=== PATIENT | male | born 1970 | race Caucasian/White ===

== ENCOUNTER 2020-04-30 11:34 | Inpatient (IN) | payer OTHER ==
--- NOTE | 2020-04-30 12:59 | PDOC ---
History of Present Illness - General Chief Complaint: Blood Pressure Problem Stated Complaint: Blood Pressure Problem Time Seen by Provider: 04/30/20 12:06 Exam Limitations: Clinical Condition - History of Present Illness Initial Comments: 04/30/20 13:16 50M with PMH of dysphagia s/p trach, functional quadriplegia 2/2 stroke, afib, HTN, seizures, stage IV sacral ulcer, perma cath on R chest wall for dialysis who presents to ED via EMS from [facility] for low blood pressure. He's baseline nonverbal, unable to obtain further history. PMH: as in HPI SH: see below Allergies: NKDA PCP: Dr. Claire Clayton ROS: unable to obtain due to nonverbal status PE GENERAL: awake and alert, pt nods but unable to assess orientation; no apparent distress HEAD: No signs of trauma, NC/AT EYES: PERRLA, EOMI, sclera anicteric, conjunctiva clear ENT: Auricles normal inspection, nares patent, moist mucosa, oropharynx clear without exudates. NECK: Normal ROM, trach HEART: Tachy, regular rhythm, normal S1/S2, no murmurs, rubs, or gallops. Radial and DP pulses 2+ and equal bilaterally. LUNGS: No distress, speaks full sentences, CTA bilaterally ABDOMEN: Soft, nontender. No guarding, no rebound. No masses EXTREMITIES: Normal inspection, Normal range of motion, no edema. NEUROLOGICAL: No obvious neurological deficit SKIN: Warm, Dry, normal turgor. Assessment and Plan 1. sepsis workup Joe Skinner, PGY1 Emergency Medicine Past History - Medical History Allergies/Adverse Reactions: Allergies Allergy/AdvReac Type Severity Reaction Status Date / Time No Known Allergies Allergy Verified 04/30/20 11:44 Home Medications: Ambulatory Orders Acetaminophen 650 mg GT Q6H PRN 04/30/20 Albuterol 2.5/Ipratropium 0.5 [Duoneb -] 1 amp NEB Q6H 04/30/20 Apixaban [Eliquis] 2.5 mg GT BID 04/30/20 Ascorbate Calcium [Vitamin C] 500 mg GT BID 04/30/20 Atorvastatin Ca [Lipitor] 40 mg GT HS 04/30/20 Budesonide [Pulmicort 0.5 mg Nebulizer -] 1 neb NEB BID 04/30/20 Chlorhexidine Gluconate [Peridex -] 15 ml MM BID 04/30/20 Collagenase Clostridium Hist. [Santyl] 1 applic TP DAILY 04/30/20 Gabapentin [Neurontin -] 300 mg GT TID 04/30/20 Loperamide HCl [Loperamide] 2 mg GT BID PRN 04/30/20 Meropenem-0.9% Sodium Chloride [Meropenem-0.9% NaCl 500 mg/50] 500 mg IV Q12H 04/30/20 Metoprolol Tartrate [Lopressor -] 25 mg GT BID 04/30/20 Midodrine HCl 10 mg GT TID 04/30/20 Nystatin Ointment [Mycostatin Ointment -] 1 applic TP BID 04/30/20 Omeprazole 20 mg GT DAILY 04/30/20 Quetiapine Fumarate [Seroquel -] 50 mg GT BID 04/30/20 Vancomycin (Pre-Docked) 500 mg IVPB TUTHSA 04/30/20 levETIRAcetam [Levetiracetam] 500 mg GT Q48H 04/30/20 Cardiac Disorders: Yes (AFIB) CVA: Yes (DYPHAGIA) COPD: No Dialysis: Yes (PERMA CATH RT CW FOR DIALYSIS) HTN: Yes Hypercholesterolemia: Yes Psychiatric Problems: Yes (SCHIOPHRENIA) Seizures: Yes Other medical history: STAGE 4 PRESSURE ULCER SACRUM, TRACH - Psycho-Social/Smoking History Smoking History: Smoker current status UNK Have you smoked in the past 12 months: No Information on smoking cessation initiated: No - Substance Abuse Hx (Audit-C & DAST Scrn) How often the patient has a drink containing alcohol: Never Score: In Men: 4 or > Positive; In Women: 3 or > Positive: 0 Screen Result (Pos requires Nsg. Audit-10AR): Negative In the last yr the pt used illegal drug/Rx for NonMed reason: No Score: Yes response is considered Positive: 0 Screen Result (Positive result requires Nsg. DAST-10): Negative *Physical Exam - Vital Signs Last Vital Signs Temp Pulse Resp BP Pulse Ox 97.4 F L 117 H 18 95/68 92 L 04/30/20 11:44 04/30/20 11:44 04/30/20 11:44 04/30/20 11:44 04/30/20 11:44 ED Treatment Course - LABORATORY CBC & Chemistry Diagram: 04/30/20 15:00 04/30/20 15:00 Medical Decision Making - Medical Decision Making 04/30/20 13:22 50M with PMH of ESRD (on dialysis), s/p trach, stage IV sacral ulcer presents from [facility] for hypotension. He's currently receiving IV Abx -> pt is tachycardic and borderline hypotensive (MAP 76) -> meets SIRS criteria -> will do sepsis workup, will give 500mL fluids 04/30/20 13:25 EKG normal sinus rhythm. 04/30/20 15:56 UA + for bacteria, leukocyte esterase, and WBC -> Dr. Paniagua (infectious disease) was contacted, and he recommended starting the pt on 600mg clindamycin, and continuing merepenem. 04/30/20 17:31 Labs notable for leukocytosis (19.9) , lactate 2.6 -> meets severe sepsis criteria -> pt will be admitted Electrolytes wnl, creatinine and BUN elevated (likely at baseline) - no need for nephro consult at this time 04/30/20 19:28 Pt admitted to tele. Discharge - Discharge Information Problems reviewed: Yes Clinical Impression/Diagnosis: Hypotension Qualifiers: Hypotension type: other hypotension type Qualified Code(s): I95.89 - Other hypotension Condition: Stable - Admission Yes - Follow up/Referral - Patient Discharge Instructions - Post Discharge Activity
[2020-04-30] MEDS ORDERED: SODIUM CHLORIDE 500 ML IV STA (13:43)
--- NOTE | 2020-04-30 14:51 | PDOC ---
Documentation entered by Shine Durham SCRIBE, acting as scribe for Jose Luis Wilkinson MD. Jose Luis Wilkinson MD: This documentation has been prepared by the Herminio gr Xhesika, SCRIBE, under my direction and personally reviewed by me in its entirety. I confirm that the documentation accurately reflects all work, treatment, procedures, and medical decision making performed by me. Attending Attestation - Resident Resident Name: SkinnerBakariJoe - ED Attending Attestation I have performed the following: I have examined & evaluated the patient, The case was reviewed & discussed with the resident, I agree w/resident's findings & plan, Exceptions are as noted - HPI HPI: 04/30/20 12:59 The patient is a 50y/o M with a pmh of afib, dysphagia, HTN, HLD, Seizures, stage IV sacral ulcer, perma cath on R chest wall for dialysis who presents to the ED BIBA from [facility] for low blood pressure. Pt is nonverbal at baseline and unable to contribute to further history. Allergies: NKDA PCP: Claire Neil - Physicial Exam PE: 04/30/20 14:46 awake, alert, responds to questions by head movts eomim mm-dry cta rrr, tachycardic sft, nt, nd, g tube in luq stage 4 sacral decub; b/ll heel ulcers - Medical Decision Making 04/30/20 14:50 50-year-old male with multiple comorbidities, history of stage IV sacral decub on Vanco, meropenem IV for suspected sepsis referred from [facility] for persistent hypotension. Patient received only 1 hour of hemodialysis 1 day prior and was not able to be dialyzed on the day of arrival. In the ER, patient's blood pressure was noted to be labile, ranging between 90-105 systolic. Patient is noted to be mildly tachycardic with sinus tachycardia on his EKG. Patient is afebrile. Differential diagnosis includes dehydration versus sepsis. Will obtain CBC/CMP/lactic acid. Will repeat blood cultures. Will consult renal. Likely admission. Discharge - Discharge Information Problems reviewed: Yes Clinical Impression/Diagnosis: Hypotension Qualifiers: Hypotension type: other hypotension type Qualified Code(s): I95.89 - Other hypotension - Follow up/Referral Referrals: Claire Clayton MD [Primary Care Provider] - - Patient Discharge Instructions - Post Discharge Activity
[2020-04-30 15:41] LABS: EPI CELLS 1 /uL (0-25.1); HYALINE CASTS 1 /uL (0-3.1); URINE APPEARANCE CLOUDY; URINE BACTERIA 65 /uL (0-1359); URINE BILIRUBIN 1+ (NEGATIVE); URINE COLOR DK YELLOW; URINE GLUCOSE (UA) NEGATIVE (NEGATIVE); URINE KETONE TRACE (NEGATIVE); URINE LEUK ESTERASE 3+ (NEGATIVE); URINE NITRITE NEGATIVE (NEGATIVE); URINE PROTEIN 2+ (NEGATIVE); URINE RBC 19 /uL (0-23.9); URINE WBC 2065 /uL (0-25.8)
[2020-04-30] MEDS ORDERED: CLINDAMYCIN 600MG PREMIX IVPB 600 MG/50 ML BAG IVPB ONE ×2 (15:54→16:05)
[2020-04-30 16:35] LABS: BASO % 0.3 % (0-2.0); HEMATOCRIT 28.7 % (35.4-49); HEMOGLOBIN 9.3 GM/dL (11.7-16.9); LYMPH % 12.8 % (8-40); MCH 30.2 pg (25.7-33.7); MCHC 32.4 g/dl (32.0-35.9); MEAN CELL VOLUME 93.1 fl (80-96); MEAN PLT VOLUME 8.7 fl (7.5-11.1); MONO % 8.1 % (3.8-10.2); NEUT % 77.8 % (42.8-82.8); PLATELET COUNT 391 K/MM3 (134-434); RBC 3.08 M/mm3 (4.00-5.60); RDW 15.5 % (11.9-15.9); WHITE BLOOD COUNT 19.9 K/mm3 (4.0-10.0)
[2020-04-30 17:08] LABS: ALBUMIN 2.7 g/dl (3.4-5.0); ALK PHOS 152 U/L (45-117); ANION GAP 16 MMOL/L (8-16); BILIRUBIN,TOTAL 0.4 mg/dL (0.2-1); BLOOD UREA NITROGEN 88.2 mg/dL (7-18); CALCIUM 9.8 mg/dL (8.5-10.1); CHLORIDE 97 mmol/L (98-107); CO2 25 mmol/L (21-32); CREATININE 4.1 mg/dL (0.55-1.3); GLUCOSE,RANDOM 98 mg/dL (74-106); POTASSIUM 4.2 mmol/L (3.5-5.1); SGOT/AST 44 U/L (15-37); SGPT/ALT 61 U/L (13-61); SODIUM 137 mmol/L (136-145); TOT PROT 8.3 g/dl (6.4-8.2)
[2020-04-30 17:48] LABS: ANISOCYTOSIS 1+; MACROCYTOSIS 0; PLATELET ESTIMATE NORMAL
[2020-04-30] MEDS ORDERED: ACETAMINOPHEN 650 MG/20.3 ML ORAL SOLUTION (CUPS) GT PRN (22:43)
[2020-04-30] MEDS ORDERED: QUEtiapine FUMARATE 50 MG TABLET GT ONE (22:44)
[2020-04-30] MEDS ORDERED: APIXABAN 2.5 MG TABLET GT SCH ×2 (22:45→23:45)
[2020-04-30] MEDS ORDERED: ALBUTEROL SO4 2.5/IPRATROPIUM 0.5 INH SOL 3 ML VIAL.NEB. NEB PRN (22:48)
[2020-04-30] MEDS ORDERED: SODIUM CHLORIDE 0.9% 500 ML INFUS.BAG IV ONE (22:50)
[2020-04-30] MEDS: METOPROLOL TARTRATE 25 MG TABLET (FP) GT SCH (22:55)
[2020-04-30] MEDS ORDERED: ALBUTEROL SO4 HFA INHALER IH PRN (22:58)
[2020-05-01] MEDS ORDERED: QUEtiapine FUMARATE 25 MG TABLET ONE (00:43)
[2020-05-01] MEDS ORDERED: APIXABAN 2.5 MG TABLET ONE (00:43)
[2020-05-01] MEDS ORDERED: METOPROLOL TARTRATE 25 MG TABLET (FP) ONE (00:43)
[2020-05-01] MEDS ORDERED: MEROPENEM 1 GM in DEXTROSE 5%-WATER 100 ML IVPB SCH (02:00)
[2020-05-01] MEDS ORDERED: DEXTROSE 5%-WATER 100 ML IVPB ONE ×2 (02:41→09:58)
[2020-05-01] MEDS ORDERED: MEROPENEM 1 GM VIAL (RESTRICTED TO ID) IVPB ONE ×2 (02:41→09:58)
[2020-05-01] MEDS: MEROPENEM 1 GM in DEXTROSE 5%-WATER 100 ML IVPB SCH ×3 (02:55→15:49)
[2020-05-01] MEDS: levETIRAcetam 500 MG/5 ML ORAL SOLUTION (UNIT-DOSE CUPS) GT SCH (03:48)
[2020-05-01] MEDS: GABAPENTIN 250 MG/5 ML ORAL SOLUTION, 470 ML BOTTLE GT SCH ×4 (03:48→21:22)
[2020-05-01] MEDS: NYSTATIN 100000 UNIT/GM TOPICAL OINTMENT 15 GM TUBE TP SCH ×3 (03:59→21:23)
[2020-05-01 07:46] LABS: BASO % 0.4 % (0-2.0); EOS % 1.9 % (0-4.5); HEMATOCRIT 28.4 % (35.4-49); HEMOGLOBIN 9.3 GM/dL (11.7-16.9); LYMPH % 15.1 % (8-40); MCH 30.3 pg (25.7-33.7); MCHC 32.9 g/dl (32.0-35.9); MEAN CELL VOLUME 92.2 fl (80-96); MEAN PLT VOLUME 8.3 fl (7.5-11.1); MONO % 7.8 % (3.8-10.2); NEUT % 74.8 % (42.8-82.8); PLATELET COUNT 386 K/MM3 (134-434); RBC 3.08 M/mm3 (4.00-5.60); RDW 15.3 % (11.9-15.9); WHITE BLOOD COUNT 16.4 K/mm3 (4.0-10.0)
[2020-05-01 08:17] LABS: ALBUMIN 2.5 g/dl (3.4-5.0); BILIRUBIN,TOTAL 0.4 mg/dL (0.2-1); BLOOD UREA NITROGEN 101.6 mg/dL (7-18); CALCIUM 9.8 mg/dL (8.5-10.1); CREATININE 4.6 mg/dL (0.55-1.3); POTASSIUM 4.2 mmol/L (3.5-5.1); TOT PROT 7.7 g/dl (6.4-8.2)
--- NOTE | 2020-05-01 08:22 | HP ---
CHIEF COMPLAINT: low BP PCP: Dr Purcell ([facility]) HISTORY OF PRESENT ILLNESS: 50 M h/o dysphagia s/p trach, functional quadriplegia 2/2 stroke, Afib on AC, HTN, seizures, morbid obesity, stage IV sacral ulcer, perma cath on R chest wall for dialysis who presents to ED via EMS from [facility] for low blood pressure. Pt. found to have infected chronic stage 4 decubitus ulcer, received Meropenem/Clindamycin in ED. ID following patient. ER course was notable for: (1) Meropenem/Clindamycin received in ED (2) BP improved w/ IVF (3) Recent Travel: denies PAST MEDICAL HISTORY: as above PAST SURGICAL HISTORY: R perm-A-cath acccess Social History: denies x3 Allergies No Known Allergies Allergy (Verified 04/30/20 11:44) HOME MEDICATIONS: Home Medications Medication Instructions Recorded Albuterol 2.5/Ipratropium 0.5 1 amp NEB Q6H 04/30/20 [Duoneb -] Apixaban [Eliquis] 2.5 mg GT BID 04/30/20 Ascorbate Calcium [Vitamin C] 500 mg GT BID 04/30/20 Atorvastatin Ca [Lipitor] 40 mg GT HS 04/30/20 Budesonide [Pulmicort 0.5 mg 1 neb NEB BID 04/30/20 Nebulizer -] Chlorhexidine Gluconate [Peridex -] 15 ml MM BID 04/30/20 Collagenase Clostridium Hist. 1 applic TP DAILY 04/30/20 [Santyl] Gabapentin [Neurontin -] 300 mg GT TID 04/30/20 Loperamide HCl [Loperamide] 2 mg GT BID PRN 04/30/20 Meropenem-0.9% Sodium Chloride 500 mg IV Q12H 04/30/20 [Meropenem-0.9% NaCl 500 mg/50] Metoprolol Tartrate [Lopressor -] 25 mg GT BID 04/30/20 Nystatin Ointment [Mycostatin 1 applic TP BID 04/30/20 Ointment -] Quetiapine Fumarate [Seroquel -] 50 mg GT BID 04/30/20 RX: Acetaminophen 650 mg GT Q6H PRN 04/30/20 RX: Midodrine HCl 10 mg GT TID 04/30/20 RX: Omeprazole 20 mg GT DAILY 04/30/20 RX: Vancomycin (Pre-Docked) 500 mg IVPB TUTHSA 04/30/20 levETIRAcetam [Levetiracetam] 500 mg GT Q48H 04/30/20 PHYSICAL EXAMINATION Vital Signs - 24 hr 04/30/20 04/30/20 04/30/20 11:44 12:10 16:30 Temperature 97.4 F L Pulse Rate 117 H 112 H 117 H Respiratory 18 Rate Blood Pressure 95/68 O2 Sat by Pulse 92 L 91 L 95 Oximetry (%) 04/30/20 04/30/20 04/30/20 21:00 21:48 23:00 Temperature 98.8 F Pulse Rate 106 H Respiratory 21 H 21 H Rate Blood Pressure 96/67 O2 Sat by Pulse 95 96 96 Oximetry (%) 05/01/20 05/01/20 05/01/20 02:30 06:00 07:54 Temperature 97.7 F 98.4 F Pulse Rate 114 H 118 H 113 H Respiratory 21 H 20 Rate Blood Pressure 92/52 L 103/57 L O2 Sat by Pulse 95 89 L 93 L Oximetry (%) GA alert, responding to simple commands, non-verbal HEENT NC/AT, dry MM, trach site w/ mild secretions Chest coarse b/l BS, crackles at bases CVS Irregularly irregular, regular rate Abd Soft, morbid obese, NT, BS+, PEG site clean Ext no LE edema, no calf tenderness MSK Stage 4 decubitus ulcer w/ discharge Laboratory Results - last 24 hr 04/30/20 04/30/20 04/30/20 15:00 15:00 15:00 WBC 19.9 H RBC 3.08 L Hgb 9.3 L Hct 28.7 L MCV 93.1 MCH 30.2 MCHC 32.4 RDW 15.5 Plt Count 391 MPV 8.7 Absolute Neuts (auto) 15.5 H Neutrophils % 77.8 Neutrophils % (Manual) 77.1 Band Neutrophils % 0.0 Lymphocytes % 12.8 Lymphocytes % (Manual) 12.8 Monocytes % 8.1 Monocytes % (Manual) 4 Eosinophils % 1.0 Eosinophils % (Manual) 0.9 Basophils % 0.3 Basophils % (Manual) 0.0 Myelocytes % (Man) 4 H Promyelocytes % (Man) 0 Blast Cells % (Manual) 0 Nucleated RBC % 0 Metamyelocytes 1 Hypochromia 1+ Platelet Estimate Normal Polychromasia 0 Poikilocytosis 1+ Anisocytosis 1+ Microcytosis 1+ Macrocytosis 0 Sodium 137 Potassium 4.2 Chloride 97 L Carbon Dioxide 25 Anion Gap 16 BUN 88.2 H Creatinine 4.1 H Est GFR (CKD-EPI)AfAm 18.52 Est GFR (CKD-EPI)NonAf 15.98 Random Glucose 98 Lactic Acid Calcium 9.8 Total Bilirubin 0.4 AST 44 H ALT 61 Alkaline Phosphatase 152 H Troponin I < 0.02 Total Protein 8.3 H Albumin 2.7 L Urine Color Dk yellow Urine Appearance Cloudy Urine pH 5.0 Ur Specific [place] 1.020 Urine Protein 2+ H Urine Glucose (UA) Negative Urine Ketones Trace H Urine Blood 1+ H Urine Nitrite Negative Urine Bilirubin 1+ H Urine Urobilinogen 1.0 Ur Leukocyte Esterase 3+ H Urine WBC (Auto) 2065 Urine RBC (Auto) 19 Urine Casts (Auto) 1 U Epithel Cells (Auto) 1 Urine Bacteria (Auto) 65 04/30/20 05/01/20 15:00 07:20 WBC RBC Hgb Hct MCV MCH MCHC RDW Plt Count MPV Absolute Neuts (auto) Neutrophils % Neutrophils % (Manual) Band Neutrophils % Lymphocytes % Lymphocytes % (Manual) Monocytes % Monocytes % (Manual) Eosinophils % Eosinophils % (Manual) Basophils % Basophils % (Manual) Myelocytes % (Man) Promyelocytes % (Man) Blast Cells % (Manual) Nucleated RBC % Metamyelocytes Hypochromia Platelet Estimate Polychromasia Poikilocytosis Anisocytosis Microcytosis Macrocytosis Sodium 137 Potassium 4.2 Chloride 97 L Carbon Dioxide 25 Anion Gap 15 BUN 101.6 H Creatinine 4.6 H Est GFR (CKD-EPI)AfAm 16.11 Est GFR (CKD-EPI)NonAf 13.90 Random Glucose 107 H Lactic Acid 2.6 H* Calcium 9.8 Total Bilirubin 0.4 AST 38 H ALT 51 Alkaline Phosphatase 137 H Troponin I Total Protein 7.7 Albumin 2.5 L Urine Color Urine Appearance Urine pH Ur Specific [place] Urine Protein Urine Glucose (UA) Urine Ketones Urine Blood Urine Nitrite Urine Bilirubin Urine Urobilinogen Ur Leukocyte Esterase Urine WBC (Auto) Urine RBC (Auto) Urine Casts (Auto) U Epithel Cells (Auto) Urine Bacteria (Auto) Home Medications Medication Instructions Recorded Albuterol 2.5/Ipratropium 0.5 1 amp NEB Q6H 04/30/20 [Duoneb -] Apixaban [Eliquis] 2.5 mg GT BID 04/30/20 Ascorbate Calcium [Vitamin C] 500 mg GT BID 04/30/20 Atorvastatin Ca [Lipitor] 40 mg GT HS 04/30/20 Budesonide [Pulmicort 0.5 mg 1 neb NEB BID 04/30/20 Nebulizer -] Chlorhexidine Gluconate [Peridex -] 15 ml MM BID 04/30/20 Collagenase Clostridium Hist. 1 applic TP DAILY 04/30/20 [Santyl] Gabapentin [Neurontin -] 300 mg GT TID 04/30/20 Loperamide HCl [Loperamide] 2 mg GT BID PRN 04/30/20 Meropenem-0.9% Sodium Chloride 500 mg IV Q12H 04/30/20 [Meropenem-0.9% NaCl 500 mg/50] Metoprolol Tartrate [Lopressor -] 25 mg GT BID 04/30/20 Nystatin Ointment [Mycostatin 1 applic TP BID 04/30/20 Ointment -] Quetiapine Fumarate [Seroquel -] 50 mg GT BID 04/30/20 RX: Acetaminophen 650 mg GT Q6H PRN 04/30/20 RX: Midodrine HCl 10 mg GT TID 04/30/20 RX: Omeprazole 20 mg GT DAILY 04/30/20 RX: Vancomycin (Pre-Docked) 500 mg IVPB TUTHSA 04/30/20 levETIRAcetam [Levetiracetam] 500 mg GT Q48H 04/30/20 Current Medications Generic Name Dose Route Start Last Admin Trade Name Freq PRN Reason Stop Dose Admin Acetaminophen 325 mg 04/30/20 22:43 Tylenol Oral Solution - GT Q6H PRN FEVER Albuterol Sulfate 2 puff 04/30/20 22:58 Ventolin Hfa Inhaler - IH Q4H PRN SHORTNESS OF BREATH Albuterol/Ipratropium 1 amp 04/30/20 22:48 Duoneb - NEB Q4H PRN SHORTNESS OF BREATH Apixaban 5 mg 05/01/20 00:56 Eliquis - GT BID EMETERIO Ascorbic Acid 500 mg 05/01/20 10:00 Vitamin C - GT DAILY [facility] Atorvastatin Calcium 40 mg 05/01/20 22:00 Lipitor - GT HS EMETERIO Collagenase 1 applic 05/01/20 10:00 Santyl - TP DAILY [facility] Protocol Famotidine 20 mg 05/01/20 10:00 Pepcid NGT BID EMETERIO Gabapentin 300 mg 05/01/20 06:00 05/01/20 06:35 Neurontin Oral Liquid - GT Not Given TID EMETERIO Meropenem 1 gm/ Dextrose 100 mls @ 200 mls/hr 05/01/20 02:00 05/01/20 02:55 IVPB 05/01/20 18:29 200 mls/hr Q8H-IV EMETERIO Administration Meropenem 1 gm/ Dextrose 100 mls @ 200 mls/hr 05/01/20 01:00 IVPB Q12H EMETERIO Levetiracetam 500 mg 04/30/20 22:45 05/01/20 03:48 Keppra Oral Solution - GT 500 mg Q48H EMETERIO Administration Metoprolol Tartrate 25 mg 04/30/20 22:45 04/30/20 22:55 Lopressor - GT 25 mg BID [facility] Administration Midodrine 10 mg 05/01/20 10:00 Proamatine - GT TID-MID EMETERIO Nystatin 1 applic 04/30/20 22:45 05/01/20 03:59 Mycostatin Ointment - TP Not Given BID [facility] ASSESSMENT/PLAN: 50 M Sepsis 2/2 infected Stage 4 decubitus ulcer Afib on Eliquis HTN HLD Dysphagia s/p trach PEG non-ambulatory Non-verbal Morbidly obese Seizure disorder ESRD on HD Plan: Cont. abx w/ Meropenem/Clindamycin Frequent turns, Surgery evaluation for debridement Restart GT meds HOB elevation, NC supplementation PRN Follow cultures DVT ppx: Eliquis Family Medical History Family History: As Documented Visit type - Emergency Visit Emergency Visit: Yes ED Registration Date: 04/30/20 Care time: The patient presented to the Emergency Department on the above date and was hospitalized for further evaluation of their emergent condition. - New Patient This patient is new to me today: Yes Date on this admission: 05/01/20 - Critical Care Critical Care patient: No
--- NOTE | 2020-05-01 09:48 | PN ---
Physical Exam: SUBJECTIVE: Patient seen and examined at bedside. No acute complaints. OBJECTIVE: Vital Signs Period Temp Pulse Resp BP Sys/[place] Pulse Ox Last 24 Hr 97.4 F-98.8 F 106-118 18-21 92-103/52-68 89-96 GENERAL: The patient is awake. Trached, vented. HEAD: Normal with no signs of trauma. EYES: PERRL, extraocular movements intact, conjunctiva clear NECK: Supple without lymphadenopathy LUNGS: Mechanical breath sounds auscultated. No accessory muscle use. HEART: Irregular rate. S1, S2 auscultated without murmur, rub or gallop. ABDOMEN: Obese abdomen, soft, nontender. Normoactive bowel sounds. PEG tube in situ, site clean, dry. EXTREMITIES: 1+ pulses, warm. 2+ edema bilateral lower extremities. NEUROLOGICAL: Unable to assess. SKIN: Unstagable sacral decubitus ulcer noted, does not appear significant drainage or purulence. Left hip 2cm x 2cm wound, without purulence. Stasis dermatitis changes noted bilateral lower extremities. Laboratory Results - last 24 hr 04/30/20 04/30/20 04/30/20 15:00 15:00 15:00 WBC 19.9 H RBC 3.08 L Hgb 9.3 L Hct 28.7 L MCV 93.1 MCH 30.2 MCHC 32.4 RDW 15.5 Plt Count 391 MPV 8.7 Absolute Neuts (auto) 15.5 H Neutrophils % 77.8 Neutrophils % (Manual) 77.1 Band Neutrophils % 0.0 Lymphocytes % 12.8 Lymphocytes % (Manual) 12.8 Monocytes % 8.1 Monocytes % (Manual) 4 Eosinophils % 1.0 Eosinophils % (Manual) 0.9 Basophils % 0.3 Basophils % (Manual) 0.0 Myelocytes % (Man) 4 H Promyelocytes % (Man) 0 Blast Cells % (Manual) 0 Nucleated RBC % 0 Metamyelocytes 1 Hypochromia 1+ Platelet Estimate Normal Polychromasia 0 Poikilocytosis 1+ Anisocytosis 1+ Microcytosis 1+ Macrocytosis 0 Sodium 137 Potassium 4.2 Chloride 97 L Carbon Dioxide 25 Anion Gap 16 BUN 88.2 H Creatinine 4.1 H Est GFR (CKD-EPI)AfAm 18.52 Est GFR (CKD-EPI)NonAf 15.98 Random Glucose 98 Lactic Acid Calcium 9.8 Total Bilirubin 0.4 AST 44 H ALT 61 Alkaline Phosphatase 152 H Troponin I < 0.02 Total Protein 8.3 H Albumin 2.7 L Urine Color Dk yellow Urine Appearance Cloudy Urine pH 5.0 Ur Specific [place] 1.020 Urine Protein 2+ H Urine Glucose (UA) Negative Urine Ketones Trace H Urine Blood 1+ H Urine Nitrite Negative Urine Bilirubin 1+ H Urine Urobilinogen 1.0 Ur Leukocyte Esterase 3+ H Urine WBC (Auto) 2065 Urine RBC (Auto) 19 Urine Casts (Auto) 1 U Epithel Cells (Auto) 1 Urine Bacteria (Auto) 65 04/30/20 05/01/20 05/01/20 15:00 07:20 07:20 WBC 16.4 H RBC 3.08 L Hgb 9.3 L Hct 28.4 L MCV 92.2 MCH 30.3 MCHC 32.9 RDW 15.3 Plt Count 386 MPV 8.3 Absolute Neuts (auto) 12.2 H Neutrophils % 74.8 Neutrophils % (Manual) Band Neutrophils % Lymphocytes % 15.1 Lymphocytes % (Manual) Monocytes % 7.8 Monocytes % (Manual) Eosinophils % 1.9 D Eosinophils % (Manual) Basophils % 0.4 Basophils % (Manual) Myelocytes % (Man) Promyelocytes % (Man) Blast Cells % (Manual) Nucleated RBC % 0 Metamyelocytes Hypochromia Platelet Estimate Polychromasia Poikilocytosis Anisocytosis Microcytosis Macrocytosis Sodium 137 Potassium 4.2 Chloride 97 L Carbon Dioxide 25 Anion Gap 15 BUN 101.6 H Creatinine 4.6 H Est GFR (CKD-EPI)AfAm 16.11 Est GFR (CKD-EPI)NonAf 13.90 Random Glucose 107 H Lactic Acid 2.6 H* Calcium 9.8 Total Bilirubin 0.4 AST 38 H ALT 51 Alkaline Phosphatase 137 H Troponin I Total Protein 7.7 Albumin 2.5 L Urine Color Urine Appearance Urine pH Ur Specific [place] Urine Protein Urine Glucose (UA) Urine Ketones Urine Blood Urine Nitrite Urine Bilirubin Urine Urobilinogen Ur Leukocyte Esterase Urine WBC (Auto) Urine RBC (Auto) Urine Casts (Auto) U Epithel Cells (Auto) Urine Bacteria (Auto) Active Medications Generic Name Dose Route Start Last Admin Trade Name Freq PRN Reason Stop Dose Admin Acetaminophen 325 mg 04/30/20 22:43 Tylenol Oral Solution - GT Q6H PRN FEVER Albuterol Sulfate 2 puff 04/30/20 22:58 Ventolin Hfa Inhaler - IH Q4H PRN SHORTNESS OF BREATH Albuterol/Ipratropium 1 amp 04/30/20 22:48 Duoneb - NEB Q4H PRN SHORTNESS OF BREATH Apixaban 5 mg 05/01/20 00:56 Eliquis - GT BID EMETERIO Ascorbic Acid 500 mg 05/01/20 10:00 Vitamin C - GT DAILY [facility] Atorvastatin Calcium 40 mg 05/01/20 22:00 Lipitor - GT HS EMETERIO Collagenase 1 applic 05/01/20 10:00 Santyl - TP DAILY [facility] Protocol Famotidine 20 mg 05/01/20 10:00 Pepcid NGT BID [facility] Gabapentin 300 mg 05/01/20 06:00 05/01/20 06:35 Neurontin Oral Liquid - GT Not Given TID EMETERIO Meropenem 1 gm/ Dextrose 100 mls @ 200 mls/hr 05/01/20 02:00 05/01/20 02:55 IVPB 05/01/20 18:29 200 mls/hr Q8H-IV EMETERIO Administration Meropenem 1 gm/ Dextrose 100 mls @ 200 mls/hr 05/01/20 01:00 IVPB Q12H EMETERIO Levetiracetam 500 mg 04/30/20 22:45 05/01/20 03:48 Keppra Oral Solution - GT 500 mg Q48H EMETERIO Administration Metoprolol Tartrate 25 mg 04/30/20 22:45 04/30/20 22:55 Lopressor - GT 25 mg BID EMETERIO Administration Midodrine 10 mg 05/01/20 10:00 Proamatine - GT TID-MID EMETERIO Nystatin 1 applic 04/30/20 22:45 05/01/20 03:59 Mycostatin Ointment - TP Not Given BID [facility] ASSESSMENT/PLAN: Patient is a 50 year old male with history of chronic respiratory failure (Tracheostomy, vented), ESRD (on hemodialysis) Afib (on Eliquis), functional quadriplegia secondary to prior stroke, seizure disorder, stage IV sacral decubitus ulcer, presents from [facility] for persistent hypotension. Sepsis secondary to acute complicated UTI, vs sacral decubitus ulcer -Noted prior antibiotic (Vancomcin and Meropenem) at [facility] -ID recommendations () appreciated. Follow Blood cultures, urine cultures -Continue Meropenem, Received one dose Clindamycin in ED -Follow repeat Lactic Acid -Aspiration precautions ESRD -Currently no acute indication for hemodialysis -Nephrology recommendations (Dr. Canonn) appreciated -Follow BMP Afib -Rate controlled with Metoprolol -Eliquis 5mg GT BID -Cardiac telemetry monitoring, given tenuous hemodynamics Seizure disorder -Continue home Keppra FEN -No IV fluids indicated -Follow BMP -fisher [place] net consult to assist with tube feed Prophylaxis -Eliquis 5mg GT BID Disposition -Admit to Telemetry floor Visit type - Emergency Visit Emergency Visit: Yes ED Registration Date: 04/30/20 Care time: The patient presented to the Emergency Department on the above date and was hospitalized for further evaluation of their emergent condition. - New Patient This patient is new to me today: Yes Date on this admission: 05/01/20 - Critical Care Critical Care patient: No - Discharge Referral Referred to [facility] No ATTENDING PHYSICIAN STATEMENT I saw and evaluated the patient. I reviewed the resident's note and discussed the case with the resident. I agree with the resident's findings and plan as documented. SUBJECTIVE: OBJECTIVE: ASSESSMENT AND PLAN:
[2020-05-01] MEDS ORDERED: PT OWN MED DRAWER 7, Y5N ONE ×3 (09:58→20:25)
[2020-05-01] MEDS ORDERED: FAMOTIDINE 40 MG/5 ML ORAL SUSPENSION NGT SCH (10:00)
[2020-05-01] MEDS: METOPROLOL TARTRATE 25 MG TABLET (FP) GT SCH ×2 (10:04→21:24)
[2020-05-01] MEDS: ASCORBIC ACID 500 MG TABLET (FP) GT SCH (10:04)
[2020-05-01] MEDS: MIDODRINE HCL 5 MG TABLET GT SCH ×3 (10:04→21:26)
[2020-05-01 10:17] LABS: ANISOCYTOSIS 1+; CORRECTED WBC 14.77 K/mm3; MACROCYTOSIS 0; PLATELET ESTIMATE NORMAL
[2020-05-01] MEDS: COLLAGENASE CLOSTRIDIUM HIST. 30 GRAMS TUBE TP SCH (10:32)
--- NOTE | 2020-05-01 11:52 | CON.NEP ---
Consult Consult Specialty:: nephrology - History of Present Illness History of Present Illness: 50 M h/o dysphagia s/p trach, functional quadriplegia 2/2 stroke, Afib on AC, HTN, seizures, morbid obesity, stage IV sacral ulcer, perma cath on R chest wall for dialysis who presents to ED via EMS from [facility] for low blood pressure. Pt. found to have infected chronic stage 4 decubitus ulcer, received Meropenem/Clindamycin in ED. ID following patient. I saw him during hd 2 days ago and he was tachycardic and hypotensive. He required some fluid and had a set of blood cultures which remains negative He cant provide a history - Smoking History Smoking history: Unknown if ever smoked Have you smoked in the past 12 months: No Home Medications - Allergies Allergies/Adverse Reactions: Allergies Allergy/AdvReac Type Severity Reaction Status Date / Time No Known Allergies Allergy Verified 04/30/20 11:44 - Home Medications Home Medications: Ambulatory Orders Acetaminophen 650 mg GT Q6H PRN 04/30/20 Albuterol 2.5/Ipratropium 0.5 [Duoneb -] 1 amp NEB Q6H 04/30/20 Apixaban [Eliquis] 2.5 mg GT BID 04/30/20 Ascorbate Calcium [Vitamin C] 500 mg GT BID 04/30/20 Atorvastatin Ca [Lipitor] 40 mg GT HS 04/30/20 Budesonide [Pulmicort 0.5 mg Nebulizer -] 1 neb NEB BID 04/30/20 Chlorhexidine Gluconate [Peridex -] 15 ml MM BID 04/30/20 Collagenase Clostridium Hist. [Santyl] 1 applic TP DAILY 04/30/20 Gabapentin [Neurontin -] 300 mg GT TID 04/30/20 Loperamide HCl [Loperamide] 2 mg GT BID PRN 04/30/20 Meropenem-0.9% Sodium Chloride [Meropenem-0.9% NaCl 500 mg/50] 500 mg IV Q12H 04/30/20 Metoprolol Tartrate [Lopressor -] 25 mg GT BID 04/30/20 Midodrine HCl 10 mg GT TID 04/30/20 Nystatin Ointment [Mycostatin Ointment -] 1 applic TP BID 04/30/20 Omeprazole 20 mg GT DAILY 10/07/20 Quetiapine Fumarate [Seroquel -] 50 mg GT BID 04/30/20 Vancomycin (Pre-Docked) 500 mg IVPB TUTHSA 04/30/20 levETIRAcetam [Levetiracetam] 500 mg GT Q48H 04/30/20 Nephrology Consult - Height Height: 5 ft 10 in - Weight Weight: 281 lb 4 oz - BMI Body Mass Index (BMI): 40.3 - Lab Results CBC,BMP: CBC, BMP 05/01/20 07:20 05/01/20 07:20 Anion Gap: Anion Gap Anion Gap 15 MMOL/L (8-16) 05/01/20 07:20 - Physical Examination Vital Signs: Vital Signs Temperature 98.4 F 05/01/20 06:00 Pulse Rate 113 H 05/01/20 07:54 Respiratory Rate 20 05/01/20 06:00 Blood Pressure 103/57 L 05/01/20 06:00 O2 Sat by Pulse Oximetry (%) 93 L 05/01/20 07:54 Assessment/Plan IMPRESSION esrd sepsis decub ulcer s/p cva PLAN will write orders for hd today monitor cultures surgical eval MV
--- NOTE | 2020-05-01 13:26 | EKG ---
Test Reason : Blood Pressure : / mmHG Vent. Rate : 116 BPM Atrial Rate : 116 BPM P-R Int : 174 ms QRS Dur : 098 ms QT Int : 318 ms P-R-T Axes : 057 -19 061 degrees QTc Int : 442 ms SINUS TACHYCARDIA POSSIBLE LEFT ATRIAL ENLARGEMENT BORDERLINE ECG NO PREVIOUS ECGS AVAILABLE Confirmed by HERRERA JACOBS, LUCA ([id number]) on 05/01/2020 1:26:09 PM Referred By: Confirmed By:LUCA SILVERMAN MD
--- NOTE | 2020-05-01 13:51 | CON.ID ---
Consult Consult Specialty:: infectious diseases Referred by:: hospitalist Reason for Consultation:: sepsis,huge decubitus ulcer - History of Present Illness Chief Complaint: weakness,decubitus ulcer History of Present Illness: 50 M h/o dysphagia s/p trach, functional quadriplegia 2/2 stroke, Afib on AC, HTN, seizures, morbid obesity, stage IV sacral ulcer, perma cath on R chest wall for dialysis who presents to ED via EMS from [facility] for low blood pressure. Pt. found to have infected chronic stage 4 decubitus ulcer, received Meropenem/Clindamycin in ED. currently patient looks stable and says he feels better when asked - History Source History Provided By: Patient, Medical Record Limitations to Obtaining History: Other (non verbal) - Smoking History Smoking history: Unknown if ever smoked Have you smoked in the past 12 months: No Home Medications - Allergies Allergies/Adverse Reactions: Allergies Allergy/AdvReac Type Severity Reaction Status Date / Time No Known Allergies Allergy Verified 04/30/20 11:44 - Home Medications Home Medications: Ambulatory Orders Albuterol 2.5/Ipratropium 0.5 [Duoneb -] 1 amp NEB Q6H 04/30/20 Apixaban [Eliquis] 2.5 mg GT BID 04/30/20 Ascorbate Calcium [Vitamin C] 500 mg GT BID 04/30/20 Atorvastatin Ca [Lipitor] 40 mg GT HS 04/30/20 Budesonide [Pulmicort 0.5 mg Nebulizer -] 1 neb NEB BID 04/30/20 Chlorhexidine Gluconate [Peridex -] 15 ml MM BID 04/30/20 Collagenase Clostridium Hist. [Santyl] 1 applic TP DAILY 04/30/20 Gabapentin [Neurontin -] 300 mg GT TID 04/30/20 Loperamide HCl [Loperamide] 2 mg GT BID PRN 04/30/20 Meropenem-0.9% Sodium Chloride [Meropenem-0.9% NaCl 500 mg/50] 500 mg IV Q12H 04/30/20 Metoprolol Tartrate [Lopressor -] 25 mg GT BID 04/30/20 Nystatin Ointment [Mycostatin Ointment -] 1 applic TP BID 04/30/20 Quetiapine Fumarate [Seroquel -] 50 mg GT BID 04/30/20 RX: Acetaminophen 650 mg GT Q6H PRN 04/30/20 RX: Midodrine HCl 10 mg GT TID 04/30/20 RX: Omeprazole 20 mg GT DAILY 04/30/20 RX: Vancomycin (Pre-Docked) 500 mg IVPB TUTHSA 04/30/20 levETIRAcetam [Levetiracetam] 500 mg GT Q48H 04/30/20 Review of Systems - Review of Systems Constitutional: reports: Weakness, Other Eyes: reports: No Symptoms HENT: reports: No Symptoms Neck: reports: No Symptoms Cardiovascular: reports: No Symptoms Respiratory: reports: No Symptoms Gastrointestinal: reports: No Symptoms Genitourinary: reports: No Symptoms Musculoskeletal: reports: No Symptoms Integumentary: reports: No Symptoms Neurological: reports: No Symptoms Endocrine: reports: No Symptoms Hematology/Lymphatic: reports: No Symptoms Psychiatric: reports: No Symptoms Physical Exam Vital Signs: Vital Signs Temperature 99.2 F 05/01/20 10:00 Pulse Rate 114 H 05/01/20 10:00 Respiratory Rate 20 05/01/20 10:00 Blood Pressure 99/65 05/01/20 10:00 O2 Sat by Pulse Oximetry (%) 96 05/01/20 10:00 Constitutional: Yes: Calm, Mild Distress, Obese Eyes: Yes: Conjunctiva Clear HENT: Yes: Atraumatic, Normocephalic Neck: Yes: Supple, Trachea Midline Cardiovascular: Yes: Pulse Irregular, S1, S2 Respiratory: Yes: Poor Air Entry, Other (trach in place) Gastrointestinal: Yes: Normal Bowel Sounds, Soft, Other (peg in place) Musculoskeletal: Yes: WNL Extremities: Yes: WNL Wound/Incision: Yes: Other (stage 4 sacral decubitus ulcer) Labs: CBC, BMP 05/01/20 07:20 05/01/20 07:20 Imaging - Results Chest X-ray: Report Reviewed, Image Reviewed Assessment/Plan 50 M Sepsis 2/2 infected Stage 4 decubitus ulcer Afib on Eliquis HTN HLD Dysphagia s/p trach PEG non-ambulatory Non-verbal Morbidly obese Seizure disorder ESRD on HD plan will start patient on abx await for cx reports wound care patients decubitus ulcer see--necrotic tissues needs debridement close watch resp support rest as per the team also will need wound vac
[2020-05-01] MEDS ORDERED: PIPERACILLIN/TAZOB 2.25 GM 2.25 GM in DEXTROSE 5%-WATER - 50 ML IVPB SCH (14:00)
[2020-05-01] MEDS: APIXABAN 5 MG TABLET GT SCH ×2 (16:00→23:00)
[2020-05-01] MEDS ORDERED: PIPERACILLIN/TAZOBACTAM 2.25 GM VIAL IVPB ONE (16:02)
[2020-05-01] MEDS ORDERED: DEXTROSE 5%-WATER - 50 ML IVPB ONE (16:03)
[2020-05-01] MEDS: PIPERACILLIN/TAZOB 2.25 GM 2.25 GM in DEXTROSE 5%-WATER - 50 ML IVPB SCH ×2 (16:05→19:00)
[2020-05-01] MEDS ORDERED: SODIUM CHLORIDE 250 ML IV PRN (16:25)
[2020-05-01] MEDS ORDERED: EPOETIN ALFA-EPBX 4,000 UNIT/ML VIAL SQ ONE (16:30)
[2020-05-01] MEDS ORDERED: EPOETIN ALFA-EPBX 4,000 UNIT/ML VIAL IVPUSH ONE (16:30)
[2020-05-01] MEDS: ATORVASTATIN CA 40 MG TABLET (FP) GT SCH (21:26)
[2020-05-02] MEDS ORDERED: FAMOTIDINE 40 MG/5 ML ORAL SUSPENSION NGT SCH (00:32)
[2020-05-02] MEDS ORDERED: PIPERACILLIN/TAZOBACTAM 2.25 GM VIAL IVPB ONE ×3 (01:44→16:57)
[2020-05-02] MEDS ORDERED: DEXTROSE 5%-WATER - 50 ML IVPB ONE ×3 (01:44→16:57)
[2020-05-02] MEDS: PIPERACILLIN/TAZOB 2.25 GM 2.25 GM in DEXTROSE 5%-WATER - 50 ML IVPB SCH ×3 (02:22→17:02)
[2020-05-02] MEDS: GABAPENTIN 250 MG/5 ML ORAL SOLUTION, 470 ML BOTTLE GT SCH ×3 (07:03→21:43)
[2020-05-02 07:38] LABS: ALBUMIN 2.6 g/dl (3.4-5.0); CALCIUM 9.3 mg/dL (8.5-10.1); MAGNESIUM 2.1 mg/dL (1.8-2.4); POTASSIUM 3.8 mmol/L (3.5-5.1)
[2020-05-02 07:40] LABS: HEMATOCRIT 28.1 % (35.4-49); HEMOGLOBIN 9.3 GM/dL (11.7-16.9); MCH 30.8 pg (25.7-33.7); MCHC 33.1 g/dl (32.0-35.9); MEAN PLT VOLUME 8.5 fl (7.5-11.1); PLATELET COUNT 374 K/MM3 (134-434); RBC 3.02 M/mm3 (4.00-5.60); RDW 15.3 % (11.9-15.9)
[2020-05-02 07:42] LABS: BILIRUBIN,TOTAL 0.5 mg/dL (0.2-1); CREATININE 3.4 mg/dL (0.55-1.3); PHOSPHOROUS 4.5 mg/dL (2.5-4.9)
[2020-05-02 07:43] LABS: BLOOD UREA NITROGEN 53.3 mg/dL (7-18)
--- NOTE | 2020-05-02 07:49 | PN ---
Progress Note, Physician Chief Complaint: Seen and examined in bed. No complaints offered. BP improved. Large open sacral decub ulcer discovered on admission. History of Present Illness: 50 M h/o dysphagia s/p trach, functional quadriplegia 2/2 stroke, Afib on AC, HTN, seizures, morbid obesity, stage IV sacral ulcer, perma cath on R chest wall for dialysis who presents to ED via EMS from [facility] for low blood pressure. Pt. found to have infected chronic stage 4 decubitus ulcer, received Meropenem/Clindamycin in ED. ID following patient. - Current Medication List Current Medications: Active Medications Acetaminophen (Tylenol Oral Solution -) 325 mg GT Q6H PRN PRN Reason: FEVER Albuterol Sulfate (Ventolin Hfa Inhaler -) 2 puff IH Q4H PRN PRN Reason: SHORTNESS OF BREATH Albuterol/Ipratropium (Duoneb -) 1 amp NEB Q4H PRN PRN Reason: SHORTNESS OF BREATH Apixaban (Eliquis -) 5 mg GT BID [facility] Last Admin: 05/01/20 23:00 Dose: 5 mg Documented by: Ascorbic Acid (Vitamin C -) 500 mg GT DAILY EMETERIO Last Admin: 05/01/20 10:04 Dose: 500 mg Documented by: Atorvastatin Calcium (Lipitor -) 40 mg GT HS [facility] Last Admin: 05/01/20 21:26 Dose: 40 mg Documented by: Collagenase (Santyl -) 1 applic TP DAILY EMETERIO; Protocol Last Admin: 05/01/20 10:32 Dose: 1 applic Documented by: Famotidine (Pepcid) 10 mg NGT HS [facility] Gabapentin (Neurontin Oral Liquid -) 300 mg GT TID EMETERIO Last Admin: 05/02/20 07:03 Dose: 300 mg Documented by: Sodium Chloride (Normal Saline -) 250 mls @ 3,000 mls/hr IV PRN PRN PRN Reason: Hypotension during Dialysis Stop: 05/02/20 16:24 Piperacillin Sod/Tazobactam (Sod 2.25 gm/ Dextrose) 50 mls @ 100 mls/hr IVPB Q8H-IV EMETERIO; Protocol Last Admin: 05/02/20 02:22 Dose: 100 mls/hr Documented by: Levetiracetam (Keppra Oral Solution -) 500 mg GT Q48H EMETERIO Last Admin: 05/01/20 03:48 Dose: 500 mg Documented by: Metoprolol Tartrate (Lopressor -) 25 mg GT BID [facility] Last Admin: 05/01/20 21:24 Dose: 25 mg Documented by: Midodrine (Proamatine -) 10 mg GT TID-MID [facility] Last Admin: 05/01/20 21:26 Dose: 10 mg Documented by: Nystatin (Mycostatin Ointment -) 1 applic TP BID [facility] Last Admin: 05/01/20 21:23 Dose: 1 applic Documented by: - Objective Vital Signs: Vital Signs Temperature 98.9 F 05/02/20 01:55 Pulse Rate 106 H 05/02/20 05:26 Respiratory Rate 20 05/02/20 05:00 Blood Pressure 107/59 L 05/02/20 05:00 O2 Sat by Pulse Oximetry (%) 95 05/02/20 05:26 Constitutional: Yes: Well Nourished, No Distress, Calm Eyes: Yes: WNL, Conjunctiva Clear HENT: Yes: WNL, Atraumatic, Normocephalic Neck: Yes: Other (trach in place) Cardiovascular: Yes: WNL, Regular Rate and Rhythm, Other (RIJ permacatj) Respiratory: Yes: Regular, CTA Bilaterally, Diminished (at bases) Gastrointestinal: Yes: Normal Bowel Sounds, Soft, Abdomen, Obese, Other (GT in place) ...Rectal Exam: Yes: Deferred Genitourinary: Yes: Incontinence Breast(s): Yes: WNL Musculoskeletal: Yes: Other (paraplegic) Edema: No Edema: LLE: 1+, RLE: 1+ Peripheral Pulses WNL: Yes Peripheral Pulses: Left Radial: 2+, Right Radial: 2+, Left Doralis Pedis: 2+, Right Dorsalis Pedis: 2+, Left Femoral: 2+, Right Femoral: 2+ Integumentary: Yes: Pressure Ulcer (Unstagable sacral decubitus ulcer noted, with significant drainage Left hip 2cm x 2cm wound, without purulence. Stasis dermatitis changes noted bilateral lower extremities.) Neurological: Yes: Alert, Oriented Psychiatric: Yes: Alert Labs: CBC, BMP 05/02/20 05:30 Problem List - Problems (1) Functional quadriplegia Assessment/Plan: supportive care frequent turning and repositioning order speciality bed Code(s): R53.2 - FUNCTIONAL QUADRIPLEGIA (2) History of CVA (cerebrovascular accident) Assessment/Plan: functional quadriplegia secondary to prior CVA Code(s): Z86.73 - PRSNL HX OF TIA (TIA), AND CEREB INFRC W/O RESID DEFICITS (3) Tracheostomy in place Assessment/Plan: trach in place to TC FI02 50 Code(s): Z93.0 - TRACHEOSTOMY STATUS (4) Afib Assessment/Plan: rate controlled c/w metroprolol Code(s): I48.91 - UNSPECIFIED ATRIAL FIBRILLATION (5) Seizure Assessment/Plan: c/w keppra Code(s): R56.9 - UNSPECIFIED CONVULSIONS (6) Morbid obesity Assessment/Plan: BMI 40 TF [place]ro Code(s): E66.01 - MORBID (SEVERE) OBESITY DUE TO EXCESS CALORIES (7) Sacral decubitus ulcer, stage IV Assessment/Plan: Unstagable sacral decubitus ulcer noted vascular surgery consulted and plan for OR on tue for debridement Code(s): L89.154 - PRESSURE ULCER OF SACRAL REGION, STAGE 4 (8) Hemodialysis status Assessment/Plan: HD as per renal Code(s): Z99.2 - DEPENDENCE ON RENAL DIALYSIS (9) Prophylactic measure Assessment/Plan: FEN Fluids: additonal water in TF Electrolytes: monitor & replete as needed Nutrition: diabetic diet DVT moderate risk apixaban Dispo Maintain as inpatient full code discharge planning back to [facility] Code(s): Z29.9 - ENCOUNTER FOR PROPHYLACTIC MEASURES, UNSPECIFIED (10) Hypotension Assessment/Plan: BP remains on lower side SBP 90s c/w midorine Code(s): I95.9 - HYPOTENSION, UNSPECIFIED Qualifiers: Hypotension type: other hypotension type Qualified Code(s): I95.89 - Other hypotension (11) COVID-19 ruled out Assessment/Plan: negative pcr Code(s): Z03.818 - ENCNTR FOR OBS FOR SUSP EXPSR TO OTH BIOLG AGENTS RULED OUT (12) Sepsis Assessment/Plan: secondary to UTI v infected scaral decub LA 2.6-1.4 c/t trend monitor temp curve, wbc remains hypotensive c/w midodrine Wound, Bcx, Ucx pending c/w abx- zosyn ID following Code(s): A41.9 - SEPSIS, UNSPECIFIED ORGANISM (13) ESRD (end stage renal disease) Assessment/Plan: HD as per renal Code(s): N18.6 - END STAGE RENAL DISEASE Visit type - Emergency Visit Emergency Visit: Yes ED Registration Date: 04/30/20 Care time: The patient presented to the Emergency Department on the above date and was hospitalized for further evaluation of their emergent condition. - New Patient This patient is new to me today: Yes Date on this admission: 05/03/20 - Critical Care Critical Care patient: No - Discharge Referral Referred to [facility] Med P.C.: No
[2020-05-02] MEDS: ALBUTEROL SO4 2.5/IPRATROPIUM 0.5 INH SOL 3 ML VIAL.NEB. NEB SCH ×2 (08:10→14:10)
[2020-05-02] MEDS: BUDESONIDE 0.5 MG/2 ML INH SUSP VIAL NEB SCH ×2 (08:10→21:26)
[2020-05-02] MEDS: MIDODRINE HCL 5 MG TABLET GT SCH ×3 (09:04→17:01)
[2020-05-02] MEDS: METOPROLOL TARTRATE 25 MG TABLET (FP) GT SCH ×2 (09:04→22:00)
--- NOTE | 2020-05-02 09:04 | PN ---
Teaching Attending Note Name of Resident: Yosvany Roy ATTENDING PHYSICIAN STATEMENT I saw and evaluated the patient. I reviewed the resident's note and discussed the case with the resident. I agree with the resident's findings and plan as documented. SUBJECTIVE: Patient seen and examined at bedside, no overnight events. VSS. OBJECTIVE: GA alert, responding to simple commands, non-verbal HEENT NC/AT, dry MM, trach site w/ mild secretions Chest coarse b/l BS, crackles at bases CVS Irregularly irregular, regular rate Abd Soft, morbid obese, NT, BS+, PEG site clean Ext no LE edema, no calf tenderness MSK Stage 4 decubitus ulcer w/ discharge Vital Signs (72 hours) 04/30/20 04/30/20 04/30/20 11:44 12:10 16:30 Temperature 97.4 F L Pulse Rate 117 H 112 H 117 H Respiratory 18 Rate Blood Pressure 95/68 O2 Sat by Pulse 92 L 91 L 95 Oximetry (%) 04/30/20 04/30/20 04/30/20 21:00 21:48 23:00 Temperature 98.8 F Pulse Rate 106 H Respiratory 21 H 21 H Rate Blood Pressure 96/67 O2 Sat by Pulse 95 96 96 Oximetry (%) 05/01/20 05/01/20 05/01/20 02:30 06:00 07:54 Temperature 97.7 F 98.4 F Pulse Rate 114 H 118 H 113 H Respiratory 21 H 20 Rate Blood Pressure 92/52 L 103/57 L O2 Sat by Pulse 95 89 L 93 L Oximetry (%) 05/01/20 05/01/20 05/01/20 09:00 10:00 14:00 Temperature 99.2 F 99.9 F H Pulse Rate 114 H 104 H Respiratory 20 20 18 Rate Blood Pressure 99/65 93/66 O2 Sat by Pulse 96 96 98 Oximetry (%) 05/01/20 05/01/20 05/01/20 15:45 15:50 16:20 Temperature Pulse Rate 104 H 109 H 103 H Respiratory 18 18 18 Rate Blood Pressure 93/53 L 88/55 L 85/60 L O2 Sat by Pulse Oximetry (%) 05/01/20 05/01/20 05/01/20 16:50 17:20 17:50 Temperature Pulse Rate 103 H 94 H 106 H Respiratory 18 18 18 Rate Blood Pressure 104/56 L 108/56 L 112/55 L O2 Sat by Pulse Oximetry (%) 05/01/20 05/01/20 05/01/20 17:53 18:20 18:50 Temperature 97.9 F Pulse Rate 103 H 107 H 102 H Respiratory 20 18 18 Rate Blood Pressure 104/56 L 103/55 L 113/48 L O2 Sat by Pulse 98 Oximetry (%) 05/01/20 05/01/20 05/01/20 19:20 19:34 20:47 Temperature Pulse Rate 80 98 H 109 H Respiratory 18 18 Rate Blood Pressure 97/56 L 102/66 O2 Sat by Pulse 96 Oximetry (%) 05/01/20 05/01/20 05/02/20 21:00 22:00 01:55 Temperature 98.9 F Pulse Rate 100 H Respiratory 18 18 20 Rate Blood Pressure 97/55 L 99/64 O2 Sat by Pulse 96 105 H Oximetry (%) 05/02/20 05/02/20 05:00 05:26 Temperature Pulse Rate 108 H 106 H Respiratory 20 Rate Blood Pressure 107/59 L O2 Sat by Pulse 95 Oximetry (%) Microbiology 04/30/20 15:00 Blood - Peripheral Venous Blood Culture - Preliminary NO GROWTH OBTAINED AFTER 24 HOURS, INCUBATION TO CONTINUE FOR 4 DAYS. 04/30/20 15:00 Blood - Peripheral Venous Blood Culture - Preliminary NO GROWTH OBTAINED AFTER 24 HOURS, INCUBATION TO CONTINUE FOR 4 DAYS. 04/30/20 15:00 Urine - Urine - Catheterized Urine Culture - Preliminary Laboratory Results - last 24 hr 05/01/20 05/01/20 05/01/20 07:20 08:50 10:52 WBC Corrected WBC (auto) 14.77 RBC Hgb Hct MCV MCH MCHC RDW Plt Count MPV Neutrophils % (Manual) 81.3 Band Neutrophils % 1.7 Lymphocytes % (Manual) 10.2 D Monocytes % (Manual) 5 Eosinophils % (Manual) 0.6 Basophils % (Manual) 0.0 Myelocytes % (Man) 1 D Promyelocytes % (Man) 0 Blast Cells % (Manual) 0 Metamyelocytes 0 D Hypochromia 2+ Platelet Estimate Normal Polychromasia 1+ Poikilocytosis 0 Anisocytosis 1+ Microcytosis 1+ Macrocytosis 0 Sodium Potassium Chloride Carbon Dioxide Anion Gap BUN Creatinine Est GFR (CKD-EPI)AfAm Est GFR (CKD-EPI)NonAf POC Glucometer 121 Random Glucose Lactic Acid 1.4 Calcium Phosphorus Magnesium Total Bilirubin AST ALT Alkaline Phosphatase Total Protein Albumin 05/01/20 05/01/20 05/02/20 17:03 22:49 05:30 WBC 18.0 H Corrected WBC (auto) RBC 3.02 L Hgb 9.3 L Hct 28.1 L MCV 93.0 MCH 30.8 MCHC 33.1 RDW 15.3 Plt Count 374 MPV 8.5 Neutrophils % (Manual) Band Neutrophils % Lymphocytes % (Manual) Monocytes % (Manual) Eosinophils % (Manual) Basophils % (Manual) Myelocytes % (Man) Promyelocytes % (Man) Blast Cells % (Manual) Metamyelocytes Hypochromia Platelet Estimate Polychromasia Poikilocytosis Anisocytosis Microcytosis Macrocytosis Sodium Potassium Chloride Carbon Dioxide Anion Gap BUN Creatinine Est GFR (CKD-EPI)AfAm Est GFR (CKD-EPI)NonAf POC Glucometer 139 93 Random Glucose Lactic Acid Calcium Phosphorus Magnesium Total Bilirubin AST ALT Alkaline Phosphatase Total Protein Albumin 05/02/20 05/02/20 05:30 06:06 WBC Corrected WBC (auto) RBC Hgb Hct MCV MCH MCHC RDW Plt Count MPV Neutrophils % (Manual) Band Neutrophils % Lymphocytes % (Manual) Monocytes % (Manual) Eosinophils % (Manual) Basophils % (Manual) Myelocytes % (Man) Promyelocytes % (Man) Blast Cells % (Manual) Metamyelocytes Hypochromia Platelet Estimate Polychromasia Poikilocytosis Anisocytosis Microcytosis Macrocytosis Sodium 141 Potassium 3.8 Chloride 101 Carbon Dioxide 28 Anion Gap 12 BUN 53.3 H Creatinine 3.4 H Est GFR (CKD-EPI)AfAm 23.22 Est GFR (CKD-EPI)NonAf 20.04 POC Glucometer 84 Random Glucose 96 Lactic Acid Calcium 9.3 Phosphorus 4.5 Magnesium 2.1 Total Bilirubin 0.5 AST 40 H ALT 46 Alkaline Phosphatase 137 H Total Protein 8.0 Albumin 2.6 L Home Medications Medication Instructions Recorded Acetaminophen 650 mg GT Q6H PRN 04/30/20 Albuterol 2.5/Ipratropium 0.5 1 amp NEB Q6H 04/30/20 [Duoneb -] Apixaban [Eliquis] 2.5 mg GT BID 04/30/20 Ascorbate Calcium [Vitamin C] 500 mg GT BID 04/30/20 Atorvastatin Ca [Lipitor] 40 mg GT HS 04/30/20 Budesonide [Pulmicort 0.5 mg 1 neb NEB BID 04/30/20 Nebulizer -] Chlorhexidine Gluconate [Peridex -] 15 ml MM BID 04/30/20 Collagenase Clostridium Hist. 1 applic TP DAILY 04/30/20 [Santyl] Gabapentin [Neurontin -] 300 mg GT TID 04/30/20 Loperamide HCl [Loperamide] 2 mg GT BID PRN 04/30/20 Meropenem-0.9% Sodium Chloride 500 mg IV Q12H 04/30/20 [Meropenem-0.9% NaCl 500 mg/50] Metoprolol Tartrate [Lopressor -] 25 mg GT BID 04/30/20 Midodrine HCl 10 mg GT TID 04/30/20 Nystatin Ointment [Mycostatin 1 applic TP BID 04/30/20 Ointment -] Omeprazole 20 mg GT DAILY 04/30/20 Quetiapine Fumarate [Seroquel -] 50 mg GT BID 04/30/20 Vancomycin (Pre-Docked) 500 mg IVPB TUTHSA 04/30/20 levETIRAcetam [Levetiracetam] 500 mg GT Q48H 04/30/20 Current Medications Generic Name Dose Route Start Last Admin Trade Name Freq PRN Reason Stop Dose Admin Acetaminophen 325 mg 04/30/20 22:43 Tylenol Oral Solution - GT Q6H PRN FEVER Albuterol Sulfate 2 puff 04/30/20 22:58 Ventolin Hfa Inhaler - IH Q4H PRN SHORTNESS OF BREATH Albuterol/Ipratropium 1 amp 04/30/20 22:48 Duoneb - NEB Q4H PRN SHORTNESS OF BREATH Albuterol/Ipratropium 1 amp 05/02/20 08:00 Duoneb - NEB Q6H EMETERIO Apixaban 2.5 mg 05/02/20 10:00 Eliquis - GT BID EMETERIO Ascorbic Acid 500 mg 05/01/20 10:00 05/01/20 10:04 Vitamin C - GT 500 mg DAILY EMETERIO Administration Atorvastatin Calcium 40 mg 05/01/20 22:00 05/01/20 21:26 Lipitor - GT 40 mg HS EMETERIO Administration Budesonide 1 amp 05/02/20 10:00 Pulmicort 0.5 Mg Nebulizer - NEB BID EMETERIO Collagenase 1 applic 05/01/20 10:00 05/01/20 10:32 Santyl - TP 1 applic DAILY EMETERIO Administration Protocol Famotidine 10 mg 05/02/20 22:00 Pepcid NGT HS EMETERIO Gabapentin 300 mg 05/01/20 06:00 05/02/20 07:03 Neurontin Oral Liquid - GT 300 mg TID EMETERIO Administration Sodium Chloride 250 mls @ 3,000 mls/hr 05/01/20 16:25 Normal Saline - IV 05/02/20 16:24 PRN PRN Hypotension during Dialysis Piperacillin Sod/Tazobactam 50 mls @ 100 mls/hr 05/01/20 14:15 05/02/20 02:22 Sod 2.25 gm/ Dextrose IVPB 100 mls/hr Q8H-IV EMETERIO Administration Protocol Levetiracetam 500 mg 04/30/20 22:45 05/01/20 03:48 Keppra Oral Solution - GT 500 mg Q48H EMETERIO Administration Metoprolol Tartrate 25 mg 04/30/20 22:45 05/01/20 21:24 Lopressor - GT 25 mg BID EMETERIO Administration Midodrine 10 mg 05/01/20 10:00 05/01/20 21:26 Proamatine - GT 10 mg TID-MID EMETERIO Administration Nystatin 1 applic 04/30/20 22:45 05/01/20 21:23 Mycostatin Ointment - TP 1 applic BID EMETERIO Administration Quetiapine Fumarate 50 mg 05/02/20 10:00 Seroquel - GT BID EMETERIO ASSESSMENT AND PLAN: 50 M Sepsis 2/2 infected Stage 4 decubitus ulcer Afib on Eliquis HTN HLD Dysphagia s/p trach PEG non-ambulatory Non-verbal Morbidly obese Seizure disorder ESRD on HD Plan: Cont. Zosyn per ID recs Frequent turns, Surgery evaluation HOB elevation, NC supplementation PRN Follow cultures DVT ppx: Eliquis
[2020-05-02] MEDS: NYSTATIN 100000 UNIT/GM TOPICAL OINTMENT 15 GM TUBE TP SCH ×2 (09:05→22:00)
[2020-05-02] MEDS: QUEtiapine FUMARATE 50 MG TABLET GT SCH ×2 (09:05→22:00)
[2020-05-02] MEDS: COLLAGENASE CLOSTRIDIUM HIST. 30 GRAMS TUBE TP SCH (09:05)
[2020-05-02] MEDS: APIXABAN 2.5 MG TABLET GT SCH ×2 (09:05→22:00)
[2020-05-02] MEDS: ASCORBIC ACID 500 MG TABLET (FP) GT SCH (09:05)
[2020-05-02] MEDS ORDERED: PNEUMOC 13-VAL CONJ-DIP CRM/PF 0.5 ML DISP.SYRIN IM ONE (09:31)
[2020-05-02] MEDS ORDERED: PT OWN MED DRAWER 7, Y5N ONE ×3 (10:36→19:59)
--- NOTE | 2020-05-02 11:32 | PN ---
Progress Note (short form) - Note Progress Note: RENAL pt is awake and alert tolerated HD well yesterday Last Vital Signs Temp Pulse Resp BP Pulse Ox 99.5 F 104 H 18 95/65 95 05/02/20 09:00 05/02/20 09:56 05/02/20 09:00 05/02/20 09:00 05/02/20 09:56 trach lungs clear cvs s1s2 rr abd soft ext no edema neuro alert, does not respond toquestion CBC, BMP 05/02/20 05:30 05/02/20 05:30 Current Medications Generic Name Dose Route Start Last Admin Trade Name Freq PRN Reason Stop Dose Admin Acetaminophen 325 mg 04/30/20 22:43 Tylenol Oral Solution - GT Q6H PRN FEVER Albuterol Sulfate 2 puff 04/30/20 22:58 Ventolin Hfa Inhaler - IH Q4H PRN SHORTNESS OF BREATH Albuterol/Ipratropium 1 amp 04/30/20 22:48 Duoneb - NEB Q4H PRN SHORTNESS OF BREATH Albuterol/Ipratropium 1 amp 05/02/20 08:00 05/02/20 08:10 Duoneb - NEB Not Given Q6H EMETERIO Apixaban 2.5 mg 05/02/20 10:00 05/02/20 09:05 Eliquis - GT 2.5 mg BID EMETERIO Administration Ascorbic Acid 500 mg 05/01/20 10:00 05/02/20 09:05 Vitamin C - GT 500 mg DAILY EMETERIO Administration Atorvastatin Calcium 40 mg 05/01/20 22:00 05/01/20 21:26 Lipitor - GT 40 mg HS EMETERIO Administration Budesonide 1 amp 05/02/20 10:00 05/02/20 08:10 Pulmicort 0.5 Mg Nebulizer - NEB Not Given BID EMETERIO Collagenase 1 applic 05/01/20 10:00 05/02/20 09:05 Santyl - TP 1 applic DAILY EMETERIO Administration Protocol Famotidine 10 mg 05/02/20 22:00 Pepcid NGT HS EMETERIO Gabapentin 300 mg 05/01/20 06:00 05/02/20 07:03 Neurontin Oral Liquid - GT 300 mg TID EMETERIO Administration Sodium Chloride 250 mls @ 3,000 mls/hr 05/01/20 16:25 Normal Saline - IV 05/02/20 16:24 PRN PRN Hypotension during Dialysis Piperacillin Sod/Tazobactam 50 mls @ 100 mls/hr 05/01/20 14:15 05/02/20 09:04 Sod 2.25 gm/ Dextrose IVPB 100 mls/hr Q8H-IV EMETERIO Administration Protocol Levetiracetam 500 mg 04/30/20 22:45 05/01/20 03:48 Keppra Oral Solution - GT 500 mg Q48H EMETERIO Administration Metoprolol Tartrate 25 mg 04/30/20 22:45 05/02/20 09:04 Lopressor - GT 25 mg BID EMETERIO Administration Midodrine 10 mg 05/01/20 10:00 05/02/20 09:04 Proamatine - GT 10 mg TID-MID EMETERIO Administration Nystatin 1 applic 04/30/20 22:45 05/02/20 09:05 Mycostatin Ointment - TP 1 applic BID EMETERIO Administration Quetiapine Fumarate 50 mg 05/02/20 10:00 05/02/20 09:05 Seroquel - GT 50 mg BID EMETERIO Administration IMPRESSION ESRD sepsis secondary to decubitus s/p trach functional quadriplegia darrell to stroke anemia PLAN antibiotics per id surgical nikunj will dialyze tomorrow will give prasanna but no iv iron given infection will need avf--- vascular eval MV
[2020-05-02] MEDS ORDERED: SODIUM CHLORIDE 250 ML IV PRN (11:33)
--- NOTE | 2020-05-02 13:51 | PN ---
Progress Note, Physician History of Present Illness: stable no new issues multiple organisms - Current Medication List Current Medications: Active Medications Acetaminophen (Tylenol Oral Solution -) 325 mg GT Q6H PRN PRN Reason: FEVER Albuterol Sulfate (Ventolin Hfa Inhaler -) 2 puff IH Q4H PRN PRN Reason: SHORTNESS OF BREATH Albuterol/Ipratropium (Duoneb -) 1 amp NEB Q4H PRN PRN Reason: SHORTNESS OF BREATH Albuterol/Ipratropium (Duoneb -) 1 amp NEB Q6H [facility] Last Admin: 05/02/20 08:10 Dose: Not Given Documented by: Apixaban (Eliquis -) 2.5 mg GT BID [facility] Last Admin: 05/02/20 09:05 Dose: 2.5 mg Documented by: Ascorbic Acid (Vitamin C -) 500 mg GT DAILY [facility] Last Admin: 05/02/20 09:05 Dose: 500 mg Documented by: Atorvastatin Calcium (Lipitor -) 40 mg GT HS [facility] Last Admin: 05/01/20 21:26 Dose: 40 mg Documented by: Budesonide (Pulmicort 0.5 Mg Nebulizer -) 1 amp NEB BID [facility] Last Admin: 05/02/20 08:10 Dose: Not Given Documented by: Collagenase (Santyl -) 1 applic TP DAILY [facility]; Protocol Last Admin: 05/02/20 09:05 Dose: 1 applic Documented by: Epoetin Jovani-epbx (Retacrit) 4,000 unit SQ ONCE ONE Stop: 05/02/20 11:34 Famotidine (Pepcid) 10 mg NGT HS [facility] Gabapentin (Neurontin Oral Liquid -) 300 mg GT TID [facility] Last Admin: 05/02/20 07:03 Dose: 300 mg Documented by: Sodium Chloride (Normal Saline -) 250 mls @ 3,000 mls/hr IV PRN PRN PRN Reason: Hypotension during Dialysis Stop: 05/02/20 16:24 Piperacillin Sod/Tazobactam (Sod 2.25 gm/ Dextrose) 50 mls @ 100 mls/hr IVPB Q8H-IV [facility]; Protocol Last Admin: 05/02/20 09:04 Dose: 100 mls/hr Documented by: Sodium Chloride (Normal Saline -) 250 mls @ 3,000 mls/hr IV PRN PRN PRN Reason: Hypotension during Dialysis Stop: 05/03/20 11:33 Levetiracetam (Keppra Oral Solution -) 500 mg GT Q48H [facility] Last Admin: 05/01/20 03:48 Dose: 500 mg Documented by: Metoprolol Tartrate (Lopressor -) 25 mg GT BID [facility] Last Admin: 05/02/20 09:04 Dose: 25 mg Documented by: Midodrine (Proamatine -) 10 mg GT TID-MID [facility] Last Admin: 05/02/20 09:04 Dose: 10 mg Documented by: Nystatin (Mycostatin Ointment -) 1 applic TP BID [facility] Last Admin: 05/02/20 09:05 Dose: 1 applic Documented by: Quetiapine Fumarate (Seroquel -) 50 mg GT BID [facility] Last Admin: 05/02/20 09:05 Dose: 50 mg Documented by: - Objective Vital Signs: Vital Signs Temperature 99.5 F 05/02/20 09:00 Pulse Rate 104 H 05/02/20 09:56 Respiratory Rate 18 05/02/20 09:00 Blood Pressure 95/65 05/02/20 09:00 O2 Sat by Pulse Oximetry (%) 95 05/02/20 09:56 Constitutional: Yes: No Distress, Calm Cardiovascular: Yes: S1, S2 Respiratory: Yes: Regular, CTA Bilaterally, Other (trach in place) Musculoskeletal: Yes: WNL Extremities: Yes: WNL Neurological: Yes: Alert, Oriented Labs: CBC, BMP 05/02/20 05:30 05/02/20 05:30 Assessment/Plan 50 M Sepsis 2/2 infected Stage 4 decubitus ulcer Afib on Eliquis HTN HLD Dysphagia s/p trach PEG non-ambulatory Non-verbal Morbidly obese Seizure disorder ESRD on HD plan abx needs debridement wound care rest as per the team
--- NOTE | 2020-05-02 16:16 | CONSULT ---
- Consultation REQUESTING PROVIDER: CONSULT REQUEST: We have been asked to surgically evaluate this patient for sacral ulcer. Hospitalist:TYLER Guillermo HISTORY OF PRESENT ILLNESS: 50 yo male with ESRD on HD, presented to the ER from the nursing facility for hypotension. He was found to have a labile BP in the ER wit slight tachcardia. The patient remained afebrile with an elevated WBC and was treated with IV clindamyacin/meropenum. PMHx: dysphagia, quadriplegia 2/2 stroke, Afib on AC, HTN, seizures, morbid obesity, stage IV sacral ulcer PSHx: s/p trach, Right chest permacath Home Medications Medication Instructions Recorded Acetaminophen 650 mg GT Q6H PRN 04/30/20 Albuterol 2.5/Ipratropium 0.5 1 amp NEB Q6H 04/30/20 [Duoneb -] Apixaban [Eliquis] 2.5 mg GT BID 04/30/20 Ascorbate Calcium [Vitamin C] 500 mg GT BID 04/30/20 Atorvastatin Ca [Lipitor] 40 mg GT HS 04/30/20 Budesonide [Pulmicort 0.5 mg 1 neb NEB BID 04/30/20 Nebulizer -] Chlorhexidine Gluconate [Peridex -] 15 ml MM BID 04/30/20 Collagenase Clostridium Hist. 1 applic TP DAILY 04/30/20 [Santyl] Gabapentin [Neurontin -] 300 mg GT TID 04/30/20 Loperamide HCl [Loperamide] 2 mg GT BID PRN 04/30/20 Meropenem-0.9% Sodium Chloride 500 mg IV Q12H 04/30/20 [Meropenem-0.9% NaCl 500 mg/50] Metoprolol Tartrate [Lopressor -] 25 mg GT BID 04/30/20 Midodrine HCl 10 mg GT TID 04/30/20 Nystatin Ointment [Mycostatin 1 applic TP BID 04/30/20 Ointment -] Omeprazole 20 mg GT DAILY 04/30/20 Quetiapine Fumarate [Seroquel -] 50 mg GT BID 04/30/20 Vancomycin (Pre-Docked) 500 mg IVPB [facility]UTHSA 04/30/20 levETIRAcetam [Levetiracetam] 500 mg GT Q48H 04/30/20 Allergies Allergy/AdvReac Type Severity Reaction Status Date / Time No Known Allergies Allergy Verified 04/30/20 11:44 REVIEW OF SYSTEMS: unable to obtain, pt non-verbal Laboratory Tests 04/30/20 05/01/20 05/01/20 20:00 07: 08:50 WBC 16.4 H Hgb 9.3 L Hct 28.4 L Lactic Acid 1.4 COVID-19 ([facility]) Pending PHYSICAL EXAM: GENERAL: Awake, alein no acute distress. HEAD: trach collar in place with humidified oxygen in place. SKIN: sacrum-large opening 10x 10cm with macerated skin edges. bone exposed with necrotic tissue at superior aspect and midline. No undermining. Greenish color to dressing which are saturated. Left hip with 1 x 1cm superficial ulcer with minimal necrotic tissue. Alleyven in place. Vital Signs Temperature 98.9 F 05/02/20 14:07 Pulse Rate 101 H 05/02/20 14:07 Respiratory Rate 20 05/02/20 14:07 Blood Pressure 88/56 L 05/02/20 14:07 O2 Sat by Pulse Oximetry (%) 95 05/02/20 09:56 Lab Results WBC 18.0 K/mm3 (4.0-10.0) H 05/02/20 05:30 RBC 3.02 M/mm3 (4.00-5.60) L 05/02/20 05:30 Hgb 9.3 GM/dL (11.7-16.9) L 05/02/20 05:30 Hct 28.1 % (35.4-49) L 05/02/20 05:30 MCV 93.0 fl (80-96) 05/02/20 05:30 MCHC 33.1 g/dl (32.0-35.9) 05/02/20 05:30 RDW 15.3 % (11.9-15.9) 05/02/20 05:30 Plt Count 374 K/MM3 (134-434) 05/02/20 05:30 Sodium 141 mmol/L (136-145) 05/02/20 05:30 Potassium 3.8 mmol/L (3.5-5.1) 05/02/20 05:30 Chloride 101 mmol/L (98-107) 05/02/20 05:30 Carbon Dioxide 28 mmol/L (21-32) 05/02/20 05:30 Anion Gap 12 MMOL/L (8-16) 05/02/20 05:30 BUN 53.3 mg/dL (7-18) H 05/02/20 05:30 Creatinine 3.4 mg/dL (0.55-1.3) H 05/02/20 05:30 Random Glucose 96 mg/dL (74-106) 05/02/20 05:30 Calcium 9.3 mg/dL (8.5-10.1) 05/02/20 05:30 Laboratory Tests 04/30/20 05/01/20 05/01/20 20:00 07:20 08:50 WBC 16.4 H Hgb 9.3 L Hct 28.4 L Lactic Acid 1.4 COVID-19 (NITHIN) Pending Microbiology 05/01/20 14:35 Coccyx Gram Stain - Final 04/30/20 15:00 Urine - Urine - Catheterized Urine Culture - Final Yeast Like Organism 05/01/20 14:35 Coccyx Wound Culture - Preliminary Non Lactose Fermenting Gnb Non Lactose Fermenting Gnb#2 Lactose Fermenting Neg Bacilli Group D Strep Or Entero Coccus 04/30/20 15:00 Blood - Peripheral Venous Blood Culture - Preliminary NO GROWTH OBTAINED AFTER 48 HOURS, INCUBATION TO CONTINUE FOR 3 DAYS. 04/30/20 15:00 Blood - Peripheral Venous Blood Culture - Preliminary NO GROWTH OBTAINED AFTER 48 HOURS, INCUBATION TO CONTINUE FOR 3 DAYS. Laboratory Tests 04/30/20 05/01/20 05/01/20 20:00 07:20 08:50 WBC 16.4 H Hgb 9.3 L Hct 28.4 L Lactic Acid 1.4 COVID-19 (NITHIN) Pending CXR: b/l congestion 04/30 Problem List - Problems (1) Sacral decubitus ulcer, stage IV Assessment/Plan: Pt with large sacral ulcer/necrotic tissue with drainage. Ordered dakins dressing for now but will need surgical debridment to schedule possibly for Tuesday. Speciality bed-clinitron bed for pt Frequent off loading IV abx D/w Dr. dean, plan for debridment on Tuesday. Npo after breakfast 05/05 Problems reviewed: Yes Code(s): L89.154 - PRESSURE ULCER OF SACRAL REGION, STAGE 4
[2020-05-02] MEDS: ATORVASTATIN CA 40 MG TABLET (FP) GT SCH (22:00)
[2020-05-02] MEDS ORDERED: ATORVASTATIN CA 40 MG TABLET (FP) GT SCH (22:00)
[2020-05-02] MEDS: levETIRAcetam 500 MG/5 ML ORAL SOLUTION (UNIT-DOSE CUPS) GT SCH (22:09)
[2020-05-03] MEDS ORDERED: DEXTROSE 5%-WATER - 50 ML IVPB ONE ×3 (00:28→16:28)
[2020-05-03] MEDS ORDERED: PIPERACILLIN/TAZOBACTAM 2.25 GM VIAL IVPB ONE ×3 (00:28→16:27)
[2020-05-03] MEDS: PIPERACILLIN/TAZOB 2.25 GM 2.25 GM in DEXTROSE 5%-WATER - 50 ML IVPB SCH ×3 (02:00→17:14)
[2020-05-03 06:59] LABS: BASO % 0.8 % (0-2.0); EOS % 3.3 % (0-4.5); HEMATOCRIT 28.4 % (35.4-49); HEMOGLOBIN 9.4 GM/dL (11.7-16.9); LYMPH % 16.1 % (8-40); MCH 30.5 pg (25.7-33.7); MEAN CELL VOLUME 92.2 fl (80-96); MONO % 8.7 % (3.8-10.2); NEUT % 71.1 % (42.8-82.8); PLATELET COUNT 384 K/MM3 (134-434); RBC 3.08 M/mm3 (4.00-5.60); RDW 15.3 % (11.9-15.9); WHITE BLOOD COUNT 15.1 K/mm3 (4.0-10.0)
[2020-05-03] MEDS: SODIUM HYPOCHLORITE 0.25%- 473 ML BULK BOTTLE TP SCH ×2 (07:05→10:53)
[2020-05-03] MEDS: GABAPENTIN 250 MG/5 ML ORAL SOLUTION, 470 ML BOTTLE GT SCH ×3 (07:08→21:44)
[2020-05-03 07:27] LABS: ALBUMIN 2.6 g/dl (3.4-5.0); BILIRUBIN,TOTAL 0.6 mg/dL (0.2-1); BLOOD UREA NITROGEN 71.9 mg/dL (7-18); CALCIUM 9.6 mg/dL (8.5-10.1); CREATININE 4.5 mg/dL (0.55-1.3); MAGNESIUM 2.2 mg/dL (1.8-2.4); POTASSIUM 3.5 mmol/L (3.5-5.1); TOT PROT 7.8 g/dl (6.4-8.2)
--- NOTE | 2020-05-03 08:19 | PN ---
Progress Note, Physician Chief Complaint: Seen and examined in bed. No complaints offered. BP improved on midodrine. Placed on Clinitron bed last night. Plan for OR on tuesday History of Present Illness: 50 M h/o dysphagia s/p trach, functional quadriplegia 2/2 stroke, Afib on AC, HTN, seizures, morbid obesity, stage IV sacral ulcer, perma cath on R chest wall for dialysis who presents to ED via EMS from [facility] for low blood pressure. Pt. found to have infected chronic stage 4 decubitus ulcer, received M eropenem/Clindamycin in ED. ID following patient. - Current Medication List Current Medications: Active Medications Acetaminophen (Tylenol Oral Solution -) 325 mg GT Q6H PRN PRN Reason: FEVER Albuterol Sulfate (Ventolin Hfa Inhaler -) 2 puff IH Q4H PRN PRN Reason: SHORTNESS OF BREATH Albuterol/Ipratropium (Duoneb -) 1 amp NEB Q4H PRN PRN Reason: SHORTNESS OF BREATH Albuterol/Ipratropium (Duoneb -) 1 amp NEB Q6H [facility] Last Admin: 05/02/20 14:10 Dose: Not Given Documented by: Apixaban (Eliquis -) 2.5 mg GT BID [facility] Last Admin: 05/02/20 22:00 Dose: 2.5 mg Documented by: Ascorbic Acid (Vitamin C -) 500 mg GT DAILY [facility] Last Admin: 05/02/20 09:05 Dose: 500 mg Documented by: Atorvastatin Calcium (Lipitor -) 40 mg GT HS [facility] Last Admin: 05/02/20 22:00 Dose: 40 mg Documented by: Budesonide (Pulmicort 0.5 Mg Nebulizer -) 1 amp NEB BID [facility] Last Admin: 05/02/20 21:26 Dose: Not Given Documented by: Famotidine (Pepcid) 10 mg NGT HS [facility] Gabapentin (Neurontin Oral Liquid -) 300 mg GT TID [facility] Last Admin: 05/03/20 07:08 Dose: 300 mg Documented by: Piperacillin Sod/Tazobactam (Sod 2.25 gm/ Dextrose) 50 mls @ 100 mls/hr IVPB Q8H-IV [facility]; Protocol Last Admin: 05/03/20 02:00 Dose: 100 mls/hr Documented by: Sodium Chloride (Normal Saline -) 250 mls @ 3,000 mls/hr IV PRN PRN PRN Reason: Hypotension during Dialysis Stop: 05/03/20 11:33 Levetiracetam (Keppra Oral Solution -) 500 mg GT Q48H [facility] Last Admin: 05/02/20 22:09 Dose: 500 mg Documented by: Metoprolol Tartrate (Lopressor -) 25 mg GT BID [facility] Last Admin: 05/02/20 22:00 Dose: 25 mg Documented by: Midodrine (Proamatine -) 10 mg GT TID-MID [facility] Last Admin: 05/02/20 17:01 Dose: 10 mg Documented by: Nystatin (Mycostatin Ointment -) 1 applic TP BID [facility] Last Admin: 05/02/20 22:00 Dose: 1 applic Documented by: Quetiapine Fumarate (Seroquel -) 50 mg GT BID [facility] Last Admin: 05/02/20 22:00 Dose: 50 mg Documented by: Sodium Hypochlorite (Dakin's Solution 0.25% (Half-Strength) -) 1 applic TP DAILY [facility] Last Admin: 05/03/20 07:05 Dose: Not Given Documented by: - Objective Vital Signs: Vital Signs Temperature 98.0 F 05/03/20 06:45 Pulse Rate 89 05/03/20 06:50 Respiratory Rate 20 05/03/20 06:50 Blood Pressure 91/66 05/03/20 06:50 O2 Sat by Pulse Oximetry (%) 97 05/02/20 21:00 Additional Findings/Remarks: Constitutional: Yes: Well Nourished, No Distress, Calm Eyes: Yes: WNL, Conjunctiva Clear HENT: Yes: WNL, Atraumatic, Normocephalic Neck: Yes: Other (trach in place) Cardiovascular: Yes: WNL, Regular Rate and Rhythm, Other (RIJ permacatj) Respiratory: Yes: Regular, CTA Bilaterally, Diminished (at bases) Gastrointestinal: Yes: Normal Bowel Sounds, Soft, Abdomen, Obese, Other (GT in place) ...Rectal Exam: Yes: Deferred Genitourinary: Yes: Incontinence Breast(s): Yes: WNL Musculoskeletal: Yes: Other (paraplegic) Edema: No Edema: LLE: 1+, RLE: 1+ Peripheral Pulses WNL: Yes Peripheral Pulses: Left Radial: 2+, Right Radial: 2+, Left Doralis Pedis: 2+, Right Dorsalis Pedis: 2+, Left Femoral: 2+, Right Femoral: 2+ Integumentary: Yes: Pressure Ulcer (Unstagable sacral decubitus ulcer noted, with significant drainage Left hip 2cm x 2cm wound, without purulence. Stasis dermatitis changes noted bilateral lower extremities.) Neurological: Yes: Alert, Oriented Psychiatric: Yes: Alert Labs: CBC, BMP 05/03/20 06:29 05/03/20 06:29 - ....Imaging Chest X-ray: Image Reviewed (trach in place,RIJ cath in good position, atlectasis to left, increased interstitial markings) Problem List - Problems (1) Functional quadriplegia Assessment/Plan: supportive care frequent turning and repositioning order speciality bed Code(s): R53.2 - FUNCTIONAL QUADRIPLEGIA (2) History of CVA (cerebrovascular accident) Assessment/Plan: functional quadriplegia secondary to prior CVA Code(s): Z86.73 - PRSNL HX OF TIA (TIA), AND CEREB INFRC W/O RESID DEFICITS (3) Tracheostomy in place Assessment/Plan: trach in place to TC FI02 50 Code(s): Z93.0 - TRACHEOSTOMY STATUS (4) Afib Assessment/Plan: rate controlled c/w metroprolol Code(s): I48.91 - UNSPECIFIED ATRIAL FIBRILLATION (5) Seizure Assessment/Plan: c/w keppra no sz activity Code(s): R56.9 - UNSPECIFIED CONVULSIONS (6) Morbid obesity Assessment/Plan: BMI 40 TF Nepro Code(s): E66.01 - MORBID (SEVERE) OBESITY DUE TO EXCESS CALORIES (7) Sacral decubitus ulcer, stage IV Assessment/Plan: Unstagable sacral decubitus ulcer noted vascular surgery consulted and plan for OR on mon for debridement Code(s): L89.154 - PRESSURE ULCER OF SACRAL REGION, STAGE 4 (8) Hemodialysis status Assessment/Plan: HD done with 1.4L removed next session tues Code(s): Z99.2 - DEPENDENCE ON RENAL DIALYSIS (9) Prophylactic measure Assessment/Plan: FEN Fluids: additonal water in TF Electrolytes: monitor & replete as needed Nutrition: diabetic diet DVT moderate risk apixaban Dispo Maintain as inpatient full code discharge planning back to [facility] Code(s): Z29.9 - ENCOUNTER FOR PROPHYLACTIC MEASURES, UNSPECIFIED (10) Hypotension Assessment/Plan: SBP 90s c/w midodrine Code(s): I95.9 - HYPOTENSION, UNSPECIFIED Qualifiers: Hypotension type: other hypotension type Qualified Code(s): I95.89 - Other hypotension (11) COVID-19 ruled out Assessment/Plan: negative pcr Code(s): Z03.818 - ENCNTR FOR OBS FOR SUSP EXPSR TO OTH BIOLG AGENTS RULED OUT (12) ESRD (end stage renal disease) Assessment/Plan: HD as per renal Code(s): N18.6 - END STAGE RENAL DISEASE Visit type - Emergency Visit Emergency Visit: Yes ED Registration Date: 04/30/20 Care time: The patient presented to the Emergency Department on the above date and was hospitalized for further evaluation of their emergent condition. - New Patient This patient is new to me today: No - Critical Care Critical Care patient: No - Discharge Referral Referred to [facility] Med P.C.: No
[2020-05-03 09:13] LABS: ANISOCYTOSIS 1+; MACROCYTOSIS 1+; PLATELET ESTIMATE NORMAL
--- NOTE | 2020-05-03 09:50 | PN ---
Progress Note, Physician History of Present Illness: Pt is alert/afebrile, without distress, currently receiving HD at bedside. - Current Medication List Current Medications: Active Medications Acetaminophen (Tylenol Oral Solution -) 325 mg GT Q6H PRN PRN Reason: FEVER Albuterol Sulfate (Ventolin Hfa Inhaler -) 2 puff IH Q4H PRN PRN Reason: SHORTNESS OF BREATH Albuterol/Ipratropium (Duoneb -) 1 amp NEB RQID [facility] Apixaban (Eliquis -) 2.5 mg GT BID [facility] Last Admin: 05/02/20 22:00 Dose: 2.5 mg Documented by: Ascorbic Acid (Vitamin C -) 500 mg GT DAILY [facility] Last Admin: 05/02/20 09:05 Dose: 500 mg Documented by: Atorvastatin Calcium (Lipitor -) 40 mg GT HS [facility] Last Admin: 05/02/20 22:00 Dose: 40 mg Documented by: Budesonide (Pulmicort 0.5 Mg Nebulizer -) 1 amp NEB BID [facility] Last Admin: 05/02/20 21:26 Dose: Not Given Documented by: Famotidine (Pepcid) 10 mg NGT HS [facility] Gabapentin (Neurontin Oral Liquid -) 300 mg GT TID [facility] Last Admin: 05/03/20 07:08 Dose: 300 mg Documented by: Piperacillin Sod/Tazobactam (Sod 2.25 gm/ Dextrose) 50 mls @ 100 mls/hr IVPB Q8H-IV [facility]; Protocol Last Admin: 05/03/20 02:00 Dose: 100 mls/hr Documented by: Sodium Chloride (Normal Saline -) 250 mls @ 3,000 mls/hr IV PRN PRN PRN Reason: Hypotension during Dialysis Stop: 05/03/20 11:33 Levetiracetam (Keppra Oral Solution -) 500 mg GT Q48H [facility] Last Admin: 05/02/20 22:09 Dose: 500 mg Documented by: Metoprolol Tartrate (Lopressor -) 25 mg GT BID [facility] Last Admin: 05/02/20 22:00 Dose: 25 mg Documented by: Midodrine (Proamatine -) 10 mg GT TID-MID [facility] Last Admin: 05/02/20 17:01 Dose: 10 mg Documented by: Nystatin (Mycostatin Ointment -) 1 applic TP BID [facility] Last Admin: 10/09/20 22:00 Dose: 1 applic Documented by: Quetiapine Fumarate (Seroquel -) 50 mg GT BID [facility] Last Admin: 05/02/20 22:00 Dose: 50 mg Documented by: Sodium Hypochlorite (Dakin's Solution 0.25% (Half-Strength) -) 1 applic TP DAILY [facility] Last Admin: 05/03/20 07:05 Dose: Not Given Documented by: - Objective Vital Signs: Vital Signs Temperature 98.0 F 05/03/20 06:45 Pulse Rate 110 H 05/03/20 08:50 Respiratory Rate 20 05/03/20 08:50 Blood Pressure 106/52 L 05/03/20 08:50 O2 Sat by Pulse Oximetry (%) 97 05/02/20 21:00 Constitutional: Yes: No Distress, Calm Neck: Yes: Other (tracheostomy) Cardiovascular: Yes: Regular Rate and Rhythm Respiratory: Yes: Regular Gastrointestinal: Yes: Normal Bowel Sounds, Soft, Abdomen, Obese, Other (peg) Integumentary: Yes: Pressure Ulcer (Sacral DU) Wound/Incision: Yes: Other (Sacral st IV DU with drainage) Neurological: Yes: Alert Labs: CBC, BMP 05/03/20 06:29 05/03/20 06:29 Laboratory Last Values WBC 15.1 K/mm3 (4.0-10.0) H 05/03/20 06:29 Corrected WBC (auto) 14.77 K/mm3 05/01/20 07:20 RBC 3.08 M/mm3 (4.00-5.60) L 05/03/20 06:29 Hgb 9.4 GM/dL (11.7-16.9) L 05/03/20 06:29 Hct 28.4 % (35.4-49) L 05/03/20 06:29 MCV 92.2 fl (80-96) 05/03/20 06:29 MCH 30.5 pg (25.7-33.7) 05/03/20 06:29 MCHC 33.0 g/dl (32.0-35.9) 05/03/20 06:29 RDW 15.3 % (11.9-15.9) 05/03/20 06:29 Plt Count 384 K/MM3 (134-434) 05/03/20 06:29 MPV 8.0 fl (7.5-11.1) 05/03/20 06:29 Absolute Neuts (auto) 10.7 K/mm3 (1.5-8.0) H 05/03/20 06:29 Neutrophils % 71.1 % (42.8-82.8) 05/03/20 06:29 Neutrophils % (Manual) 67.6 % (42.8-82.8) 05/03/20 06:29 Band Neutrophils % 0.0 % 05/03/20 06:29 Lymphocytes % 16.1 % (8-40) 05/03/20 06:29 Lymphocytes % (Manual) 15.7 % (8-40) D 05/03/20 06:29 Monocytes % 8.7 % (3.8-10.2) 05/03/20 06: Monocytes % (Manual) 6 % (3.8-10.2) 05/03/20 06: Eosinophils % 3.3 % (0-4.5) 05/03/20 06:29 Eosinophils % (Manual) 7.4 % (0-4.5) H D 05/03/20 06:29 Basophils % 0.8 % (0-2.0) 05/03/20 06:29 Basophils % (Manual) 0.0 % (0-2.0) 05/03/20 06:29 Myelocytes % (Man) 3 % (0-2) H D 05/03/20 06:29 Promyelocytes % (Man) 0 % (0-2) 05/03/20 06:29 Blast Cells % (Manual) 0 % (0-0) 05/03/20 06:29 Nucleated RBC % 0 % (0-0) 05/03/20 06:29 Metamyelocytes 1 % (0-2) D 05/03/20 06:29 Hypochromia 0 05/03/20 06:29 Platelet Estimate Normal 05/03/20 06:29 Polychromasia 1+ 05/03/20 06:29 Poikilocytosis 0 05/03/20 06:29 Basophilic Stippling 1+ 05/03/20 06:29 Anisocytosis 1+ 05/03/20 06:29 Microcytosis 0 05/03/20 06:29 Macrocytosis 1+ 05/03/20 06:29 Sodium 140 mmol/L (136-145) 05/03/20 06:29 Potassium 3.5 mmol/L (3.5-5.1) 05/03/20 06:29 Chloride 101 mmol/L (98-107) 05/03/20 06:29 Carbon Dioxide 26 mmol/L (21-32) 05/03/20 06:29 Anion Gap 13 MMOL/L (8-16) 05/03/20 06:29 BUN 71.9 mg/dL (7-18) H 05/03/20 06:29 Creatinine 4.5 mg/dL (0.55-1.3) H 05/03/20 06:29 Est GFR (CKD-EPI)AfAm 16.55 05/03/20 06:29 Est GFR (CKD-EPI)NonAf 14.28 05/03/20 06:29 POC Glucometer 102 UNITS (80-120) 05/02/20 22:47 Random Glucose 111 mg/dL (74-106) H 05/03/20 06:29 Lactic Acid 1.4 mmol/L (0.4-2.0) 05/01/20 08:50 Calcium 9.6 mg/dL (8.5-10.1) 05/03/20 06:29 Phosphorus 4.5 mg/dL (2.5-4.9) 05/02/20 05:30 Magnesium 2.2 mg/dL (1.8-2.4) 05/03/20 06:29 Total Bilirubin 0.6 mg/dL (0.2-1) 05/03/20 06:29 AST 33 U/L (15-37) 05/03/20 06:29 ALT 40 U/L (13-61) 05/03/20 06:29 Alkaline Phosphatase 131 U/L (45-117) H 05/03/20 06:29 Troponin I < 0.02 ng/ml (0.00-0.05) 04/30/20 15:00 Total Protein 7.8 g/dl (6.4-8.2) 05/03/20 06:29 Albumin 2.6 g/dl (3.4-5.0) L 05/03/20 06:29 Urine Color Dk yellow 04/30/20 15:00 Urine Appearance Cloudy 04/30/20 15:00 Urine pH 5.0 (5.0-8.0) 04/30/20 15:00 Ur Specific [place] 1.020 (1.010-1.035) 04/30/20 15:00 Urine Protein 2+ (NEGATIVE) H 04/30/20 15:00 Urine Glucose (UA) Negative (NEGATIVE) 04/30/20 15:00 Urine Ketones Trace (NEGATIVE) H 04/30/20 15:00 Urine Blood 1+ (NEGATIVE) H 04/30/20 15:00 Urine Nitrite Negative (NEGATIVE) 04/30/20 15:00 Urine Bilirubin 1+ (NEGATIVE) H 04/30/20 15:00 Urine Urobilinogen 1.0 mg/dL (0.2-1.0) 04/30/20 15:00 Ur Leukocyte Esterase 3+ (NEGATIVE) H 04/30/20 15:00 Urine WBC (Auto) 2065 /uL (0-25.8) 04/30/20 15:00 Urine RBC (Auto) 19 /uL (0-23.9) 04/30/20 15:00 Urine Casts (Auto) 1 /uL (0-3.1) 04/30/20 15:00 U Epithel Cells (Auto) 1 /uL (0-25.1) 04/30/20 15:00 Urine Bacteria (Auto) 65 /uL (0-1359) 04/30/20 15:00 COVID-19 (N[facility]) Not detected (Not Detected) 04/30/20 20:00 Hep Bs Antigen Negative (Negative) 05/01/20 15:50 Hep C Ab Diagnostic 0.4 s/co ratio (0.0-0.9) 05/01/20 15:50 Microbiology 05/01/20 14:35 Coccyx Gram Stain - Final 05/01/20 14:35 Coccyx Wound Culture - Preliminary Non Lactose Fermenting Gnb Non Lactose Fermenting Gnb#2 Lactose Fermenting Neg Bacilli Group D Strep Or Entero Coccus 04/30/20 15:00 Blood - Peripheral Venous Blood Culture - Preliminary NO GROWTH OBTAINED AFTER 48 HOURS, INCUBATION TO CONTINUE FOR 3 DAYS. 04/30/20 15:00 Blood - Peripheral Venous Blood Culture - Preliminary NO GROWTH OBTAINED AFTER 48 HOURS, INCUBATION TO CONTINUE FOR 3 DAYS. 04/30/20 15:00 Urine - Urine - Catheterized Urine Culture - Final Yeast Like Organism Problem List - Problems (1) Afib Code(s): I48.91 - UNSPECIFIED ATRIAL FIBRILLATION (2) Functional quadriplegia Code(s): R53.2 - FUNCTIONAL QUADRIPLEGIA (3) HTN (hypertension) Code(s): I10 - ESSENTIAL (PRIMARY) HYPERTENSION (4) Hemodialysis status Code(s): Z99.2 - DEPENDENCE ON RENAL DIALYSIS (5) History of CVA (cerebrovascular accident) Code(s): Z86.73 - PRSNL HX OF TIA (TIA), AND CEREB INFRC W/O RESID DEFICITS (6) Morbid obesity Code(s): E66.01 - MORBID (SEVERE) OBESITY DUE TO EXCESS CALORIES (7) Sacral decubitus ulcer, stage IV Code(s): L89.154 - PRESSURE ULCER OF SACRAL REGION, STAGE 4 (8) Tracheostomy in place Code(s): Z93.0 - TRACHEOSTOMY STATUS Assessment/Plan Sepsis 2/2 infected Stage 4 decubitus ulcer Afib on Eliquis HTN HLD Dysphagia s/p trach PEG Quadriplegia s/p CVA Morbidly obese Seizure disorder ESRD on HD -- wbc trending down, afebrile -- blood cultures neg 48hr -- follow up wound culture results -- awaiting wound debridement -- continue antibiotics monitor vitals, wbc trend
[2020-05-03] MEDS: EPOETIN ALFA-EPBX 4,000 UNIT/ML VIAL SQ ONE (10:01)
[2020-05-03] MEDS: ASCORBIC ACID 500 MG TABLET (FP) GT SCH (10:35)
[2020-05-03] MEDS: METOPROLOL TARTRATE 25 MG TABLET (FP) GT SCH ×2 (10:36→21:41)
[2020-05-03] MEDS: QUEtiapine FUMARATE 50 MG TABLET GT SCH ×2 (10:36→21:41)
[2020-05-03] MEDS: MIDODRINE HCL 5 MG TABLET GT SCH ×3 (10:36→17:14)
[2020-05-03] MEDS: APIXABAN 2.5 MG TABLET GT SCH ×2 (10:36→21:41)
[2020-05-03] MEDS: NYSTATIN 100000 UNIT/GM TOPICAL OINTMENT 15 GM TUBE TP SCH ×2 (10:52→21:44)
[2020-05-03] MEDS: BUDESONIDE 0.5 MG/2 ML INH SUSP VIAL NEB SCH ×2 (12:21→21:10)
[2020-05-03] MEDS: ALBUTEROL SO4 2.5/IPRATROPIUM 0.5 INH SOL 3 ML VIAL.NEB. NEB SCH ×3 (12:22→20:35)
[2020-05-03] MEDS ORDERED: PT OWN MED DRAWER 7, Y5N ONE ×2 (13:05→20:39)
--- NOTE | 2020-05-03 13:45 | PN ---
Progress Note, Physician History of Present Illness: Seen and examined at the bedside awake and alert denies any pain s/p dialysis this am with 1.4L UF on trach collar O2 - Current Medication List Current Medications: Active Medications Acetaminophen (Tylenol Oral Solution -) 325 mg GT Q6H PRN PRN Reason: FEVER Albuterol Sulfate (Ventolin Hfa Inhaler -) 2 puff IH Q4H PRN PRN Reason: SHORTNESS OF BREATH Albuterol/Ipratropium (Duoneb -) 1 amp NEB RQID [facility] Last Admin: 05/03/20 12:22 Dose: 1 amp Documented by: Apixaban (Eliquis -) 2.5 mg GT BID [facility] Last Admin: 05/03/20 10:36 Dose: 2.5 mg Documented by: Ascorbic Acid (Vitamin C -) 500 mg GT DAILY [facility] Last Admin: 05/03/20 10:35 Dose: 500 mg Documented by: Atorvastatin Calcium (Lipitor -) 40 mg GT HS [facility] Last Admin: 05/02/20 22:00 Dose: 40 mg Documented by: Budesonide (Pulmicort 0.5 Mg Nebulizer -) 1 amp NEB BID [facility] Last Admin: 05/03/20 12:21 Dose: 1 amp Documented by: Famotidine (Pepcid) 10 mg NGT HS [facility] Gabapentin (Neurontin Oral Liquid -) 300 mg GT TID [facility] Last Admin: 05/03/20 07:08 Dose: 300 mg Documented by: Piperacillin Sod/Tazobactam (Sod 2.25 gm/ Dextrose) 50 mls @ 100 mls/hr IVPB Q8H-IV [facility]; Protocol Last Admin: 05/03/20 10:35 Dose: 100 mls/hr Documented by: Levetiracetam (Keppra Oral Solution -) 500 mg GT Q48H [facility] Last Admin: 05/02/20 22:09 Dose: 500 mg Documented by: Metoprolol Tartrate (Lopressor -) 25 mg GT BID [facility] Last Admin: 05/03/20 10:36 Dose: 25 mg Documented by: Midodrine (Proamatine -) 10 mg GT TID-MID [facility] Last Admin: 05/03/20 10:36 Dose: 10 mg Documented by: Nystatin (Mycostatin Ointment -) 1 applic TP BID [facility] Last Admin: 05/03/20 10:52 Dose: 1 applic Documented by: Quetiapine Fumarate (Seroquel -) 50 mg GT BID [facility] Last Admin: 05/03/20 10:36 Dose: 50 mg Documented by: Sodium Hypochlorite (Dakin's Solution 0.25% (Half-Strength) -) 1 applic TP D AILY [facility] Last Admin: 05/03/20 10:53 Dose: 1 appful Documented by: - Objective Vital Signs: Vital Signs Temperature 98.0 F 05/03/20 06:45 Pulse Rate 88 05/03/20 12:20 Respiratory Rate 20 05/03/20 10:30 Blood Pressure 113/66 05/03/20 10:30 O2 Sat by Pulse Oximetry (%) 97 05/03/20 12:20 Constitutional: Yes: No Distress Cardiovascular: Yes: Regular Rate and Rhythm Respiratory: Yes: Other (trach collar O2) Gastrointestinal: Yes: Soft Edema: No Labs: CBC, BMP 05/03/20 06:29 05/03/20 06:29 Assessment/Plan IMPRESSION ESRD sepsis secondary to decubitus s/p trach functional quadriplegia darrell to stroke anemia PLAN tolerated dialysis well this AM with 1.4L UF next planned dialysis is Tuesday antibiotics per id surgical consult appreciated, possible debridement on Tuesday Edmundo Vargas DO
[2020-05-03] MEDS: FAMOTIDINE 40 MG/5 ML ORAL SUSPENSION NGT SCH (21:43)
[2020-05-03] MEDS: ATORVASTATIN CA 40 MG TABLET (FP) GT SCH (21:45)
[2020-05-04] MEDS ORDERED: PIPERACILLIN/TAZOBACTAM 2.25 GM VIAL IVPB ONE ×3 (03:09→17:06)
[2020-05-04] MEDS ORDERED: DEXTROSE 5%-WATER - 50 ML IVPB ONE ×3 (03:10→17:06)
[2020-05-04] MEDS: PIPERACILLIN/TAZOB 2.25 GM 2.25 GM in DEXTROSE 5%-WATER - 50 ML IVPB SCH ×3 (03:14→17:10)
[2020-05-04 07:04] LABS: BASO % 0.4 % (0-2.0); EOS % 2.8 % (0-4.5); HEMATOCRIT 27.9 % (35.4-49); HEMOGLOBIN 9.2 GM/dL (11.7-16.9); LYMPH % 15.6 % (8-40); MCH 30.3 pg (25.7-33.7); MEAN CELL VOLUME 91.7 fl (80-96); MEAN PLT VOLUME 7.9 fl (7.5-11.1); MONO % 7.7 % (3.8-10.2); NEUT % 73.5 % (42.8-82.8); PLATELET COUNT 376 K/MM3 (134-434); RBC 3.04 M/mm3 (4.00-5.60); RDW 15.4 % (11.9-15.9); WHITE BLOOD COUNT 14.4 K/mm3 (4.0-10.0)
[2020-05-04 07:30] LABS: ALBUMIN 3.1 g/dl (3.4-5.0); CALCIUM 9.7 mg/dL (8.5-10.1); CREATININE 3.5 mg/dL (0.55-1.3); MAGNESIUM 2.2 mg/dL (1.8-2.4); POTASSIUM 3.1 mmol/L (3.5-5.1)
[2020-05-04 07:31] LABS: BILIRUBIN,TOTAL 0.4 mg/dL (0.2-1); TOT PROT 7.8 g/dl (6.4-8.2)
[2020-05-04 07:33] LABS: BLOOD UREA NITROGEN 46.1 mg/dL (7-18)
[2020-05-04] MEDS ORDERED: POTASSIUM CHLORIDE ORAL LIQUID 20 MEQ/15 ML GT ONE (07:48)
--- NOTE | 2020-05-04 07:48 | PN ---
Progress Note, Physician Chief Complaint: Seen and examined in bed. NOn clinitron bed. BP improved on midodrine. Tolerating feeds. NPO past mn for OR for wound debridement History of Present Illness: 50 M h/o dysphagia s/p trach, functional quadriplegia 2/2 stroke, Afib on AC, HTN, seizures, morbid obesity, stage IV sacral ulcer, perma cath on R chest wall for dialysis who presents to ED via EMS from [facility] for low blood pressure. Pt. found to have infected chronic stage 4 decubitus ulcer, received Meropenem/Clindamycin in ED. ID following patient. - Current Medication List Current Medications: Active Medications Acetaminophen (Tylenol Oral Solution -) 325 mg GT Q6H PRN PRN Reason: FEVER Albuterol Sulfate (Ventolin Hfa Inhaler -) 2 puff IH Q4H PRN PRN Reason: SHORTNESS OF BREATH Albuterol/Ipratropium (Duoneb -) 1 amp NEB RQID [facility] Last Admin: 05/03/20 20:35 Dose: 1 amp Documented by: Apixaban (Eliquis -) 2.5 mg GT BID [facility] Last Admin: 05/03/20 21:41 Dose: 2.5 mg Documented by: Ascorbic Acid (Vitamin C -) 500 mg GT DAILY [facility] Last Admin: 05/03/20 10:35 Dose: 500 mg Documented by: Atorvastatin Calcium (Lipitor -) 40 mg GT HS [facility] Last Admin: 05/03/20 21:45 Dose: 40 mg Documented by: Budesonide (Pulmicort 0.5 Mg Nebulizer -) 1 amp NEB BID [facility] Last Admin: 05/03/20 21:10 Dose: 1 amp Documented by: Famotidine (Pepcid) 10 mg NGT HS [facility] Last Admin: 05/03/20 21:43 Dose: 10 mg Documented by: Gabapentin (Neurontin Oral Liquid -) 300 mg GT TID [facility] Last Admin: 05/03/20 21:44 Dose: 300 mg Documented by: Piperacillin Sod/Tazobactam (Sod 2.25 gm/ Dextrose) 50 mls @ 100 mls/hr IVPB Q8H-IV [facility]; Protocol Last Admin: 05/04/20 03:14 Dose: 100 mls/hr Documented by: Levetiracetam (Keppra Oral Solution -) 500 mg GT Q48H [facility] Last Admin: 05/02/20 22:09 Dose: 500 mg Documented by: Metoprolol Tartrate (Lopressor -) 25 mg GT BID [facility] Last Admin: 05/03/20 21:41 Dose: 25 mg Documented by: Midodrine (Proamatine -) 10 mg GT TID-MID [facility] Last Admin: 05/03/20 17:14 Dose: 10 mg Documented by: Nystatin (Mycostatin Ointment -) 1 applic TP BID [facility] Last Admin: 05/03/20 21:44 Dose: 1 applic Documented by: Quetiapine Fumarate (Seroquel -) 50 mg GT BID [facility] Last Admin: 05/03/20 21:41 Dose: 50 mg Documented by: Sodium Hypochlorite (Dakin's Solution 0.25% (Half-Strength) -) 1 applic TP DAILY [facility] Last Admin: 05/03/20 10:53 Dose: 1 appful Documented by: - Objective Vital Signs: Vital Signs Temperature 97.8 F 05/04/20 06:00 Pulse Rate 108 H 05/04/20 06:00 Respiratory Rate 20 05/03/20 22:00 Blood Pressure 97/58 L 05/04/20 06:00 O2 Sat by Pulse Oximetry (%) 108 H 05/04/20 06:00 Additional Findings/Remarks: Constitutional: Yes: Well Nourished, No Distress, Calm Eyes: Yes: WNL, Conjunctiva Clear HENT: Yes: WNL, Atraumatic, Normocephalic Neck: Yes: Other (trach in place) Cardiovascular: Yes: WNL, Regular Rate and Rhythm, Other (RIJ permacatj) Respiratory: Yes: Regular, CTA Bilaterally, Diminished (at bases) Gastrointestinal: Yes: Normal Bowel Sounds, Soft, Abdomen, Obese, Other (GT in place) ...Rectal Exam: Yes: Deferred Genitourinary: Yes: Incontinence Breast(s): Yes: WNL Musculoskeletal: Yes: Other (paraplegic) Edema: No Edema: LLE: 1+, RLE: 1+ Peripheral Pulses WNL: Yes Peripheral Pulses: Left Radial: 2+, Right Radial: 2+, Left Doralis Pedis: 2+, Right Dorsalis Pedis: 2+, Left Femoral: 2+, Right Femoral: 2+ Integumentary: Yes: Pressure Ulcer (Unstagable sacral decubitus 10x10 ulcer noted, with significant drainage Left hip 2cm x 2cm wound, without purulence.- alleyven in place Stasis dermatitis changes noted bilateral lower extremities.) Neurological: Yes: Alert, Oriented Psychiatric: Yes: Alert Labs: CBC, BMP 05/04/20 06:31 05/04/20 06:31 Problem List - Problems (1) Functional quadriplegia Assessment/Plan: supportive care frequent turning and repositioning on clinitron bed Code(s): R53.2 - FUNCTIONAL QUADRIPLEGIA (2) History of CVA (cerebrovascular accident) Assessment/Plan: functional quadriplegia secondary to prior CVA Code(s): Z86.73 - PRSNL HX OF TIA (TIA), AND CEREB INFRC W/O RESID DEFICITS (3) Tracheostomy in place Assessment/Plan: trach in place to TC FI02 50 Code(s): Z93.0 - TRACHEOSTOMY STATUS (4) Afib Assessment/Plan: rate controlled c/w metroprolol Code(s): I48.91 - UNSPECIFIED ATRIAL FIBRILLATION (5) Seizure Assessment/Plan: c/w keppra no sz activity Code(s): R56.9 - UNSPECIFIED CONVULSIONS (6) Morbid obesity Assessment/Plan: BMI 40 TF Nepro Code(s): E66.01 - MORBID (SEVERE) OBESITY DUE TO EXCESS CALORIES (7) Sacral decubitus ulcer, stage IV Assessment/Plan: Unstagable sacral decubitus ulcer noted 10 x 10 vascular surgery consulted and plan for OR tomorrow for debridement Code(s): L89.154 - PRESSURE ULCER OF SACRAL REGION, STAGE 4 (8) Hemodialysis status Assessment/Plan: HD done yesterday with 1.4L removed next session tues Code(s): Z99.2 - DEPENDENCE ON RENAL DIALYSIS (9) Prophylactic measure Assessment/Plan: FEN Fluids: additonal water in TF Electrolytes: monitor & replete as needed Nutrition: Nepro tube feeds DVT moderate risk apixaban Dispo Maintain as inpatient full code discharge planning back to [facility] Code(s): Z29.9 - ENCOUNTER FOR PROPHYLACTIC MEASURES, UNSPECIFIED (10) Hypotension Assessment/Plan: resolving c/w midodrine Code(s): I95.9 - HYPOTENSION, UNSPECIFIED Qualifiers: Hypotension type: other hypotension type Qualified Code(s): I95.89 - Other hypotension (11) COVID-19 ruled out Assessment/Plan: negative pcr Code(s): Z03.818 - ENCNTR FOR OBS FOR SUSP EXPSR TO OTH BIOLG AGENTS RULED OUT (12) ESRD (end stage renal disease) Assessment/Plan: HD as per renal Code(s): N18.6 - END STAGE RENAL DISEASE Visit type - Emergency Visit Emergency Visit: Yes ED Registration Date: 04/30/20 Care time: The patient presented to the Emergency Department on the above date and was hospitalized for further evaluation of their emergent condition. - New Patient This patient is new to me today: No - Critical Care Critical Care patient: No - Discharge Referral Referred to [facility] Med P.C.: No
[2020-05-04] MEDS: GABAPENTIN 250 MG/5 ML ORAL SOLUTION, 470 ML BOTTLE GT SCH ×3 (08:00→21:28)
[2020-05-04] MEDS: ALBUTEROL SO4 2.5/IPRATROPIUM 0.5 INH SOL 3 ML VIAL.NEB. NEB SCH ×4 (08:20→20:11)
[2020-05-04 09:49] LABS: ANISOCYTOSIS 1+; MACROCYTOSIS 0; PLATELET ESTIMATE NORMAL
[2020-05-04] MEDS: BUDESONIDE 0.5 MG/2 ML INH SUSP VIAL NEB SCH ×2 (10:00→21:14)
[2020-05-04] MEDS: MIDODRINE HCL 5 MG TABLET GT SCH ×3 (10:12→17:10)
[2020-05-04] MEDS: APIXABAN 2.5 MG TABLET GT SCH ×2 (10:12→21:11)
[2020-05-04] MEDS: QUEtiapine FUMARATE 50 MG TABLET GT SCH ×2 (10:12→21:12)
[2020-05-04] MEDS: METOPROLOL TARTRATE 25 MG TABLET (FP) GT SCH ×2 (10:13→21:12)
[2020-05-04] MEDS: ASCORBIC ACID 500 MG TABLET (FP) GT SCH (10:13)
[2020-05-04] MEDS: NYSTATIN 100000 UNIT/GM TOPICAL OINTMENT 15 GM TUBE TP SCH ×2 (10:13→22:00)
[2020-05-04] MEDS: SODIUM HYPOCHLORITE 0.25%- 473 ML BULK BOTTLE TP SCH (10:13)
[2020-05-04] MEDS ORDERED: PT OWN MED DRAWER 7, Y5N ONE ×2 (14:24→20:30)
--- NOTE | 2020-05-04 14:24 | PN ---
Progress Note, Physician History of Present Illness: Pt remains alert, afebrile. Responsive, without distress. - Current Medication List Current Medications: Active Medications Acetaminophen (Tylenol Oral Solution -) 325 mg GT Q6H PRN PRN Reason: FEVER Albuterol Sulfate (Ventolin Hfa Inhaler -) 2 puff IH Q4H PRN PRN Reason: SHORTNESS OF BREATH Albuterol/Ipratropium (Duoneb -) 1 amp NEB RQID [facility] Last Admin: 05/04/20 12:20 Dose: 1 amp Documented by: Apixaban (Eliquis -) 2.5 mg GT BID [facility] Last Admin: 05/04/20 10:12 Dose: 2.5 mg Documented by: Ascorbic Acid (Vitamin C -) 500 mg GT DAILY [facility] Last Admin: 05/04/20 10:13 Dose: 500 mg Documented by: Atorvastatin Calcium (Lipitor -) 40 mg GT HS [facility] Last Admin: 05/03/20 21:45 Dose: 40 mg Documented by: Budesonide (Pulmicort 0.5 Mg Nebulizer -) 1 amp NEB BID [facility] Last Admin: 05/04/20 10:00 Dose: 1 amp Documented by: Famotidine (Pepcid) 10 mg NGT HS [facility] Last Admin: 05/03/20 21:43 Dose: 10 mg Documented by: Gabapentin (Neurontin Oral Liquid -) 300 mg GT TID [facility] Last Admin: 05/04/20 08:00 Dose: 300 mg Documented by: Piperacillin Sod/Tazobactam (Sod 2.25 gm/ Dextrose) 50 mls @ 100 mls/hr IVPB Q8H-IV [facility]; Protocol Last Admin: 05/04/20 10:12 Dose: 100 mls/hr Documented by: Levetiracetam (Keppra Oral Solution -) 500 mg GT Q48H [facility] Last Admin: 05/02/20 22:09 Dose: 500 mg Documented by: Metoprolol Tartrate (Lopressor -) 25 mg GT BID [facility] Last Admin: 05/04/20 10:13 Dose: 25 mg Documented by: Midodrine (Proamatine -) 10 mg GT TID-MID [facility] Last Admin: 05/04/20 10:12 Dose: 10 mg Documented by: Nystatin (Mycostatin Ointment -) 1 applic TP BID [facility] Last Admin: 05/04/20 10:13 Dose: 1 applic Documented by: Quetiapine Fumarate (Seroquel -) 50 mg GT BID [facility] Last Admin: 05/04/20 10:12 Dose: 50 mg Documented by: Sodium Hypochlorite (Dakin's Solution 0.25% (Half-Strength) -) 1 applic TP [facility] L[facility] Last Admin: 05/04/20 10:13 Dose: 1 applic Documented by: - Objective Vital Signs: Vital Signs Temperature 97.8 F 05/04/20 06:00 Pulse Rate 96 H 05/04/20 10:00 Respiratory Rate 05/03/20 22:00 Blood Pressure 97/58 L 05/04/20 06:00 O2 Sat by Pulse Oximetry (%) 108 H 05/04/20 10:00 Constitutional: Yes: No Distress Cardiovascular: Yes: Tachycardia Respiratory: Yes: Regular, Other (trach) Gastrointestinal: Yes: Normal Bowel Sounds, Soft, Abdomen, Obese Integumentary: Yes: Pressure Ulcer Wound/Incision: Yes: Dressing Dry and Intact Neurological: Yes: Alert Labs: CBC, BMP 05/04/20 06:31 05/04/20 06:31 Microbiology 04/30/20 15:00 Blood - Peripheral Venous Blood Culture - Preliminary NO GROWTH OBTAINED AFTER 72 HOURS, INCUBATION TO CONTINUE FOR 2 DAYS. 04/30/20 15:00 Blood - Peripheral Venous Blood Culture - Preliminary NO GROWTH OBTAINED AFTER 72 HOURS, INCUBATION TO CONTINUE FOR 2 DAYS. 05/01/20 14:35 Coccyx Gram Stain - Final 05/01/20 14:35 Coccyx Wound Culture - Final Non Lactose Fermenting Gnb Non Lactose Fermenting Gnb#2 Lactose Fermenting Neg Bacilli Group D Strep Or Entero Coccus 04/30/20 15:00 Urine - Urine - Catheterized Urine Culture - Final Yeast Like Organism Problem List - Problems (1) Afib Code(s): I48.91 - UNSPECIFIED ATRIAL FIBRILLATION (2) Functional quadriplegia Code(s): R53.2 - FUNCTIONAL QUADRIPLEGIA (3) HTN (hypertension) Code(s): I10 - ESSENTIAL (PRIMARY) HYPERTENSION (4) Hemodialysis status Code(s): Z99.2 - DEPENDENCE ON RENAL DIALYSIS (5) History of CVA (cerebrovascular accident) Code(s): Z86.73 - PRSNL HX OF TIA (TIA), AND CEREB INFRC W/O RESID DEFICITS (6) Morbid obesity Code(s): E66.01 - MORBID (SEVERE) OBESITY DUE TO EXCESS CALORIES (7) Sacral decubitus ulcer, stage IV Code(s): L89.154 - PRESSURE ULCER OF SACRAL REGION, STAGE 4 (8) Tracheostomy in place Code(s): Z93.0 - TRACHEOSTOMY STATUS Assessment/Plan Sepsis 2/2 infected Stage 4 decubitus ulcer Afib on Eliquis HTN HLD Dysphagia s/p trach PEG Quadriplegia s/p CVA Morbidly obese Seizure disorder ESRD on HD -- leukocytosis improving, afebrile -- blood cultures neg so far -- awaiting wound debridement -- continue antibiotics, wound care continue monitor vitals, wbc trend
[2020-05-04] MEDS: FAMOTIDINE 40 MG/5 ML ORAL SUSPENSION NGT SCH (21:11)
[2020-05-04] MEDS: ATORVASTATIN CA 40 MG TABLET (FP) GT SCH (21:12)
[2020-05-04] MEDS: levETIRAcetam 500 MG/5 ML ORAL SOLUTION (UNIT-DOSE CUPS) GT SCH (23:00)
[2020-05-05] MEDS ORDERED: DEXTROSE 5%-WATER - 50 ML IVPB ONE ×2 (00:32→08:52)
[2020-05-05] MEDS ORDERED: PIPERACILLIN/TAZOBACTAM 2.25 GM VIAL IVPB ONE ×3 (00:32→16:46)
[2020-05-05] MEDS: PIPERACILLIN/TAZOB 2.25 GM 2.25 GM in DEXTROSE 5%-WATER - 50 ML IVPB SCH ×3 (02:28→17:01)
[2020-05-05 06:01] LABS: BASO % 0.6 % (0-2.0); EOS % 3.5 % (0-4.5); HEMATOCRIT 26.3 % (35.4-49); HEMOGLOBIN 8.6 GM/dL (11.7-16.9); LYMPH % 15.7 % (8-40); MCH 30.2 pg (25.7-33.7); MCHC 32.6 g/dl (32.0-35.9); MEAN CELL VOLUME 92.6 fl (80-96); MEAN PLT VOLUME 7.8 fl (7.5-11.1); MONO % 6.5 % (3.8-10.2); NEUT % 73.7 % (42.8-82.8); PLATELET COUNT 391 K/MM3 (134-434); RBC 2.84 M/mm3 (4.00-5.60); RDW 15.2 % (11.9-15.9)
[2020-05-05 06:09] LABS: INR 1.46 (0.83-1.09)
[2020-05-05] MEDS: GABAPENTIN 250 MG/5 ML ORAL SOLUTION, 470 ML BOTTLE GT SCH ×3 (06:13→21:21)
[2020-05-05 06:37] LABS: ALBUMIN 2.5 g/dl (3.4-5.0); BILIRUBIN,TOTAL 0.4 mg/dL (0.2-1); BLOOD UREA NITROGEN 57.1 mg/dL (7-18); CALCIUM 9.9 mg/dL (8.5-10.1); CREATININE 4.5 mg/dL (0.55-1.3); MAGNESIUM 1.9 mg/dL (1.8-2.4); POTASSIUM 3.8 mmol/L (3.5-5.1); TOT PROT 7.5 g/dl (6.4-8.2)
[2020-05-05 07:06] LABS: ANISOCYTOSIS 0; MACROCYTOSIS 0; PLATELET ESTIMATE NORMAL
--- NOTE | 2020-05-05 07:29 | PN ---
Progress Note, Physician Chief Complaint: Seen and examined in bed. NPO for wound debridement. On clinitron bed. BP improved on midodrine.HD tomorrow. Plan for return back to SNF/[facility] when medically stable History of Present Illness: 50 M h/o dysphagia s/p trach, functional quadriplegia 2/2 stroke, Afib on AC, HTN, seizures, morbid obesity, stage IV sacral ulcer, perma cath on R chest wall for dialysis who presents to ED via EMS from [facility] for low blood pressure. Pt. found to have infected chronic stage 4 decubitus ulcer, received Meropenem/Clindamycin in ED. ID following patient. - Current Medication List Current Medications: Active Medications Acetaminophen (Tylenol Oral Solution -) 325 mg GT Q6H PRN PRN Reason: FEVER Albuterol Sulfate (Ventolin Hfa Inhaler -) 2 puff IH Q4H PRN PRN Reason: SHORTNESS OF BREATH Albuterol/Ipratropium (Duoneb -) 1 amp NEB RQID [facility] Last Admin: 05/04/20 20:11 Dose: 1 amp Documented by: Apixaban (Eliquis -) 2.5 mg GT BID [facility] Last Admin: 05/04/20 21:11 Dose: 2.5 mg Documented by: Ascorbic Acid (Vitamin C -) 500 mg GT DAILY [facility] Last Admin: 05/04/20 10:13 Dose: 500 mg Documented by: Atorvastatin Calcium (Lipitor -) 40 mg GT HS [facility] Last Admin: 05/04/20 21:12 Dose: 40 mg Documented by: Budesonide (Pulmicort 0.5 Mg Nebulizer -) 1 amp NEB BID [facility] Last Admin: 05/04/20 21:14 Dose: Not Given Documented by: Famotidine (Pepcid) 10 mg NGT HS [facility] Last Admin: 05/04/20 21:11 Dose: 10 mg Documented by: Gabapentin (Neurontin Oral Liquid -) 300 mg GT TID [facility] Last Admin: 05/05/20 06:13 Dose: Not Given Documented by: Piperacillin Sod/Tazobactam (Sod 2.25 gm/ Dextrose) 50 mls @ 100 mls/hr IVPB Q8H-IV [facility]; Protocol Last Admin: 05/05/20 02:28 Dose: 100 mls/hr Documented by: Levetiracetam (Keppra Oral Solution -) 500 mg GT Q48H [facility] Last Admin: 05/04/20 23:00 Dose: 500 mg Documented by: Metoprolol Tartrate (Lopressor -) 25 mg GT BID [facility] Last Admin: 05/04/20 21:12 Dose: 25 mg Documented by: Midodrine (Proamatine -) 10 mg GT TID-MID [facility] Last Admin: 05/04/20 17:10 Dose: 10 mg Documented by: Nystatin (Mycostatin Ointment -) 1 applic TP BID [facility] Last Admin: 05/04/20 22:00 Dose: 1 applic Documented by: Quetiapine Fumarate (Seroquel -) 50 mg GT BID [facility] Last Admin: 05/04/20 21:12 Dose: 50 mg Documented by: Sodium Hypochlorite (Dakin's Solution 0.25% (Half-Strength) -) 1 applic TP DAILY [facility] Last Admin: 05/04/20 10:13 Dose: 1 applic Documented by: - Objective Vital Signs: Vital Signs Temperature 98.8 F 05/05/20 06:00 Pulse Rate 94 H 05/05/20 06:00 Respiratory Rate 20 05/05/20 06:00 Blood Pressure 98/56 L 05/05/20 06:00 O2 Sat by Pulse Oximetry (%) 99 05/05/20 06:00 Additional Findings/Remarks: Constitutional: Yes: Well Nourished, No Distress, Calm Eyes: Yes: WNL, Conjunctiva Clear HENT: Yes: WNL, Atraumatic, Normocephalic Neck: Yes: Other (trach in place) Cardiovascular: Yes: WNL, Regular Rate and Rhythm, Other (RIJ permacatj) Respiratory: Yes: Regular, CTA Bilaterally, Diminished (at bases) Gastrointestinal: Yes: Normal Bowel Sounds, Soft, Abdomen, Obese, Other (GT in p lace) ...Rectal Exam: Yes: Deferred Genitourinary: Yes: Incontinence Breast(s): Yes: WNL Musculoskeletal: Yes: Other (paraplegic) Edema: No Edema: LLE: 1+, RLE: 1+ Peripheral Pulses WNL: Yes Peripheral Pulses: Left Radial: 2+, Right Radial: 2+, Left Doralis Pedis: 2+, Right Dorsalis Pedis: 2+, Left Femoral: 2+, Right Femoral: 2+ Integumentary: Yes: Pressure Ulcer (Unstagable sacral decubitus 10x10 ulcer noted, with significant drainage Left hip 2cm x 2cm wound, without purulence.- alleyven in place Stasis dermatitis changes noted bilateral lower extremities.) Neurological: Yes: Alert, Oriented Psychiatric: Yes: Alert Labs: CBC, BMP 05/05/20 05:20 05/05/20 05:20 INR, PTT INR 1.46 (0.83-1.09) H 05/05/20 05:20 Problem List - Problems (1) Functional quadriplegia Assessment/Plan: supportive care frequent turning and repositioning on clinitron bed Code(s): R53.2 - FUNCTIONAL QUADRIPLEGIA (2) History of CVA (cerebrovascular accident) Assessment/Plan: functional quadriplegia secondary to prior CVA Code(s): Z86.73 - PRSNL HX OF TIA (TIA), AND CEREB INFRC W/O RESID DEFICITS (3) Tracheostomy in place Assessment/Plan: trach in place to FI02 50 Trace care as per nursing Code(s): Z93.0 - TRACHEOSTOMY STATUS (4) Afib Assessment/Plan: rate controlled c/w metroprolol c/w tele Code(s): I48.91 - UNSPECIFIED ATRIAL FIBRILLATION (5) Seizure Assessment/Plan: c/w keppra no sz activity Code(s): R56.9 - UNSPECIFIED CONVULSIONS (6) Morbid obesity Assessment/Plan: BMI 40 TF Nepro on hold for OR-can resume tmrw Code(s): E66.01 - MORBID (SEVERE) OBESITY DUE TO EXCESS CALORIES (7) Sacral decubitus ulcer, stage IV Assessment/Plan: Unstagable sacral decubitus ulcer noted 10 x 10 plan today for debridement Code(s): L89.154 - PRESSURE ULCER OF SACRAL REGION, STAGE 4 (8) Hemodialysis status Assessment/Plan: HD done on sat with 1.4L removed next session tues Code(s): Z99.2 - DEPENDENCE ON RENAL DIALYSIS (9) Prophylactic measure Assessment/Plan: FEN Fluids: additonal water in TF Electrolytes: monitor & replete as needed Nutrition: Nepro tube feeds to resume after OR DVT moderate risk apixaban Dispo Maintain as inpatient full code discharge planning back to [facility] Code(s): Z29.9 - ENCOUNTER FOR PROPHYLACTIC MEASURES, UNSPECIFIED (10) Hypotension Assessment/Plan: resolving c/w midodrine Code(s): I95.9 - HYPOTENSION, UNSPECIFIED Qualifiers: Hypotension type: other hypotension type Qualified Code(s): I95.89 - Other hypotension (11) COVID-19 ruled out Assessment/Plan: negative pcr Code(s): Z03.818 - ENCNTR FOR OBS FOR SUSP EXPSR TO OTH BIOLG AGENTS RULED OUT (12) ESRD (end stage renal disease) Assessment/Plan: HD as per renal Code(s): N18.6 - END STAGE RENAL DISEASE (13) [facility] resident Assessment/Plan: plan to return to [facility] Code(s): Z59.3 - PROBLEMS RELATED TO LIVING IN RESIDENTIAL INSTITUTION Visit type - Emergency Visit Emergency Visit: Yes ED Registration Date: 04/30/20 Care time: The patient presented to the Emergency Department on the above date and was hospitalized for further evaluation of their emergent condition. - New Patient This patient is new to me today: No - Critical Care Critical Care patient: No - Discharge Referral Referred to [facility] Med P.C.: No
[2020-05-05] MEDS: ALBUTEROL SO4 2.5/IPRATROPIUM 0.5 INH SOL 3 ML VIAL.NEB. NEB SCH ×4 (07:32→20:20)
[2020-05-05] MEDS ORDERED: PT OWN MED DRAWER 7, Y5N ONE ×3 (07:40→20:47)
[2020-05-05] MEDS: METOPROLOL TARTRATE 25 MG TABLET (FP) GT SCH ×2 (09:06→21:19)
[2020-05-05] MEDS: MIDODRINE HCL 5 MG TABLET GT SCH ×3 (09:17→18:33)
[2020-05-05] MEDS: APIXABAN 2.5 MG TABLET GT SCH ×2 (10:07→21:19)
--- NOTE | 2020-05-05 11:14 | PN ---
Progress Note (short form) - Note Progress Note: RENAL pt is awake and alert appears comfortable Last Vital Signs Temp Pulse Resp BP Pulse Ox 97.8 F 97 H 20 93/48 L 96 05/05/20 08:00 05/05/20 08:00 05/05/20 09:00 05/05/20 08:00 05/05/20 09:00 trach lungs clear cvs s1s2 rr abd soft ext no edema neuro alert, does not respond toquestion CBC, BMP 05/05/20 05:20 05/05/20 05:20 Current Medications Generic Name Dose Route Start Last Admin Trade Name Freq PRN Reason Stop Dose Admin Acetaminophen 325 mg 04/30/20 22:43 Tylenol Oral Solution - GT Q6H PRN FEVER Albuterol Sulfate 2 puff 04/30/20 22:58 Ventolin Hfa Inhaler - IH Q4H PRN SHORTNESS OF BREATH Albuterol/Ipratropium 1 amp 05/03/20 08:51 05/05/20 07:32 Duoneb - NEB 1 amp RQID [facility] Administration Apixaban 2.5 mg 05/02/20 10:00 05/04/20 21:11 Eliquis - GT 2.5 mg BID [facility] Administration Ascorbic Acid 500 mg 05/01/20 10:00 05/04/20 10:13 Vitamin C - GT 500 mg DAILY [facility] Administration Atorvastatin Calcium 40 mg 05/01/20 22:00 05/04/20 21:12 Lipitor - GT 40 mg HS [facility] Administration Budesonide 1 amp 05/02/20 10:00 05/04/20 21:14 Pulmicort 0.5 Mg Nebulizer - NEB Not Given BID [facility] Famotidine 10 mg 05/02/20 22:00 05/04/20 21:11 Pepcid NGT 10 mg HS [facility] Administration Gabapentin 300 mg 05/01/20 06:00 05/05/20 06:13 Neurontin Oral Liquid - GT Not Given TID [facility] Piperacillin Sod/Tazobactam 50 mls @ 100 mls/hr 05/01/20 14:15 05/05/20 09:16 Sod 2.25 gm/ Dextrose IVPB 100 mls/hr Q8H-IV [facility] Administration Protocol Levetiracetam 500 mg 04/30/20 22:45 05/04/20 23:00 Keppra Oral Solution - GT 500 mg Q48H [facility] Administration Metoprolol Tartrate 25 mg 04/30/20 22:45 05/04/20 21:12 Lopressor - GT 25 mg BID [facility] Administration Midodrine 10 mg 05/01/20 10:00 05/05/20 09:17 Proamatine - GT 10 mg TID-MID [facility] Administration Nystatin 1 applic 04/30/20 22:45 05/04/20 22:00 Mycostatin Ointment - TP 1 applic BID [facility] Administration Quetiapine Fumarate 50 mg 05/02/20 10:00 05/04/20 21:12 Seroquel - GT 50 mg BID [facility] Administration Sodium Hypochlorite 1 applic 05/02/20 16:12 05/04/20 10:13 Dakin's Solution 0.25% (Half-Strength) - TP 1 applic DAILY [facility] Administration IMPRESSION ESRD sepsis secondary to decubitus s/p trach functional quadriplegia darrell to stroke anemia PLAN antibiotics per id surgical eval noted, for possible debridement will dialyze tomorrow will give prasanna but no iv iron given infection will need avf--- vascular eval MV
[2020-05-05] MEDS: BUDESONIDE 0.5 MG/2 ML INH SUSP VIAL NEB SCH ×2 (11:53→22:00)
[2020-05-05] MEDS: SODIUM HYPOCHLORITE 0.25%- 473 ML BULK BOTTLE TP SCH (14:07)
[2020-05-05] MEDS: NYSTATIN 100000 UNIT/GM TOPICAL OINTMENT 15 GM TUBE TP SCH ×2 (14:07→21:20)
[2020-05-05] MEDS: ASCORBIC ACID 500 MG TABLET (FP) GT SCH (14:08)
[2020-05-05] MEDS: QUEtiapine FUMARATE 50 MG TABLET GT SCH (21:19)
[2020-05-05] MEDS: FAMOTIDINE 40 MG/5 ML ORAL SUSPENSION NGT SCH (21:21)
[2020-05-06] MEDS ORDERED: DEXTROSE 5%-WATER - 50 ML IVPB ONE ×3 (01:35→17:24)
[2020-05-06] MEDS ORDERED: PIPERACILLIN/TAZOBACTAM 2.25 GM VIAL IVPB ONE ×3 (01:35→17:24)
[2020-05-06] MEDS: PIPERACILLIN/TAZOB 2.25 GM 2.25 GM in DEXTROSE 5%-WATER - 50 ML IVPB SCH ×3 (01:39→17:28)
[2020-05-06] MEDS ORDERED: PT OWN MED DRAWER 7, Y5N ONE ×2 (05:10→08:06)
[2020-05-06] MEDS: GABAPENTIN 250 MG/5 ML ORAL SOLUTION, 470 ML BOTTLE GT SCH ×3 (05:21→21:41)
[2020-05-06 07:20] LABS: BASO % 0.5 % (0-2.0); EOS % 2.8 % (0-4.5); HEMATOCRIT 23.4 % (35.4-49); HEMOGLOBIN 7.8 GM/dL (11.7-16.9); MCH 31.1 pg (25.7-33.7); MCHC 33.4 g/dl (32.0-35.9); MEAN CELL VOLUME 93.1 fl (80-96); MONO % 5.6 % (3.8-10.2); NEUT % 76.1 % (42.8-82.8); PLATELET COUNT 369 K/MM3 (134-434); RBC 2.52 M/mm3 (4.00-5.60); RDW 15.3 % (11.9-15.9); WHITE BLOOD COUNT 15.1 K/mm3 (4.0-10.0)
[2020-05-06] MEDS ORDERED: SODIUM CHLORIDE 250 ML IV PRN (07:25)
[2020-05-06 07:37] LABS: ALBUMIN 2.4 g/dl (3.4-5.0); BILIRUBIN,TOTAL 0.5 mg/dL (0.2-1); BLOOD UREA NITROGEN 65.7 mg/dL (7-18); CALCIUM 9.5 mg/dL (8.5-10.1); CREATININE 5.2 mg/dL (0.55-1.3); POTASSIUM 3.9 mmol/L (3.5-5.1); TOT PROT 7.1 g/dl (6.4-8.2)
[2020-05-06] MEDS ORDERED: EPOETIN ALFA-EPBX 10,000 UNIT/ML VIAL IVPUSH ONE (08:00)
[2020-05-06] MEDS: ALBUTEROL SO4 2.5/IPRATROPIUM 0.5 INH SOL 3 ML VIAL.NEB. NEB SCH ×4 (08:16→20:35)
[2020-05-06] MEDS: MIDODRINE HCL 5 MG TABLET GT SCH ×3 (09:00→17:28)
[2020-05-06] MEDS: APIXABAN 2.5 MG TABLET GT SCH ×3 (09:01→21:41)
[2020-05-06] MEDS: SODIUM HYPOCHLORITE 0.25%- 473 ML BULK BOTTLE TP SCH (09:01)
[2020-05-06] MEDS: NYSTATIN 100000 UNIT/GM TOPICAL OINTMENT 15 GM TUBE TP SCH ×2 (09:01→21:42)
[2020-05-06] MEDS: ASCORBIC ACID 500 MG TABLET (FP) GT SCH (09:01)
[2020-05-06] MEDS: METOPROLOL TARTRATE 25 MG TABLET (FP) GT SCH ×2 (09:01→22:19)
[2020-05-06] MEDS: QUEtiapine FUMARATE 50 MG TABLET GT SCH ×3 (09:02→21:41)
[2020-05-06] MEDS: BUDESONIDE 0.5 MG/2 ML INH SUSP VIAL NEB SCH ×2 (10:35→22:00)
[2020-05-06 10:55] LABS: ANISOCYTOSIS 0; MACROCYTOSIS 0; PLATELET ESTIMATE NORMAL; ROULEAU 1+
--- NOTE | 2020-05-06 14:48 | PN ---
Progress Note, Physician History of Present Illness: going for or today stable - Current Medication List Current Medications: Active Medications Acetaminophen (Tylenol Oral Solution -) 325 mg GT Q6H PRN PRN Reason: FEVER Albuterol Sulfate (Ventolin Hfa Inhaler -) 2 puff IH Q4H PRN PRN Reason: SHORTNESS OF BREATH Albuterol/Ipratropium (Duoneb -) 1 amp NEB RQID [facility] Last Admin: 05/06/20 12:35 Dose: 1 amp Documented by: Apixaban (Eliquis -) 2.5 mg GT BID [facility] Last Admin: 05/06/20 10:30 Dose: 2.5 mg Documented by: Ascorbic Acid (Vitamin C -) 500 mg GT DAILY [facility] Last Admin: 05/06/20 09:01 Dose: 500 mg Documented by: Atorvastatin Calcium (Lipitor -) 40 mg GT HS [facility] Last Admin: 05/04/20 21:12 Dose: 40 mg Documented by: Budesonide (Pulmicort 0.5 Mg Nebulizer -) 1 amp NEB BID [facility] Last Admin: 05/06/20 10:35 Dose: 1 amp Documented by: Famotidine (Pepcid) 10 mg NGT HS [facility] Last Admin: 05/05/20 21:21 Dose: 10 mg Documented by: Gabapentin (Neurontin Oral Liquid -) 300 mg GT TID [facility] Last Admin: 05/06/20 13:54 Dose: 300 mg Documented by: Piperacillin Sod/Tazobactam (Sod 2.25 gm/ Dextrose) 50 mls @ 100 mls/hr IVPB Q8H-IV [facility]; Protocol Last Admin: 05/06/20 09:02 Dose: 100 mls/hr Documented by: Sodium Chloride (Normal Saline -) 250 mls @ 3,000 mls/hr IV PRN PRN PRN Reason: Hypotension during Dialysis Stop: 05/07/20 07:24 Levetiracetam (Keppra Oral Solution -) 500 mg GT Q48H [facility] Last Admin: 05/04/20 23:00 Dose: 500 mg Documented by: Metoprolol Tartrate (Lopressor -) 25 mg GT BID [facility] Last Admin: 05/06/20 09:01 Dose: Not Given Documented by: Midodrine (Proamatine -) 10 mg GT TID-MID [facility] Last Admin: 05/06/20 13:54 Dose: 10 mg Documented by: Nystatin (Mycostatin Ointment -) 1 applic TP BID [facility] Last Admin: 05/06/20 09:01 Dose: 1 applic Documented by: Quetiapine Fumarate (Seroquel -) 50 mg GT BID [facility] Last Admin: 05/06/20 09:02 Dose: 50 mg Documented by: Sodium Hypochlorite (Dakin's Solution 0.25% (Half-Strength) -) 1 applic TP DAILY [facility] Last Admin: 05/06/20 09:01 Dose: 1 applic Documented by: - Objective Vital Signs: Vital Signs Temperature 98.5 F 05/06/20 14:15 Pulse Rate 94 H 05/06/20 14:15 Respiratory Rate 20 05/06/20 14:15 Blood Pressure 120/57 L 05/06/20 14:15 O2 Sat by Pulse Oximetry (%) 93 L 05/06/20 12:37 Constitutional: Yes: No Distress, Calm, Obese Cardiovascular: Yes: S1, S2 Respiratory: Yes: Regular, Other (on trach collar) Gastrointestinal: Yes: Normal Bowel Sounds, Soft Musculoskeletal: Yes: WNL Extremities: Yes: WNL Wound/Incision: Yes: Other (decubitus ulcer wiht necrotic tissues) Neurological: Yes: Alert, Oriented Psychiatric: Yes: Alert, Oriented Labs: CBC, BMP 05/06/20 06:30 05/06/20 06:30 INR, PTT INR 1.46 (0.83-1.09) H 05/05/20 05:20 Assessment/Plan 50 M Sepsis 2/2 infected Stage 4 decubitus ulcer Afib on Eliquis HTN HLD Dysphagia s/p trach PEG non-ambulatory Non-verbal Morbidly obese Seizure disorder ESRD on HD plan abx patient for debridement and wound vac
--- NOTE | 2020-05-06 14:48 | PN ---
Progress Note, Physician History of Present Illness: stable no new issues plan for debridement - Current Medication List Current Medications: Active Medications Acetaminophen (Tylenol Oral Solution -) 325 mg GT Q6H PRN PRN Reason: FEVER Albuterol Sulfate (Ventolin Hfa Inhaler -) 2 puff IH Q4H PRN PRN Reason: SHORTNESS OF BREATH Albuterol/Ipratropium (Duoneb -) 1 amp NEB RQID [facility] Last Admin: 05/06/20 12:35 Dose: 1 amp Documented by: Apixaban (Eliquis -) 2.5 mg GT BID [facility] Last Admin: 05/06/20 10:30 Dose: 2.5 mg Documented by: Ascorbic Acid (Vitamin C -) 500 mg GT DAILY [facility] Last Admin: 05/06/20 09:01 Dose: 500 mg Documented by: Atorvastatin Calcium (Lipitor -) 40 mg GT HS [facility] Last Admin: 05/04/20 21:12 Dose: 40 mg Documented by: Budesonide (Pulmicort 0.5 Mg Nebulizer -) 1 amp NEB BID [facility] Last Admin: 05/06/20 10:35 Dose: 1 amp Documented by: Famotidine (Pepcid) 10 mg NGT HS [facility] Last Admin: 05/05/20 21:21 Dose: 10 mg Documented by: Gabapentin (Neurontin Oral Liquid -) 300 mg GT TID [facility] Last Admin: 05/06/20 13:54 Dose: 300 mg Documented by: Piperacillin Sod/Tazobactam (Sod 2.25 gm/ Dextrose) 50 mls @ 100 mls/hr IVPB Q8H-IV [facility]; Protocol Last Admin: 05/06/20 09:02 Dose: 100 mls/hr Documented by: Sodium Chloride (Normal Saline -) 250 mls @ 3,000 mls/hr IV PRN PRN PRN Reason: Hypotension during Dialysis Stop: 05/07/20 07:24 Levetiracetam (Keppra Oral Solution -) 500 mg GT Q48H [facility] Last Admin: 05/04/20 23:00 Dose: 500 mg Documented by: Metoprolol Tartrate (Lopressor -) 25 mg GT BID [facility] Last Admin: 05/06/20 09:01 Dose: Not Given Documented by: Midodrine (Proamatine -) 10 mg GT TID-MID [facility] Last Admin: 05/06/20 13:54 Dose: 10 mg Documented by: Nystatin (Mycostatin Ointment -) 1 applic TP BID [facility] Last Admin: 05/06/20 09:01 Dose: 1 applic Documented by: Quetiapine Fumarate (Seroquel -) 50 mg GT BID [facility] Last Admin: 05/06/20 09:02 Dose: 50 mg Documented by: Sodium Hypochlorite (Dakin's Solution 0.25% (Half-Strength) -) 1 applic TP DAILY [facility] Last Admin: 05/06/20 09:01 Dose: 1 applic Documented by: - Objective Vital Signs: Vital Signs Temperature 98.5 F 05/06/20 14:15 Pulse Rate 94 H 05/06/20 14:15 Respiratory Rate 20 05/06/20 14:15 Blood Pressure 120/57 L 05/06/20 14:15 O2 Sat by Pulse Oximetry (%) 93 L 05/06/20 12:37 Constitutional: Yes: No Distress, Calm Cardiovascular: Yes: S1, S2 Respiratory: Yes: Regular, CTA Bilaterally, Other (trach in place) Gastrointestinal: Yes: Normal Bowel Sounds, Soft Musculoskeletal: Yes: WNL Extremities: Yes: Other Neurological: Yes: Alert, Oriented Psychiatric: Yes: Alert, Oriented Labs: CBC, BMP 05/06/20 06:30 05/06/20 06:30 INR, PTT INR 1.46 (0.83-1.09) H 05/05/20 05:20 Assessment/Plan 50 M Sepsis 2/2 infected Stage 4 decubitus ulcer Afib on Eliquis HTN HLD Dysphagia s/p trach PEG non-ambulatory Non-verbal Morbidly obese Seizure disorder ESRD on HD plan abx debridement wound care rest as per the team
--- NOTE | 2020-05-06 15:41 | PN ---
Progress Note (short form) - Note Progress Note: RENAL pt is awake and alert appears comfortable seen with daughter Rhona present Last Vital Signs Temp Pulse Resp BP Pulse Ox 98.5 F 94 H 20 120/57 L 93 L 05/06/20 14:15 05/06/20 14:15 05/06/20 14:15 05/06/20 14:15 05/06/20 12:37 face a ppears flushed trach lungs clear cvs s1s2 rr abd soft ext no edema neuro alert, nods to answer question CBC, BMP 05/06/20 06:30 05/06/20 06:30 Current Medications Generic Name Dose Route Start Last Admin Trade Name Freq PRN Reason Stop Dose Admin Acetaminophen 325 mg 04/30/20 22:43 Tylenol Oral Solution - GT Q6H PRN FEVER Albuterol Sulfate 2 puff 04/30/20 22:58 Ventolin Hfa Inhaler - IH Q4H PRN SHORTNESS OF BREATH Albuterol/Ipratropium 1 amp 05/03/20 08:51 05/06/20 12:35 Duoneb - NEB 1 amp RQID [facility] Administration Apixaban 2.5 mg 05/02/20 10:00 05/06/20 10:30 Eliquis - GT 2.5 mg BID [facility] Administration Ascorbic Acid 500 mg 05/01/20 10:00 05/06/20 09:01 Vitamin C - GT 500 mg DAILY [facility] Administration Atorvastatin Calcium 40 mg 05/01/20 22:00 05/04/20 21:12 Lipitor - GT 40 mg HS [facility] Administration Budesonide 1 amp 05/02/20 10:00 05/06/20 10:35 Pulmicort 0.5 Mg Nebulizer - NEB 1 amp BID [facility] Administration Famotidine 10 mg 05/02/20 22:00 05/05/20 21:21 Pepcid NGT 10 mg HS [facility] Administration Gabapentin 300 mg 05/01/20 06:00 05/06/20 13:54 Neurontin Oral Liquid - GT 300 mg TID [facility] Administration Piperacillin Sod/Tazobactam 50 mls @ 100 mls/hr 05/01/20 14:15 05/06/20 09:02 Sod 2.25 gm/ Dextrose IVPB 100 mls/hr Q8H-IV [facility] Administration Protocol Sodium Chloride 250 mls @ 3,000 mls/hr 05/06/20 07:25 Normal Saline - IV 05/07/20 07:24 PRN PRN Hypotension during Dialysis Levetiracetam 500 mg 04/30/20 22:45 05/04/20 23:00 Keppra Oral Solution - GT 500 mg Q48H [facility] Administration Metoprolol Tartrate 25 mg 04/30/20 22:45 05/06/20 09:01 Lopressor - GT Not Given BID [facility] Midodrine 10 mg 05/01/20 10:00 05/06/20 13:54 Proamatine - GT 10 mg TID-MID [facility] Administration Nystatin 1 applic 04/30/20 22:45 05/06/20 09:01 Mycostatin Ointment - TP 1 applic BID [facility] Administration Quetiapine Fumarate 50 mg 05/02/20 10:00 05/06/20 09:02 Seroquel - GT 50 mg BID [facility] Administration Sodium Hypochlorite 1 applic 05/02/20 16:12 05/06/20 09:01 Dakin's Solution 0.25% (Half-Strength) - TP 1 applic DAILY [facility] Administration IMPRESSION ESRD sepsis secondary to decubitus s/p trach functional quadriplegia darrell to stroke anemia PLAN antibiotics per id surgical eval noted, for possible debridement tolerated hd today will give prasanna but no iv iron given infection will need avf--- vascular eval MV
--- NOTE | 2020-05-06 16:01 | PN ---
Physical Exam: SUBJECTIVE: Patient seen and examined at the bedside. in no acute distress during exam. on a clinitron bed. OBJECTIVE: Patient is a 50 year old male with a signficant past medical history of dysphagia s/p trach, functional quadriplegia 2/2 stroke, Afib on AC, HTN, seizures, morbid obesity, stage IV sacral ulcer, perma cath on R chest wall for dialysis. He presents to the ED on 04/30/2020 from [facility] [place] for hypotenstion. Pt. found to have infected chronic stage 4 decubitus ulcer, received Meropenem/Clindamycin in ED. ID following patient. Plan for return back to SNF/[facility] when medically stable. Period Temp Pulse Resp BP Sys/[place] Pulse Ox Last 24 Hr 97.9 F-99.0 F 86-116 20-22 70-120/40-61 93-98 GENERAL: The patient is awake, alert, in no acute distress. appears generally weak HEAD: Normal with no signs of trauma. EYES: PERRL, extraocular movements intact, sclera anicteric, conjunctiva clear. No ptosis. ENT: Ears normal, nares patent, oropharynx clear without exudates NECK: + trach LUNGS: Breath sounds diminished bilaterally HEART: Regular rate and rhythm, S1, S2 ABDOMEN: Soft, nontender, nondistended, + peg tube EXTREMITIES: no edema. NEUROLOGICAL: non verbal, gait not observed. SKIN: Pressure Ulcer (Unstaegable sacral decubitus 10x10, with significant drainage Left hip 2cm x 2cm wound, without purulence.-alleyvn in place stasis dermatitis changes noted bilateral lower extremities.) Laboratory Results - last 24 hr 05/05/20 05/06/20 05/06/20 22:23 06:09 06:30 WBC 15.1 H RBC 2.52 L Hgb 7.8 L Hct 23.4 L MCV 93.1 MCH 31.1 MCHC 33.4 RDW 15.3 Plt Count 369 MPV 8.0 Absolute Neuts (auto) 11.5 H Neutrophils % 76.1 Neutrophils % (Manual) 69.6 Band Neutrophils % 3.9 Lymphocytes % 15.0 Lymphocytes % (Manual) 14.7 D Monocytes % 5.6 Monocytes % (Manual) 4 Eosinophils % 2.8 Eosinophils % (Manual) 3.0 D Basophils % 0.5 Basophils % (Manual) 0.0 Myelocytes % (Man) 2 D Promyelocytes % (Man) 0 Blast Cells % (Manual) 0 Nucleated RBC % 0 Metamyelocytes 3 H D Hypochromia 1+ Platelet Estimate Normal Polychromasia 1+ Poikilocytosis 1+ Anisocytosis 0 Microcytosis 0 Macrocytosis 0 Stomatocytes 1+ Rouleaux 1+ Sodium Potassium Chloride Carbon Dioxide Anion Gap BUN Creatinine Est GFR (CKD-EPI)AfAm Est GFR (CKD-EPI)NonAf POC Glucometer 121 112 Random Glucose Calcium Magnesium Total Bilirubin AST ALT Alkaline Phosphatase Total Protein Albumin 05/06/20 06:30 WBC RBC Hgb Hct MCV MCH MCHC RDW Plt Count MPV Absolute Neuts (auto) Neutrophils % Neutrophils % (Manual) Band Neutrophils % Lymphocytes % Lymphocytes % (Manual) Monocytes % Monocytes % (Manual) Eosinophils % Eosinophils % (Manual) Basophils % Basophils % (Manual) Myelocytes % (Man) Promyelocytes % (Man) Blast Cells % (Manual) Nucleated RBC % Metamyelocytes Hypochromia Platelet Estimate Polychromasia Poikilocytosis Anisocytosis Microcytosis Macrocytosis Stomatocytes Rouleaux Sodium 140 Potassium 3.9 Chloride 103 Carbon Dioxide 25 Anion Gap 12 BUN 65.7 H Creatinine 5.2 H Est GFR (CKD-EPI)AfAm 13.89 Est GFR (CKD-EPI)NonAf 11.99 POC Glucometer Random Glucose 107 H Calcium 9.5 Magnesium 2.0 Total Bilirubin 0.5 AST 15 ALT 26 Alkaline Phosphatase 114 Total Protein 7.1 Albumin 2.4 L Active Medications Generic Name Dose Route Start Last Admin Trade Name Freq PRN Reason Stop Dose Admin Acetaminophen 325 mg 04/30/20 22:43 Tylenol Oral Solution - GT Q6H PRN FEVER Albuterol Sulfate 2 puff 04/30/20 22:58 Ventolin Hfa Inhaler - IH Q4H PRN SHORTNESS OF BREATH Albuterol/Ipratropium 1 amp 05/03/20 08:51 05/06/20 12:35 Duoneb - NEB 1 amp RQID [facility] Administration Apixaban 2.5 mg 05/02/20 10:00 05/06/20 10:30 Eliquis - GT 2.5 mg BID [facility] Administration Ascorbic Acid 500 mg 05/01/20 10:00 05/06/20 09:01 Vitamin C - GT 500 mg DAILY [facility] Administration Atorvastatin Calcium 40 mg 05/01/20 22:00 05/04/20 21:12 Lipitor - GT 40 mg HS [facility] Administration Budesonide 1 amp 05/02/20 10:00 05/06/20 10:35 Pulmicort 0.5 Mg Nebulizer - NEB 1 amp BID [facility] Administration Famotidine 10 mg 05/02/20 22:00 05/05/20 21:21 Pepcid NGT 10 mg HS [facility] Administration Gabapentin 300 mg 05/01/20 06:00 05/06/20 13:54 Neurontin Oral Liquid - GT 300 mg TID [facility] Administration Piperacillin Sod/Tazobactam 50 mls @ 100 mls/hr 05/01/20 14:15 05/06/20 09:02 Sod 2.25 gm/ Dextrose IVPB 100 mls/hr Q8H-IV [facility] Administration Protocol Sodium Chloride 250 mls @ 3,000 mls/hr 05/06/20 07:25 Normal Saline - IV 05/07/20 07:24 PRN PRN Hypotension during Dialysis Levetiracetam 500 mg 04/30/20 22:45 05/04/20 23:00 Keppra Oral Solution - GT 500 mg Q48H [facility] Administration Metoprolol Tartrate 25 mg 04/30/20 22:45 05/06/20 09:01 Lopressor - GT Not Given BID [facility] Midodrine 10 mg 05/01/20 10:00 05/06/20 13:54 Proamatine - GT 10 mg TID-MID [facility] Administration Nystatin 1 applic 04/30/20 22:45 05/06/20 09:01 Mycostatin Ointment - TP 1 applic BID [facility] Administration Quetiapine Fumarate 50 mg 05/02/20 10:00 05/06/20 09:02 Seroquel - GT 50 mg BID [facility] Administration Sodium Hypochlorite 1 applic 05/02/20 16:12 05/06/20 09:01 Dakin's Solution 0.25% (Half-Strength) - TP 1 applic DAILY [facility] Administration ASSESSMENT/PLAN: Problem List - Problems (1) Sacral decubitus ulcer, stage IV Assessment/Plan: for wound debridement per surgery. on clinitron bed. on Zosyn. wound care with Allevyn dressing Code(s): L89.154 - PRESSURE ULCER OF SACRAL REGION, STAGE 4 (2) Afib Assessment/Plan: patient on eliquis and metoprolol. on cardiac catheterization technician. Code(s): I48.91 - UNSPECIFIED ATRIAL FIBRILLATION (3) COVID-19 ruled out Assessment/Plan: ruled out per serology Code(s): Z03.818 - ENCNTR FOR OBS FOR SUSP EXPSR TO OTH BIOLG AGENTS RULED OUT (4) ESRD (end stage renal disease) Assessment/Plan: dialysis per renal. had dialysis today Code(s): N18.6 - END STAGE RENAL DISEASE (5) Functional quadriplegia Assessment/Plan: on clinitron bed Code(s): R53.2 - FUNCTIONAL QUADRIPLEGIA (6) HTN (hypertension) Assessment/Plan: monitor, had low bp this morning. now improved. Code(s): I10 - ESSENTIAL (PRIMARY) HYPERTENSION (7) Hemodialysis status Assessment/Plan: per right shiley cath. dialysis per renal. Code(s): Z99.2 - DEPENDENCE ON RENAL DIALYSIS (8) History of CVA (cerebrovascular accident) Code(s): Z86.73 - PRSNL HX OF TIA (TIA), AND CEREB INFRC W/O RESID DEFICITS (9) Hypotension Assessment/Plan: improving. Code(s): I95.9 - HYPOTENSION, UNSPECIFIED Qualifiers: Hypotension type: other hypotension type Qualified Code(s): I95.89 - Other hypotension (10) Morbid obesity Assessment/Plan: outpatient follow up once acute issues are addressed. Code(s): E66.01 - MORBID (SEVERE) OBESITY DUE TO EXCESS CALORIES (11) custodial resident Code(s): Z59.3 - PROBLEMS RELATED TO LIVING IN RESIDENTIAL INSTITUTION (12) Seizure Assessment/Plan: on keppra Code(s): R56.9 - UNSPECIFIED CONVULSIONS (13) Sepsis Assessment/Plan: on zosyn per ID Code(s): A41.9 - SEPSIS, UNSPECIFIED ORGANISM (14) Suspected COVID-19 virus infection Code(s): Z20.828 - CONTACT W AND EXPOSURE TO OTH VIRAL COMMUNICABLE DISEASES (15) Tracheostomy in place Assessment/Plan: on humidified air. Code(s): Z93.0 - TRACHEOSTOMY STATUS (16) Prophylactic measure Assessment/Plan: on eliquis Code(s): Z29.9 - ENCOUNTER FOR PROPHYLACTIC MEASURES, UNSPECIFIED Visit type - Emergency Visit Emergency Visit: Yes ED Registration Date: 04/30/20 Care time: The patient presented to the Emergency Department on the above date and was hospitalized for further evaluation of their emergent condition. - New Patient This patient is new to me today: Yes Date on this admission: 05/06/20 - Critical Care Critical Care patient: No - Discharge Referral Referred to [facility] No
[2020-05-06] MEDS: FAMOTIDINE 40 MG/5 ML ORAL SUSPENSION NGT SCH ×2 (21:40→22:20)
[2020-05-06] MEDS: ATORVASTATIN CA 40 MG TABLET (FP) GT SCH (21:41)
[2020-05-06] MEDS: levETIRAcetam 500 MG/5 ML ORAL SOLUTION (UNIT-DOSE CUPS) GT SCH (22:19)
[2020-05-06] MEDS: EPOETIN ALFA-EPBX 4,000 UNIT/ML VIAL SQ ONE (22:20)
[2020-05-07] MEDS ORDERED: DEXTROSE 5%-WATER - 50 ML IVPB ONE ×3 (01:42→18:02)
[2020-05-07] MEDS ORDERED: PIPERACILLIN/TAZOBACTAM 2.25 GM VIAL IVPB ONE ×3 (01:42→18:02)
[2020-05-07] MEDS: PIPERACILLIN/TAZOB 2.25 GM 2.25 GM in DEXTROSE 5%-WATER - 50 ML IVPB SCH ×3 (02:05→18:09)
[2020-05-07] MEDS: GABAPENTIN 250 MG/5 ML ORAL SOLUTION, 470 ML BOTTLE GT SCH ×3 (05:50→22:45)
[2020-05-07 07:38] LABS: BASO % 0.7 % (0-2.0); EOS % 3.6 % (0-4.5); HEMATOCRIT 25.8 % (35.4-49); HEMOGLOBIN 8.5 GM/dL (11.7-16.9); LYMPH % 16.1 % (8-40); MCH 30.5 pg (25.7-33.7); MCHC 32.8 g/dl (32.0-35.9); MONO % 6.2 % (3.8-10.2); NEUT % 73.4 % (42.8-82.8); PLATELET COUNT 365 K/MM3 (134-434); RBC 2.77 M/mm3 (4.00-5.60); RDW 15.3 % (11.9-15.9); WHITE BLOOD COUNT 12.2 K/mm3 (4.0-10.0)
[2020-05-07] MEDS: ALBUTEROL SO4 2.5/IPRATROPIUM 0.5 INH SOL 3 ML VIAL.NEB. NEB SCH ×4 (07:50→20:25)
[2020-05-07 08:21] LABS: ALBUMIN 2.5 g/dl (3.4-5.0); BILIRUBIN,TOTAL 0.6 mg/dL (0.2-1); CALCIUM 9.6 mg/dL (8.5-10.1); POTASSIUM 4.1 mmol/L (3.5-5.1); TOT PROT 7.1 g/dl (6.4-8.2)
[2020-05-07 08:22] LABS: CREATININE 3.5 mg/dL (0.55-1.3); MAGNESIUM 1.9 mg/dL (1.8-2.4)
[2020-05-07] MEDS: ASCORBIC ACID 500 MG TABLET (FP) GT SCH (09:32)
[2020-05-07] MEDS: MIDODRINE HCL 5 MG TABLET GT SCH ×3 (09:32→18:11)
[2020-05-07] MEDS: QUEtiapine FUMARATE 50 MG TABLET GT SCH ×2 (09:32→22:41)
[2020-05-07] MEDS: METOPROLOL TARTRATE 25 MG TABLET (FP) GT SCH ×2 (09:32→22:54)
[2020-05-07] MEDS: APIXABAN 2.5 MG TABLET GT SCH ×2 (09:33→22:41)
[2020-05-07] MEDS: NYSTATIN 100000 UNIT/GM TOPICAL OINTMENT 15 GM TUBE TP SCH ×2 (09:34→22:42)
[2020-05-07 09:45] LABS: ANISOCYTOSIS 1+; MACROCYTOSIS 0
[2020-05-07] MEDS: BUDESONIDE 0.5 MG/2 ML INH SUSP VIAL NEB SCH ×2 (10:20→22:00)
[2020-05-07] MEDS: SODIUM HYPOCHLORITE 0.25%- 473 ML BULK BOTTLE TP SCH (10:32)
[2020-05-07 11:10] LABS: INR 1.37 (0.83-1.09)
[2020-05-07] MEDS ORDERED: PT OWN MED DRAWER 7, Y5N ONE ×2 (11:30→20:35)
--- NOTE | 2020-05-07 11:51 | PN ---
Progress Note, Physician History of Present Illness: stable no new issues plan for debridement - Current Medication List Current Medications: Active Medications Acetaminophen (Tylenol Oral Solution -) 325 mg GT Q6H PRN PRN Reason: FEVER Albuterol Sulfate (Ventolin Hfa Inhaler -) 2 puff IH Q4H PRN PRN Reason: SHORTNESS OF BREATH Albuterol/Ipratropium (Duoneb -) 1 amp NEB RQID [facility] Last Admin: 05/06/20 20:35 Dose: 1 amp Documented by: Apixaban (Eliquis -) 2.5 mg GT BID [facility] Last Admin: 05/07/20 09:33 Dose: Not Given Documented by: Ascorbic Acid (Vitamin C -) 500 mg GT DAILY [facility] Last Admin: 05/07/20 09:32 Dose: 500 mg Documented by: Atorvastatin Calcium (Lipitor -) 40 mg GT HS [facility] Last Admin: 05/06/20 21:41 Dose: 40 mg Documented by: Budesonide (Pulmicort 0.5 Mg Nebulizer -) 1 amp NEB BID [facility] Last Admin: 05/06/20 22:00 Dose: 1 amp Documented by: Famotidine (Pepcid) 10 mg NGT HS [facility] Last Admin: 05/06/20 22:20 Dose: Not Given Documented by: Gabapentin (Neurontin Oral Liquid -) 300 mg GT TID [facility] Last Admin: 05/07/20 05:50 Dose: 300 mg Documented by: Piperacillin Sod/Tazobactam (Sod 2.25 gm/ Dextrose) 50 mls @ 100 mls/hr IVPB Q8H-IV EMETERIO; Protocol Last Admin: 05/07/20 09:32 Dose: 100 mls/hr Documented by: Levetiracetam (Keppra Oral Solution -) 500 mg GT Q48H [facility] Last Admin: 05/06/20 22:19 Dose: 500 mg Documented by: Metoprolol Tartrate (Lopressor -) 25 mg GT BID [facility] Last Admin: 05/07/20 09:32 Dose: 25 mg Documented by: Midodrine (Proamatine -) 10 mg GT TID-MID [facility] Last Admin: 05/07/20 09:32 Dose: 10 mg Documented by: Nystatin (Mycostatin Ointment -) 1 applic TP BID [facility] Last Admin: 05/07/20 09:34 Dose: 1 applic Documented by: Quetiapine Fumarate (Seroquel -) 50 mg GT BID [facility] Last Admin: 05/07/20 09:32 Dose: 50 mg Documented by: Sodium Hypochlorite (Dakin's Solution 0.25% (Half-Strength) -) 1 applic TP DAILY [facility] Last Admin: 05/07/20 10:32 Dose: 1 applic Documented by: - Objective Vital Signs: Vital Signs Temperature 98.8 F 05/07/20 09:04 Pulse Rate 86 05/07/20 09:04 Respiratory Rate 18 05/07/20 09:04 Blood Pressure 97/56 L 05/07/20 09:04 O2 Sat by Pulse Oximetry (%) 95 05/07/20 09:04 Constitutional: Yes: No Distress, Calm, Obese Cardiovascular: Yes: S1, S2 Respiratory: Yes: Regular, Other (trach) Gastrointestinal: Yes: Normal Bowel Sounds, Soft Musculoskeletal: Yes: WNL Extremities: Yes: WNL Wound/Incision: Yes: Dressing Dry and Intact, Draining, Other Psychiatric: Yes: Alert Labs: CBC, BMP 05/07/20 05:58 05/07/20 05:58 INR, PTT INR 1.37 (0.83-1.09) H 05/07/20 10:20 Assessment/Plan 50 M Sepsis 2/2 infected Stage 4 decubitus ulcer Afib on Eliquis HTN HLD Dysphagia s/p trach PEG non-ambulatory Non-verbal Morbidly obese Seizure disorder ESRD on HD plan abx patient for debridement and wound vac
[2020-05-07] MEDS ORDERED: LIDOCAINE HCL 1%, 10 MG/ML (20ML VIAL) ONE (14:38)
[2020-05-07] MEDS ORDERED: PROPOFOL 20 ML ONE (15:00)
[2020-05-07] MEDS ORDERED: EPHEDRINE SULFATE/0.9% NACL/PF 50 MG/10 ML SYRINGE NR ONE (15:01)
[2020-05-07] MEDS ORDERED: ROCURONIUM BROMIDE 100 MG/10 ML VIAL ONE (15:01)
[2020-05-07] MEDS ORDERED: MIDAZOLAM HCL 2 MG/2 ML SINGLE DOSE VIAL ONE (15:01)
--- NOTE | 2020-05-07 15:02 | PN ---
Progress Note (short form) - Note Progress Note: RENAL pt is awake and alert appears comfortable Last Vital Signs Temp Pulse Resp BP Pulse Ox 98.8 F 86 18 97/56 L 95 05/07/20 09:04 05/07/20 09:04 05/07/20 09:04 05/07/20 09:04 05/07/20 09:04 face a ppears flushed trach lungs clear cvs s1s2 rr abd soft ext no edema neuro alert, nods to answer question CBC, BMP 05/07/20 05:58 05/07/20 05:58 Current Medications Generic Name Dose Route Start Last Admin Trade Name Freq PRN Reason Stop Dose Admin Acetaminophen 325 mg 04/30/20 22:43 Tylenol Oral Solution - GT Q6H PRN FEVER Albuterol Sulfate 2 puff 04/30/20 22:58 Ventolin Hfa Inhaler - IH Q4H PRN SHORTNESS OF BREATH Albuterol/Ipratropium 1 amp 05/03/20 08:51 05/07/20 11:40 Duoneb - NEB 1 amp RQID [facility] Administration Apixaban 2.5 mg 05/02/20 10:00 05/07/20 09:33 Eliquis - GT Not Given BID [facility] Ascorbic Acid 500 mg 05/01/20 10:00 05/07/20 09:32 Vitamin C - GT 500 mg DAILY [facility] Administration Atorvastatin Calcium 40 mg 05/01/20 22:00 05/06/20 21:41 Lipitor - GT 40 mg HS [facility] Administration Budesonide 1 amp 05/02/20 10:00 05/07/20 10:20 Pulmicort 0.5 Mg Nebulizer - NEB 1 amp BID [facility] Administration Famotidine 10 mg 05/02/20 22:00 05/06/20 22:20 Pepcid NGT Not Given HS [facility]IO Gabapentin 300 mg 05/01/20 06:00 05/07/20 14:26 Neurontin Oral Liquid - GT Not Given TID [facility]IO Piperacillin Sod/Tazobactam 50 mls @ 100 mls/hr 05/01/20 14:15 05/07/20 09:32 Sod 2.25 gm/ Dextrose IVPB 100 mls/hr Q8H-IV [facility]ERIO Administration Protocol Levetiracetam 500 mg 04/30/20 22:45 05/06/20 22:19 Keppra Oral Solution - GT 500 mg Q48H [facility] Administration Metoprolol Tartrate 25 mg 04/30/20 22:45 05/07/20 09:32 Lopressor - GT 25 mg BID [facility] Administration Midodrine 10 mg 05/01/20 10:00 05/07/20 14:26 Proamatine - GT Not Given TID-MID [facility] Nystatin 1 applic 04/30/20 22:45 05/07/20 09:34 Mycostatin Ointment - TP 1 applic BID [facility] Administration Quetiapine Fumarate 50 mg 05/02/20 10:00 05/07/20 09:32 Seroquel - GT 50 mg BID [facility] Administration Sodium Hypochlorite 1 applic 05/02/20 16:12 05/07/20 10:32 Dakin's Solution 0.25% (Half-Strength) - TP 1 applic DAILY [facility] Administration IMPRESSION ESRD sepsis secondary to decubitus s/p trach functional quadriplegia darrell to stroke anemia PLAN antibiotics per idfor debridement hd tomorrow will give prasanna but no iv iron given infection will need avf--- vascular eval MV
[2020-05-07] MEDS ORDERED: LIDOCAINE HCL 1%, 10 MG/ML (20ML VIAL) NR ONE (15:22)
--- NOTE | 2020-05-07 15:45 | PN ---
Physical Exam: SUBJECTIVE: Patient seen and examined at the bedside. in no acute distress. for OR today for wound debridement. on a clinitron bed. OBJECTIVE: Patient is a 50 year old male with a significant past medical history of functional quadriplegia 2/2 stroke (November 2019), dysphagia s/p trach, afib on AC, HTN, seizures, morbid obesity, stage IV sacral ulcer, perma cath on R chest wall for dialysis. He presents to the ED on 04/30/2020 from [facility] [place] for hypotension. Pt. found to have infected chronic stage 4 decubitus ulcer, received Meropenem/Clindamycin in ED. ID following patient. Plan for return back to SNF/[facility] when medically stable. For debridement of stage 4 sacral wound today. patient with a rectal tube. Period Temp Pulse Resp BP Sys/Vegas Pulse Ox Last 24 Hr 98.6 F-99.0 F 81-97 18-20 92-106/56-62 92-100 GENERAL: The patient is awake, alert, in no acute distress. appears generally weak HEAD: Normal with no signs of trauma. EYES: PERRL, extraocular movements intact, sclera anicteric, conjunctiva clear. No ptosis. ENT: Ears normal, nares patent, oropharynx clear without exudates NECK: + trach LUNGS: Breath sounds diminished bilaterally HEART: Regular rate and rhythm, S1, S2 ABDOMEN: Soft, nontender, nondistended, + peg tube EXTREMITIES: no edema. NEUROLOGICAL: non verbal, gait not observed. SKIN: Pressure Ulcer (Unstaegable sacral decubitus 10x10, with significant drainage Left hip 2cm x 2cm wound, without purulence.-alleyvn in place stasis dermatitis changes noted bilateral lower extremities.) Laboratory Results - last 24 hr 05/07/20 05/07/20 05/07/20 05:58 05:58 10:20 WBC 12.2 H RBC 2.77 L Hgb 8.5 L Hct 25.8 L MCV 93.0 MCH 30.5 MCHC 32.8 RDW 15.3 Plt Count 365 MPV 8.0 Absolute Neuts (auto) 8.9 H Neutrophils % 73.4 Neutrophils % (Manual) 70.0 Band Neutrophils % 1.0 Lymphocytes % 16.1 Lymphocytes % (Manual) 20.0 D Monocytes % 6.2 Monocytes % (Manual) 4 Eosinophils % 3.6 Eosinophils % (Manual) 4.0 Basophils % 0.7 Basophils % (Manual) 0.0 Myelocytes % (Man) 1 D Promyelocytes % (Man) 0 Blast Cells % (Manual) 0 Nucleated RBC % 0 Metamyelocytes 0 D Hypochromia 0 Polychromasia 1+ Poikilocytosis 0 Basophilic Stippling 1+ Anisocytosis 1+ Macrocytosis 0 PT with INR 16.00 H INR 1.37 H Sodium 140 Potassium 4.1 Chloride 103 Carbon Dioxide 28 Anion Gap 9 BUN 36.0 H Creatinine 3.5 H Est GFR (CKD-EPI)AfAm 22.42 Est GFR (CKD-EPI)NonAf 19.35 Random Glucose 86 Calcium 9.6 Magnesium 1.9 Total Bilirubin 0.6 AST 17 ALT 24 Alkaline Phosphatase 117 Total Protein 7.1 Albumin 2.5 L Active Medications Generic Name Dose Route Start Last Admin Trade Name Freq PRN Reason Stop Dose Admin Acetaminophen 325 mg 04/30/20 22:43 Tylenol Oral Solution - GT Q6H PRN FEVER Albuterol Sulfate 2 puff 04/30/20 22:58 Ventolin Hfa Inhaler - IH Q4H PRN SHORTNESS OF BREATH Albuterol/Ipratropium 1 amp 05/03/20 08:51 05/07/20 11:40 Duoneb - NEB 1 amp RQID EMETERIO Administration Apixaban 2.5 mg 05/02/20 10:00 05/07/20 09:33 Eliquis - GT Not Given BID EMETERIO Ascorbic Acid 500 mg 05/01/20 10:00 05/07/20 09:32 Vitamin C - GT 500 mg DAILY EMETERIO Administration Atorvastatin Calcium 40 mg 05/01/20 22:00 05/06/20 21:41 Lipitor - GT 40 mg HS EMETERIO Administration Budesonide 1 amp 05/02/20 10:00 05/07/20 10:20 Pulmicort 0.5 Mg Nebulizer - NEB 1 amp BID EMETERIO Administration Famotidine 10 mg 05/02/20 22:00 05/06/20 22:20 Pepcid NGT Not Given HS EMETERIO Gabapentin 300 mg 05/01/20 06:00 05/07/20 14:26 Neurontin Oral Liquid - GT Not Given TID EMETERIO Piperacillin Sod/Tazobactam 50 mls @ 100 mls/hr 05/01/20 14:15 10/14/20 09:32 Sod 2.25 gm/ Dextrose IVPB 100 mls/hr Q8H-IV EMETERIO Administration Protocol Levetiracetam 500 mg 04/30/20 22:45 05/06/20 22:19 Keppra Oral Solution - GT 500 mg Q48H EMETERIO Administration Metoprolol Tartrate 25 mg 04/30/20 22:45 05/07/20 09:32 Lopressor - GT 25 mg BID EMETERIO Administration Midodrine 10 mg 05/01/20 10:00 05/07/20 14:26 Proamatine - GT Not Given TID-MID EMETERIO Nystatin 1 applic 04/30/20 22:45 05/07/20 09:34 Mycostatin Ointment - TP 1 applic BID EMETERIO Administration Quetiapine Fumarate 50 mg 05/02/20 10:00 05/07/20 09:32 Seroquel - GT 50 mg BID EMETERIO Administration Sodium Hypochlorite 1 applic 05/02/20 16:12 05/07/20 10:32 Dakin's Solution 0.25% (Half-Strength) - TP 1 applic DAILY EMETERIO Administration ASSESSMENT/PLAN: Problem List - Problems (1) Sepsis Assessment/Plan: Sepsis in the setting of infected stage 4 sacral wound for wound debridement today WBC improving on Zosyn per ID monitor vitals, labs Code(s): A41.9 - SEPSIS, UNSPECIFIED ORGANISM (2) Sacral decubitus ulcer, stage IV Assessment/Plan: for wound debridement per surgery. on clinitron bed. on Zosyn. wound care with Allevyn dressing Code(s): L89.154 - PRESSURE ULCER OF SACRAL REGION, STAGE 4 (3) Afib Assessment/Plan: patient on eliquis and metoprolol. on monitoring engineer. Code(s): I48.91 - UNSPECIFIED ATRIAL FIBRILLATION (4) COVID-19 ruled out Assessment/Plan: ruled out per serology Code(s): Z03.818 - ENCNTR FOR OBS FOR SUSP EXPSR TO OTH BIOLG AGENTS RULED OUT (5) ESRD (end stage renal disease) Assessment/Plan: dialysis per renal. Code(s): N18.6 - END STAGE RENAL DISEASE (6) Functional quadriplegia Assessment/Plan: on clinitron bed patient is bed bound, turn and position q 2 to protect bony prominences. Code(s): R53.2 - FUNCTIONAL QUADRIPLEGIA (7) HTN (hypertension) Assessment/Plan: monitor, had low bp this morning. now improved. Code(s): I10 - ESSENTIAL (PRIMARY) HYPERTENSION (8) Hemodialysis status Assessment/Plan: per right shiley cath. dialysis per renal. Code(s): Z99.2 - DEPENDENCE ON RENAL DIALYSIS (9) History of CVA (cerebrovascular accident) Assessment/Plan: recent CVA November 2019 with left sided weakness, functional quadraplegia Code(s): Z86.73 - PRSNL HX OF TIA (TIA), AND CEREB INFRC W/O RESID DEFICITS (10) Hypotension Assessment/Plan: hypotension improving, continue IVF Code(s): I95.9 - HYPOTENSION, UNSPECIFIED Qualifiers: Hypotension type: other hypotension type Qualified Code(s): I95.89 - Other hypotension (11) Morbid obesity Assessment/Plan: outpatient follow up once acute issues are addressed. Code(s): E66.01 - MORBID (SEVERE) OBESITY DUE TO EXCESS CALORIES (12) Seizure Assessment/Plan: on keppra 500mg bid via GTube Code(s): R56.9 - UNSPECIFIED CONVULSIONS (13) Suspected COVID-19 virus infection Code(s): Z20.828 - CONTACT W AND EXPOSURE TO OTH VIRAL COMMUNICABLE DISEASES (14) Tracheostomy in place Assessment/Plan: on humidified air. trach care per respiratory team Code(s): Z93.0 - TRACHEOSTOMY STATUS (15) Prophylactic measure Assessment/Plan: already on eliquis for afib Code(s): Z29.9 - ENCOUNTER FOR PROPHYLACTIC MEASURES, UNSPECIFIED Visit type - Emergency Visit Emergency Visit: Yes ED Registration Date: 04/30/20 Care time: The patient presented to the Emergency Department on the above date and was hospitalized for further evaluation of their emergent condition. - New Patient This patient is new to me today: No - Critical Care Critical Care patient: No - Discharge Referral Referred to [facility] Med P.C.: No
--- NOTE | 2020-05-07 15:45 | OP ---
Operative Note - Note: Operative Date: 05/07/20 Pre-Operative Diagnosis: Stage 4 sacral ulcer necrotic Operation: Excisional debridement skin, scubcutaneous tissue, muscle sacrum Post-Operative Diagnosis: Same as Pre-op Surgeon: John Machado Anesthesia: General Estimated Blood Loss (mls): 30 Operative Report Dictated: Yes
[2020-05-07] MEDS ORDERED: LACTATED RINGERS SOLUTION 1,000 ML IV SCH (16:00)
[2020-05-07] MEDS ORDERED: ACETAMINOPHEN 650 MG/20.3 ML ORAL SOLUTION (CUPS) GT PRN (16:39)
[2020-05-07] MEDS ORDERED: EPOETIN ALFA-EPBX 4,000 UNIT/ML VIAL SQ ONE (16:39)
[2020-05-07] MEDS ORDERED: ALBUTEROL SO4 HFA INHALER IH PRN (16:39)
[2020-05-07] MEDS: ATORVASTATIN CA 40 MG TABLET (FP) GT SCH (22:41)
[2020-05-07] MEDS: FAMOTIDINE 40 MG/5 ML ORAL SUSPENSION NGT SCH (22:43)
[2020-05-08] MEDS ORDERED: PIPERACILLIN/TAZOBACTAM 2.25 GM VIAL IVPB ONE ×3 (01:53→17:21)
[2020-05-08] MEDS ORDERED: DEXTROSE 5%-WATER - 50 ML IVPB ONE ×3 (01:54→17:21)
[2020-05-08] MEDS: PIPERACILLIN/TAZOB 2.25 GM 2.25 GM in DEXTROSE 5%-WATER - 50 ML IVPB SCH ×3 (02:14→17:27)
[2020-05-08] MEDS: GABAPENTIN 250 MG/5 ML ORAL SOLUTION, 470 ML BOTTLE GT SCH ×3 (05:35→22:45)
[2020-05-08] MEDS: ALBUTEROL SO4 2.5/IPRATROPIUM 0.5 INH SOL 3 ML VIAL.NEB. NEB SCH ×4 (07:50→20:41)
--- NOTE | 2020-05-08 08:33 | PN ---
Progress Note (short form) - Note Progress Note: Anesthesia postop note 50 y/o M s/p GA for sacral decubitus debridment POD#1, vss, alert and awake, undergoing HD, no apparent distress No anesthesia complications.
[2020-05-08 08:57] LABS: HEMATOCRIT 24.6 % (35.4-49); LYMPH % 10.7 % (8-40); MCH 29.9 pg (25.7-33.7); MCHC 32.4 g/dl (32.0-35.9); MEAN CELL VOLUME 92.4 fl (80-96); MEAN PLT VOLUME 7.8 fl (7.5-11.1); MONO % 26.2 % (3.8-10.2); NEUT % 61.1 % (42.8-82.8); PLATELET COUNT 350 K/MM3 (134-434); RBC 2.66 M/mm3 (4.00-5.60); RDW 15.6 % (11.9-15.9); WHITE BLOOD COUNT 13.9 K/mm3 (4.0-10.0)
[2020-05-08] MEDS ORDERED: EPOETIN ALFA-EPBX 4,000 UNIT/ML VIAL IVPUSH ONE (09:00)
[2020-05-08] MEDS: MIDODRINE HCL 5 MG TABLET GT SCH ×3 (09:21→17:27)
[2020-05-08] MEDS: QUEtiapine FUMARATE 50 MG TABLET GT SCH ×2 (09:22→22:43)
[2020-05-08] MEDS: ASCORBIC ACID 500 MG TABLET (FP) GT SCH (09:22)
[2020-05-08] MEDS: METOPROLOL TARTRATE 25 MG TABLET (FP) GT SCH ×2 (09:22→22:43)
[2020-05-08] MEDS: APIXABAN 2.5 MG TABLET GT SCH ×2 (09:22→22:43)
[2020-05-08] MEDS: SODIUM HYPOCHLORITE 0.25%- 473 ML BULK BOTTLE TP SCH (09:23)
[2020-05-08 09:24] LABS: ALBUMIN 2.3 g/dl (3.4-5.0); BILIRUBIN,TOTAL 0.3 mg/dL (0.2-1); BLOOD UREA NITROGEN 44.8 mg/dL (7-18); CALCIUM 9.1 mg/dL (8.5-10.1); CREATININE 4.5 mg/dL (0.55-1.3); POTASSIUM 3.7 mmol/L (3.5-5.1); TOT PROT 6.7 g/dl (6.4-8.2)
[2020-05-08] MEDS: NYSTATIN 100000 UNIT/GM TOPICAL OINTMENT 15 GM TUBE TP SCH ×2 (09:24→22:43)
[2020-05-08 09:48] LABS: ANISOCYTOSIS 1+; MACROCYTOSIS 0; PLATELET ESTIMATE NORMAL
[2020-05-08] MEDS: BUDESONIDE 0.5 MG/2 ML INH SUSP VIAL NEB SCH ×2 (10:05→22:00)
--- NOTE | 2020-05-08 10:19 | PN ---
Physical Exam: SUBJECTIVE: Patient seen and examined at the bedside. Non verbal at baseline but seems to understands what he is being asked. Had general anethesia yesterday for wound debridement. mentation at baseline. no acute events overnight reported. OBJECTIVE: Patient is a 50 year old male with a significant past medical history of functional quadriplegia 2/2 stroke (November 2019), dysphagia s/p trach, afib on AC, HTN, seizures, morbid obesity, stage IV sacral ulcer, perma cath on R chest wall for dialysis. He presents to the ED on 04/30/2020 from [facility] [place] for hypotension. Pt. found to have infected chronic stage 4 decubitus ulcer, received Meropenem/Clindamycin in ED. ID following patient. he is s/p wound debridement of stage 4 sacral wound on under general anesthesia. No complications reported. Period Temp Pulse Resp BP Sys/Vegas Pulse Ox Last 24 Hr 97.1 F-99.0 F 87-100 14-20 92-117/53-92 94-100 GENERAL: The patient is awake, alert, in no acute distress. appears generally weak HEAD: Normal with no signs of trauma. EYES: PERRL, extraocular movements intact, sclera anicteric, conjunctiva clear. No ptosis. ENT: Ears normal, nares patent, oropharynx clear without exudates NECK: + trach LUNGS: Breath sounds diminished bilaterally HEART: Regular rate and rhythm, S1, S2 ABDOMEN: Soft, nontender, nondistended, + peg tube EXTREMITIES: no edema. NEUROLOGICAL: non verbal, gait not observed. SKIN: stage 4 wound, not viewed, surgical dressing Laboratory Results - last 24 hr 05/07/20 05/08/20 05/08/20 10: 08:30 08:30 WBC 13.9 H RBC 2.66 L Hgb 8.0 L Hct 24.6 L MCV 92.4 MCH 29.9 MCHC 32.4 RDW 15.6 Plt Count 350 MPV 7.8 Absolute Neuts (auto) 8.5 H Neutrophils % 61.1 Neutrophils % (Manual) 75.0 Band Neutrophils % 0.0 Lymphocytes % 10.7 D Lymphocytes % (Manual) 10.0 D Monocytes % 26.2 H D Monocytes % (Manual) 11 H D Eosinophils % 2.0 Eosinophils % (Manual) 4.0 Basophils % 0.0 Basophils % (Manual) 0.0 Myelocytes % (Man) 0 D Promyelocytes % (Man) 0 Blast Cells % (Manual) 0 Nucleated RBC % 0 Metamyelocytes 0 Hypochromia 0 Platelet Estimate Normal Polychromasia 0 Poikilocytosis 0 Anisocytosis 1+ Microcytosis 1+ Macrocytosis 0 PT with INR 16.00 H INR 1.37 H Sodium 140 Potassium 3.7 Chloride 103 Carbon Dioxide 28 Anion Gap 9 BUN 44.8 H Creatinine 4.5 H Est GFR (CKD-EPI)AfAm 16.55 Est GFR (CKD-EPI)NonAf 14.28 Random Glucose 94 Calcium 9.1 Magnesium 2.0 Total Bilirubin 0.3 AST 13 L ALT 19 Alkaline Phosphatase 111 Total Protein 6.7 Albumin 2.3 L Active Medications Generic Name Dose Route Start Last Admin Trade Name Freq PRN Reason Stop Dose Admin Acetaminophen 325 mg 05/07/20 16:39 Tylenol Oral Solution - GT Q6H PRN FEVER Albuterol Sulfate 2 puff 05/07/20 16:39 Ventolin Hfa Inhaler - IH Q4H PRN SHORTNESS OF BREATH Albuterol/Ipratropium 1 amp 05/07/20 20:00 05/07/20 20:25 Duoneb - NEB 1 amp RQID EMETERIO Administration Apixaban 2.5 mg 05/07/20 22:00 05/08/20 09:22 Eliquis - GT 2.5 mg BID EMETERIO Administration Ascorbic Acid 500 mg 05/08/20 10:00 05/08/20 09:22 Vitamin C - GT 500 mg DAILY EMETERIO Administration Atorvastatin Calcium 40 mg 05/07/20 22:00 05/07/20 22:41 Lipitor - GT 40 mg HS EMETERIO Administration Budesonide 1 amp 05/07/20 22:00 05/07/20 22:00 Pulmicort 0.5 Mg Nebulizer - NEB 1 amp BID EMETERIO Administration Famotidine 10 mg 05/07/20 22:00 05/07/20 22:43 Pepcid NGT 10 mg HS EMETERIO Administration Gabapentin 300 mg 05/07/20 22:00 05/08/20 05:35 Neurontin Oral Liquid - GT 300 mg TID EMETERIO Administration Piperacillin Sod/Tazobactam 50 mls @ 100 mls/hr 05/07/20 18:00 05/08/20 09:22 Sod 2.25 gm/ Dextrose IVPB 100 mls/hr Q8H-IV EMETERIO Administration Protocol Levetiracetam 500 mg 05/08/20 22:45 Keppra Oral Solution - GT Q48H EMETERIO Metoprolol Tartrate 25 mg 05/07/20 22:00 05/08/20 09:22 Lopressor - GT 25 mg BID EMETERIO Administration Midodrine 10 mg 05/07/20 18:00 05/08/20 09:21 Proamatine - GT 10 mg TID-MID EMETERIO Administration Nystatin 1 applic 05/07/20 22:00 05/08/20 09:24 Mycostatin Ointment - TP 1 applic BID EMETERIO Administration Quetiapine Fumarate 50 mg 05/07/20 22:00 05/08/20 09:22 Seroquel - GT 50 mg BID EMETERIO Administration Sodium Hypochlorite 1 applic 05/08/20 10:00 05/08/20 09:23 Dakin's Solution 0.25% (Half-Strength) - TP 1 applic DAILY EMETERIO Administration ASSESSMENT/PLAN: Problem List - Problems (1) Sepsis Assessment/Plan: Sepsis in the setting of infected stage 4 sacral wound. s/p wound debridement on 05/07/2020. WBC improving on Zosyn per ID monitor vitals, labs Code(s): A41.9 - SEPSIS, UNSPECIFIED ORGANISM (2) Sacral decubitus ulcer, stage IV Assessment/Plan: POD #1 wound debridement per surgery. on clinitron bed. on Zosyn. wound care per vascular Code(s): L89.154 - PRESSURE ULCER OF SACRAL REGION, STAGE 4 (3) Afib Assessment/Plan: patient on eliquis and metoprolol. on contact lens fitter. Code(s): I48.91 - UNSPECIFIED ATRIAL FIBRILLATION (4) COVID-19 ruled out Assessment/Plan: ruled out per serology Code(s): Z03.818 - ENCNTR FOR OBS FOR SUSP EXPSR TO OTH BIOLG AGENTS RULED OUT (5) ESRD (end stage renal disease) Assessment/Plan: dialysis per renal. Code(s): N18.6 - END STAGE RENAL DISEASE (6) Functional quadriplegia Assessment/Plan: on clinitron bed patient is bed bound, turn and position q 2 to protect bony prominences. Code(s): R53.2 - FUNCTIONAL QUADRIPLEGIA (7) HTN (hypertension) Assessment/Plan: monitor Code(s): I10 - ESSENTIAL (PRIMARY) HYPERTENSION (8) Hemodialysis status Assessment/Plan: per right shiley cath. dialysis per renal. Code(s): Z99.2 - DEPENDENCE ON RENAL DIALYSIS (9) History of CVA (cerebrovascular accident) Assessment/Plan: recent CVA November 2019 with left sided weakness, functional quadraplegia Code(s): Z86.73 - PRSNL HX OF TIA (TIA), AND CEREB INFRC W/O RESID DEFICITS (10) Hypotension Assessment/Plan: hypotension improving, continue IVF Code(s): I95.9 - HYPOTENSION, UNSPECIFIED Qualifiers: Hypotension type: other hypotension type Qualified Code(s): I95.89 - Other hypotension (11) Morbid obesity Assessment/Plan: outpatient follow up once acute issues are addressed. Code(s): E66.01 - MORBID (SEVERE) OBESITY DUE TO EXCESS CALORIES (12) Seizure Assessment/Plan: on keppra 500mg bid via GTube Code(s): R56.9 - UNSPECIFIED CONVULSIONS (13) Suspected COVID-19 virus infection Code(s): Z20.828 - CONTACT W AND EXPOSURE TO OTH VIRAL COMMUNICABLE DISEASES (14) Tracheostomy in place Assessment/Plan: on humidified air. trach care per respiratory team Code(s): Z93.0 - TRACHEOSTOMY STATUS (15) Prophylactic measure Assessment/Plan: already on eliquis for afib Code(s): Z29.9 - ENCOUNTER FOR PROPHYLACTIC MEASURES, UNSPECIFIED Visit type - Emergency Visit Emergency Visit: Yes ED Registration Date: 04/30/20 Care time: The patient presented to the Emergency Department on the above date and was hospitalized for further evaluation of their emergent condition. - New Patient This patient is new to me today: No - Critical Care Critical Care patient: No - Discharge Referral Referred to [facility] Med P.C.: No
--- NOTE | 2020-05-08 10:55 | PN ---
Progress Note (short form) - Note Progress Note: RENAL pt is awake and alert appears comfortable seen during hd Last Vital Signs Temp Pulse Resp BP Pulse Ox 99.0 F 98 H 20 99/68 96 05/08/20 08:32 05/08/20 09:50 05/08/20 09:50 05/08/20 09:50 05/08/20 08:41 trach lungs clear cvs s1s2 rr abd soft ext no edema neuro alert, nods to answer question CBC, BMP 05/08/20 08:30 05/08/20 08:30 Current Medications Generic Name Dose Route Start Last Admin Trade Name Freq PRN Reason Stop Dose Admin Acetaminophen 325 mg 05/07/20 16:39 Tylenol Oral Solution - GT Q6H PRN FEVER Albuterol Sulfate 2 puff 05/07/20 16:39 Ventolin Hfa Inhaler - IH Q4H PRN SHORTNESS OF BREATH Albuterol/Ipratropium 1 amp 05/07/20 20:00 05/07/20 20:25 Duoneb - NEB 1 amp RQID EMETERIO Administration Apixaban 2.5 mg 05/07/20 22:00 05/08/20 09:22 Eliquis - GT 2.5 mg BID EMETERIO Administration Ascorbic Acid 500 mg 05/08/20 10:00 05/08/20 09:22 Vitamin C - GT 500 mg DAILY EMETERIO Administration Atorvastatin Calcium 40 mg 05/07/20 22:00 05/07/20 22:41 Lipitor - GT 40 mg HS EMETERIO Administration Budesonide 1 amp 05/07/20 22:00 05/07/20 22:00 Pulmicort 0.5 Mg Nebulizer - NEB 1 amp BID EMETERIO Administration Famotidine 10 mg 05/07/20 22:00 05/07/20 22:43 Pepcid NGT 10 mg HS EMETERIO Administration Gabapentin 300 mg 05/07/20 22:00 05/08/20 05:35 Neurontin Oral Liquid - GT 300 mg TID EMETERIO Administration Piperacillin Sod/Tazobactam 50 mls @ 100 mls/hr 05/07/20 18:00 05/08/20 09:22 Sod 2.25 gm/ Dextrose IVPB 100 mls/hr Q8H-IV EMETERIO Administration Protocol Levetiracetam 500 mg 05/08/20 22:45 Keppra Oral Solution - GT Q48H EMETERIO Metoprolol Tartrate 25 mg 05/07/20 22:00 05/08/20 09:22 Lopressor - GT 25 mg BID EMETERIO Administration Midodrine 10 mg 05/07/20 18:00 05/08/20 09:21 Proamatine - GT 10 mg TID-MID EMETERIO Administration Nystatin 1 applic 05/07/20 22:00 05/08/20 09:24 Mycostatin Ointment - TP 1 applic BID EMETERIO Administration Quetiapine Fumarate 50 mg 05/07/20 22:00 05/08/20 09:22 Seroquel - GT 50 mg BID EMETERIO Administration Sodium Hypochlorite 1 applic 05/08/20 10:00 05/08/20 09:23 Dakin's Solution 0.25% (Half-Strength) - TP 1 applic DAILY EMETERIO Administration IMPRESSION ESRD sepsis secondary to decubitus s/p trach functional quadriplegia darrell to stroke anemia PLAN antibiotics per id s/p debridement pogen 4000 will need avf--- vascular eval MV
--- NOTE | 2020-05-08 12:16 | PN ---
Progress Note, Physician History of Present Illness: s/p debridement comfortable - Current Medication List Current Medications: Active Medications Acetaminophen (Tylenol Oral Solution -) 325 mg GT Q6H PRN PRN Reason: FEVER Albuterol Sulfate (Ventolin Hfa Inhaler -) 2 puff IH Q4H PRN PRN Reason: SHORTNESS OF BREATH Albuterol/Ipratropium (Duoneb -) 1 amp NEB RQID [facility] Last Admin: 05/08/20 11:29 Dose: 1 amp Documented by: Apixaban (Eliquis -) 2.5 mg GT BID [facility] Last Admin: 05/08/20 09:22 Dose: 2.5 mg Documented by: Ascorbic Acid (Vitamin C -) 500 mg GT DAILY [facility] Last Admin: 05/08/20 09:22 Dose: 500 mg Documented by: Atorvastatin Calcium (Lipitor -) 40 mg GT HS [facility] Last Admin: 05/07/20 22:41 Dose: 40 mg Documented by: Budesonide (Pulmicort 0.5 Mg Nebulizer -) 1 amp NEB BID [facility] Last Admin: 05/08/20 10:05 Dose: 1 amp Documented by: Famotidine (Pepcid) 10 mg NGT HS [facility] Last Admin: 05/07/20 22:43 Dose: 10 mg Documented by: Gabapentin (Neurontin Oral Liquid -) 300 mg GT TID [facility] Last Admin: 05/08/20 05:35 Dose: 300 mg Documented by: Piperacillin Sod/Tazobactam (Sod 2.25 gm/ Dextrose) 50 mls @ 100 mls/hr IVPB Q8H-IV [facility]; Protocol Last Admin: 05/08/20 09:22 Dose: 100 mls/hr Documented by: Levetiracetam (Keppra Oral Solution -) 500 mg GT Q48H [facility] Metoprolol Tartrate (Lopressor -) 25 mg GT BID [facility] Last Admin: 05/08/20 09:22 Dose: 25 mg Documented by: Midodrine (Proamatine -) 10 mg GT TID-MID [facility] Last Admin: 05/08/20 09:21 Dose: 10 mg Documented by: Nystatin (Mycostatin Ointment -) 1 applic TP BID [facility] Last Admin: 05/08/20 09:24 Dose: 1 applic Documented by: Quetiapine Fumarate (Seroquel -) 50 mg GT BID [facility] Last Admin: 05/08/20 09:22 Dose: 50 mg Documented by: Sodium Hypochlorite (Dakin's Solution 0.25% (Half-Strength) -) 1 applic TP DAILY [facility] Last Admin: 05/08/20 09:23 Dose: 1 applic Documented by: - Objective Vital Signs: Vital Signs Temperature 99.0 F 05/08/20 08:32 Pulse Rate 94 H 05/08/20 11:39 Respiratory Rate 20 05/08/20 11:39 Blood Pressure 113/67 05/08/20 11:39 O2 Sat by Pulse Oximetry (%) 96 05/08/20 08:41 Constitutional: Yes: No Distress, Calm Cardiovascular: Yes: S1, S2 Gastrointestinal: Yes: Normal Bowel Sounds, Soft Musculoskeletal: Yes: WNL Extremities: Yes: WNL Wound/Incision: Yes: Dressing Dry and Intact Neurological: Yes: Alert, Oriented Psychiatric: Yes: Alert, Oriented Labs: CBC, BMP 05/08/20 08:30 05/08/20 08:30 INR, PTT INR 1.37 (0.83-1.09) H 05/07/20 10:20 Assessment/Plan 50 M Sepsis 2/2 infected Stage 4 decubitus ulcer Afib on Eliquis HTN HLD Dysphagia s/p trach PEG non-ambulatory Non-verbal Morbidly obese Seizure disorder ESRD on HD plan abx wound care will plan further mgmt rest as per the team
[2020-05-08] MEDS ORDERED: PT OWN MED DRAWER 7, Y5N ONE ×3 (13:54→22:41)
[2020-05-08] MEDS ORDERED: AMMONIUM LACTATE 12% LOTION 225 GM BOTTLE TP PRN (15:39)
--- NOTE | 2020-05-08 15:39 | CONSULT ---
Consult Consult Specialty:: Podiatry Reason for Consultation:: xerosis and onychomycosis - History of Present Illness Chief Complaint: Dry skin and elongated fungus toe nails - Smoking History Smoking history: Unknown if ever smoked Have you smoked in the past 12 months: No Home Medications - Allergies Allergies/Adverse Reactions: Allergies Allergy/AdvReac Type Severity Reaction Status Date / Time No Known Allergies Allergy Verified 04/30/20 11:44 - Home Medications Home Medications: Ambulatory Orders Acetaminophen 650 mg GT Q6H PRN 04/30/20 Albuterol 2.5/Ipratropium 0.5 [Duoneb -] 1 amp NEB Q6H 04/30/20 Apixaban [Eliquis] 2.5 mg GT BID 04/30/20 Ascorbate Calcium [Vitamin C] 500 mg GT BID 04/30/20 Atorvastatin Ca [Lipitor] 40 mg GT HS 04/30/20 Budesonide [Pulmicort 0.5 mg Nebulizer -] 1 neb NEB BID 04/30/20 Chlorhexidine Gluconate [Peridex -] 15 ml MM BID 04/30/20 Collagenase Clostridium Hist. [Santyl] 1 applic TP DAILY 04/30/20 Gabapentin [Neurontin -] 300 mg GT TID 04/30/20 Loperamide HCl [Loperamide] 2 mg GT BID PRN 04/30/20 Meropenem-0.9% Sodium Chloride [Meropenem-0.9% NaCl 500 mg/50] 500 mg IV Q12H 04/30/20 Metoprolol Tartrate [Lopressor -] 25 mg GT BID 04/30/20 Midodrine HCl 10 mg GT TID 04/30/20 Nystatin Ointment [Mycostatin Ointment -] 1 applic TP BID 04/30/20 Omeprazole 20 mg GT DAILY 04/30/20 Quetiapine Fumarate [Seroquel -] 50 mg GT BID 04/30/20 Vancomycin (Pre-Docked) 500 mg IVPB TUTHSA 04/30/20 levETIRAcetam [Levetiracetam] 500 mg GT Q48H 04/30/20 Physical Exam Vital Signs: Vital Signs Temperature 97.8 F 05/08/20 14:06 Pulse Rate 90 05/08/20 15:29 Respiratory Rate 20 05/08/20 14:06 Blood Pressure 100/65 05/08/20 14:06 O2 Sat by Pulse Oximetry (%) 99 05/08/20 15:29 Extremities: Yes: Other (+xerosis b/l feet, +elongated mycotic nails x 10, vsgi, -ulceration b/l feet & heels) Labs: CBC, BMP 05/08/20 08:30 05/08/20 08:30 Assessment/Plan onychomycosis xerosis Ammonium lactate 12% BID to feet and legs. Will return tomorrow with nail c lippers for nail debridement. Continue offloading heel pads. Will follow. Rest as per team.
--- NOTE | 2020-05-08 16:38 | PN ---
Physical Exam: SUBJECTIVE: Patient seen and examined OBJECTIVE: Vital Signs Period Temp Pulse Resp BP Sys/Vegas Pulse Ox Last 24 Hr 97.1 F-99.0 F 88-100 16-20 92-113/53-68 89-99 GENERAL: The patient is awake, alert, and fully oriented, in no acute distress. HEAD: Normal with no signs of trauma. EYES: PERRL, extraocular movements intact, sclera anicteric, conjunctiva clear. No ptosis. ENT: Ears normal, nares patent, oropharynx clear without exudates, moist mucous membranes. NECK: Trachea midline, full range of motion, supple. LUNGS: Breath sounds equal, clear to auscultation bilaterally, no wheezes, no crackles, no accessory muscle use. HEART: Regular rate and rhythm, S1, S2 without murmur, rub or gallop. ABDOMEN: Soft, nontender, nondistended, normoactive bowel sounds, no guarding, no rebound, no hepatosplenomegaly, no masses. EXTREMITIES: 2+ pulses, warm, well-perfused, no edema. NEUROLOGICAL: Cranial nerves II through XII grossly intact. Normal speech, gait not observed. PSYCH: Normal mood, normal affect. SKIN: Warm, dry, normal turgor, no rashes or lesions noted Laboratory Results - last 24 hr 05/08/20 05/08/20 08:30 08:30 WBC 13.9 H RBC 2.66 L Hgb 8.0 L Hct 24.6 L MCV 92.4 MCH 29.9 MCHC 32.4 RDW 15.6 Plt Count 350 MPV 7.8 Absolute Neuts (auto) 8.5 H Neutrophils % 61.1 Neutrophils % (Manual) 75.0 Band Neutrophils % 0.0 Lymphocytes % 10.7 D Lymphocytes % (Manual) 10.0 D Monocytes % 26.2 H D Monocytes % (Manual) 11 H D Eosinophils % 2.0 Eosinophils % (Manual) 4.0 Basophils % 0.0 Basophils % (Manual) 0.0 Myelocytes % (Man) 0 D Promyelocytes % (Man) 0 Blast Cells % (Manual) 0 Nucleated RBC % 0 Metamyelocytes 0 Hypochromia 0 Platelet Estimate Normal Polychromasia 0 Poikilocytosis 0 Anisocytosis 1+ Microcytosis 1+ Macrocytosis 0 Sodium 140 Potassium 3.7 Chloride 103 Carbon Dioxide 28 Anion Gap 9 BUN 44.8 H Creatinine 4.5 H Est GFR (CKD-EPI)AfAm 16.55 Est GFR (CKD-EPI)NonAf 14.28 Random Glucose 94 Calcium 9.1 Magnesium 2.0 Total Bilirubin 0.3 AST 13 L ALT 19 Alkaline Phosphatase 111 Total Protein 6.7 Albumin 2.3 L Active Medications Generic Name Dose Route Start Last Admin Trade Name Freq PRN Reason Stop Dose Admin Acetaminophen 325 mg 05/07/20 16:39 Tylenol Oral Solution - GT Q6H PRN FEVER Albuterol Sulfate 2 puff 05/07/20 16:39 Ventolin Hfa Inhaler - IH Q4H PRN SHORTNESS OF BREATH Albuterol/Ipratropium 1 amp 05/07/20 20:00 05/08/20 15:26 Duoneb - NEB 1 amp RQID EMETERIO Administration Apixaban 2.5 mg 05/07/20 22:00 05/08/20 09:22 Eliquis - GT 2.5 mg BID EMETERIO Administration Ascorbic Acid 500 mg 05/08/20 10:00 05/08/20 09:22 Vitamin C - GT 500 mg DAILY EMETERIO Administration Atorvastatin Calcium 40 mg 05/07/20 22:00 05/07/20 22:41 Lipitor - GT 40 mg HS EMETERIO Administration Budesonide 1 amp 05/07/20 22:00 05/08/20 10:05 Pulmicort 0.5 Mg Nebulizer - NEB 1 amp BID EMETERIO Administration Collagenase 1 applic 05/08/20 15:45 Santyl - TP DAILY EMETERIO Protocol Famotidine 10 mg 05/07/20 22:00 05/07/20 22:43 Pepcid NGT 10 mg HS EMETERIO Administration Gabapentin 300 mg 05/07/20 22:00 05/08/20 14:04 Neurontin Oral Liquid - GT 5 ml TID EMETERIO Administration Piperacillin Sod/Tazobactam 50 mls @ 100 mls/hr 05/07/20 18:00 05/08/20 09:22 Sod 2.25 gm/ Dextrose IVPB 100 mls/hr Q8H-IV EMETERIO Administration Protocol Lactic Acid 1 applic 05/08/20 15:39 Lac-Hydrin 12 TP DAILY PRN xerosis Levetiracetam 500 mg 05/08/20 22:45 Keppra Oral Solution - GT Q48H EMETERIO Metoprolol Tartrate 25 mg 05/07/20 22:00 05/08/20 09:22 Lopressor - GT 25 mg BID EMETERIO Administration Midodrine 10 mg 05/07/20 18:00 05/08/20 14:04 Proamatine - GT 10 mg TID-MID EMETERIO Administration Nystatin 1 applic 05/07/20 22:00 05/08/20 09:24 Mycostatin Ointment - TP 1 applic BID EMETERIO Administration Quetiapine Fumarate 50 mg 05/07/20 22:00 05/08/20 09:22 Seroquel - GT 50 mg BID EMETERIO Administration Sodium Hypochlorite 1 applic 05/08/20 10:00 05/08/20 09:23 Dakin's Solution 0.25% (Half-Strength) - TP 1 applic DAILY EMETERIO Administration ASSESSMENT/PLAN: Problem List - Problems (1) Sepsis Code(s): A41.9 - SEPSIS, UNSPECIFIED ORGANISM (2) Sacral decubitus ulcer, stage IV Code(s): L89.154 - PRESSURE ULCER OF SACRAL REGION, STAGE 4 (3) Afib Code(s): I48.91 - UNSPECIFIED ATRIAL FIBRILLATION (4) COVID-19 ruled out Code(s): Z03.818 - ENCNTR FOR OBS FOR SUSP EXPSR TO [facility] BIOLG AGENTS RULED OUT (5) ESRD (end stage renal disease) Code(s): N18.6 - END STAGE RENAL DISEASE (6) Functional quadriplegia Code(s): R53.2 - FUNCTIONAL QUADRIPLEGIA (7) HTN (hypertension) Code(s): I10 - ESSENTIAL (PRIMARY) HYPERTENSION (8) Hemodialysis status Code(s): Z99.2 - DEPENDENCE ON RENAL DIALYSIS (9) History of CVA (cerebrovascular accident) Code(s): Z86.73 - PRSNL HX OF TIA (TIA), AND CEREB INFRC W/O RESID DEFICITS (10) Hypotension Code(s): I95.9 - HYPOTENSION, UNSPECIFIED Qualifiers: Hypotension type: other hypotension type Qualified Code(s): I95.89 - Other hypotension (11) Morbid obesity Code(s): E66.01 - MORBID (SEVERE) OBESITY DUE TO EXCESS CALORIES (12) Seizure Code(s): R56.9 - UNSPECIFIED CONVULSIONS (13) Suspected COVID-19 virus infection Code(s): Z20.828 - CONTACT W AND EXPOSURE TO OTH VIRAL COMMUNICABLE DISEASES (14) Tracheostomy in place Code(s): Z93.0 - TRACHEOSTOMY STATUS (15) Prophylactic measure Code(s): Z29.9 - ENCOUNTER FOR PROPHYLACTIC MEASURES, UNSPECIFIED
[2020-05-08] MEDS: COLLAGENASE CLOSTRIDIUM HIST. 30 GRAMS TUBE TP SCH (17:27)
[2020-05-08] MEDS: FAMOTIDINE 40 MG/5 ML ORAL SUSPENSION NGT SCH (22:43)
[2020-05-08] MEDS: ATORVASTATIN CA 40 MG TABLET (FP) GT SCH (22:43)
[2020-05-08] MEDS: levETIRAcetam 500 MG/5 ML ORAL SOLUTION (UNIT-DOSE CUPS) GT SCH (22:44)
[2020-05-09] MEDS ORDERED: PIPERACILLIN/TAZOBACTAM 2.25 GM VIAL IVPB ONE ×3 (03:36→16:02)
[2020-05-09] MEDS ORDERED: DEXTROSE 5%-WATER - 50 ML IVPB ONE ×3 (03:36→16:02)
[2020-05-09] MEDS: PIPERACILLIN/TAZOB 2.25 GM 2.25 GM in DEXTROSE 5%-WATER - 50 ML IVPB SCH ×3 (04:14→17:31)
[2020-05-09] MEDS: GABAPENTIN 250 MG/5 ML ORAL SOLUTION, 470 ML BOTTLE GT SCH ×3 (05:58→22:27)
[2020-05-09] MEDS: ALBUTEROL SO4 2.5/IPRATROPIUM 0.5 INH SOL 3 ML VIAL.NEB. NEB SCH ×4 (07:20→15:55)
[2020-05-09] MEDS ORDERED: PT OWN MED DRAWER 7, Y5N ONE ×3 (07:35→22:23)
[2020-05-09] MEDS: METOPROLOL TARTRATE 25 MG TABLET (FP) GT SCH ×2 (09:35→22:25)
[2020-05-09] MEDS: QUEtiapine FUMARATE 50 MG TABLET GT SCH ×2 (09:35→22:25)
[2020-05-09] MEDS: ASCORBIC ACID 500 MG TABLET (FP) GT SCH (09:35)
[2020-05-09] MEDS: APIXABAN 2.5 MG TABLET GT SCH ×2 (09:35→22:25)
[2020-05-09] MEDS: MIDODRINE HCL 5 MG TABLET GT SCH ×3 (09:35→17:31)
[2020-05-09] MEDS: NYSTATIN 100000 UNIT/GM TOPICAL OINTMENT 15 GM TUBE TP SCH ×2 (09:36→22:25)
[2020-05-09] MEDS: SODIUM HYPOCHLORITE 0.25%- 473 ML BULK BOTTLE TP SCH (09:36)
[2020-05-09] MEDS: COLLAGENASE CLOSTRIDIUM HIST. 30 GRAMS TUBE TP SCH (09:37)
[2020-05-09] MEDS: BUDESONIDE 0.5 MG/2 ML INH SUSP VIAL NEB SCH ×2 (10:45→22:10)
[2020-05-09 11:05] LABS: BASO % 0.3 % (0-2.0); HEMATOCRIT 27.5 % (35.4-49); HEMOGLOBIN 8.7 GM/dL (11.7-16.9); LYMPH % 11.1 % (8-40); MCH 29.7 pg (25.7-33.7); MCHC 31.7 g/dl (32.0-35.9); MEAN CELL VOLUME 93.7 fl (80-96); MEAN PLT VOLUME 7.9 fl (7.5-11.1); MONO % 6.4 % (3.8-10.2); NEUT % 80.2 % (42.8-82.8); PLATELET COUNT 322 K/MM3 (134-434); RBC 2.94 M/mm3 (4.00-5.60); RDW 15.8 % (11.9-15.9); WHITE BLOOD COUNT 13.1 K/mm3 (4.0-10.0)
--- NOTE | 2020-05-09 11:29 | PN ---
Physical Exam: SUBJECTIVE: Patient seen and examined at the bedside. In no acute distress. feels well and mentation at baseline OBJECTIVE: Patient is a 50 year old male with a significant past medical history of functional quadriplegia 2/2 stroke (November 2019), dysphagia s/p trach, afib on AC, HTN, seizures, morbid obesity, stage IV sacral ulcer, perma cath on R chest wall for dialysis. He presents to the ED on 04/30/2020 from [facility] [place] for hypotension. Pt. found to have infected chronic stage 4 decubitus ulcer, rec eived Meropenem/Clindamycin in ED. ID following patient. he is s/p wound debridement of stage 4 sacral wound on 05/07 under general anesthesia. No complications reported. May need further debridement of this wound on Tuesday and possible vac placement. Vital Signs Period Temp Pulse Resp BP Sys/Vegas Pulse Ox Last 24 Hr 97.8 F-99.0 F 88-96 20-20 100-113/65-68 93-99 GENERAL: The patient is awake, alert, in no acute distress. appears generally weak HEAD: Normal with no signs of trauma. EYES: PERRL, extraocular movements intact, sclera anicteric, conjunctiva clear. No ptosis. ENT: Ears normal, nares patent, oropharynx clear without exudates NECK: + trach LUNGS: Breath sounds diminished bilaterally HEART: Regular rate and rhythm, S1, S2 ABDOMEN: Soft, nontender, nondistended, + peg tube EXTREMITIES: no edema. NEUROLOGICAL: non verbal, gait not observed. SKIN: stage 4 wound, not viewed, surgical dressing Laboratory Results - last 24 hr 05/09/20 10:40 WBC 13.1 H RBC 2.94 L Hgb 8.7 L Hct 27.5 L MCV 93.7 MCH 29.7 MCHC 31.7 L RDW 15.8 Plt Count 322 MPV 7.9 Absolute Neuts (auto) 10.5 H Neutrophils % 80.2 D Lymphocytes % 11.1 Monocytes % 6.4 Eosinophils % 2.0 Basophils % 0.3 D Nucleated RBC % 0 Active Medications Generic Name Dose Route Start Last Admin Trade Name Freq PRN Reason Stop Dose Admin Acetaminophen 325 mg 05/07/20 16:39 Tylenol Oral Solution - GT Q6H PRN FEVER Albuterol Sulfate 2 puff 05/07/20 16:39 Ventolin Hfa Inhaler - IH Q4H PRN SHORTNESS OF BREATH Albuterol/Ipratropium 1 amp 05/07/20 20:00 05/09/20 11:13 Duoneb - NEB 1 amp RQID EMETERIO Administration Apixaban 2.5 mg 05/07/20 22:00 05/09/20 09:35 Eliquis - GT 2.5 mg BID EMETERIO Administration Ascorbic Acid 500 mg 05/08/20 10:00 05/09/20 09:35 Vitamin C - GT 500 mg DAILY EMETERIO Administration Atorvastatin Calcium 40 mg 05/07/20 22:00 05/08/20 22:43 Lipitor - GT 40 mg HS EMETERIO Administration Budesonide 1 amp 05/07/20 22:00 05/09/20 10:45 Pulmicort 0.5 Mg Nebulizer - NEB Not Given BID EMETERIO Collagenase 1 applic 05/08/20 15:45 05/09/20 09:37 Santyl - TP Not Given DAILY EMETERIO Protocol Famotidine 10 mg 05/07/20 22:00 05/08/20 22:43 Pepcid NGT 10 mg HS EMETERIO Administration Gabapentin 300 mg 05/07/20 22:00 05/09/20 05:58 Neurontin Oral Liquid - GT 300 ml TID EMETERIO Administration Piperacillin Sod/Tazobactam 50 mls @ 100 mls/hr 05/07/20 18:00 05/09/20 09:35 Sod 2.25 gm/ Dextrose IVPB 100 mls/hr Q8H-IV EMETERIO Administration Protocol Lactic Acid 1 applic 05/08/20 15:39 Lac-Hydrin 12 TP DAILY PRN xerosis Levetiracetam 500 mg 05/08/20 22:45 05/08/20 22:44 Keppra Oral Solution - GT 500 mg Q48H EMETERIO Administration Metoprolol Tartrate 25 mg 05/07/20 22:00 05/09/20 09:35 Lopressor - GT 25 mg BID EMETERIO Administration Midodrine 10 mg 05/07/20 18:00 05/09/20 09:35 Proamatine - GT 10 mg TID-MID EMETERIO Administration Nystatin 1 applic 05/07/20 22:00 05/09/20 09:36 Mycostatin Ointment - TP 1 applic BID EMETERIO Administration Quetiapine Fumarate 50 mg 05/07/20 22:00 05/09/20 09:35 Seroquel - GT 50 mg BID EMETERIO Administration Sodium Hypochlorite 1 applic 05/08/20 10:00 05/09/20 09:36 Dakin's Solution 0.25% (Half-Strength) - TP Not Given DAILY EMETERIO ASSESSMENT/PLAN: Problem List - Problems (1) Sepsis Assessment/Plan: Sepsis in the setting of infected stage 4 sacral wound. s/p wound debridement on 05/07/2020. WBC improving on Zosyn per ID monitor vitals, labs for possible further debridement on Tuesday Code(s): A41.9 - SEPSIS, UNSPECIFIED ORGANISM (2) Sacral decubitus ulcer, stage IV Assessment/Plan: POD #2 wound debridement per surgery. on clinitron bed. on Zosyn. wound care per vascular Code(s): L89.154 - PRESSURE ULCER OF SACRAL REGION, STAGE 4 (3) Afib Assessment/Plan: patient on eliquis and metoprolol. on monitoring tech. Code(s): I48.91 - UNSPECIFIED ATRIAL FIBRILLATION (4) COVID-19 ruled out Assessment/Plan: ruled out per serology Code(s): Z03.818 - ENCNTR FOR OBS FOR SUSP EXPSR TO OTH BIOLG AGENTS RULED OUT (5) ESRD (end stage renal disease) Assessment/Plan: dialysis per renal. Code(s): N18.6 - END STAGE RENAL DISEASE (6) Functional quadriplegia Assessment/Plan: on clinitron bed patient is bed bound, turn and position q 2 to protect bony prominences. Code(s): R53.2 - FUNCTIONAL QUADRIPLEGIA (7) HTN (hypertension) Assessment/Plan: monitor Code(s): I10 - ESSENTIAL (PRIMARY) HYPERTENSION (8) Hemodialysis status Assessment/Plan: per right shiley cath. dialysis per renal. Code(s): Z99.2 - DEPENDENCE ON RENAL DIALYSIS (9) History of CVA (cerebrovascular accident) Assessment/Plan: recent CVA November 2019 with left sided weakness, functional quadraplegia Code(s): Z86.73 - PRSNL HX OF TIA (TIA), AND CEREB INFRC W/O RESID DEFICITS (10) Hypotension Assessment/Plan: hypotension improving, continue IVF Code(s): I95.9 - HYPOTENSION, UNSPECIFIED Qualifiers: Hypotension type: other hypotension type Qualified Code(s): I95.89 - Other hypotension (11) Morbid obesity Assessment/Plan: outpatient follow up once acute issues are addressed. Code(s): E66.01 - MORBID (SEVERE) OBESITY DUE TO EXCESS CALORIES (12) Seizure Assessment/Plan: on keppra 500mg bid via GTube Code(s): R56.9 - UNSPECIFIED CONVULSIONS (13) Suspected COVID-19 virus infection Code(s): Z20.828 - CONTACT W AND EXPOSURE TO OTH VIRAL COMMUNICABLE DISEASES (14) Tracheostomy in place Assessment/Plan: on humidified air. trach care per respiratory team Code(s): Z93.0 - TRACHEOSTOMY STATUS (15) Prophylactic measure Assessment/Plan: already on eliquis for afib Code(s): Z29.9 - ENCOUNTER FOR PROPHYLACTIC MEASURES, UNSPECIFIED Visit type - Emergency Visit Emergency Visit: Yes ED Registration Date: 04/30/20 Care time: The patient presented to the Emergency Department on the above date and was hospitalized for further evaluation of their emergent condition. - New Patient This patient is new to me today: No - Critical Care Critical Care patient: No - Discharge Referral Referred to [facility] No
[2020-05-09 11:35] LABS: ALBUMIN 2.3 g/dl (3.4-5.0); BILIRUBIN,TOTAL 0.3 mg/dL (0.2-1); CALCIUM 9.7 mg/dL (8.5-10.1); CREATININE 2.9 mg/dL (0.55-1.3); MAGNESIUM 1.9 mg/dL (1.8-2.4); POTASSIUM 3.3 mmol/L (3.5-5.1); TOT PROT 6.8 g/dl (6.4-8.2)
[2020-05-09] MEDS ORDERED: POTASSIUM CHLORIDE ORAL LIQUID 20 MEQ/15 ML GT ONE (11:38)
--- NOTE | 2020-05-09 11:58 | PN ---
Progress Note (short form) - Note Progress Note: SURGERY 50yo M s/p debridement of sacral ulcer. Pt is nonverbal so unable to give history. Last Vital Signs Temp Pulse Resp BP Pulse Ox 98.1 F 90 20 109/68 98 05/09/20 05:55 05/09/20 08:08 05/09/20 05:55 05/09/20 05:55 05/09/20 08:08 CBC, BMP 05/09/20 10:40 05/09/20 06:00 PE: Gen: A&O X3 Resp: breathing with trach Sacrum: 20cm x 18cm stage IV ulcer with fibrinous base, serous drainage, some foul smelling drainage. Problem List - Problems (1) Sacral decubitus ulcer, stage IV Assessment/Plan: Plan -ulcer needs some further debridement before vac placement will try wet to dry dressing with santyl over the weekend and reevaluate Tuesday05/12/20 -optimize nutrition Code(s): L89.154 - PRESSURE ULCER OF SACRAL REGION, STAGE 4
--- NOTE | 2020-05-09 13:49 | PN ---
Progress Note, Physician History of Present Illness: s/p debridement comfortable - Current Medication List Current Medications: Active Medications Acetaminophen (Tylenol Oral Solution -) 325 mg GT Q6H PRN PRN Reason: FEVER Albuterol Sulfate (Ventolin Hfa Inhaler -) 2 puff IH Q4H PRN PRN Reason: SHORTNESS OF BREATH Albuterol/Ipratropium (Duoneb -) 1 amp NEB RQID EMETERIO Last Admin: 05/09/20 11:13 Dose: 1 amp Documented by: Apixaban (Eliquis -) 2.5 mg GT BID [facility] Last Admin: 05/09/20 09:35 Dose: 2.5 mg Documented by: Ascorbic Acid (Vitamin C -) 500 mg GT DAILY EMETERIO Last Admin: 05/09/20 09:35 Dose: 500 mg Documented by: Atorvastatin Calcium (Lipitor -) 40 mg GT HS [facility] Last Admin: 05/08/20 22:43 Dose: 40 mg Documented by: Budesonide (Pulmicort 0.5 Mg Nebulizer -) 1 amp NEB BID [facility] Last Admin: 05/09/20 10:45 Dose: Not Given Documented by: Collagenase (Santyl -) 1 applic TP DAILY [facility]; Protocol Last Admin: 05/09/20 09:37 Dose: Not Given Documented by: Famotidine (Pepcid) 10 mg NGT HS [facility] Last Admin: 05/08/20 22:43 Dose: 10 mg Documented by: Gabapentin (Neurontin Oral Liquid -) 300 mg GT TID [facility] Last Admin: 05/09/20 05:58 Dose: 300 ml Documented by: Piperacillin Sod/Tazobactam (Sod 2.25 gm/ Dextrose) 50 mls @ 100 mls/hr IVPB Q8H-IV EMETERIO; Protocol Last Admin: 05/09/20 09:35 Dose: 100 mls/hr Documented by: Lactic Acid (Lac-Hydrin 12) 1 applic TP DAILY PRN PRN Reason: xerosis Levetiracetam (Keppra Oral Solution -) 500 mg GT Q48H [facility] Last Admin: 05/08/20 22:44 Dose: 500 mg Documented by: Metoprolol Tartrate (Lopressor -) 25 mg GT BID [facility] Last Admin: 05/09/20 09:35 Dose: 25 mg Documented by: Midodrine (Proamatine -) 10 mg GT TID-MID [facility] Last Admin: 05/09/20 09:35 Dose: 10 mg Documented by: Nystatin (Mycostatin Ointment -) 1 applic TP BID [facility] Last Admin: 05/09/20 09:36 Dose: 1 applic Documented by: Quetiapine Fumarate (Seroquel -) 50 mg GT BID [facility] Last Admin: 05/09/20 09:35 Dose: 50 mg Documented by: Sodium Hypochlorite (Dakin's Solution 0.25% (Half-Strength) -) 1 applic TP DAILY [facility] Last Admin: 05/09/20 09:36 Dose: Not Given Documented by: - Objective Vital Signs: Vital Signs Temperature 98.8 F 05/09/20 10:00 Pulse Rate 94 H 05/09/20 10:00 Respiratory Rate 05/09/20 10:00 Blood Pressure 104/61 05/09/20 10:00 O2 Sat by Pulse Oximetry (%) 98 05/09/20 10:00 Constitutional: Yes: No Distress, Calm Cardiovascular: Yes: S1, S2 Respiratory: Yes: Other (ytrach) Gastrointestinal: Yes: Normal Bowel Sounds, Soft Musculoskeletal: Yes: WNL Extremities: Yes: Other Neurological: Yes: Alert, Oriented Psychiatric: Yes: Alert, Oriented Labs: CBC, BMP 05/09/20 10:40 05/09/20 06:00 INR, PTT INR 1.37 (0.83-1.09) H 05/07/20 10:20 Assessment/Plan 50 M Sepsis 2/2 infected Stage 4 decubitus ulcer Afib on Eliquis HTN HLD Dysphagia s/p trach PEG non-ambulatory Non-verbal Morbidly obese Seizure disorder ESRD on HD plan abx wound care podiatry on board rest as per the team
--- NOTE | 2020-05-09 16:09 | PN ---
Progress Note, Physician Chief Complaint: xerosis and onychomycosis with elongated nails - Current Medication List Current Medications: Active Medications Acetaminophen (Tylenol Oral Solution -) 325 mg GT Q6H PRN PRN Reason: FEVER Albuterol Sulfate (Ventolin Hfa Inhaler -) 2 puff IH Q4H PRN PRN Reason: SHORTNESS OF BREATH Albuterol/Ipratropium (Duoneb -) 1 amp NEB RQID EMETERIO Last Admin: 05/09/20 15:55 Dose: 1 amp Documented by: Apixaban (Eliquis -) 2.5 mg GT BID [facility] Last Admin: 05/09/20 09:35 Dose: 2.5 mg Documented by: Ascorbic Acid (Vitamin C -) 500 mg GT DAILY [facility] Last Admin: 05/09/20 09:35 Dose: 500 mg Documented by: Atorvastatin Calcium (Lipitor -) 40 mg GT HS [facility] Last Admin: 05/08/20 22:43 Dose: 40 mg Documented by: Budesonide (Pulmicort 0.5 Mg Nebulizer -) 1 amp NEB BID [facility] Last Admin: 05/09/20 10:45 Dose: Not Given Documented by: Collagenase (Santyl -) 1 applic TP DAILY [facility]; Protocol Last Admin: 05/09/20 09:37 Dose: Not Given Documented by: Famotidine (Pepcid) 10 mg NGT HS [facility] Last Admin: 05/08/20 22:43 Dose: 10 mg Documented by: Gabapentin (Neurontin Oral Liquid -) 300 mg GT TID [facility] Last Admin: 05/09/20 14:19 Dose: 5 ml Documented by: Piperacillin Sod/Tazobactam (Sod 2.25 gm/ Dextrose) 50 mls @ 100 mls/hr IVPB Q8H-IV EMETERIO; Protocol Last Admin: 05/09/20 09:35 Dose: 100 mls/hr Documented by: Lactic Acid (Lac-Hydrin 12) 1 applic TP DAILY PRN PRN Reason: xerosis Levetiracetam (Keppra Oral Solution -) 500 mg GT Q48H [facility] Last Admin: 05/08/20 22:44 Dose: 500 mg Documented by: Metoprolol Tartrate (Lopressor -) 25 mg GT BID [facility] Last Admin: 05/09/20 09:35 Dose: 25 mg Documented by: Midodrine (Proamatine -) 10 mg GT TID-MID [facility] Last Admin: 05/09/20 14:17 Dose: 10 mg Documented by: Nystatin (Mycostatin Ointment -) 1 applic TP BID [facility] Last Admin: 05/09/20 09:36 Dose: 1 applic Documented by: Quetiapine Fumarate (Seroquel -) 50 mg GT BID [facility] Last Admin: 05/09/20 09:35 Dose: 50 mg Documented by: Sodium Hypochlorite (Dakin's Solution 0.25% (Half-Strength) -) 1 applic TP DAILY [facility] Last Admin: 05/09/20 09:36 Dose: Not Given Documented by: - Objective Vital Signs: Vital Signs Temperature 98.7 F 05/09/20 14:05 Pulse Rate 82 05/09/20 15:56 Respiratory Rate 20 05/09/20 14:05 Blood Pressure 98/56 L 05/09/20 14:05 O2 Sat by Pulse Oximetry (%) 95 05/09/20 15:56 Extremities: Yes: Other (xerosis with elongated thickened mycotic nails) Labs: CBC, BMP 05/09/20 10:40 05/09/20 06:00 INR, PTT INR 1.37 (0.83-1.09) H 05/07/20 10:20 Assessment/Plan onychomycosis xerosis Ammonium lactate 12% BID to feet and legs. Nails debrided x 10 at bedside. Continue offloading heel pads. Rest as per team. Please reconsult if needed.
--- NOTE | 2020-05-09 16:25 | PN ---
Progress Note (short form) - Note Progress Note: RENAL Awake and alert makes eye contact nurse report a very large decubitus Last Vital Signs Temp Pulse Resp BP Pulse Ox 98.7 F 82 20 98/56 L 95 05/09/20 14:05 05/09/20 15:56 05/09/20 14:05 05/09/20 14:05 05/09/20 15:56 trach lungs clear cvs s1s2 rr abd soft ext no edema neuro alert, nods to answer question tactile fever CBC, BMP 05/09/20 10:40 05/09/20 06:00 Current Medications Generic Name Dose Route Start Last Admin Trade Name Freq PRN Reason Stop Dose Admin Acetaminophen 325 mg 05/07/20 16:39 Tylenol Oral Solution - GT Q6H PRN FEVER Albuterol Sulfate 2 puff 05/07/20 16:39 Ventolin Hfa Inhaler - IH Q4H PRN SHORTNESS OF BREATH Albuterol/Ipratropium 1 amp 05/07/20 20:00 05/09/20 15:55 Duoneb - NEB 1 amp RQID EMETERIO Administration Apixaban 2.5 mg 05/07/20 22:00 05/09/20 09:35 Eliquis - GT 2.5 mg BID EMETERIO Administration Ascorbic Acid 500 mg 05/08/20 10:00 05/09/20 09:35 Vitamin C - GT 500 mg DAILY EMETERIO Administration Atorvastatin Calcium 40 mg 05/07/20 22:00 05/08/20 22:43 Lipitor - GT 40 mg HS EMETERIO Administration Budesonide 1 amp 05/07/20 22:00 05/09/20 10:45 Pulmicort 0.5 Mg Nebulizer - NEB Not Given BID EMETERIO Collagenase 1 applic 05/08/20 15:45 05/09/20 09:37 Santyl - TP Not Given DAILY EMETERIO Protocol Famotidine 10 mg 05/07/20 22:00 05/08/20 22:43 Pepcid NGT 10 mg HS EMETERIO Administration Gabapentin 300 mg 05/07/20 22:00 05/09/20 14:19 Neurontin Oral Liquid - GT 5 ml TID EMETERIO Administration Piperacillin Sod/Tazobactam 50 mls @ 100 mls/hr 05/07/20 18:00 05/09/20 09:35 Sod 2.25 gm/ Dextrose IVPB 100 mls/hr Q8H-IV EMETERIO Administration Protocol Lactic Acid 1 applic 05/08/20 15:39 Lac-Hydrin 12 TP DAILY PRN xerosis Levetiracetam 500 mg 05/08/20 22:45 05/08/20 22:44 Keppra Oral Solution - GT 500 mg Q48H EMETERIO Administration Metoprolol Tartrate 25 mg 05/07/20 22:00 05/09/20 09:35 Lopressor - GT 25 mg BID EMETERIO Administration Midodrine 10 mg 05/07/20 18:00 05/09/20 14:17 Proamatine - GT 10 mg TID-MID EMETERIO Administration Nystatin 1 applic 05/07/20 22:00 05/09/20 09:36 Mycostatin Ointment - TP 1 applic BID EMETERIO Administration Quetiapine Fumarate 50 mg 05/07/20 22:00 05/09/20 09:35 Seroquel - GT 50 mg BID EMETERIO Administration Sodium Hypochlorite 1 applic 05/08/20 10:00 05/09/20 09:36 Dakin's Solution 0.25% (Half-Strength) - TP Not Given DAILY EMETERIO IMPRESSION ESRD sepsis secondary to decubitus s/p trach functional quadriplegia due to cva anemia leukocytosis improved PLAN antibiotics per id s/p debridement for hd tomorrow would reduce gabapentin since its higher than recommended for ckd MV
--- NOTE | 2020-05-09 19:29 | PATH ---
Surgical Pathology Report Patient Name: MARTITA SALCEDO [facility]. Rec. #: [id number] /Age/Gender: 1970 (Age: 50) / M Account: [id number] Location: 4 W TELEMETRY U Taken: 05/07/2020 Received: 05/08/2020 Reported: 05/09/2020 Physicians: Laura Quiñones Specimen(s) Received DEBRIDED TISSUE SACRAL ULCER Clinical History Sacral ulcer Final Diagnosis DEBRIDED TISSUE, SACRAL ULCER, DEBRIDEMENT: FIBROADIPOSE TISSUE AND SKELETAL MUSCLE WITH MARKED ACUTE INFLAMMATION AND NECROSIS. Electronically Signed Thelma Mauro M.D. Gross Description Received in formalin labeled "debrided tissue sacral ulcer" are multiple irregular fragments of corado-cannon necrotic tissue measuring 8 x 6 x 4 cm in aggregate. Post Acute Care Registered Nurse sections are submitted in one cassette. DAYAMI/05/09/2020 solo/05/09/2020
[2020-05-09] MEDS: ATORVASTATIN CA 40 MG TABLET (FP) GT SCH (22:25)
[2020-05-09] MEDS: FAMOTIDINE 40 MG/5 ML ORAL SUSPENSION NGT SCH (22:26)
[2020-05-10] MEDS ORDERED: PIPERACILLIN/TAZOBACTAM 2.25 GM VIAL IVPB ONE ×3 (02:14→17:05)
[2020-05-10] MEDS ORDERED: DEXTROSE 5%-WATER - 50 ML IVPB ONE ×3 (02:14→17:06)
[2020-05-10] MEDS: PIPERACILLIN/TAZOB 2.25 GM 2.25 GM in DEXTROSE 5%-WATER - 50 ML IVPB SCH ×3 (02:24→17:58)
[2020-05-10] MEDS: GABAPENTIN 250 MG/5 ML ORAL SOLUTION, 470 ML BOTTLE GT SCH ×3 (06:26→22:03)
[2020-05-10 06:47] LABS: BASO % 0.4 % (0-2.0); EOS % 3.4 % (0-4.5); HEMATOCRIT 25.1 % (35.4-49); HEMOGLOBIN 8.4 GM/dL (11.7-16.9); LYMPH % 12.6 % (8-40); MCH 31.5 pg (25.7-33.7); MCHC 33.5 g/dl (32.0-35.9); MONO % 6.1 % (3.8-10.2); NEUT % 77.5 % (42.8-82.8); PLATELET COUNT 314 K/MM3 (134-434); RBC 2.68 M/mm3 (4.00-5.60); RDW 15.8 % (11.9-15.9); WHITE BLOOD COUNT 12.6 K/mm3 (4.0-10.0)
[2020-05-10 07:05] LABS: POTASSIUM 3.5 mmol/L (3.5-5.1)
[2020-05-10 07:09] LABS: CALCIUM 9.9 mg/dL (8.5-10.1)
[2020-05-10 07:10] LABS: ALBUMIN 2.3 g/dl (3.4-5.0); BLOOD UREA NITROGEN 26.7 mg/dL (7-18); MAGNESIUM 1.8 mg/dL (1.8-2.4)
[2020-05-10 07:13] LABS: CREATININE 3.6 mg/dL (0.55-1.3)
[2020-05-10 07:15] LABS: BILIRUBIN,TOTAL 0.9 mg/dL (0.2-1); TOT PROT 6.6 g/dl (6.4-8.2)
[2020-05-10] MEDS: ALBUTEROL SO4 2.5/IPRATROPIUM 0.5 INH SOL 3 ML VIAL.NEB. NEB SCH ×4 (08:00→21:59)
[2020-05-10] MEDS ORDERED: SODIUM CHLORIDE 250 ML IV PRN (08:08)
[2020-05-10] MEDS ORDERED: EPOETIN ALFA-EPBX 4,000 UNIT/ML VIAL SQ ONE (09:00)
--- NOTE | 2020-05-10 09:46 | PN ---
Progress Note, Physician History of Present Illness: Pt now on HD and using a K3 bath He is in no distress with Trach Collar in place Removing ~ 1kg as tolerated with dialysis - Current Medication List Current Medications: Active Medications Acetaminophen (Tylenol Oral Solution -) 325 mg GT Q6H PRN PRN Reason: FEVER Albuterol Sulfate (Ventolin Hfa Inhaler -) 2 puff IH Q4H PRN PRN Reason: SHORTNESS OF BREATH Albuterol/Ipratropium (Duoneb -) 1 amp NEB RQID [facility] Last Admin: 05/10/20 08:00 Dose: 1 amp Documented by: Apixaban (Eliquis -) 2.5 mg GT BID [facility] Last Admin: 05/09/20 22:25 Dose: 2.5 mg Documented by: Ascorbic Acid (Vitamin C -) 500 mg GT DAILY [facility] Last Admin: 05/09/20 09:35 Dose: 500 mg Documented by: Atorvastatin Calcium (Lipitor -) 40 mg GT HS [facility] Last Admin: 05/09/20 22:25 Dose: 40 mg Documented by: Budesonide (Pulmicort 0.5 Mg Nebulizer -) 1 amp NEB BID [facility] Last Admin: 05/09/20 22:10 Dose: 1 amp Documented by: Collagenase (Santyl -) 1 applic TP DAILY [facility]; Protocol Last Admin: 05/09/20 09:37 Dose: Not Given Documented by: Famotidine (Pepcid) 10 mg NGT HS [facility] Last Admin: 05/09/20 22:26 Dose: 10 mg Documented by: Gabapentin (Neurontin Oral Liquid -) 300 mg GT TID [facility] Last Admin: 05/10/20 06:26 Dose: 300 ml Documented by: Piperacillin Sod/Tazobactam (Sod 2.25 gm/ Dextrose) 50 mls @ 100 mls/hr IVPB Q8H-IV [facility]; Protocol Last Admin: 05/10/20 02:24 Dose: 100 mls/hr Documented by: Sodium Chloride (Normal Saline -) 250 mls @ 3,000 mls/hr IV PRN PRN PRN Reason: Hypotension during Dialysis Stop: 05/11/20 08:07 Lactic Acid (Lac-Hydrin 12) 1 applic TP DAILY PRN PRN Reason: xerosis Levetiracetam (Keppra Oral Solution -) 500 mg GT Q48H [facility] Last Admin: 05/08/20 22:44 Dose: 500 mg Documented by: Metoprolol Tartrate (Lopressor -) 25 mg GT BID [facility] Last Admin: 05/09/20 22:25 Dose: 25 mg Documented by: Midodrine (Proamatine -) 10 mg GT TID-MID [facility] Last Admin: 05/09/20 17:31 Dose: 10 mg Documented by: Nystatin (Mycostatin Ointment -) 1 applic TP BID [facility] Last Admin: 05/09/20 22:25 Dose: 1 applic Documented by: Quetiapine Fumarate (Seroquel -) 50 mg GT BID [facility] Last Admin: 05/09/20 22:25 Dose: 50 mg Documented by: Sodium Hypochlorite (Dakin's Solution 0.25% (Half-Strength) -) 1 applic TP DAILY [facility] Last Admin: 05/09/20 09:36 Dose: Not Given Documented by: - Objective Vital Signs: Vital Signs Temperature 97.7 F 05/10/20 01:46 Pulse Rate 82 05/10/20 06:00 Respiratory Rate 20 05/10/20 06:00 Blood Pressure 110/66 05/10/20 06:00 O2 Sat by Pulse Oximetry (%) 97 05/10/20 06:00 Neck: Yes: Trachea Midline, Other (RIJ Permcatheter) Cardiovascular: Yes: Regular Rate and Rhythm Respiratory: Yes: Other (Equal air entry B/L) Gastrointestinal: Yes: Soft, Other (GT in place) Extremities: Yes: Other (Atrophied musculature) Edema: Yes Edema: LLE: Trace, RLE: Trace Neurological: Yes: Alert Labs: CBC, BMP 05/10/20 05:34 05/10/20 05:34 INR, PTT INR 1.37 (0.83-1.09) H 05/07/20 10:20 Assessment/Plan ESRD Sepsis secondary to decubitus S/P trach Functional quadriplegia due to cva Anemia Leukocytosis improved PLAN Remove 1 liter of fluid with dialysis as tolerated K3 Bath and Epogen with HD today Antibiotics per ID S/P debridement of the Decubitus Would decrease dose of the gabapentin since its higher than recommended for ckd Dr Todd
[2020-05-10] MEDS: APIXABAN 2.5 MG TABLET GT SCH ×3 (09:50→22:00)
[2020-05-10] MEDS: METOPROLOL TARTRATE 25 MG TABLET (FP) GT SCH ×3 (09:50→22:01)
[2020-05-10] MEDS: NYSTATIN 100000 UNIT/GM TOPICAL OINTMENT 15 GM TUBE TP SCH ×2 (09:51→22:01)
[2020-05-10] MEDS: MIDODRINE HCL 5 MG TABLET GT SCH ×3 (09:51→17:56)
[2020-05-10] MEDS: QUEtiapine FUMARATE 50 MG TABLET GT SCH ×3 (09:52→22:00)
[2020-05-10] MEDS: ASCORBIC ACID 500 MG TABLET (FP) GT SCH ×2 (09:52→11:19)
[2020-05-10] MEDS: BUDESONIDE 0.5 MG/2 ML INH SUSP VIAL NEB SCH ×2 (10:24→21:30)
[2020-05-10] MEDS ORDERED: PT OWN MED DRAWER 7, Y5N ONE (10:55)
--- NOTE | 2020-05-10 13:11 | PN ---
Progress Note, Physician History of Present Illness: stable no new issues - Current Medication List Current Medications: Active Medications Acetaminophen (Tylenol Oral Solution -) 325 mg GT Q6H PRN PRN Reason: FEVER Albuterol Sulfate (Ventolin Hfa Inhaler -) 2 puff IH Q4H PRN PRN Reason: SHORTNESS OF BREATH Albuterol/Ipratropium (Duoneb -) 1 amp NEB RQID [facility] Last Admin: 05/10/20 08:00 Dose: 1 amp Documented by: Apixaban (Eliquis -) 2.5 mg GT BID [facility] Last Admin: 05/10/20 11:18 Dose: 2.5 mg Documented by: Ascorbic Acid (Vitamin C -) 500 mg GT DAILY [facility] Last Admin: 05/10/20 11:19 Dose: 500 mg Documented by: Atorvastatin Calcium (Lipitor -) 40 mg GT HS [facility] Last Admin: 05/09/20 22:25 Dose: 40 mg Documented by: Budesonide (Pulmicort 0.5 Mg Nebulizer -) 1 amp NEB BID [facility] Last Admin: 05/10/20 10:24 Dose: 1 amp Documented by: Collagenase (Santyl -) 1 applic TP DAILY [facility]; Protocol Last Admin: 05/09/20 09:37 Dose: Not Given Documented by: Famotidine (Pepcid) 10 mg NGT HS [facility] Last Admin: 05/09/20 22:26 Dose: 10 mg Documented by: Gabapentin (Neurontin Oral Liquid -) 300 mg GT TID [facility] Last Admin: 05/10/20 06:26 Dose: 300 ml Documented by: Piperacillin Sod/Tazobactam (Sod 2.25 gm/ Dextrose) 50 mls @ 100 mls/hr IVPB Q8H-IV [facility]; Protocol Last Admin: 05/10/20 09:52 Dose: 100 mls/hr Documented by: Sodium Chloride (Normal Saline -) 250 mls @ 3,000 mls/hr IV PRN PRN PRN Reason: Hypotension during Dialysis Stop: 05/11/20 08:07 Lactic Acid (Lac-Hydrin 12) 1 applic TP DAILY PRN PRN Reason: xerosis Levetiracetam (Keppra Oral Solution -) 500 mg GT Q48H [facility] Last Admin: 05/08/20 22:44 Dose: 500 mg Documented by: Metoprolol Tartrate (Lopressor -) 25 mg GT BID [facility] Last Admin: 05/10/20 11:19 Dose: 25 mg Documented by: Midodrine (Proamatine -) 10 mg GT TID-MID [facility] Last Admin: 05/10/20 09:51 Dose: Not Given Documented by: Nystatin (Mycostatin Ointment -) 1 applic TP BID [facility] Last Admin: 05/10/20 09:51 Dose: 1 applic Documented by: Quetiapine Fumarate (Seroquel -) 50 mg GT BID [facility] Last Admin: 05/10/20 11:19 Dose: 50 mg Documented by: Sodium Hypochlorite (Dakin's Solution 0.25% (Half-Strength) -) 1 applic TP DAILY [facility] Last Admin: 05/09/20 09:36 Dose: Not Given Documented by: - Objective Vital Signs: Vital Signs Temperature 97.7 F 05/10/20 01:46 Pulse Rate 99 H 05/10/20 11:30 Respiratory Rate 18 05/10/20 11:30 Blood Pressure 119/78 05/10/20 11:30 O2 Sat by Pulse Oximetry (%) 97 05/10/20 06:00 Constitutional: Yes: No Distress, Calm Cardiovascular: Yes: S1, S2 Respiratory: Yes: Regular, CTA Bilaterally Gastrointestinal: Yes: Normal Bowel Sounds, Soft Musculoskeletal: Yes: WNL Wound/Incision: Yes: Other (still with necrotic tissues) Neurological: Yes: Alert, Oriented Psychiatric: Yes: Alert, Oriented Labs: CBC, BMP 05/10/20 05:34 05/10/20 05:34 INR, PTT INR 1.37 (0.83-1.09) H 05/07/20 10:20 Assessment/Plan 50 M Sepsis 2/2 infected Stage 4 decubitus ulcer Afib on Eliquis HTN HLD Dysphagia s/p trach PEG non-ambulatory Non-verbal Morbidly obese Seizure disorder ESRD on HD plan abx wound care podiatry on board rest as per the team will need more debridement
[2020-05-10] MEDS ORDERED: ACETAMINOPHEN 1000 MG/100 ML VIAL (NON FORMULARY) IVPB ONE (13:22)
[2020-05-10] MEDS ORDERED: MORPHINE SULFATE 2 MG/ML VIAL IVPUSH PRN (13:23)
--- NOTE | 2020-05-10 15:27 | PN ---
Physical Exam: SUBJECTIVE: Patient seen and examined at the bedside. OBJECTIVE: Patient is a 50 year old male with a significant past medical history of functional quadriplegia 2/2 stroke (November 2019), dysphagia s/p trach, afib on AC, HTN, seizures, morbid obesity, stage IV sacral ulcer, perma cath on R chest wall for dialysis. He presents to the ED on 04/30/2020 from [facility] [place] for hypotension. Pt. found to have infected chronic stage 4 decubitus ulcer, received Meropenem/Clindamycin in ED. ID following patient. he is s/p wound debridement of stage 4 sacral wound on 05/07 under general anesthesia. No complications reported. May need further debridement of this wound on Tuesday and possible vac placement. Vital Signs Period Temp Pulse Resp BP Sys/Vegas Pulse Ox Last 24 Hr 97.7 F-98.4 F 69-102 18-20 94-121/52-78 95-99 GENERAL: The patient is awake, alert, in no acute distress. appears generally weak HEAD: Normal with no signs of trauma. EYES: PERRL, extraocular movements intact, sclera anicteric, conjunctiva clear. No ptosis. ENT: Ears normal, nares patent, oropharynx clear without exudates NECK: + trach LUNGS: Breath sounds diminished bilaterally HEART: Regular rate and rhythm, S1, S2 ABDOMEN: Soft, nontender, nondistended, + peg tube EXTREMITIES: no edema. NEUROLOGICAL: non verbal, gait not observed. SKIN: stage 4 wound, not viewed, surgical dressing Laboratory Results - last 24 hr 05/10/20 05/10/20 05:34 05:34 WBC 12.6 H RBC 2.68 L Hgb 8.4 L Hct 25.1 L MCV 94.0 MCH 31.5 MCHC 33.5 RDW 15.8 Plt Count 314 MPV 8.0 Absolute Neuts (auto) 9.7 H Neutrophils % 77.5 Lymphocytes % 12.6 Monocytes % 6.1 Eosinophils % 3.4 Basophils % 0.4 Nucleated RBC % 0 Sodium 138 Potassium 3.5 Chloride 99 Carbon Dioxide 28 Anion Gap 11 BUN 26.7 H Creatinine 3.6 H Est GFR (CKD-EPI)AfAm 21.67 Est GFR (CKD-EPI)NonAf 18.70 Random Glucose 98 Calcium 9.9 Magnesium 1.8 Total Bilirubin 0.9 AST 9 L ALT 15 Alkaline Phosphatase 108 Total Protein 6.6 Albumin 2.3 L Active Medications Generic Name Dose Route Start Last Admin Trade Name Freq PRN Reason Stop Dose Admin Acetaminophen 325 mg 05/07/20 16:39 Tylenol Oral Solution - GT Q6H PRN FEVER Albuterol Sulfate 2 puff 05/07/20 16:39 Ventolin Hfa Inhaler - IH Q4H PRN SHORTNESS OF BREATH Albuterol/Ipratropium 1 amp 05/07/20 20:00 05/10/20 08:00 Duoneb - NEB 1 amp RQID [facility] Administration Apixaban 2.5 mg 05/07/20 22:00 05/10/20 11:18 Eliquis - GT 2.5 mg BID [facility] Administration Ascorbic Acid 500 mg 05/08/20 10:00 05/10/20 11:19 Vitamin C - GT 500 mg DAILY [facility] Administration Atorvastatin Calcium 40 mg 05/07/20 22:00 05/09/20 22:25 Lipitor - GT 40 mg HS [facility] Administration Budesonide 1 amp 05/07/20 22:00 05/10/20 10:24 Pulmicort 0.5 Mg Nebulizer - NEB 1 amp BID [facility] Administration Collagenase 1 applic 05/08/20 15:45 05/09/20 09:37 Santyl - TP Not Given DAILY [facility] Protocol Famotidine 10 mg 05/07/20 22:00 05/09/20 22:26 Pepcid NGT 10 mg HS [facility] Administration Gabapentin 300 mg 05/07/20 22:00 05/10/20 15:22 Neurontin Oral Liquid - GT 300 ml TID [facility] Administration Piperacillin Sod/Tazobactam 50 mls @ 100 mls/hr 05/07/20 18:00 05/10/20 09:52 Sod 2.25 gm/ Dextrose IVPB 100 mls/hr Q8H-IV [facility] Administration Protocol Sodium Chloride 250 mls @ 3,000 mls/hr 05/10/20 08:08 Normal Saline - IV 05/11/20 08:07 PRN PRN Hypotension during Dialysis Lactic Acid 1 applic 05/08/20 15:39 Lac-Hydrin 12 TP DAILY PRN xerosis Levetiracetam 500 mg 05/08/20 22:45 05/08/20 22:44 Keppra Oral Solution - GT 500 mg Q48H [facility] Administration Metoprolol Tartrate 25 mg 05/07/20 22:00 05/10/20 11:19 Lopressor - GT 25 mg BID [facility] Administration Midodrine 10 mg 05/07/20 18:00 05/10/20 15:22 Proamatine - GT Not Given TID-MID [facility] Morphine Sulfate 1 mg 05/10/20 13:23 05/10/20 15:24 Morphine Sulfate IVPUSH 1 mg Q4H PRN Administration PAIN LEVEL 7 - 10 Nystatin 1 applic 05/07/20 22:00 05/10/20 09:51 Mycostatin Ointment - TP 1 applic BID [facility] Administration Quetiapine Fumarate 50 mg 05/07/20 22:00 05/10/20 11:19 Seroquel - GT 50 mg BID [facility] Administration Sodium Hypochlorite 1 applic 05/08/20 10:00 05/09/20 09:36 Dakin's Solution 0.25% (Half-Strength) - TP Not Given DAILY [facility] ASSESSMENT/PLAN: Problem List - Problems (1) Sepsis Assessment/Plan: Sepsis in the setting of infected stage 4 sacral wound. s/p wound debridement on 05/07/2020. WBC improving on Zosyn per ID monitor vitals, labs for possible further debridement on Tuesday Code(s): A41.9 - SEPSIS, UNSPECIFIED ORGANISM (2) Sacral decubitus ulcer, stage IV Assessment/Plan: POD #3 wound debridement per surgery. on clinitron bed. on Zosyn. wound care per vascular Code(s): L89.154 - PRESSURE ULCER OF SACRAL REGION, STAGE 4 (3) Afib Assessment/Plan: patient on eliquis and metoprolol. on radiation monitor. Code(s): I48.91 - UNSPECIFIED ATRIAL FIBRILLATION (4) COVID-19 ruled out Assessment/Plan: ruled out per serology Code(s): Z03.818 - ENCNTR FOR OBS FOR SUSP EXPSR TO OTH BIOLG AGENTS RULED OUT (5) ESRD (end stage renal disease) Assessment/Plan: dialysis per renal. Code(s): N18.6 - END STAGE RENAL DISEASE (6) Functional quadriplegia Assessment/Plan: on clinitron bed patient is bed bound Code(s): R53.2 - FUNCTIONAL QUADRIPLEGIA (7) HTN (hypertension) Assessment/Plan: monitor Code(s): I10 - ESSENTIAL (PRIMARY) HYPERTENSION (8) Hemodialysis status Assessment/Plan: per right shiley cath. dialysis per renal. Code(s): Z99.2 - DEPENDENCE ON RENAL DIALYSIS (9) History of CVA (cerebrovascular accident) Assessment/Plan: recent CVA November 2019 with left sided weakness, functional quadraplegia Code(s): Z86.73 - PRSNL HX OF TIA (TIA), AND CEREB INFRC W/O RESID DEFICITS (10) Hypotension Assessment/Plan: hypotension improving, continue IVF Code(s): I95.9 - HYPOTENSION, UNSPECIFIED Qualifiers: Hypotension type: other hypotension type Qualified Code(s): I95.89 - Other hypotension (11) Morbid obesity Assessment/Plan: outpatient follow up once acute issues are addressed. Code(s): E66.01 - MORBID (SEVERE) OBESITY DUE TO EXCESS CALORIES (12) Seizure Assessment/Plan: on keppra 500mg bid via GTube Code(s): R56.9 - UNSPECIFIED CONVULSIONS (13) Suspected COVID-19 virus infection Code(s): Z20.828 - CONTACT W AND EXPOSURE TO OTH VIRAL COMMUNICABLE DISEASES (14) Tracheostomy in place Assessment/Plan: on humidified air. trach care per respiratory team Code(s): Z93.0 - TRACHEOSTOMY STATUS (15) Prophylactic measure Assessment/Plan: already on eliquis for afib Code(s): Z29.9 - ENCOUNTER FOR PROPHYLACTIC MEASURES, UNSPECIFIED Visit type - Emergency Visit Emergency Visit: Yes ED Registration Date: 04/30/20 Care time: The patient presented to the Emergency Department on the above date and was hospitalized for further evaluation of their emergent condition. - New Patient This patient is new to me today: No - Critical Care Critical Care patient: No - Discharge Referral Referred to [facility] Med [facility].C[facility] No
[2020-05-10] MEDS: SODIUM HYPOCHLORITE 0.25%- 473 ML BULK BOTTLE TP SCH (16:23)
[2020-05-10] MEDS: COLLAGENASE CLOSTRIDIUM HIST. 30 GRAMS TUBE TP SCH (16:24)
[2020-05-10] MEDS: ATORVASTATIN CA 40 MG TABLET (FP) GT SCH (22:00)
[2020-05-10] MEDS: levETIRAcetam 500 MG/5 ML ORAL SOLUTION (UNIT-DOSE CUPS) GT SCH (22:03)
[2020-05-10] MEDS: FAMOTIDINE 40 MG/5 ML ORAL SUSPENSION NGT SCH (22:03)
[2020-05-11] MEDS ORDERED: PIPERACILLIN/TAZOBACTAM 2.25 GM VIAL IVPB ONE ×3 (01:45→17:16)
[2020-05-11] MEDS ORDERED: DEXTROSE 5%-WATER - 50 ML IVPB ONE ×3 (01:46→17:16)
[2020-05-11] MEDS: PIPERACILLIN/TAZOB 2.25 GM 2.25 GM in DEXTROSE 5%-WATER - 50 ML IVPB SCH ×3 (01:58→17:39)
[2020-05-11] MEDS: GABAPENTIN 250 MG/5 ML ORAL SOLUTION, 470 ML BOTTLE GT SCH ×3 (05:46→21:40)
[2020-05-11] MEDS: ALBUTEROL SO4 2.5/IPRATROPIUM 0.5 INH SOL 3 ML VIAL.NEB. NEB SCH ×4 (08:19→20:40)
--- NOTE | 2020-05-11 08:40 | PN ---
Progress Note, Physician History of Present Illness: Pt in no distress with tracheostomy collar in place He found resting but was easily arousable and able to nod in response to questions He denies any complaint of pain or dyspnea - Current Medication List Current Medications: Active Medications Acetaminophen (Tylenol Oral Solution -) 325 mg GT Q6H PRN PRN Reason: FEVER Albuterol Sulfate (Ventolin Hfa Inhaler -) 2 puff IH Q4H PRN PRN Reason: SHORTNESS OF BREATH Albuterol/Ipratropium (Duoneb -) 1 amp NEB RQID [facility] Last Admin: 05/11/20 08:19 Dose: 1 amp Documented by: Apixaban (Eliquis -) 2.5 mg GT BID [facility] Last Admin: 05/10/20 22:00 Dose: 2.5 mg Documented by: Ascorbic Acid (Vitamin C -) 500 mg GT DAILY [facility] Last Admin: 05/10/20 11:19 Dose: 500 mg Documented by: Atorvastatin Calcium (Lipitor -) 40 mg GT HS [facility] Last Admin: 05/10/20 22:00 Dose: 40 mg Documented by: Budesonide (Pulmicort 0.5 Mg Nebulizer -) 1 amp NEB BID [facility] Last Admin: 05/10/20 21:30 Dose: 1 amp Documented by: Collagenase (Santyl -) 1 applic TP DAILY [facility]; Protocol Last Admin: 05/10/20 16:24 Dose: 1 applic Documented by: Famotidine (Pepcid) 10 mg NGT HS [facility] Last Admin: 05/10/20 22:03 Dose: 10 mg Documented by: Gabapentin (Neurontin Oral Liquid -) 300 mg GT TID [facility] Last Admin: 05/11/20 05:46 Dose: 300 mg Documented by: Piperacillin Sod/Tazobactam (Sod 2.25 gm/ Dextrose) 50 mls @ 100 mls/hr IVPB Q8H-IV [facility]; Protocol Last Admin: 05/11/20 01:58 Dose: 100 mls/hr Documented by: Lactic Acid (Lac-Hydrin 12) 1 applic TP DAILY PRN PRN Reason: xerosis Levetiracetam (Keppra Oral Solution -) 500 mg GT Q48H [facility] Last Admin: 05/10/20 22:03 Dose: 500 mg Documented by: Metoprolol Tartrate (Lopressor -) 25 mg GT BID [facility] Last Admin: 05/10/20 22:01 Dose: Not Given Documented by: Midodrine (Proamatine -) 10 mg GT TID-MID [facility] Last Admin: 05/10/20 17:56 Dose: Not Given Documented by: Morphine Sulfate (Morphine Sulfate) 1 mg IVPUSH Q4H PRN PRN Reason: PAIN LEVEL 7 - 10 Last Admin: 05/10/20 15:24 Dose: 1 mg Documented by: Nystatin (Mycostatin Ointment -) 1 applic TP BID [facility] Last Admin: 05/10/20 22:01 Dose: 1 applic Documented by: Quetiapine Fumarate (Seroquel -) 50 mg GT BID [facility] Last Admin: 05/10/20 22:00 Dose: 50 mg Documented by: Sodium Hypochlorite (Dakin's Solution 0.25% (Half-Strength) -) 1 applic TP DAILY [facility] Last Admin: 05/10/20 16:23 Dose: 1 applic Documented by: - Objective Vital Signs: Vital Signs Temperature 98.8 F 05/11/20 05:30 Pulse Rate 88 05/11/20 08:20 Respiratory Rate 18 05/11/20 05:30 Blood Pressure 115/63 05/11/20 05:30 O2 Sat by Pulse Oximetry (%) 100 05/11/20 08:20 Constitutional: Yes: No Distress Cardiovascular: Yes: S1, S2 Respiratory: Yes: Other (Equjal air entry B/L) Gastrointestinal: Yes: Soft, Other (GT in place). No: Tenderness, Rebound Musculoskeletal: Yes: Other (Muscle atrophy of asll 4 limbs) Edema: No Labs: CBC, BMP 05/10/20 05:34 05/10/20 05:34 INR, PTT INR 1.37 (0.83-1.09) H 05/07/20 10:20 Assessment/Plan ESRD Sepsis secondary to decubitus S/P trach Functional quadriplegia due to cva Anemia Leukocytosis improved PLAN Antibiotics per ID S/P debridement of the Decubitus Would decrease dose of the Gabapentin to daily from TID Next 05/14/2020 Dr Todd
--- NOTE | 2020-05-11 09:50 | PN ---
Physical Exam: SUBJECTIVE: Patient seen and examined OBJECTIVE: Patient is a 50 year old male with a significant past medical history of functional quadriplegia 2/2 stroke (November 2019), dysphagia s/p trach, afib on AC, HTN, seizures, morbid obesity, stage IV sacral ulcer, perma cath on R chest wall for dialysis. He presents to the ED on 04/30/2020 from [facility] [place] for hypotension. Pt. found to have infected chronic stage 4 decubitus ulcer, received Meropenem/Clindamycin in ED. ID following patient. he is s/p wound tash ridement of stage 4 sacral wound on 05/07 under general anesthesia. No complications reported. May need further debridement of this wound on Tuesday and possible vac placement. awaiting todays labs Vital Signs Period Temp Pulse Resp BP Sys/Vegas Pulse Ox Last 24 Hr 98.1 F-98.8 F 87-102 18-20 92-119/55-78 93-100 GENERAL: The patient is awake, alert, in no acute distress. appears generally weak HEAD: Normal with no signs of trauma. EYES: PERRL, extraocular movements intact, sclera anicteric, conjunctiva clear. No ptosis. ENT: Ears normal, nares patent, oropharynx clear without exudates NECK: + trach LUNGS: Breath sounds diminished bilaterally HEART: Regular rate and rhythm, S1, S2 ABDOMEN: Soft, nontender, nondistended, + peg tube EXTREMITIES: no edema. NEUROLOGICAL: non verbal, gait not observed. SKIN: stage 4 wound, not viewed, surgical dressing Active Medications Generic Name Dose Route Start Last Admin Trade Name Freq PRN Reason Stop Dose Admin Acetaminophen 325 mg 05/07/20 16:39 Tylenol Oral Solution - GT Q6H PRN FEVER Albuterol Sulfate 2 puff 05/07/20 16:39 Ventolin Hfa Inhaler - IH Q4H PRN SHORTNESS OF BREATH Albuterol/Ipratropium 1 amp 05/07/20 20:00 05/11/20 08:19 Duoneb - NEB 1 amp RQID [facility] Administration Apixaban 2.5 mg 05/07/20 22:00 05/10/20 22:00 Eliquis - GT 2.5 mg BID [facility] Administration Ascorbic Acid 500 mg 05/08/20 10:00 05/10/20 11:19 Vitamin C - GT 500 mg DAILY [facility] Administration Atorvastatin Calcium 40 mg 05/07/20 22:00 05/10/20 22:00 Lipitor - GT 40 mg HS [facility] Administration Budesonide 1 amp 05/07/20 22:00 05/10/20 21:30 Pulmicort 0.5 Mg Nebulizer - NEB 1 amp BID [facility] Administration Collagenase 1 applic 05/08/20 15:45 05/10/20 16:24 Santyl - TP 1 applic DAILY [facility] Administration Protocol Famotidine 10 mg 05/07/20 22:00 05/10/20 22:03 Pepcid NGT 10 mg HS [facility] Administration Gabapentin 300 mg 05/07/20 22:00 05/11/20 05:46 Neurontin Oral Liquid - GT 300 mg TID [facility] Administration Piperacillin Sod/Tazobactam 50 mls @ 100 mls/hr 05/07/20 18:00 05/11/20 01:58 Sod 2.25 gm/ Dextrose IVPB 100 mls/hr Q8H-IV [facility] Administration Protocol Lactic Acid 1 applic 05/08/20 15:39 Lac-Hydrin 12 TP DAILY PRN xerosis Levetiracetam 500 mg 05/08/20 22:45 05/10/20 22:03 Keppra Oral Solution - GT 500 mg Q48H [facility] Administration Metoprolol Tartrate 25 mg 05/07/20 22:00 05/10/20 22:01 Lopressor - GT Not Given BID [facility] Midodrine 10 mg 05/07/20 18:00 05/10/20 17:56 Proamatine - GT Not Given TID-MID [facility] Morphine Sulfate 1 mg 05/10/20 13:23 05/10/20 15:24 Morphine Sulfate IVPUSH 1 mg Q4H PRN Administration PAIN LEVEL 7 - 10 Nystatin 1 applic 05/07/20 22:00 05/10/20 22:01 Mycostatin Ointment - TP 1 applic BID [facility] Administration Quetiapine Fumarate 50 mg 05/07/20 22:00 05/10/20 22:00 Seroquel - GT 50 mg BID [facility] Administration Sodium Hypochlorite 1 applic 05/08/20 10:00 05/10/20 16:23 Dakin's Solution 0.25% (Half-Strength) - TP 1 applic DAILY [facility] Administration ASSESSMENT/PLAN: Problem List - Problems (1) Sepsis Assessment/Plan: Sepsis in the setting of infected stage 4 sacral wound. s/p wound debridement on 05/07/2020. WBC improving on Zosyn per ID monitor vitals, labs for possible further debridement on Tuesday Code(s): A41.9 - SEPSIS, UNSPECIFIED ORGANISM (2) Sacral decubitus ulcer, stage IV Assessment/Plan: POD #3 wound debridement per surgery. on clinitron bed. on Zosyn. wound care per vascular Code(s): L89.154 - PRESSURE ULCER OF SACRAL REGION, STAGE 4 (3) Afib Assessment/Plan: patient on eliquis and metoprolol. on threat monitoring analyst. Code(s): I48.91 - UNSPECIFIED ATRIAL FIBRILLATION (4) COVID-19 ruled out Assessment/Plan: ruled out per serology Code(s): Z03.818 - ENCNTR FOR OBS FOR SUSP EXPSR TO OTH BIOLG AGENTS RULED OUT (5) ESRD (end stage renal disease) Assessment/Plan: dialysis per renal. Code(s): N18.6 - END STAGE RENAL DISEASE (6) Functional quadriplegia Assessment/Plan: on clinitron bed patient is bed bound Code(s): R53.2 - FUNCTIONAL QUADRIPLEGIA (7) HTN (hypertension) Assessment/Plan: monitor Code(s): I10 - ESSENTIAL (PRIMARY) HYPERTENSION (8) Hemodialysis status Assessment/Plan: per right shiley cath. dialysis per renal. Code(s): Z99.2 - DEPENDENCE ON RENAL DIALYSIS (9) History of CVA (cerebrovascular accident) Assessment/Plan: recent CVA November 2019 with left sided weakness, functional quadraplegia Code(s): Z86.73 - PRSNL HX OF TIA (TIA), AND CEREB INFRC W/O RESID DEFICITS (10) Hypotension Assessment/Plan: hypotension improving, continue IVF Code(s): I95.9 - HYPOTENSION, UNSPECIFIED Qualifiers: Hypotension type: other hypotension type Qualified Code(s): I95.89 - Other hypotension (11) Morbid obesity Assessment/Plan: outpatient follow up once acute issues are addressed. Code(s): E66.01 - MORBID (SEVERE) OBESITY DUE TO EXCESS CALORIES (12) Seizure Assessment/Plan: on keppra 500mg bid via GTube Code(s): R56.9 - UNSPECIFIED CONVULSIONS (13) Suspected COVID-19 virus infection Code(s): Z20.828 - CONTACT W AND EXPOSURE TO OTH VIRAL COMMUNICABLE DISEASES (14) Tracheostomy in place Assessment/Plan: on humidified air. trach care per respiratory team Code(s): Z93.0 - TRACHEOSTOMY STATUS (15) Prophylactic measure Assessment/Plan: already on eliquis for afib Code(s): Z29.9 - ENCOUNTER FOR PROPHYLACTIC MEASURES, UNSPECIFIED Visit type - Emergency Visit Emergency Visit: Yes ED Registration Date: 04/30/20 Care time: The patient presented to the Emergency Department on the above date and was hospitalized for further evaluation of their emergent condition. - New Patient This patient is new to me today: No - Critical Care Critical Care patient: No - Discharge Referral Referred to [facility] Med P.C[facility] No
[2020-05-11] MEDS: MIDODRINE HCL 5 MG TABLET GT SCH ×3 (09:56→17:38)
[2020-05-11] MEDS: COLLAGENASE CLOSTRIDIUM HIST. 30 GRAMS TUBE TP SCH (09:57)
[2020-05-11] MEDS: QUEtiapine FUMARATE 50 MG TABLET GT SCH ×2 (09:57→21:37)
[2020-05-11] MEDS: SODIUM HYPOCHLORITE 0.25%- 473 ML BULK BOTTLE TP SCH (09:57)
[2020-05-11] MEDS: ASCORBIC ACID 500 MG TABLET (FP) GT SCH (09:57)
[2020-05-11] MEDS: APIXABAN 2.5 MG TABLET GT SCH ×2 (09:57→21:37)
[2020-05-11] MEDS: NYSTATIN 100000 UNIT/GM TOPICAL OINTMENT 15 GM TUBE TP SCH ×2 (09:57→21:38)
[2020-05-11] MEDS: METOPROLOL TARTRATE 25 MG TABLET (FP) GT SCH ×2 (09:57→21:39)
[2020-05-11] MEDS: BUDESONIDE 0.5 MG/2 ML INH SUSP VIAL NEB SCH ×2 (10:56→20:50)
[2020-05-11] MEDS ORDERED: PT OWN MED DRAWER 7, Y5N ONE (20:29)
[2020-05-11] MEDS: ATORVASTATIN CA 40 MG TABLET (FP) GT SCH (21:37)
[2020-05-11] MEDS: FAMOTIDINE 40 MG/5 ML ORAL SUSPENSION NGT SCH (21:38)
[2020-05-12] MEDS ORDERED: PIPERACILLIN/TAZOBACTAM 2.25 GM VIAL IVPB ONE ×3 (00:59→17:19)
[2020-05-12] MEDS ORDERED: DEXTROSE 5%-WATER - 50 ML IVPB ONE ×3 (01:00→17:19)
[2020-05-12] MEDS: PIPERACILLIN/TAZOB 2.25 GM 2.25 GM in DEXTROSE 5%-WATER - 50 ML IVPB SCH ×3 (01:01→17:37)
[2020-05-12] MEDS: GABAPENTIN 250 MG/5 ML ORAL SOLUTION, 470 ML BOTTLE GT SCH ×3 (05:47→22:14)
[2020-05-12] MEDS: ALBUTEROL SO4 2.5/IPRATROPIUM 0.5 INH SOL 3 ML VIAL.NEB. NEB SCH ×3 (07:59→20:16)
[2020-05-12] MEDS: METOPROLOL TARTRATE 25 MG TABLET (FP) GT SCH ×2 (09:34→22:08)
[2020-05-12] MEDS: MIDODRINE HCL 5 MG TABLET GT SCH ×3 (09:34→17:37)
[2020-05-12] MEDS: ASCORBIC ACID 500 MG TABLET (FP) GT SCH (09:34)
[2020-05-12] MEDS: QUEtiapine FUMARATE 50 MG TABLET GT SCH ×2 (09:34→22:09)
[2020-05-12] MEDS: APIXABAN 2.5 MG TABLET GT SCH ×2 (09:34→22:09)
[2020-05-12] MEDS: COLLAGENASE CLOSTRIDIUM HIST. 30 GRAMS TUBE TP SCH (09:35)
[2020-05-12] MEDS: NYSTATIN 100000 UNIT/GM TOPICAL OINTMENT 15 GM TUBE TP SCH ×2 (09:35→22:11)
[2020-05-12] MEDS: SODIUM HYPOCHLORITE 0.25%- 473 ML BULK BOTTLE TP SCH (09:36)
--- NOTE | 2020-05-12 09:53 | PN ---
Progress Note (short form) - Note Progress Note: Surgery: Vital Signs Period Temp Pulse Resp BP Sys/Vegas Pulse Ox Last 24 Hr 97.7 F-98.8 F 74-92 18-20 82-130/52-75 95-97 Sacrum: wound base with mostly pink tissue, small amount necrotic tissue. Applied santyl with wet to dry and optifoam. CBC, BMP 05/10/20 05:34 05/10/20 05:34 A/p: 50 yo male s/p large sacral wound debridement, POD#3 Will continue with wet to dry santyl/alleyvn dressing. Plan to check wound on 05/14 for possible vac placement Continue clinitron bed IV zosyn as per ID D/w Dr. Machado Problem List - Problems (1) Sacral decubitus ulcer, stage IV Code(s): L89.154 - PRESSURE ULCER OF SACRAL REGION, STAGE 4
--- NOTE | 2020-05-12 10:02 | PN ---
Physical Exam: SUBJECTIVE: Patient seen and examined at the bedside. in no acute distress. OBJECTIVE: Patient is a 50 year old male with a significant past medical history of functional quadriplegia 2/2 stroke (November 2019), dysphagia s/p trach, afib on AC, HTN, seizures, morbid obesity, stage IV sacral ulcer, perma cath on R chest wall for dialysis. He presents to the ED on 04/30/2020 from [facility] for hypotension. Pt. found to have infected chronic stage 4 decubitus ulcer, received Meropenem/Clindamycin in ED. He is s/p wound debridement of stage 4 sacral wound on 05/07 under general anesthesia. No complications reported. Per vascular, patient may need further debridement and vac placement of this wound tentatively scheduled for Tuesday05/14/[address] Machado. Vital Signs Period Temp Pulse Resp BP Sys/Vegas Pulse Ox Last 24 Hr 97.7 F-98.8 F 74-89 18-20 82-130/52-75 95-97 GENERAL: The patient is awake, alert, in no acute distress. appears generally weak HEAD: Normal with no signs of trauma. EYES: PERRL, extraocular movements intact, sclera anicteric, conjunctiva clear. No ptosis. ENT: Ears normal, nares patent, oropharynx clear without exudates NECK: + trach LUNGS: Breath sounds diminished bilaterally HEART: Regular rate and rhythm, S1, S2 ABDOMEN: Soft, nontender, nondistended, + peg tube EXTREMITIES: no edema. NEUROLOGICAL: non verbal, gait not observed. SKIN: stage 4 wound, surgical dressing intact. rectal tube placed to divert stool from seeping into the wound. c diff negative. Active Medications Generic Name Dose Route Start Last Admin Trade Name Freq PRN Reason Stop Dose Admin Acetaminophen 325 mg 05/07/20 16:39 Tylenol Oral Solution - GT Q6H PRN FEVER Albuterol Sulfate 2 puff 05/07/20 16:39 Ventolin Hfa Inhaler - IH Q4H PRN SHORTNESS OF BREATH Albuterol/Ipratropium 1 amp 05/07/20 20:00 05/12/20 07:59 Duoneb - NEB 1 amp RQID [facility] Administration Apixaban 2.5 mg 05/07/20 22:00 05/12/20 09:34 Eliquis - GT 2.5 mg BID [facility] Administration Ascorbic Acid 500 mg 05/08/20 10:00 05/12/20 09:34 Vitamin C - GT 500 mg DAILY [facility] Administration Atorvastatin Calcium 40 mg 05/07/20 22:00 05/11/20 21:37 Lipitor - GT 40 mg HS [facility] Administration Budesonide 1 amp 05/07/20 22:00 05/11/20 20:50 Pulmicort 0.5 Mg Nebulizer - NEB 1 amp BID [facility] Administration Collagenase 1 applic 05/08/20 15:45 05/12/20 09:35 Santyl - TP 1 applic DAILY [facility] Administration Protocol Famotidine 10 mg 05/07/20 22:00 05/11/20 21:38 Pepcid NGT 10 mg HS [facility] Administration Gabapentin 300 mg 05/07/20 22:00 05/12/20 05:47 Neurontin Oral Liquid - GT 300 mg TID [facility] Administration Piperacillin Sod/Tazobactam 50 mls @ 100 mls/hr 05/07/20 18:00 05/12/20 09:35 Sod 2.25 gm/ Dextrose IVPB 100 mls/hr Q8H-IV [facility] Administration Protocol Lactic Acid 1 applic 05/08/20 15:39 Lac-Hydrin 12 TP DAILY PRN xerosis Levetiracetam 500 mg 05/08/20 22:45 05/10/20 22:03 Keppra Oral Solution - GT 500 mg Q48H [facility] Administration Metoprolol Tartrate 25 mg 05/07/20 22:00 05/12/20 09:34 Lopressor - GT 25 mg BID EMET[facility]IO Administration Midodrine 10 mg 05/07/20 18:00 05/12/20 09:34 Proamatine - GT 10 mg TID-MID [facility] Administration Morphine Sulfate 1 mg 05/10/20 13:23 05/10/20 15:24 Morphine Sulfate IVPUSH 1 mg Q4H PRN Administration PAIN LEVEL 7 - 10 Nystatin 1 applic 05/07/20 22:00 05/12/20 09:35 Mycostatin Ointment - TP 1 applic BID [facility] Administration Quetiapine Fumarate 50 mg 05/07/20 22:00 05/12/20 09:34 Seroquel - GT 50 mg BID EM[facility] Administration ASSESSMENT/PLAN: Problem List - Problems (1) Sepsis Assessment/Plan: Sepsis in the setting of infected stage 4 sacral wound. s/p wound debridement on 05/07/2020. WBC improving on Zosyn per ID monitor vitals, labs for possible further debridement on Tuesday Code(s): A41.9 - SEPSIS, UNSPECIFIED ORGANISM (2) Sacral decubitus ulcer, stage IV Assessment/Plan: POD #3 wound debridement per surgery. on clinitron bed. on Zosyn. wound care per vascular Code(s): L89.154 - PRESSURE ULCER OF SACRAL REGION, STAGE 4 (3) Afib Assessment/Plan: patient on eliquis and metoprolol. on child monitor. Code(s): I48.91 - UNSPECIFIED ATRIAL FIBRILLATION (4) COVID-19 ruled out Assessment/Plan: ruled out per serology Code(s): Z03.818 - ENCNTR FOR OBS FOR SUSP EXPSR TO OTH BIOLG AGENTS RULED OUT (5) ESRD (end stage renal disease) Assessment/Plan: dialysis per renal. Code(s): N18.6 - END STAGE RENAL DISEASE (6) Functional quadriplegia Assessment/Plan: on clinitron bed patient is bed bound Code(s): R53.2 - FUNCTIONAL QUADRIPLEGIA (7) HTN (hypertension) Assessment/Plan: monitor Code(s): I10 - ESSENTIAL (PRIMARY) HYPERTENSION (8) Hemodialysis status Assessment/Plan: per right shiley cath. dialysis per renal. Code(s): Z99.2 - DEPENDENCE ON RENAL DIALYSIS (9) History of CVA (cerebrovascular accident) Assessment/Plan: recent CVA November 2019 with left sided weakness, functional quadraplegia Code(s): Z86.73 - PRSNL HX OF TIA (TIA), AND CEREB INFRC W/O RESID DEFICITS (10) Hypotension Assessment/Plan: hypotension improving Code(s): I95.9 - HYPOTENSION, UNSPECIFIED Qualifiers: Hypotension type: other hypotension type Qualified Code(s): I95.89 - Other hypotension (11) Morbid obesity Assessment/Plan: outpatient follow up once acute issues are addressed. Code(s): E66.01 - MORBID (SEVERE) OBESITY DUE TO EXCESS CALORIES (12) Seizure Assessment/Plan: on keppra 500mg bid via GTube Code(s): R56.9 - UNSPECIFIED CONVULSIONS (13) Suspected COVID-19 virus infection Code(s): Z20.828 - CONTACT W AND EXPOSURE TO OTH VIRAL COMMUNICABLE DISEASES (14) Tracheostomy in place Assessment/Plan: on humidified air. trach care per respiratory team Code(s): Z93.0 - TRACHEOSTOMY STATUS (15) Prophylactic measure Assessment/Plan: already on eliquis for afib Code(s): Z29.9 - ENCOUNTER FOR PROPHYLACTIC MEASURES, UNSPECIFIED Visit type - Emergency Visit Emergency Visit: Yes ED Registration Date: 04/30/20 Care time: The patient presented to the Emergency Department on the above date and was hospitalized for further evaluation of their emergent condition. - New Patient This patient is new to me today: No - Critical Care Critical Care patient: No - Discharge Referral Referred to [facility] Med P.C.: No
[2020-05-12] MEDS: BUDESONIDE 0.5 MG/2 ML INH SUSP VIAL NEB SCH ×2 (10:30→20:16)
[2020-05-12 11:11] LABS: BASO % 0.6 % (0-2.0); EOS % 3.5 % (0-4.5); HEMOGLOBIN 9.1 GM/dL (11.7-16.9); LYMPH % 15.6 % (8-40); MCH 30.6 pg (25.7-33.7); MCHC 32.5 g/dl (32.0-35.9); MEAN CELL VOLUME 94.2 fl (80-96); MEAN PLT VOLUME 7.8 fl (7.5-11.1); MONO % 8.1 % (3.8-10.2); NEUT % 72.2 % (42.8-82.8); PLATELET COUNT 266 K/MM3 (134-434); RBC 2.98 M/mm3 (4.00-5.60); RDW 16.2 % (11.9-15.9); WHITE BLOOD COUNT 10.4 K/mm3 (4.0-10.0)
[2020-05-12 11:33] LABS: POTASSIUM 3.6 mmol/L (3.5-5.1)
--- NOTE | 2020-05-12 11:37 | PN ---
Progress Note, Physician History of Present Illness: stable no new issues - Current Medication List Current Medications: Active Medications Acetaminophen (Tylenol Oral Solution -) 325 mg GT Q6H PRN PRN Reason: FEVER Albuterol Sulfate (Ventolin Hfa Inhaler -) 2 puff IH Q4H PRN PRN Reason: SHORTNESS OF BREATH Albuterol/Ipratropium (Duoneb -) 1 amp NEB RQID [facility] Last Admin: 05/12/20 07:59 Dose: 1 amp Documented by: Apixaban (Eliquis -) 2.5 mg GT BID [facility] Last Admin: 05/12/20 09:34 Dose: 2.5 mg Documented by: Ascorbic Acid (Vitamin C -) 500 mg GT DAILY [facility] Last Admin: 05/12/20 09:34 Dose: 500 mg Documented by: Atorvastatin Calcium (Lipitor -) 40 mg GT HS [facility] Last Admin: 05/11/20 21:37 Dose: 40 mg Documented by: Budesonide (Pulmicort 0.5 Mg Nebulizer -) 1 amp NEB BID [facility] Last Admin: 05/11/20 20:50 Dose: 1 amp Documented by: Collagenase (Santyl -) 1 applic TP DAILY [facility]; Protocol Last Admin: 05/12/20 09:35 Dose: 1 applic Documented by: Famotidine (Pepcid) 10 mg NGT HS [facility] Last Admin: 05/11/20 21:38 Dose: 10 mg Documented by: Gabapentin (Neurontin Oral Liquid -) 300 mg GT TID [facility] Last Admin: 05/12/20 05:47 Dose: 300 mg Documented by: Piperacillin Sod/Tazobactam (Sod 2.25 gm/ Dextrose) 50 mls @ 100 mls/hr IVPB Q8H-IV [facility]; Protocol Last Admin: 05/12/20 09:35 Dose: 100 mls/hr Documented by: Lactic Acid (Lac-Hydrin 12) 1 applic TP DAILY PRN PRN Reason: xerosis Levetiracetam (Keppra Oral Solution -) 500 mg GT Q48H [facility] Last Admin: 05/10/20 22:03 Dose: 500 mg Documented by: Metoprolol Tartrate (Lopressor -) 25 mg GT BID [facility] Last Admin: 05/12/20 09:34 Dose: 25 mg Documented by: Midodrine (Proamatine -) 10 mg GT TID-MID [facility] Last Admin: 05/12/20 09:34 Dose: 10 mg Documented by: Morphine Sulfate (Morphine Sulfate) 1 mg IVPUSH Q4H PRN PRN Reason: PAIN LEVEL 7 - 10 Last Admin: 05/10/20 15:24 Dose: 1 mg Documented by: Nystatin (Mycostatin Ointment -) 1 applic TP BID [facility] Last Admin: 05/12/20 09:35 Dose: 1 applic Documented by: Quetiapine Fumarate (Seroquel -) 50 mg GT BID [facility] Last Admin: 05/12/20 09:34 Dose: 50 mg Documented by: - Objective Vital Signs: Vital Signs Temperature 98.8 F 05/12/20 04:55 Pulse Rate 74 05/12/20 07:58 Respiratory Rate 20 05/12/20 04:55 Blood Pressure 104/63 05/12/20 04:55 O2 Sat by Pulse Oximetry (%) 95 05/12/20 07:58 Constitutional: Yes: No Distress, Calm Cardiovascular: Yes: S1, S2 Respiratory: Yes: Regular, Other (trach collar) Gastrointestinal: Yes: Normal Bowel Sounds, Soft Musculoskeletal: Yes: Other Extremities: Yes: Other Wound/Incision: Yes: Other (decubitus ulcer) Neurological: Yes: Alert, Oriented Psychiatric: Yes: Alert, Oriented Labs: CBC, BMP 05/12/20 10:25 05/12/20 10:25 INR, PTT INR 1.37 (0.83-1.09) H 05/07/20 10:20 Assessment/Plan 50 M Sepsis 2/2 infected Stage 4 decubitus ulcer Afib on Eliquis HTN HLD Dysphagia s/p trach PEG non-ambulatory Non-verbal Morbidly obese Seizure disorder ESRD on HD plan abx patient for debridement and wound vac
--- NOTE | 2020-05-12 11:40 | PN ---
Progress Note (short form) - Note Progress Note: RENAL Awake and alert makes eye contact nurse report a very large decubitus Last Vital Signs Temp Pulse Resp BP Pulse Ox 98.8 F 74 20 104/63 95 05/12/20 04:55 05/12/20 07:58 05/12/20 04:55 05/12/20 04:55 05/12/20 07:58 trach lungs clear cvs s1s2 rr abd soft ext no edema neuro alert, nods to answer question tactile fever CBC, BMP 05/12/20 10:25 05/12/20 10:25 Current Medications Generic Name Dose Route Start Last Admin Trade Name Freq PRN Reason Stop Dose Admin Acetaminophen 325 mg 05/07/20 16:39 Tylenol Oral Solution - GT Q6H PRN FEVER Albuterol Sulfate 2 puff 05/07/20 16:39 Ventolin Hfa Inhaler - IH Q4H PRN SHORTNESS OF BREATH Albuterol/Ipratropium 1 amp 05/07/20 20:00 05/12/20 07:59 Duoneb - NEB 1 amp RQID EMETERIO Administration Apixaban 2.5 mg 05/07/20 22:00 05/12/20 09:34 Eliquis - GT 2.5 mg BID EMETERIO Administration Ascorbic Acid 500 mg 05/08/20 10:00 05/12/20 09:34 Vitamin C - GT 500 mg DAILY EMETERIO Administration Atorvastatin Calcium 40 mg 05/07/20 22:00 05/11/20 21:37 Lipitor - GT 40 mg HS EMETERIO Administration Budesonide 1 amp 05/07/20 22:00 05/11/20 20:50 Pulmicort 0.5 Mg Nebulizer - NEB 1 amp BID EMETERIO Administration Collagenase 1 applic 05/08/20 15:45 05/12/20 09:35 Santyl - TP 1 applic DAILY EMETERIO Administration Protocol Famotidine 10 mg 05/07/20 22:00 05/11/20 21:38 Pepcid NGT 10 mg HS EM[facility]ERIO Administration Gabapentin 300 mg 05/07/20 22:00 05/12/20 05:47 Neurontin Oral Liquid - GT 300 mg TID EMETERIO Administration Piperacillin Sod/Tazobactam 50 mls @ 100 mls/hr 05/07/20 18:00 05/12/20 09:35 Sod 2.25 gm/ Dextrose IVPB 100 mls/hr Q8H-IV EMETERIO Administration Protocol Lactic Acid 1 applic 05/08/20 15:39 Lac-Hydrin 12 TP DAILY PRN xerosis Levetiracetam 500 mg 05/08/20 22:45 05/10/20 22:03 Keppra Oral Solution - GT 500 mg Q48H [facility]IO Administration Metoprolol Tartrate 25 mg 05/07/20 22:00 05/12/20 09:34 Lopressor - GT 25 mg BID EM[facility]ERIO Administration Midodrine 10 mg 05/07/20 18:00 05/12/20 09:34 Proamatine - GT 10 mg TID-MID EMETERIO Administration Morphine Sulfate 1 mg 05/10/20 13:23 05/10/20 15:24 Morphine Sulfate IVPUSH 1 mg Q4H PRN Administration PAIN LEVEL 7 - 10 Nystatin 1 applic 05/07/20 22:00 05/12/20 09:35 Mycostatin Ointment - TP 1 applic BID [facility]IO Administration Quetiapine Fumarate 50 mg 05/07/20 22:00 05/12/20 09:34 Seroquel - GT 50 mg BID EMETERIO Administration IMPRESSION ESRD sepsis secondary to decubitus s/p trach functional quadriplegia due to cva anemia leukocytosis improved PLAN antibiotics per id s/p debridement for hd tomorrow would reduce gabapentin since its higher than recommended for ckd MV
[2020-05-12 11:41] LABS: ALBUMIN 2.1 g/dl (3.4-5.0); BLOOD UREA NITROGEN 23.7 mg/dL (7-18); CALCIUM 10.2 mg/dL (8.5-10.1); MAGNESIUM 1.8 mg/dL (1.8-2.4)
[2020-05-12 11:44] LABS: CREATININE 3.3 mg/dL (0.55-1.3)
[2020-05-12 11:45] LABS: BILIRUBIN,TOTAL 0.3 mg/dL (0.2-1); TOT PROT 6.5 g/dl (6.4-8.2)
[2020-05-12] MEDS ORDERED: ALBUTEROL SO4 HFA INHALER IH PRN (15:15)
[2020-05-12] MEDS ORDERED: AMMONIUM LACTATE 12% LOTION 225 GM BOTTLE TP PRN (15:15)
[2020-05-12] MEDS ORDERED: PT OWN MED DRAWER 7, Y5N ONE ×3 (16:35→21:58)
[2020-05-12] MEDS ORDERED: QUEtiapine FUMARATE 25 MG TABLET ONE (21:58)
[2020-05-12] MEDS: ATORVASTATIN CA 40 MG TABLET (FP) GT SCH (22:08)
[2020-05-12] MEDS: levETIRAcetam 500 MG/5 ML ORAL SOLUTION (UNIT-DOSE CUPS) GT SCH (22:10)
[2020-05-12] MEDS: FAMOTIDINE 40 MG/5 ML ORAL SUSPENSION NGT SCH (22:13)
[2020-05-13] MEDS ORDERED: PIPERACILLIN/TAZOBACTAM 2.25 GM VIAL IVPB ONE ×3 (01:14→17:03)
[2020-05-13] MEDS ORDERED: DEXTROSE 5%-WATER - 50 ML IVPB ONE ×3 (01:14→17:03)
[2020-05-13] MEDS: PIPERACILLIN/TAZOB 2.25 GM 2.25 GM in DEXTROSE 5%-WATER - 50 ML IVPB SCH ×3 (02:08→17:58)
[2020-05-13] MEDS: GABAPENTIN 250 MG/5 ML ORAL SOLUTION, 470 ML BOTTLE GT SCH ×3 (05:46→23:13)
--- NOTE | 2020-05-13 07:36 | PN ---
Progress Note, Physician Chief Complaint: Seen and examined in bed. No complaints offered. HD in progress. Plan for possible vac placement tomorrow. Pending placement at [facility]. History of Present Illness: 50 M h/o dysphagia s/p trach, functional quadriplegia 2/2 stroke, Afib on AC, HTN, seizures, morbid obesity, stage IV sacral ulcer, perma cath on R chest wall for dialysis who presents to ED via EMS from [facility] for low blood pressure. Pt. found to have infected chronic stage 4 decubitus ulcer, received Meropenem/Clindamycin in ED. ID following patient. - Current Medication List Current Medications: Active Medications Acetaminophen (Tylenol Oral Solution -) 325 mg GT Q6H PRN PRN Reason: FEVER Albuterol Sulfate (Ventolin Hfa Inhaler -) 2 puff IH Q4H PRN PRN Reason: SHORTNESS OF BREATH Albuterol/Ipratropium (Duoneb -) 1 amp NEB RQID [facility] Last Admin: 05/12/20 20:16 Dose: 1 amp Documented by: Apixaban (Eliquis -) 2.5 mg GT BID [facility] Last Admin: 05/12/20 22:09 Dose: 2.5 mg Documented by: Ascorbic Acid (Vitamin C Oral Solution -) 500 mg GT DAILY [facility] Atorvastatin Calcium (Lipitor -) 40 mg GT HS [facility] Last Admin: 05/12/20 22:08 Dose: 40 mg Documented by: Budesonide (Pulmicort 0.5 Mg Nebulizer -) 1 amp NEB RBID [facility] Last Admin: 05/12/20 20:16 Dose: 1 amp Documented by: Collagenase (Santyl -) 1 applic TP DAILY [facility]; Protocol Epoetin Jovani-epbx (Retacrit) 4,000 unit SQ ONCE ONE Stop: 05/12/20 11:43 Famotidine (Pepcid) 10 mg NGT HS [facility] Last Admin: 05/12/20 22:13 Dose: 10 mg Documented by: Gabapentin (Neurontin Oral Liquid -) 300 mg GT TID [facility] Last Admin: 05/13/20 05:46 Dose: 300 mg Documented by: Sodium Chloride (Normal Saline -) 250 mls @ 3,000 mls/hr IV PRN PRN PRN Reason: Hypotension during Dialysis Stop: 05/13/20 11:42 Piperacillin Sod/Tazobactam (Sod 2.25 gm/ Dextrose) 50 mls @ 100 mls/hr IVPB Q8H-IV [facility]; Protocol Last Admin: 05/13/20 02:08 Dose: 100 mls/hr Documented by: Lactic Acid (Lac-Hydrin 12) 1 applic TP DAILY PRN PRN Reason: xerosis Levetiracetam (Keppra Oral Solution -) 500 mg GT Q48H [facility] Last Admin: 05/12/20 22:10 Dose: 500 mg Documented by: Metoprolol Tartrate (Lopressor -) 25 mg GT BID [facility] Last Admin: 05/12/20 22:08 Dose: 25 mg Documented by: Midodrine (Proamatine -) 10 mg GT TID-MID [facility] Last Admin: 05/12/20 17:37 Dose: 10 mg Documented by: Morphine Sulfate (Morphine Sulfate) 1 mg IVPUSH Q4H PRN PRN Reason: PAIN LEVEL 7 - 10 Nystatin (Mycostatin Ointment -) 1 applic TP BID [facility] Last Admin: 05/12/20 22:11 Dose: 1 applic Documented by: Quetiapine Fumarate (Seroquel -) 50 mg GT BID [facility] Last Admin: 05/12/20 22:09 Dose: 50 mg Documented by: - Objective Vital Signs: Vital Signs Temperature 97.7 F 05/13/20 06:00 Pulse Rate 91 H 05/13/20 06:00 Respiratory Rate 18 05/13/20 06:00 Blood Pressure 115/68 05/13/20 06:00 O2 Sat by Pulse Oximetry (%) 100 05/12/20 22:00 Additional Findings/Remarks: Constitutional: Yes: Well Nourished, No Distress, Calm Eyes: Yes: WNL, Conjunctiva Clear HENT: Yes: WNL, Atraumatic, Normocephalic Neck: Yes: Other (trach in place) Cardiovascular: Yes: WNL, Regular Rate and Rhythm, Other (RIJ permacatj) Respiratory: Yes: Regular, CTA Bilaterally, Diminished (at bases) Gastrointestinal: Yes: Normal Bowel Sounds, Soft, Abdomen, Obese, Other (GT in p lace) ...Rectal Exam: Yes: Deferred Genitourinary: Yes: Incontinence Breast(s): Yes: WNL Musculoskeletal: Yes: Other (paraplegic) Edema: No Edema: LLE: 1+, RLE: 1+ Peripheral Pulses WNL: Yes Peripheral Pulses: Left Radial: 2+, Right Radial: 2+, Left Doralis Pedis: 2+, Right Dorsalis Pedis: 2+, Left Femoral: 2+, Right Femoral: 2+ Integumentary: Yes: Pressure Ulcer (Unstagable sacral decubitus 10x10 ulcer noted, with significant drainage Left hip 2cm x 2cm wound, without purulence.- alleyven in place Stasis dermatitis changes noted bilateral lower extremities.) Neurological: Yes: Alert, Oriented Psychiatric: Yes: Alert Labs: CBC, BMP 05/12/20 10:25 05/12/20 10:25 INR, PTT INR 1.37 (0.83-1.09) H 05/07/20 10:20 Problem List - Problems (1) Functional quadriplegia Assessment/Plan: supportive care frequent turning and repositioning on clinitron bed Code(s): R53.2 - FUNCTIONAL QUADRIPLEGIA (2) History of CVA (cerebrovascular accident) Assessment/Plan: functional quadriplegia secondary to prior CVA Code(s): Z86.73 - PRSNL HX OF TIA (TIA), AND CEREB INFRC W/O RESID DEFICITS (3) Tracheostomy in place Assessment/Plan: trach in place to TC FI02 50 Trace care as per nursing Code(s): Z93.0 - TRACHEOSTOMY STATUS (4) Afib Assessment/Plan: rate controlled c/w metroprolol c/w tele Code(s): I48.91 - UNSPECIFIED ATRIAL FIBRILLATION (5) Seizure Assessment/Plan: c/w keppra no sz activity Code(s): R56.9 - UNSPECIFIED CONVULSIONS (6) Morbid obesity Assessment/Plan: BMI 40 c/w TF Nepro Code(s): E66.01 - MORBID (SEVERE) OBESITY DUE TO EXCESS CALORIES (7) Sacral decubitus ulcer, stage IV Assessment/Plan: s/p debridement possible return for possible vac placement tomorrow continue with wet to dry santyl/alleyvn dressing Code(s): L89.154 - PRESSURE ULCER OF SACRAL REGION, STAGE 4 (8) Hemodialysis status Assessment/Plan: HD as per renal Code(s): Z99.2 - DEPENDENCE ON RENAL DIALYSIS (9) Prophylactic measure Assessment/Plan: FEN Fluids: additonal water in TF Electrolytes: monitor & replete as needed Nutrition: Nepro tube feeds DVT moderate risk apixaban Dispo Maintain as inpatient full code discharge planning back to [facility] Code(s): Z29.9 - ENCOUNTER FOR PROPHYLACTIC MEASURES, UNSPECIFIED (10) Hypotension Assessment/Plan: resolved c/w midodrine Code(s): I95.9 - HYPOTENSION, UNSPECIFIED Qualifiers: Hypotension type: other hypotension type Qualified Code(s): I95.89 - Other hypotension (11) COVID-19 ruled out Assessment/Plan: negative pcr Code(s): Z03.818 - ENCNTR FOR OBS FOR SUSP EXPSR TO OTH BIOLG AGENTS RULED OUT (12) ESRD (end stage renal disease) Assessment/Plan: HD as per renal Code(s): N18.6 - END STAGE RENAL DISEASE (13) half-way resident Assessment/Plan: plan to return to [facility] Code(s): Z59.3 - PROBLEMS RELATED TO LIVING IN RESIDENTIAL INSTITUTION (14) Sepsis Assessment/Plan: Sepsis in the setting of infected stage 4 sacral wound. s/p wound debridement on 05/07/2020. WBC improving-10 c/w Zosyn per ID for possible further debridement on Code(s): A41.9 - SEPSIS, UNSPECIFIED ORGANISM (15) S/P debridement Assessment/Plan: s/p wound debridement on 05/07/2020. Code(s): Z98.890 - OTHER SPECIFIED POSTPROCEDURAL STATES Visit type - Emergency Visit Emergency Visit: Yes ED Registration Date: 04/30/20 Care time: The patient presented to the Emergency Department on the above date and was hospitalized for further evaluation of their emergent condition. - New Patient This patient is new to me today: No - Critical Care Critical Care patient: No - Discharge Referral Referred to [facility] Med P.C.: No
[2020-05-13] MEDS ORDERED: EPOETIN ALFA-EPBX 4,000 UNIT/ML VIAL SQ ONE (07:45)
[2020-05-13] MEDS ORDERED: SODIUM CHLORIDE 250 ML IV PRN (08:00)
[2020-05-13] MEDS: ALBUTEROL SO4 2.5/IPRATROPIUM 0.5 INH SOL 3 ML VIAL.NEB. NEB SCH ×4 (08:39→20:25)
[2020-05-13] MEDS: BUDESONIDE 0.5 MG/2 ML INH SUSP VIAL NEB SCH ×2 (08:40→20:15)
[2020-05-13 08:52] LABS: BASO % 0.6 % (0-2.0); EOS % 3.6 % (0-4.5); HEMATOCRIT 24.9 % (35.4-49); HEMOGLOBIN 8.1 GM/dL (11.7-16.9); LYMPH % 15.6 % (8-40); MCH 30.3 pg (25.7-33.7); MCHC 32.6 g/dl (32.0-35.9); MEAN CELL VOLUME 93.1 fl (80-96); MEAN PLT VOLUME 7.8 fl (7.5-11.1); MONO % 7.6 % (3.8-10.2); NEUT % 72.6 % (42.8-82.8); PLATELET COUNT 279 K/MM3 (134-434); RBC 2.67 M/mm3 (4.00-5.60); WHITE BLOOD COUNT 10.4 K/mm3 (4.0-10.0)
[2020-05-13 09:23] LABS: INR 1.21 (0.83-1.09); POTASSIUM 3.4 mmol/L (3.5-5.1); PROTHROMBIN TIME (PATIENT) 14.8 SEC (9.7-13.0)
[2020-05-13 09:25] LABS: ALBUMIN 1.9 g/dl (3.4-5.0); CALCIUM 10.2 mg/dL (8.5-10.1)
[2020-05-13 09:26] LABS: BLOOD UREA NITROGEN 29.6 mg/dL (7-18)
[2020-05-13 09:28] LABS: CREATININE 3.8 mg/dL (0.55-1.3)
[2020-05-13 09:30] LABS: BILIRUBIN,TOTAL 0.2 mg/dL (0.2-1); TOT PROT 5.9 g/dl (6.4-8.2)
[2020-05-13] MEDS: MIDODRINE HCL 5 MG TABLET GT SCH ×3 (09:56→17:58)
[2020-05-13] MEDS ORDERED: QUEtiapine FUMARATE 25 MG TABLET ONE ×2 (11:11→21:43)
[2020-05-13] MEDS: METOPROLOL TARTRATE 25 MG TABLET (FP) GT SCH ×2 (11:23→23:12)
[2020-05-13] MEDS: APIXABAN 2.5 MG TABLET GT SCH ×2 (11:23→23:12)
[2020-05-13] MEDS: ASCORBIC ACID 500 MG/5 ML GT SCH (11:24)
[2020-05-13] MEDS: QUEtiapine FUMARATE 50 MG TABLET GT SCH ×2 (11:25→23:13)
[2020-05-13] MEDS: COLLAGENASE CLOSTRIDIUM HIST. 30 GRAMS TUBE TP SCH (11:27)
[2020-05-13] MEDS: NYSTATIN 100000 UNIT/GM TOPICAL OINTMENT 15 GM TUBE TP SCH ×2 (11:28→23:14)
--- NOTE | 2020-05-13 11:53 | HOSP ---
Subjective - Review of Symptoms Events since last encounter: Notified by RN that PEG was displaced Gastrointestinal: Yes: Other (Dislodged PEG) Physical Examination Vital Signs: Vital Signs Temperature 98.1 F 05/13/20 07:25 Pulse Rate 84 05/13/20 11:05 Respiratory Rate 18 05/13/20 11:05 Blood Pressure 97/64 05/13/20 11:05 O2 Sat by Pulse Oximetry (%) 92 L 05/13/20 08:38 Gastrointestinal: Yes: Normal Bowel Sounds, Soft, Abdomen, Obese, Other (PEG dislodged) Labs: CBC, BMP 05/13/20 07:30 05/13/20 07:30 Hospitalist Encounter Assessment: PEG forund to be out. Balloon appeared to be compromised-not inflating. Attempted unsuccessfully to re-insert Alfred to maintain tract. Consult placed for Dr Gay to re-insert.
[2020-05-13] MEDS ORDERED: PT OWN MED DRAWER 7, Y5N ONE ×2 (12:19→21:43)
--- NOTE | 2020-05-13 13:44 | PN ---
Progress Note, Physician History of Present Illness: peg was found out reinserted no other issues - Current Medication List Current Medications: Active Medications Acetaminophen (Tylenol Oral Solution -) 325 mg GT Q6H PRN PRN Reason: FEVER Albuterol Sulfate (Ventolin Hfa Inhaler -) 2 puff IH Q4H PRN PRN Reason: SHORTNESS OF BREATH Albuterol/Ipratropium (Duoneb -) 1 amp NEB RQID [facility] Last Admin: 05/13/20 08:39 Dose: 1 amp Documented by: Apixaban (Eliquis -) 2.5 mg GT BID [facility] Last Admin: 05/13/20 11:23 Dose: Not Given Documented by: Ascorbic Acid (Vitamin C Oral Solution -) 500 mg GT DAILY [facility] Last Admin: 05/13/20 11:24 Dose: Not Given Documented by: Atorvastatin Calcium (Lipitor -) 40 mg GT HS [facility] Last Admin: 05/12/20 22:08 Dose: 40 mg Documented by: Budesonide (Pulmicort 0.5 Mg Nebulizer -) 1 amp NEB RBID [facility] Last Admin: 05/13/20 08:40 Dose: 1 amp Documented by: Collagenase (Santyl -) 1 applic TP DAILY [facility]; Protocol Last Admin: 05/13/20 11:27 Dose: 1 applic Documented by: Famotidine (Pepcid) 10 mg NGT HS [facility] Last Admin: 05/12/20 22:13 Dose: 10 mg Documented by: Gabapentin (Neurontin Oral Liquid -) 300 mg GT TID [facility] Last Admin: 05/13/20 05:46 Dose: 300 mg Documented by: Piperacillin Sod/Tazobactam (Sod 2.25 gm/ Dextrose) 50 mls @ 100 mls/hr IVPB Q8H-IV [facility]; Protocol Last Admin: 05/13/20 11:21 Dose: 100 mls/hr Documented by: Lactic Acid (Lac-Hydrin 12) 1 applic TP DAILY PRN PRN Reason: xerosis Levetiracetam (Keppra Oral Solution -) 500 mg GT Q48H [facility] Last Admin: 05/12/20 22:10 Dose: 500 mg Documented by: Metoprolol Tartrate (Lopressor -) 25 mg GT BID [facility] Last Admin: 05/13/20 11:23 Dose: Not Given Documented by: Midodrine (Proamatine -) 10 mg GT TID-MID [facility] Last Admin: 05/13/20 09:56 Dose: Not Given Documented by: Morphine Sulfate (Morphine Sulfate) 1 mg IVPUSH Q4H PRN PRN Reason: PAIN LEVEL 7 - 10 Nystatin (Mycostatin Ointment -) 1 applic TP BID [facility] Last Admin: 05/13/20 11:28 Dose: 1 applic Documented by: Quetiapine Fumarate (Seroquel -) 50 mg GT BID [facility] Last Admin: 05/13/20 11:25 Dose: Not Given Documented by: - Objective Vital Signs: Vital Signs Temperature 97.8 F 05/13/20 10:00 Pulse Rate 84 05/13/20 11:05 Respiratory Rate 18 05/13/20 11:05 Blood Pressure 97/64 05/13/20 11:05 O2 Sat by Pulse Oximetry (%) 98 05/13/20 10:00 Constitutional: Yes: No Distress, Calm Cardiovascular: Yes: S1, S2 Respiratory: Yes: Regular, Other (trach) Gastrointestinal: Yes: Normal Bowel Sounds, Soft, Other (peg in place) Musculoskeletal: Yes: WNL Extremities: Yes: Other Neurological: Yes: Alert, Oriented Psychiatric: Yes: Alert, Oriented Labs: CBC, BMP 05/13/20 07:30 05/13/20 07:30 INR, PTT INR 1.21 (0.83-1.09) H 05/13/20 07:30 Assessment/Plan 50 M Sepsis 2/2 infected Stage 4 decubitus ulcer Afib on Eliquis HTN HLD Dysphagia s/p trach PEG non-ambulatory Non-verbal Morbidly obese Seizure disorder ESRD on HD plan abx wound care podiatry on board rest as per the team will need more debridement monitor feeding tube
[2020-05-13] MEDS: MORPHINE SULFATE 2 MG/ML VIAL IVPUSH PRN (16:35)
[2020-05-13] MEDS: ACETAMINOPHEN 650 MG/20.3 ML ORAL SOLUTION (CUPS) GT PRN (16:42)
--- NOTE | 2020-05-13 18:28 | PN ---
Progress Note (short form) - Note Progress Note: RENAL Awake and alert makes eye contact was dialyzed today his peg fell oiut and had to be reinserted Last Vital Signs Temp Pulse Resp BP Pulse Ox 97.8 F 80 18 97/64 96 05/13/20 10:00 05/13/20 16:16 05/13/20 11:05 05/13/20 11:05 05/13/20 16:16 trach lungs clear cvs s1s2 rr abd soft ext no edema neuro alert, nods to answer question tactile fever CBC, BMP 05/13/20 07:30 05/13/20 07:30 Current Medications Generic Name Dose Route Start Last Admin Trade Name Freq PRN Reason Stop Dose Admin Acetaminophen 325 mg 05/12/20 15:15 05/13/20 16:42 Tylenol Oral Solution - GT 325 mg Q6H PRN Administration FEVER Albuterol Sulfate 2 puff 05/12/20 15:15 Ventolin Hfa Inhaler - IH Q4H PRN SHORTNESS OF BREATH Albuterol/Ipratropium 1 amp 05/12/20 16:00 05/13/20 16:18 Duoneb - NEB 1 amp RQID [facility] Administration Apixaban 2.5 mg 05/12/20 22:00 05/13/20 11:23 Eliquis - GT Not Given BID [facility] Ascorbic Acid 500 mg 05/13/20 10:00 05/13/20 11:24 Vitamin C Oral Solution - GT Not Given DAILY [facility] Atorvastatin Calcium 40 mg 05/12/20 22:00 05/12/20 22:08 Lipitor - GT 40 mg HS [facility] Administration Budesonide 1 amp 05/12/20 20:00 05/13/20 08:40 Pulmicort 0.5 Mg Nebulizer - NEB 1 amp RBID [facility] Administration Collagenase 1 applic 05/13/20 10:00 05/13/20 11:27 Santyl - TP 1 applic DAILY [facility] Administration Protocol Famotidine 10 mg 05/12/20 22:00 05/12/20 22:13 Pepcid NGT 10 mg HS [facility] Administration Gabapentin 300 mg 05/12/20 22:00 05/13/20 13:51 Neurontin Oral Liquid - GT Not Given TID [facility] Piperacillin Sod/Tazobactam 50 mls @ 100 mls/hr 05/12/20 18:00 05/13/20 17:58 Sod 2.25 gm/ Dextrose IVPB 100 mls/hr Q8H-IV [facility] Administration Protocol Lactic Acid 1 applic 05/12/20 15:15 Lac-Hydrin 12 TP DAILY PRN xerosis Levetiracetam 500 mg 05/12/20 22:00 05/12/20 22:10 Keppra Oral Solution - GT 500 mg Q48H [facility] Administration Metoprolol Tartrate 25 mg 05/12/20 22:00 05/13/20 11:23 Lopressor - GT Not Given BID [facility] Midodrine 10 mg 05/12/20 18:00 05/13/20 17:58 Proamatine - GT 10 mg TID-MID [facility] Administration Morphine Sulfate 1 mg 05/12/20 15:15 05/13/20 16:35 Morphine Sulfate IVPUSH 1 mg Q4H PRN Administration PAIN LEVEL 7 - 10 Nystatin 1 applic 05/12/20 22:00 05/13/20 11:28 Mycostatin Ointment - TP 1 applic BID [facility] Administration Quetiapine Fumarate 50 mg 05/12/20 22:00 05/13/20 11:25 Seroquel - GT Not Given BID [facility] IMPRESSION ESRD sepsis secondary to decubitus s/p trach functional quadriplegia due to cva anemia leukocytosis improved hypercalcemia PLAN antibiotics per id s/p debridement s/p HD today will need a low calcium bath check pth, he is not on any vit d analogue MV
[2020-05-13 21:22] VITALS: BMI 40.0
[2020-05-13] MEDS: ATORVASTATIN CA 40 MG TABLET (FP) GT SCH (23:12)
[2020-05-13] MEDS: FAMOTIDINE 40 MG/5 ML ORAL SUSPENSION NGT SCH (23:13)
[2020-05-14] MEDS ORDERED: PIPERACILLIN/TAZOBACTAM 2.25 GM VIAL IVPB ONE ×3 (01:23→17:47)
[2020-05-14] MEDS ORDERED: DEXTROSE 5%-WATER - 50 ML IVPB ONE ×3 (01:23→17:47)
[2020-05-14] MEDS: PIPERACILLIN/TAZOB 2.25 GM 2.25 GM in DEXTROSE 5%-WATER - 50 ML IVPB SCH ×3 (01:28→17:50)
[2020-05-14] MEDS: GABAPENTIN 250 MG/5 ML ORAL SOLUTION, 470 ML BOTTLE GT SCH ×3 (06:10→22:46)
--- NOTE | 2020-05-14 07:59 | PN ---
Progress Note, Physician Chief Complaint: Seen and examined in bed. PEG replaced yesterday after dislodgement. No complaints offered. Pending placement at [facility]. History of Present Illness: 50 M h/o dysphagia s/p trach, functional quadriplegia 2/2 stroke, Afib on AC, HTN, seizures, morbid obesity, stage IV sacral ulcer, perma cath on R chest wall for dialysis who presents to ED via EMS from [facility] for low blood pressure. Pt. found to have infected chronic stage 4 decubitus ulcer, received Meropenem/Clindamycin in ED. ID following patient. - Current Medication List Current Medications: Active Medications Acetaminophen (Tylenol Oral Solution -) 325 mg GT Q6H PRN PRN Reason: FEVER Last Admin: 05/13/20 16:42 Dose: 325 mg Documented by: Albuterol Sulfate (Ventolin Hfa Inhaler -) 2 puff IH Q4H PRN PRN Reason: SHORTNESS OF BREATH Albuterol/Ipratropium (Duoneb -) 1 amp NEB RQID [facility] Last Admin: 05/13/20 20:25 Dose: 1 amp Documented by: Apixaban (Eliquis -) 2.5 mg GT BID [facility] Last Admin: 05/13/20 23:12 Dose: 2.5 mg Documented by: Ascorbic Acid (Vitamin C Oral Solution -) 500 mg GT DAILY [facility] Last Admin: 05/13/20 11:24 Dose: Not Given Documented by: Atorvastatin Calcium (Lipitor -) 40 mg GT [facility] Last Admin: 05/13/20 23:12 Dose: 40 mg Documented by: Budesonide (Pulmicort 0.5 Mg Nebulizer -) 1 amp NEB RBID [facility] Last Admin: 05/13/20 20:15 Dose: 1 amp Documented by: Collagenase (Santyl -) 1 applic TP DAILY [facility]; Protocol Last Admin: 05/13/20 11:27 Dose: 1 applic Documented by: Famotidine (Pepcid) 10 mg NGT [facility] Last Admin: 05/13/20 23:13 Dose: 10 mg Documented by: Gabapentin (Neurontin Oral Liquid -) 300 mg GT TID [facility] Last Admin: 05/14/20 06:10 Dose: 300 mg Documented by: Piperacillin Sod/Tazobactam (Sod 2.25 gm/ Dextrose) 50 mls @ 100 mls/hr IVPB Q8H-IV [facility]; Protocol Last Admin: 05/14/20 01:28 Dose: 100 mls/hr Documented by: Lactic Acid (Lac-Hydrin 12) 1 applic TP DAILY PRN PRN Reason: xerosis Levetiracetam (Keppra Oral Solution -) 500 mg GT Q48H [facility] Last Admin: 05/12/20 22:10 Dose: 500 mg Documented by: Metoprolol Tartrate (Lopressor -) 25 mg GT BID [facility] Last Admin: 05/13/20 23:12 Dose: 25 mg Documented by: Midodrine (Proamatine -) 10 mg GT TID-MID [facility] Last Admin: 05/13/20 17:58 Dose: 10 mg Documented by: Morphine Sulfate (Morphine Sulfate) 1 mg IVPUSH Q4H PRN PRN Reason: PAIN LEVEL 7 - 10 Last Admin: 05/13/20 16:35 Dose: 1 mg Documented by: Nystatin (Mycostatin Ointment -) 1 applic TP BID [facility] Last Admin: 05/13/20 23:14 Dose: 1 applic Documented by: Quetiapine Fumarate (Seroquel -) 50 mg GT BID [facility] Last Admin: 05/13/20 23:13 Dose: 50 mg Documented by: - Objective Vital Signs: Vital Signs Temperature 98.2 F 05/14/20 06:00 Pulse Rate 84 05/14/20 06:00 Respiratory Rate 20 05/14/20 06:00 Blood Pressure 114/69 05/14/20 06:00 O2 Sat by Pulse Oximetry (%) 100 05/14/20 06:00 Additional Findings/Remarks: Constitutional: Yes: Well Nourished, No Distress, Calm Eyes: Yes: WNL, Conjunctiva Clear HENT: Yes: WNL, Atraumatic, Normocephalic Neck: Yes: Other (trach in place) Cardiovascular: Yes: WNL, Regular Rate and Rhythm, Other (RIJ permacatj) Respiratory: Yes: Regular, CTA Bilaterally, Diminished (at bases) Gastrointestinal: Yes: Normal Bowel Sounds, Soft, Abdomen, Obese, Other (GT in place) ...Rectal Exam: Yes: Deferred Genitourinary: Yes: Incontinence Breast(s): Yes: WNL Musculoskeletal: Yes: Other (paraplegic) Edema: No Edema: LLE: 1+, RLE: 1+ Peripheral Pulses WNL: Yes Peripheral Pulses: Left Radial: 2+, Right Radial: 2+, Left Doralis Pedis: 2+, Right Dorsalis Pedis: 2+, Left Femoral: 2+, Right Femoral: 2+ Integumentary: Yes: Pressure Ulcer stage 4 wound, surgical dressing intact. rectal tube placed to divert stool from seeping into the wound Stasis dermatitis changes noted bilateral lower extremities Neurological: Yes: Alert, Oriented Psychiatric: Yes: Alert Labs: CBC, BMP 05/13/20 07:30 05/13/20 07:30 INR, PTT INR 1.21 (0.83-1.09) H 05/13/20 07:30 Problem List - Problems (1) Functional quadriplegia Assessment/Plan: supportive care frequent turning and repositioning on clinitron bed Code(s): R53.2 - FUNCTIONAL QUADRIPLEGIA (2) History of CVA (cerebrovascular accident) Assessment/Plan: functional quadriplegia secondary to prior CVA Code(s): Z86.73 - PRSNL HX OF TIA (TIA), AND CEREB INFRC W/O RESID DEFICITS (3) Tracheostomy in place Assessment/Plan: trach in place to TC FI02 50 Trace care as per nursing Code(s): Z93.0 - TRACHEOSTOMY STATUS (4) Afib Assessment/Plan: rate controlled c/w metroprolol c/w tele Code(s): I48.91 - UNSPECIFIED ATRIAL FIBRILLATION (5) Seizure Assessment/Plan: c/w keppra no sz activity Code(s): R56.9 - UNSPECIFIED CONVULSIONS (6) Morbid obesity Assessment/Plan: BMI 40 c/w TF Nepro Code(s): E66.01 - MORBID (SEVERE) OBESITY DUE TO EXCESS CALORIES (7) Sacral decubitus ulcer, stage IV Assessment/Plan: s/p debridement continue with wet to dry santyl/alleyvn dressing vac dressing to be placed when pt goes to [facility] Code(s): L89.154 - PRESSURE ULCER OF SACRAL REGION, STAGE 4 (8) Hemodialysis status Assessment/Plan: HD as per renal-HD yesterday 1kg removed Code(s): Z99.2 - DEPENDENCE ON RENAL DIALYSIS (9) Prophylactic measure Assessment/Plan: FEN Fluids: additional water in TF Electrolytes: monitor & replete as needed Nutrition: Nepro tube feeds DVT moderate risk apixaban Dispo Maintain as inpatient full code discharge planning back to [facility] pending second COVID Code(s): Z29.9 - ENCOUNTER FOR PROPHYLACTIC MEASURES, UNSPECIFIED (10) Hypotension Assessment/Plan: resolved c/w midodrine Code(s): I95.9 - HYPOTENSION, UNSPECIFIED Qualifiers: Hypotension type: other hypotension type Qualified Code(s): I95.89 - Other hypotension (11) COVID-19 ruled out Assessment/Plan: negative pcr second PCR pending for transfer back to [facility] Code(s): Z03.818 - ENCNTR FOR OBS FOR SUSP EXPSR TO OTH BIOLG AGENTS RULED OUT (12) ESRD (end stage renal disease) Assessment/Plan: HD as per renal Code(s): N18.6 - END STAGE RENAL DISEASE (13) intermediate resident Assessment/Plan: plan to return to [facility] Code(s): Z59.3 - PROBLEMS RELATED TO LIVING IN RESIDENTIAL INSTITUTION (14) Sepsis Assessment/Plan: Sepsis in the setting of infected stage 4 sacral wound. s/p wound debridement on 05/07/2020. WBC improving-8 c/w Zosyn per ID vac dressing to be placed Code(s): A41.9 - SEPSIS, UNSPECIFIED ORGANISM (15) S/P debridement Assessment/Plan: s/p wound debridement on 05/07/2020. vac dressing to be placed Code(s): Z98.890 - OTHER SPECIFIED POSTPROCEDURAL STATES Visit type - Emergency Visit Emergency Visit: Yes ED Registration Date: 04/30/20 Care time: The patient presented to the Emergency Department on the above date and was hospitalized for further evaluation of their emergent condition. - New Patient This patient is new to me today: No - Critical Care Critical Care patient: No - Discharge Referral Referred to [facility] Med P.C.: No
[2020-05-14] MEDS: BUDESONIDE 0.5 MG/2 ML INH SUSP VIAL NEB SCH ×2 (08:09→20:24)
[2020-05-14] MEDS: ALBUTEROL SO4 2.5/IPRATROPIUM 0.5 INH SOL 3 ML VIAL.NEB. NEB SCH ×4 (08:09→20:23)
[2020-05-14 08:52] LABS: BASO % 0.9 % (0-2.0); EOS % 3.1 % (0-4.5); HEMATOCRIT 28.4 % (35.4-49); HEMOGLOBIN 9.1 GM/dL (11.7-16.9); LYMPH % 17.4 % (8-40); MCH 29.8 pg (25.7-33.7); MCHC 32.1 g/dl (32.0-35.9); MEAN CELL VOLUME 92.7 fl (80-96); NEUT % 71.6 % (42.8-82.8); PLATELET COUNT 287 K/MM3 (134-434); RBC 3.07 M/mm3 (4.00-5.60); RDW 16.1 % (11.9-15.9); WHITE BLOOD COUNT 8.4 K/mm3 (4.0-10.0)
[2020-05-14 09:13] LABS: ALBUMIN 2.1 g/dl (3.4-5.0); BLOOD UREA NITROGEN 16.1 mg/dL (7-18); MAGNESIUM 2.1 mg/dL (1.8-2.4)
[2020-05-14 09:16] LABS: CREATININE 2.5 mg/dL (0.55-1.3)
[2020-05-14 09:18] LABS: BILIRUBIN,TOTAL 0.3 mg/dL (0.2-1); TOT PROT 6.6 g/dl (6.4-8.2)
[2020-05-14] MEDS ORDERED: POTASSIUM CHLORIDE ORAL LIQUID 20 MEQ/15 ML PO ONE (09:46)
--- NOTE | 2020-05-14 11:01 | PN ---
Progress Note, Physician - Current Medication List Current Medications: Active Medications Acetaminophen (Tylenol Oral Solution -) 325 mg GT Q6H PRN PRN Reason: FEVER Last Admin: 05/13/20 16:42 Dose: 325 mg Documented by: Albuterol Sulfate (Ventolin Hfa Inhaler -) 2 puff IH Q4H PRN PRN Reason: SHORTNESS OF BREATH Albuterol/Ipratropium (Duoneb -) 1 amp NEB RQID [facility] Last Admin: 05/14/20 08:09 Dose: 1 amp Documented by: Apixaban (Eliquis -) 2.5 mg GT BID [facility] Last Admin: 05/13/20 23:12 Dose: 2.5 mg Documented by: Ascorbic Acid (Vitamin C Oral Solution -) 500 mg GT DAILY [facility] Last Admin: 05/13/20 11:24 Dose: Not Given Documented by: Atorvastatin Calcium (Lipitor -) 40 mg GT HS [facility] Last Admin: 05/13/20 23:12 Dose: 40 mg Documented by: Budesonide (Pulmicort 0.5 Mg Nebulizer -) 1 amp NEB RBID [facility] Last Admin: 05/14/20 08:09 Dose: 1 amp Documented by: Collagenase (Santyl -) 1 applic TP DAILY [facility]; Protocol Last Admin: 05/13/20 11:27 Dose: 1 applic Documented by: Famotidine (Pepcid) 10 mg NGT HS [facility] Last Admin: 05/13/20 23:13 Dose: 10 mg Documented by: Gabapentin (Neurontin Oral Liquid -) 300 mg GT TID [facility] Last Admin: 05/14/20 06:10 Dose: 300 mg Documented by: Piperacillin Sod/Tazobactam (Sod 2.25 gm/ Dextrose) 50 mls @ 100 mls/hr IVPB Q8H-IV [facility]; Protocol Last Admin: 05/14/20 01:28 Dose: 100 mls/hr Documented by: Lactic Acid (Lac-Hydrin 12) 1 applic TP DAILY PRN PRN Reason: xerosis Levetiracetam (Keppra Oral Solution -) 500 mg GT Q48H [facility] Last Admin: 05/12/20 22:10 Dose: 500 mg Documented by: Metoprolol Tartrate (Lopressor -) 25 mg GT BID [facility] Last Admin: 05/13/20 23:12 Dose: 25 mg Documented by: Midodrine (Proamatine -) 10 mg GT TID-MID [facility] Last Admin: 05/13/20 17:58 Dose: 10 mg Documented by: Morphine Sulfate (Morphine Sulfate) 1 mg IVPUSH Q4H PRN PRN Reason: PAIN LEVEL 7 - 10 Last Admin: 05/13/20 16:35 Dose: 1 mg Documented by: Nystatin (Mycostatin Ointment -) 1 applic TP BID [facility] Last Admin: 05/13/20 23:14 Dose: 1 applic Documented by: Quetiapine Fumarate (Seroquel -) 50 mg GT BID [facility] Last Admin: 05/13/20 23:13 Dose: 50 mg Documented by: - Objective Vital Signs: Vital Signs Temperature 98.2 F 05/14/20 06:00 Pulse Rate 78 05/14/20 08:08 Respiratory Rate 20 05/14/20 06:00 Blood Pressure 114/69 05/14/20 06:00 O2 Sat by Pulse Oximetry (%) 99 05/14/20 08:08 Labs: CBC, BMP 05/14/20 07:40 05/14/20 07:40 INR, PTT INR 1.21 (0.83-1.09) H 05/13/20 07:30
[2020-05-14] MEDS ORDERED: PT OWN MED DRAWER 7, Y5N ONE ×2 (11:03→22:43)
[2020-05-14] MEDS ORDERED: QUEtiapine FUMARATE 25 MG TABLET ONE ×2 (11:03→21:40)
[2020-05-14] MEDS: QUEtiapine FUMARATE 50 MG TABLET GT SCH ×2 (11:07→22:47)
[2020-05-14] MEDS: MIDODRINE HCL 5 MG TABLET GT SCH ×3 (11:07→18:58)
[2020-05-14] MEDS: METOPROLOL TARTRATE 25 MG TABLET (FP) GT SCH ×2 (11:07→22:47)
[2020-05-14] MEDS: APIXABAN 2.5 MG TABLET GT SCH ×2 (11:08→22:47)
[2020-05-14] MEDS: MORPHINE SULFATE 2 MG/ML VIAL IVPUSH PRN (11:08)
[2020-05-14] MEDS: NYSTATIN 100000 UNIT/GM TOPICAL OINTMENT 15 GM TUBE TP SCH ×2 (11:09→22:49)
[2020-05-14] MEDS: ASCORBIC ACID 500 MG/5 ML GT SCH (11:10)
[2020-05-14] MEDS: COLLAGENASE CLOSTRIDIUM HIST. 30 GRAMS TUBE TP SCH (11:10)
--- NOTE | 2020-05-14 11:38 | PROC ---
VAC Application - Indications Decubitus ulcer A decision was made to utilize Negative Pressure Therapy (VAC or Veraflo) to assist in: expedite wound closure through promotion of granulation tissue formation and/or help with debridement of fibrinous slough thus decreasing need for serial debridements. - Wound description Wound location: Sacrum Length (cm): 16 Width (cm): 16 Depth (cm): 6 Wound area (sq cm): 256.00 Wound Description: Bone exposed: Yes - Device VAC Selection: NPT - Procedure Area cleansed. Prepped/draped. Black foam tailored to fit just inside of wound borders to encourage wound contracture. An occlusive dressing applied. Suction disc placed in location so as not to be uncomfortable for the patient or cause any pressure point (foam bridge to hip as necessary). Good seal as verified by complete foam collapse and no leak on unit monitor. Pressure set to 125 mmHg, continuous. Dressing changes: --
--- NOTE | 2020-05-14 11:42 | PN ---
Progress Note (short form) - Note Progress Note: SURGERY 50yo M s/p debridement of sacral ulcer. Pt is nonverbal so unable to give history. Last Vital Signs Temp Pulse Resp BP Pulse Ox 98.2 F 78 20 114/69 99 05/14/20 06:00 05/14/20 08:08 05/14/20 06:00 05/14/20 06:00 05/14/20 08:08 CBC, BMP 05/14/20 07:40 05/14/20 07:40 PE: Gen: A&O X3 Resp: breathing with trach Sacrum: 17cm x 18cm stage IV ulcer with fibrinous base, serous drainage, some foul smelling drainage. Problem List - Problems (1) Sacral decubitus ulcer, stage IV Assessment/Plan: Plan Wound looks improve, would recommend VAC dressing, pt is to be transferred to SNF Pt should have VAC placed at his facility, instructions for VAC included below. Wound description Wound location: Sacrum Length (cm): 17 Width (cm): 17 Depth (cm): 6 Wound area (sq cm): 256.00 Wound Description: Bone exposed: Yes - Device VAC Selection: NPT VAC INSTRUCTIONS Area should be cleansed. Prepped/draped. Black foam tailored to fit just inside of wound borders to encourage wound contracture. An occlusive dressing applied. Suction disc placed in location so as not to be uncomfortable for the patient or cause any pressure point (foam bridge to hip as necessary). Good seal as verified by complete foam collapse and no leak on unit monitor. Pressure set to 125 mmHg, continuous. Code(s): L89.154 - PRESSURE ULCER OF SACRAL REGION, STAGE 4
--- NOTE | 2020-05-14 16:31 | PN ---
Progress Note (short form) - Note Progress Note: RENAL Awake and alert makes eye contact his peg fell oiut and had to be reinserted Last Vital Signs Temp Pulse Resp BP Pulse Ox 98.6 F 87 16 121/74 98 05/14/20 14:00 05/14/20 14:00 05/14/20 14:00 05/14/20 14:00 05/14/20 10:42 trach lungs clear cvs s1s2 rr abd soft ext no edema neuro alert, nods to answer question tactile fever CBC, BMP 05/14/20 07:40 05/14/20 07:40 Current Medications Generic Name Dose Route Start Last Admin Trade Name Freq PRN Reason Stop Dose Admin Acetaminophen 325 mg 05/12/20 15:15 05/13/20 16:42 Tylenol Oral Solution - GT 325 mg Q6H PRN Administration FEVER Albuterol Sulfate 2 puff 05/12/20 15:15 Ventolin Hfa Inhaler - IH Q4H PRN SHORTNESS OF BREATH Albuterol/Ipratropium 1 amp 05/12/20 16:00 05/14/20 15:16 Duoneb - NEB 1 amp RQID [facility] Administration Apixaban 2.5 mg 05/12/20 22:00 05/14/20 11:08 Eliquis - GT 2.5 mg BID [facility] Administration Ascorbic Acid 500 mg 05/13/20 10:00 05/14/20 11:10 Vitamin C Oral Solution - GT 5 ml DAILY [facility] Administration Atorvastatin Calcium 40 mg 05/12/20 22:00 05/13/20 23:12 Lipitor - GT 40 mg HS [facility] Administration Budesonide 1 amp 05/12/20 20:00 05/14/20 08:09 Pulmicort 0.5 Mg Nebulizer - NEB 1 amp RBID [facility] Administration Collagenase 1 applic 05/13/20 10:00 05/14/20 11:10 Santyl - TP 1 applic DAILY [facility] Administration Protocol Famotidine 10 mg 05/12/20 22:00 05/13/20 23:13 Pepcid NGT 10 mg HS [facility] Administration Gabapentin 300 mg 05/12/20 22:00 05/14/20 06:10 Neurontin Oral Liquid - GT 300 mg TID [facility] Administration Piperacillin Sod/Tazobactam 50 mls @ 100 mls/hr 05/12/20 18:00 05/14/20 11:06 Sod 2.25 gm/ Dextrose IVPB 100 mls/hr Q8H-IV [facility] Administration Protocol Lactic Acid 1 applic 05/12/20 15:15 Lac-Hydrin 12 TP DAILY PRN xerosis Levetiracetam 500 mg 05/12/20 22:00 05/12/20 22:10 Keppra Oral Solution - GT 500 mg Q48H [facility] Administration Metoprolol Tartrate 25 mg 05/12/20 22:00 05/14/20 11:07 Lopressor - GT 25 mg BID [facility] Administration Midodrine 10 mg 05/12/20 18:00 05/14/20 11:07 Proamatine - GT 10 mg TID-MID [facility] Administration Morphine Sulfate 1 mg 05/12/20 15:15 05/14/20 11:08 Morphine Sulfate IVPUSH 1 mg Q4H PRN Administration PAIN LEVEL 7 - 10 Nystatin 1 applic 05/12/20 22:00 05/14/20 11:09 Mycostatin Ointment - TP 1 applic BID [facility] Administration Quetiapine Fumarate 50 mg 05/12/20 22:00 05/14/20 11:07 Seroquel - GT 50 mg BID [facility] Administration IMPRESSION ESRD sepsis secondary to decubitus s/p trach functional quadriplegia due to cva anemia leukocytosis improved hypercalcemia PLAN antibiotics per id s/p debridement s/p HD yesterday will need a low calcium bath check pth, he is not on any vit d analogue MV
[2020-05-14] MEDS: ATORVASTATIN CA 40 MG TABLET (FP) GT SCH (22:47)
[2020-05-14] MEDS: FAMOTIDINE 40 MG/5 ML ORAL SUSPENSION NGT SCH (23:11)
[2020-05-14] MEDS: levETIRAcetam 500 MG/5 ML ORAL SOLUTION (UNIT-DOSE CUPS) GT SCH (23:11)
[2020-05-15] MEDS ORDERED: DEXTROSE 5%-WATER - 50 ML IVPB ONE ×3 (01:49→16:47)
[2020-05-15] MEDS ORDERED: PIPERACILLIN/TAZOBACTAM 2.25 GM VIAL IVPB ONE ×3 (01:49→16:47)
[2020-05-15] MEDS: PIPERACILLIN/TAZOB 2.25 GM 2.25 GM in DEXTROSE 5%-WATER - 50 ML IVPB SCH ×3 (02:33→17:03)
[2020-05-15] MEDS: GABAPENTIN 250 MG/5 ML ORAL SOLUTION, 470 ML BOTTLE GT SCH ×3 (06:18→22:37)
[2020-05-15 07:46] LABS: BASO % 0.5 % (0-2.0); EOS % 3.3 % (0-4.5); HEMATOCRIT 27.8 % (35.4-49); LYMPH % 16.4 % (8-40); MCH 30.7 pg (25.7-33.7); MCHC 32.4 g/dl (32.0-35.9); MEAN CELL VOLUME 94.6 fl (80-96); MEAN PLT VOLUME 8.1 fl (7.5-11.1); MONO % 7.7 % (3.8-10.2); NEUT % 72.1 % (42.8-82.8); PLATELET COUNT 289 K/MM3 (134-434); RBC 2.94 M/mm3 (4.00-5.60); RDW 15.9 % (11.9-15.9); WHITE BLOOD COUNT 9.8 K/mm3 (4.0-10.0)
[2020-05-15] MEDS: ALBUTEROL SO4 2.5/IPRATROPIUM 0.5 INH SOL 3 ML VIAL.NEB. NEB SCH ×4 (07:47→20:15)
[2020-05-15] MEDS: BUDESONIDE 0.5 MG/2 ML INH SUSP VIAL NEB SCH ×2 (07:47→20:15)
--- NOTE | 2020-05-15 07:51 | PN ---
Progress Note, Physician Chief Complaint: Seen and examined in bed during HD. Tolerating TF after PEG replacement. COVID resent for anticipation of SNF acceptance. Plan to trnsition to oral abx on discharge. Pending placement at [facility]. History of Present Illness: 50 M h/o dysphagia s/p trach, functional quadriplegia 2/2 stroke, Afib on AC, HTN, seizures, morbid obesity, stage IV sacral ulcer, perma cath on R chest wall for dialysis who presents to ED via EMS from [facility] for low blood pressure. Pt. found to have infected chronic stage 4 decubitus ulcer, received Meropenem/Clindamycin in ED. ID following patient. - Current Medication List Current Medications: Active Medications Acetaminophen (Tylenol Oral Solution -) 325 mg GT Q6H PRN PRN Reason: FEVER Last Admin: 05/13/20 16:42 Dose: 325 mg Documented by: Albuterol Sulfate (Ventolin Hfa Inhaler -) 2 puff IH Q4H PRN PRN Reason: SHORTNESS OF BREATH Albuterol/Ipratropium (Duoneb -) 1 amp NEB RQID [facility] Last Admin: 05/14/20 20:23 Dose: 1 amp Documented by: Apixaban (Eliquis -) 2.5 mg GT BID [facility] Last Admin: 05/14/20 22:47 Dose: 2.5 mg Documented by: Ascorbic Acid (Vitamin C Oral Solution -) 500 mg GT DAILY [facility] Last Admin: 05/14/20 11:10 Dose: 5 ml Documented by: Atorvastatin Calcium (Lipitor -) 40 mg GT [facility] Last Admin: 05/14/20 22:47 Dose: 40 mg Documented by: Budesonide (Pulmicort 0.5 Mg Nebulizer -) 1 amp NEB RBID [facility] Last Admin: 05/14/20 20:24 Dose: 1 amp Documented by: Collagenase (Santyl -) 1 applic TP DAILY [facility]; Protocol Last Admin: 05/14/20 11:10 Dose: 1 applic Documented by: Famotidine (Pepcid) 10 mg NGT [facility] Last Admin: 05/14/20 23:11 Dose: 10 mg Documented by: Gabapentin (Neurontin Oral Liquid -) 300 mg GT TID [facility] Last Admin: 05/15/20 06:18 Dose: 300 mg Documented by: Piperacillin Sod/Tazobactam (Sod 2.25 gm/ Dextrose) 50 mls @ 100 mls/hr IVPB Q8H-IV [facility]; Protocol Last Admin: 05/15/20 02:33 Dose: 100 mls/hr Documented by: Lactic Acid (Lac-Hydrin 12) 1 applic TP DAILY PRN PRN Reason: xerosis Levetiracetam (Keppra Oral Solution -) 500 mg GT Q48H [facility] Last Admin: 05/14/20 23:11 Dose: 500 mg Documented by: Metoprolol Tartrate (Lopressor -) 25 mg GT BID [facility] Last Admin: 05/14/20 22:47 Dose: 25 mg Documented by: Midodrine (Proamatine -) 10 mg GT TID-MID [facility] Last Admin: 05/14/20 18:58 Dose: 10 mg Documented by: Morphine Sulfate (Morphine Sulfate) 1 mg IVPUSH Q4H PRN PRN Reason: PAIN LEVEL 7 - 10 Last Admin: 05/14/20 11:08 Dose: 1 mg Documented by: Nystatin (Mycostatin Ointment -) 1 applic TP BID [facility] Last Admin: 05/14/20 22:49 Dose: 1 applic Documented by: Quetiapine Fumarate (Seroquel -) 50 mg GT BID [facility] Last Admin: 05/14/20 22:47 Dose: 50 mg Documented by: - Objective Vital Signs: Vital Signs Temperature 98.1 F 05/15/20 06:00 Pulse Rate 79 05/15/20 06:00 Respiratory Rate 18 05/15/20 06:00 Blood Pressure 135/82 05/15/20 06:00 O2 Sat by Pulse Oximetry (%) 100 05/14/20 22:00 Additional Findings/Remarks: Constitutional: Yes: Well Nourished, No Distress, Calm Eyes: Yes: WNL, Conjunctiva Clear HENT: Yes: WNL, Atraumatic, Normocephalic Neck: Yes: Other (trach in place) Cardiovascular: Yes: WNL, Regular Rate and Rhythm, Other (RIJ permacatj) Respiratory: Yes: Regular, CTA Bilaterally, Diminished (at bases) Gastrointestinal: Yes: Normal Bowel Sounds, Soft, Abdomen, Obese, Other (GT in place) ...Rectal Exam: Yes: Deferred Genitourinary: Yes: Incontinence Breast(s): Yes: WNL Musculoskeletal: Yes: Other (paraplegic) Edema: No Edema: LLE: 1+, RLE: 1+ Peripheral Pulses WNL: Yes Peripheral Pulses: Left Radial: 2+, Right Radial: 2+, Left Doralis Pedis: 2+, Right Dorsalis Pedis: 2+, Left Femoral: 2+, Right Femoral: 2+ Integumentary: Yes: Pressure Ulcer stage 4 wound, surgical dressing intact. rectal tube placed to divert stool from seeping into the wound Stasis dermatitis changes noted bilateral lower extremities VAC CARE:(as per surgery) Area should be cleansed. Prepped/draped. Black foam tailored to fit just inside of wound borders to encourage wound contracture. An occlusive dressing applied. Suction disc placed in location so as not to be uncomfortable for the patient or cause any pressure point (foam bridge to hip as necessary). Good seal as verified by complete foam collapse and no leak on unit monitor. Pressure set to 125 mmHg, continuous. Neurological: Yes: Alert, Oriented Psychiatric: Yes: Alert Labs: INR, PTT INR 1.21 (0.83-1.09) H 05/13/20 07:30 Problem List - Problems (1) Functional quadriplegia Assessment/Plan: supportive care frequent turning and repositioning on clinitron bed Code(s): R53.2 - FUNCTIONAL QUADRIPLEGIA (2) History of CVA (cerebrovascular accident) Assessment/Plan: functional quadriplegia secondary to prior CVA Code(s): Z86.73 - PRSNL HX OF TIA (TIA), AND CEREB INFRC W/O RESID DEFICITS (3) Tracheostomy in place Assessment/Plan: trach in place to TC FI02 50 Trace care as per nursing Code(s): Z93.0 - TRACHEOSTOMY STATUS (4) Afib Assessment/Plan: rate controlled c/w metroprolol c/w tele Code(s): I48.91 - UNSPECIFIED ATRIAL FIBRILLATION (5) Seizure Assessment/Plan: c/w keppra no sz activity Code(s): R56.9 - UNSPECIFIED CONVULSIONS (6) Morbid obesity Assessment/Plan: BMI 40 c/w TF Nepro Code(s): E66.01 - MORBID (SEVERE) OBESITY DUE TO EXCESS CALORIES (7) Sacral decubitus ulcer, stage IV Assessment/Plan: s/p debridement VAC CARE:(as per surgery) Area should be cleansed. Prepped/draped. Black foam tailored to fit just inside of wound borders to encourage wound contracture. An occlusive dressing applied. Suction disc placed in location so as not to be uncomfortable for the patient or cause any pressure point (foam bridge to hip as necessary). Good seal as verified by complete foam collapse and no leak on unit monitor. Pressure set to 125 mmHg, continuous. Code(s): L89.154 - PRESSURE ULCER OF SACRAL REGION, STAGE 4 (8) Hemodialysis status Assessment/Plan: HD as per renal-HD yesterday 1kg removed Code(s): Z99.2 - DEPENDENCE ON RENAL DIALYSIS (9) Prophylactic measure Assessment/Plan: FEN Fluids: additional water in TF Electrolytes: monitor & replete as needed Nutrition: Nepro tube feeds DVT moderate risk apixaban Dispo Maintain as inpatient full code discharge planning back to [facility] pending second COVID Code(s): Z29.9 - ENCOUNTER FOR PROPHYLACTIC MEASURES, UNSPECIFIED (10) Hypotension Assessment/Plan: resolved c/w midodrine Code(s): I95.9 - HYPOTENSION, UNSPECIFIED Qualifiers: Hypotension type: other hypotension type Qualified Code(s): I95.89 - Other hypotension (11) COVID-19 ruled out Assessment/Plan: negative pcr second PCR pending for transfer back to [facility] Code(s): Z03.818 - ENCNTR FOR OBS FOR SUSP EXPSR TO OTH BIOLG AGENTS RULED OUT (12) ESRD (end stage renal disease) Assessment/Plan: HD as per renal Code(s): N18.6 - END STAGE RENAL DISEASE (13) skilled nursing resident Assessment/Plan: plan to return to [facility] Code(s): Z59.3 - PROBLEMS RELATED TO LIVING IN RESIDENTIAL INSTITUTION (14) Sepsis Assessment/Plan: Sepsis in the setting of infected stage 4 sacral wound. s/p wound debridement on 05/07/2020. WBC improving-9 c/w Zosyn per ID for another day and then switch to augmentin x 10 days vac dressing to be placed Code(s): A41.9 - SEPSIS, UNSPECIFIED ORGANISM (15) S/P debridement Assessment/Plan: s/p wound debridement on 05/07/2020. vac dressing to be placed Code(s): Z98.890 - OTHER SPECIFIED POSTPROCEDURAL STATES Visit type - Emergency Visit Emergency Visit: Yes ED Registration Date: 04/30/20 Care time: The patient presented to the Emergency Department on the above date and was hospitalized for further evaluation of their emergent condition. - New Patient This patient is new to me today: No - Critical Care Critical Care patient: No - Discharge Referral Referred to [facility] No
[2020-05-15 07:53] LABS: POTASSIUM 3.6 mmol/L (3.5-5.1)
[2020-05-15 08:01] LABS: CALCIUM 9.7 mg/dL (8.5-10.1)
[2020-05-15 08:02] LABS: ALBUMIN 2.1 g/dl (3.4-5.0); BLOOD UREA NITROGEN 23.2 mg/dL (7-18)
[2020-05-15 08:03] LABS: CREATININE 3.3 mg/dL (0.55-1.3)
[2020-05-15 08:05] LABS: BILIRUBIN,TOTAL 0.4 mg/dL (0.2-1); TOT PROT 6.5 g/dl (6.4-8.2)
[2020-05-15] MEDS ORDERED: PT OWN MED DRAWER 7, Y5N ONE ×3 (09:13→21:25)
[2020-05-15] MEDS ORDERED: QUEtiapine FUMARATE 25 MG TABLET ONE ×2 (09:13→21:25)
[2020-05-15] MEDS: APIXABAN 2.5 MG TABLET GT SCH ×2 (09:20→21:34)
[2020-05-15] MEDS: ACETAMINOPHEN 650 MG/20.3 ML ORAL SOLUTION (CUPS) GT PRN (09:20)
[2020-05-15] MEDS: MIDODRINE HCL 5 MG TABLET GT SCH ×3 (09:20→17:03)
[2020-05-15] MEDS: QUEtiapine FUMARATE 50 MG TABLET GT SCH ×2 (09:21→21:35)
[2020-05-15] MEDS: METOPROLOL TARTRATE 25 MG TABLET (FP) GT SCH ×3 (09:21→21:41)
[2020-05-15] MEDS: ASCORBIC ACID 500 MG/5 ML GT SCH (09:22)
--- NOTE | 2020-05-15 10:19 | PN ---
Progress Note (short form) - Note Progress Note: RENAL Awake and alert makes eye contact currently on hd Last Vital Signs Temp Pulse Resp BP Pulse Ox 98.4 F 87 18 111/54 L 100 05/15/20 09:25 05/15/20 10:00 05/15/20 10:00 05/15/20 10:00 05/15/20 07:47 trach lungs clear cvs s1s2 rr abd soft ext no edema neuro alert, nods to answer question CBC, BMP 05/15/20 06:01 05/15/20 06:01 IMPRESSION ESRD sepsis secondary to decubitus s/p trach functional quadriplegia due to cva anemia leukocytosis improved hypercalcemia- with appropriately blocked pth PLAN antibiotics per id s/p debridement continue hd tiw will need a low calcium bath vitamin d level, pthrp MV
[2020-05-15] MEDS ORDERED: EPOETIN ALFA-EPBX 4,000 UNIT/ML VIAL SQ ONE (11:00)
--- NOTE | 2020-05-15 11:25 | PN ---
Progress Note, Physician - Current Medication List Current Medications: Active Medications Acetaminophen (Tylenol Oral Solution -) 325 mg GT Q6H PRN PRN Reason: FEVER Last Admin: 05/15/20 09:20 Dose: 325 mg Documented by: Albuterol Sulfate (Ventolin Hfa Inhaler -) 2 puff IH Q4H PRN PRN Reason: SHORTNESS OF BREATH Albuterol/Ipratropium (Duoneb -) 1 amp NEB RQID [facility] Last Admin: 05/15/20 07:47 Dose: 1 amp Documented by: Apixaban (Eliquis -) 2.5 mg GT BID [facility] Last Admin: 05/15/20 09:20 Dose: 2.5 mg Documented by: Ascorbic Acid (Vitamin C Oral Solution -) 500 mg GT DAILY [facility] Last Admin: 05/15/20 09:22 Dose: 5 ml Documented by: Atorvastatin Calcium (Lipitor -) 40 mg GT HS [facility] Last Admin: 05/14/20 22:47 Dose: 40 mg Documented by: Budesonide (Pulmicort 0.5 Mg Nebulizer -) 1 amp NEB RBID [facility] Last Admin: 05/15/20 07:47 Dose: 1 amp Documented by: Collagenase (Santyl -) 1 applic TP DAILY [facility]; Protocol Last Admin: 05/14/20 11:10 Dose: 1 applic Documented by: Famotidine (Pepcid) 10 mg NGT HS [facility] Last Admin: 05/14/20 23:11 Dose: 10 mg Documented by: Gabapentin (Neurontin Oral Liquid -) 300 mg GT TID [facility] Last Admin: 05/15/20 06:18 Dose: 300 mg Documented by: Piperacillin Sod/Tazobactam (Sod 2.25 gm/ Dextrose) 50 mls @ 100 mls/hr IVPB Q8H-IV [facility]; Protocol Last Admin: 05/15/20 09:19 Dose: 100 mls/hr Documented by: Lactic Acid (Lac-Hydrin 12) 1 applic TP DAILY PRN PRN Reason: xerosis Levetiracetam (Keppra Oral Solution -) 500 mg GT Q48H [facility] Last Admin: 05/14/20 23:11 Dose: 500 mg Documented by: Metoprolol Tartrate (Lopressor -) 25 mg GT BID [facility] Last Admin: 05/15/20 09:21 Dose: Not Given Documented by: Midodrine (Proamatine -) 10 mg GT TID-MID [facility] Last Admin: 05/15/20 09:20 Dose: 10 mg Documented by: Morphine Sulfate (Morphine Sulfate) 1 mg IVPUSH Q4H PRN PRN Reason: PAIN LEVEL 7 - 10 Last Admin: 05/14/20 11:08 Dose: 1 mg Documented by: Nystatin (Mycostatin Ointment -) 1 applic TP BID [facility] Last Admin: 05/14/20 22:49 Dose: 1 applic Documented by: Quetiapine Fumarate (Seroquel -) 50 mg GT BID [facility] Last Admin: 05/15/20 09:21 Dose: 50 mg Documented by: - Objective Vital Signs: Vital Signs Temperature 97.8 F 05/15/20 10:00 Pulse Rate 89 05/15/20 10:00 Respiratory Rate 18 05/15/20 10:00 Blood Pressure 122/78 05/15/20 10:00 O2 Sat by Pulse Oximetry (%) 100 05/15/20 10:00 Labs: CBC, BMP 05/15/20 06:01 05/15/20 06:01 INR, PTT INR 1.21 (0.83-1.09) H 05/13/20 07:30
[2020-05-15] MEDS: MORPHINE SULFATE 2 MG/ML VIAL IVPUSH PRN ×2 (13:24→17:45)
[2020-05-15] MEDS: NYSTATIN 100000 UNIT/GM TOPICAL OINTMENT 15 GM TUBE TP SCH ×2 (13:30→21:37)
[2020-05-15] MEDS: COLLAGENASE CLOSTRIDIUM HIST. 30 GRAMS TUBE TP SCH (15:52)
[2020-05-15] MEDS: ATORVASTATIN CA 40 MG TABLET (FP) GT SCH (21:34)
[2020-05-15] MEDS: FAMOTIDINE 40 MG/5 ML ORAL SUSPENSION NGT SCH (22:55)
[2020-05-16] MEDS: GABAPENTIN 250 MG/5 ML ORAL SOLUTION, 470 ML BOTTLE GT SCH ×2 (05:17→13:57)
--- NOTE | 2020-05-16 07:57 | DS ---
Physical Exam: SUBJECTIVE: Patient seen and examined OBJECTIVE: Vital Signs Period Temp Pulse Resp BP Sys/Vegas Pulse Ox Last 24 Hr 97.8 F-98.4 F 74-92 16-20 90-151/50-80 99-100 PHYSICAL EXAM Constitutional: Yes: Well Nourished, No Distress, Calm Eyes: Yes: WNL, Conjunctiva Clear HENT: Yes: WNL, Atraumatic, Normocephalic Neck: Yes: Other (trach in place) Cardiovascular: Yes: WNL, Regular Rate and Rhythm, Other (RIJ permacatj) Respiratory: Yes: Regular, CTA Bilaterally, Diminished (at bases) Gastrointestinal: Yes: Normal Bowel Sounds, Soft, Abdomen, Obese, Other (GT in place) ...Rectal Exam: Yes: Deferred Genitourinary: Yes: Incontinence Breast(s): Yes: WNL Musculoskeletal: Yes: Other (paraplegic) Edema: No Edema: LLE: 1+, RLE: 1+ Peripheral Pulses WNL: Yes Peripheral Pulses: Left Radial: 2+, Right Radial: 2+, Left Doralis Pedis: 2+, Right Dorsalis Pedis: 2+, Left Femoral: 2+, Right Femoral: 2+ Integumentary: Yes: Pressure Ulcer stage 4 wound, surgical dressing intact. rectal tube placed to divert stool from seeping into the wound Stasis dermatitis changes noted bilateral lower extremities VAC CARE:(as per surgery) Area should be cleansed. Prepped/draped. Black foam tailored to fit just inside of wound borders to encourage wound contracture. An occlusive dressing applied. Suction disc placed in location so as not to be uncomfortable for the patient or cause any pressure point (foam bridge to hip as necessary). Good seal as verified by complete foam collapse and no leak on unit monitor. Pressure set to 125 mmHg, continuous. Neurological: Yes: Alert, Oriented Psychiatric: Yes: Alert LABS Laboratory Results - last 24 hr 05/14/20 05/15/20 05/15/20 11:00 06:01 Unknown Carbon Dioxide 28 Anion Gap 12 BUN 23.2 H Creatinine 3.3 H Est GFR (CKD-EPI)AfAm 24.08 Est GFR (CKD-EPI)NonAf 20.77 Random Glucose 95 Calcium 9.7 Magnesium 2.0 Total Bilirubin 0.4 AST 11 L ALT 15 Alkaline Phosphatase 161 H Total Protein 6.5 Albumin 2.1 L 25-OH Vitamin D Total 24.5 L COVID-19 (NITHIN) Not detected HOSPITAL COURSE: Date of Admission:04/30/20 Date of Discharge: 05/16/20 Problem List - Problems (1) Functional quadriplegia Assessment/Plan: supportive care frequent turning and repositioning c/w clinitron bed Code(s): R53.2 - FUNCTIONAL QUADRIPLEGIA (2) History of CVA (cerebrovascular accident) Assessment/Plan: functional quadriplegia secondary to prior CVA Code(s): Z86.73 - PRSNL HX OF TIA (TIA), AND CEREB INFRC W/O RESID DEFICITS (3) Tracheostomy in place Assessment/Plan: trach in place to TC FI02 50 Trace care as per nursing Code(s): Z93.0 - TRACHEOSTOMY STATUS (4) Afib Assessment/Plan: rate controlled c/w metroprolol Code(s): I48.91 - UNSPECIFIED ATRIAL FIBRILLATION (5) Seizure Assessment/Plan: c/w keppra no sz activity Code(s): R56.9 - UNSPECIFIED CONVULSIONS (6) Morbid obesity Assessment/Plan: BMI 40 c/w TF Nepro Code(s): E66.01 - MORBID (SEVERE) OBESITY DUE TO EXCESS CALORIES (7) Sacral decubitus ulcer, stage IV Assessment/Plan: s/p debridement 05/07 VAC CARE:(as per surgery) Area should be cleansed. Prepped/draped. Black foam tailored to fit just inside of wound borders to encourage wound contracture. An occlusive dressing applied. Suction disc placed in location so as not to be uncomfortable for the patient or cause any pressure point (foam bridge to hip as necessary). Good seal as verified by complete foam collapse and no leak on unit monitor. Pressure set to 125 mmHg, continuous. Dressing change MWF Code(s): L89.154 - PRESSURE ULCER OF SACRAL REGION, STAGE 4 (8) Hemodialysis status Assessment/Plan: HD as per renal-HD yesterday 1kg removed Code(s): Z99.2 - DEPENDENCE ON RENAL DIALYSIS (9) Prophylactic measure Assessment/Plan: FEN Fluids: additional water in TF Electrolytes: monitor & replete as needed Nutrition: Nepro tube feeds DVT c/w pixaban Dispo full code discharge back to [facility] Code(s): Z29.9 - ENCOUNTER FOR PROPHYLACTIC MEASURES, UNSPECIFIED (10) Hypotension Assessment/Plan: resolved treated with abx, fluids, wound debridement c/w midodrine Code(s): I95.9 - HYPOTENSION, UNSPECIFIED Qualifiers: Hypotension type: other hypotension type Qualified Code(s): I95.89 - Other hypotension (11) COVID-19 ruled out Assessment/Plan: negative pcr x 2 Code(s): Z03.818 - ENCNTR FOR OBS FOR SUSP EXPSR TO OTH BIOLG AGENTS RULED OUT (12) ESRD (end stage renal disease) Assessment/Plan: HD as per renal // Code(s): N18.6 - END STAGE RENAL DISEASE (13) halfway resident Assessment/Plan: return to [facility] Code(s): Z59.3 - PROBLEMS RELATED TO LIVING IN RESIDENTIAL INSTITUTION (14) Sepsis Assessment/Plan: Sepsis in the setting of infected stage 4 sacral wound. s/p wound debridement on 05/07/2020. WBC 9 completed Zosyn course and now switchwd to augmentin x 7 days vac dressing to be placed Code(s): A41.9 - SEPSIS, UNSPECIFIED ORGANISM (15) S/P debridement Assessment/Plan: s/p wound debridement on 05/07/2020. vac dressing to change [facility] Code(s): Z98.890 - OTHER SPECIFIED POSTPROCEDURAL STATES VAC CARE:(as per surgery) Area should be cleansed. Prepped/draped. Black foam tailored to fit just inside of wound borders to encourage wound contracture. An occlusive dressing applied. Suction disc placed in location so as not to be uncomfortable for the patient or cause any pressure point (foam bridge to hip as necessary). Good seal as verified by c omplete foam collapse and no leak on unit monitor. Pressure set to 125 mmHg, continuous. Stable for discharge back to [facility] Minutes to complete discharge: 55 Discharge Summary Problems reviewed: Yes Reason For Visit: URINARY TRACT INFECTION Current Active Problems Afib (Acute) COVID-19 ruled out (Acute) ESRD (end stage renal disease) (Acute) Functional quadriplegia (Acute) HTN (hypertension) (Acute) Hemodialysis status (Acute) History of CVA (cerebrovascular accident) (Acute) Hypotension (Acute) Morbid obesity (Acute) halfway resident (Acute) Prophylactic measure (Acute) S/P debridement (Acute) Sacral decubitus ulcer, stage IV (Acute) Seizure (Acute) Sepsis (Acute) Suspected COVID-19 virus infection (Acute) Tracheostomy in place (Acute) Condition: Improved - Instructions Diet, Activity, Other Instructions: DISCHARGE YOUR VISIT You came to the hospital because you had low blood pressure and a sacral wound infection. You were found to have a chronic infection of the Sacral Decubiti. The wounds was surgically debrided and a VAC dressing was applied This should continue in rehab. You were treated with ZOSYN and now will continue AUGMENTIN for 7 more days. While you were here your PEG tube became displaced and it was replaced. Continue with dialysis as per your schedule MEDICATIONS Please continue to take your home medications as prescribed. There was no changes NEW AUGMENTIN BID x 7 days DIET Continue your home diet. Tube feeds Nepro ADDITIONAL CARE Please make an appointment to see your primary care provider, 2 week from today. ADDITIONAL INFORMATION Please call 911 or come directly to the emergency department if you experience unusual headache, vision change, shortness of breath, chest pain, numbness, tingling, loss of alertness/awareness, loss of function, unusual bleeding or any alarming symptoms. Thank you for allowing me to care for you. Sascha Man, TYLER, [facility] [phone] Referrals: Claire Clayton MD [Primary Care Provider] - Disposition: NURSING HOME FACILITY - Home Medications Comprehensive Discharge Medication List: Ambulatory Orders Acetaminophen 650 mg GT Q6H PRN 04/30/20 Albuterol 2.5/Ipratropium 0.5 [Duoneb -] 1 amp NEB Q6H 04/30/20 Apixaban [Eliquis] 2.5 mg GT BID 04/30/20 Ascorbate Calcium [Vitamin C] 500 mg GT BID 04/30/20 Atorvastatin Ca [Lipitor] 40 mg GT HS 04/30/20 Budesonide [Pulmicort 0.5 mg Nebulizer -] 1 neb NEB BID 04/30/20 Chlorhexidine Gluconate [Peridex -] 15 ml MM BID 04/30/20 Collagenase Clostridium Hist. [Santyl -] 1 applic TP DAILY 04/30/20 Gabapentin [Neurontin -] 300 mg GT TID 04/30/20 Loperamide HCl [Loperamide] 2 mg GT BID PRN 04/30/20 Metoprolol Tartrate [Lopressor -] 25 mg GT BID 04/30/20 Midodrine HCl 10 mg GT TID 04/30/20 Nystatin Ointment [Mycostatin Ointment -] 1 applic TP BID 04/30/20 Omeprazole 20 mg GT DAILY 04/30/20 Quetiapine Fumarate [Seroquel -] 50 mg GT BID 04/30/20 levETIRAcetam [Levetiracetam] 500 mg GT Q48H 04/30/20 Acetaminophen Oral Solution [Tylenol Oral Solution -] 325 mg GT Q6H PRN soln.oral 05/15/20 Ammonium Lactate Lotion [Lac-Hydrin 12] 1 applic TP DAILY PRN bottle 05/15/20 Ascorbic Acid [Vitamin C Oral Solution -] 500 mg GT DAILY ml 05/15/20 Atorvastatin Ca [Lipitor] 40 mg GT HS tablet 05/15/20 Collagenase Clostridium Hist. [Santyl -] 1 applic TP DAILY tube 05/15/20 Famotidine [Pepcid] 10 mg NGT HS oral.susp 05/15/20 Gabapentin Liquid [Neurontin Oral Liquid -] 300 mg GT TID ml 05/15/20 Metoprolol Tartrate [Lopressor -] 25 mg GT BID tablet 05/15/20 Midodrine HCl [Proamatine -] 10 mg GT TID-MID tablet 05/15/20 Morphine Sulfate 1 mg IVPUSH Q4H PRN vial 05/15/20 Nystatin Ointment [Mycostatin Ointment -] 1 applic TP BID applic 05/15/20 levETIRAcetam [Keppra Oral Solution -] 500 mg GT Q48H cup 05/15/20 Prescription Drug Monitoring Program (I-STOP) results: I-STOP reviewed and no issues identified Problem List - Problems (1) Functional quadriplegia Code(s): R53.2 - FUNCTIONAL QUADRIPLEGIA (2) History of CVA (cerebrovascular accident) Code(s): Z86.73 - PRSNL HX OF TIA (TIA), AND CEREB INFRC W/O RESID DEFICITS (3) Tracheostomy in place Code(s): Z93.0 - TRACHEOSTOMY STATUS (4) Afib Code(s): I48.91 - UNSPECIFIED ATRIAL FIBRILLATION (5) Seizure Code(s): R56.9 - UNSPECIFIED CONVULSIONS (6) Morbid obesity Code(s): E66.01 - MORBID (SEVERE) OBESITY DUE TO EXCESS CALORIES (7) Sacral decubitus ulcer, stage IV Code(s): L89.154 - PRESSURE ULCER OF SACRAL REGION, STAGE 4 (8) Hemodialysis status Code(s): Z99.2 - DEPENDENCE ON RENAL DIALYSIS (9) Prophylactic measure Code(s): Z29.9 - ENCOUNTER FOR PROPHYLACTIC MEASURES, UNSPECIFIED (10) Hypotension Code(s): I95.9 - HYPOTENSION, UNSPECIFIED Qualifiers: Hypotension type: other hypotension type Qualified Code(s): I95.89 - Other hypotension (11) COVID-19 ruled out Code(s): Z03.818 - ENCNTR FOR OBS FOR SUSP EXPSR TO OTH BIOLG AGENTS RULED OUT (12) ESRD (end stage renal disease) Code(s): N18.6 - END STAGE RENAL DISEASE (13) halfway resident Code(s): Z59.3 - PROBLEMS RELATED TO LIVING IN RESIDENTIAL INSTITUTION (14) Sepsis Code(s): A41.9 - SEPSIS, UNSPECIFIED ORGANISM (15) S/P debridement Code(s): Z98.890 - OTHER SPECIFIED POSTPROCEDURAL STATES This patient is new to me today: No Emergency Visit: Yes ED Registration Date: 04/30/20 Care time: The patient presented to the Emergency Department on the above date and was hospitalized for further evaluation of their emergent condition. Critical Care patient: No - Discharge Referral Referred to [facility] No
[2020-05-16] MEDS: BUDESONIDE 0.5 MG/2 ML INH SUSP VIAL NEB SCH (07:58)
[2020-05-16] MEDS: ALBUTEROL SO4 2.5/IPRATROPIUM 0.5 INH SOL 3 ML VIAL.NEB. NEB SCH ×3 (07:58→15:19)
[2020-05-16] MEDS ORDERED: QUEtiapine FUMARATE 25 MG TABLET ONE (09:39)
[2020-05-16 09:47] LABS: BASO % 0.8 % (0-2.0); EOS % 3.1 % (0-4.5); HEMATOCRIT 27.3 % (35.4-49); HEMOGLOBIN 8.9 GM/dL (11.7-16.9); LYMPH % 16.8 % (8-40); MCH 30.5 pg (25.7-33.7); MCHC 32.8 g/dl (32.0-35.9); MEAN PLT VOLUME 7.9 fl (7.5-11.1); MONO % 7.3 % (3.8-10.2); PLATELET COUNT 295 K/MM3 (134-434); RBC 2.93 M/mm3 (4.00-5.60); RDW 16.3 % (11.9-15.9); WHITE BLOOD COUNT 9.7 K/mm3 (4.0-10.0)
[2020-05-16 10:02] LABS: POTASSIUM 3.6 mmol/L (3.5-5.1)
[2020-05-16 10:08] LABS: ALBUMIN 2.1 g/dl (3.4-5.0); BLOOD UREA NITROGEN 17.8 mg/dL (7-18); CALCIUM 10.1 mg/dL (8.5-10.1)
[2020-05-16 10:09] LABS: MAGNESIUM 1.9 mg/dL (1.8-2.4)
[2020-05-16 10:11] LABS: CREATININE 2.6 mg/dL (0.55-1.3)
[2020-05-16 10:13] LABS: BILIRUBIN,TOTAL 0.3 mg/dL (0.2-1); TOT PROT 6.6 g/dl (6.4-8.2)
[2020-05-16] MEDS: MIDODRINE HCL 5 MG TABLET GT SCH ×3 (10:35→17:20)
[2020-05-16] MEDS: AMOX TR/POTASSIUM CLAVULANATE 250 MG/5 ML BOTTLE PO SCH ×2 (10:35→17:21)
[2020-05-16] MEDS: APIXABAN 2.5 MG TABLET GT SCH (10:36)
[2020-05-16] MEDS: QUEtiapine FUMARATE 50 MG TABLET GT SCH (10:36)
[2020-05-16] MEDS: COLLAGENASE CLOSTRIDIUM HIST. 30 GRAMS TUBE TP SCH (10:37)
[2020-05-16] MEDS: ASCORBIC ACID 500 MG/5 ML GT SCH (10:37)
[2020-05-16] MEDS: NYSTATIN 100000 UNIT/GM TOPICAL OINTMENT 15 GM TUBE TP SCH (10:37)
[2020-05-16] MEDS: METOPROLOL TARTRATE 25 MG TABLET (FP) GT SCH (10:46)
--- NOTE | 2020-05-16 11:03 | PN ---
Progress Note, Physician History of Present Illness: stable plan for wound vac in the senior living - Current Medication List Current Medications: Active Medications Acetaminophen (Tylenol Oral Solution -) 325 mg GT Q6H PRN PRN Reason: FEVER Last Admin: 05/15/20 09:20 Dose: 325 mg Documented by: Albuterol Sulfate (Ventolin Hfa Inhaler -) 2 puff IH Q4H PRN PRN Reason: SHORTNESS OF BREATH Albuterol/Ipratropium (Duoneb -) 1 amp NEB RQID [facility] Last Admin: 05/16/20 07:58 Dose: 1 amp Documented by: Amoxicillin/Clavulanate Potassium (Augmentin 250 Mg/5 Ml Oral Suspension -) 875 mg PO BID@0800,1730 [facility] Stop: 05/17/20 08:01 Last Admin: 05/16/20 10:35 Dose: 875 mg Documented by: Apixaban (Eliquis -) 2.5 mg GT BID [facility] Last Admin: 05/16/20 10:36 Dose: 2.5 mg Documented by: Ascorbic Acid (Vitamin C Oral Solution -) 500 mg GT DAILY [facility] Last Admin: 05/16/20 10:37 Dose: 5 ml Documented by: Atorvastatin Calcium (Lipitor -) 40 mg GT [facility] Last Admin: 05/15/20 21:34 Dose: 40 mg Documented by: Budesonide (Pulmicort 0.5 Mg Nebulizer -) 1 amp NEB RBID [facility] Last Admin: 05/16/20 07:58 Dose: 1 amp Documented by: Collagenase (Santyl -) 1 applic TP DAILY [facility]; Protocol Last Admin: 05/16/20 10:37 Dose: 1 applic Documented by: Famotidine (Pepcid) 10 mg NGT HS [facility] Last Admin: 05/15/20 22:55 Dose: 10 mg Documented by: Gabapentin (Neurontin Oral Liquid -) 300 mg GT TID [facility] Last Admin: 05/16/20 05:17 Dose: 300 mg Documented by: Lactic Acid (Lac-Hydrin 12) 1 applic TP DAILY PRN PRN Reason: xerosis Levetiracetam (Keppra Oral Solution -) 500 mg GT Q48H [facility] Last Admin: 05/14/20 23:11 Dose: 500 mg Documented by: Metoprolol Tartrate (Lopressor -) 25 mg GT BID [facility] Last Admin: 05/16/20 10:46 Dose: 25 mg Documented by: Midodrine (Proamatine -) 10 mg GT TID-MID [facility] Last Admin: 05/16/20 10:35 Dose: 10 mg Documented by: Morphine Sulfate (Morphine Sulfate) 1 mg IVPUSH Q4H PRN PRN Reason: PAIN LEVEL 7 - 10 Last Admin: 05/15/20 17:45 Dose: 1 mg Documented by: Nystatin (Mycostatin Ointment -) 1 applic TP BID [facility] Last Admin: 05/16/20 10:37 Dose: 1 applic Documented by: Quetiapine Fumarate (Seroquel -) 50 mg GT BID [facility] Last Admin: 05/16/20 10:36 Dose: 50 mg Documented by: - Objective Vital Signs: Vital Signs Temperature 98.2 F 05/16/20 05:47 Pulse Rate 90 05/16/20 07:57 Respiratory Rate 18 05/16/20 05:47 Blood Pressure 151/80 05/16/20 05:47 O2 Sat by Pulse Oximetry (%) 99 05/16/20 07:57 Constitutional: Yes: No Distress, Calm Cardiovascular: Yes: S1, S2 Respiratory: Yes: Regular, CTA Bilaterally Gastrointestinal: Yes: Normal Bowel Sounds, Soft Musculoskeletal: Yes: WNL Extremities: Yes: Other Wound/Incision: Yes: Dressing Dry and Intact, Other (decubitus ulcer) Labs: CBC, BMP 05/16/20 08:40 05/16/20 08:40 INR, PTT INR 1.21 (0.83-1.09) H 05/13/20 07:30 Assessment/Plan 50 M Sepsis 2/2 infected Stage 4 decubitus ulcer Afib on Eliquis HTN HLD Dysphagia s/p trach PEG non-ambulatory Non-verbal Morbidly obese Seizure disorder ESRD on HD plan can change to oral abx couple of days wound vac plan to be done in senior living rest as per the team
--- NOTE | 2020-05-16 11:15 | PN ---
Progress Note (short form) - Note Progress Note: RENAL Awake and alert makes eye contact being cleaned Last Vital Signs Temp Pulse Resp BP Pulse Ox 98.6 F 93 H 19 104/62 99 05/16/20 10:02 05/16/20 10:02 05/16/20 10:02 05/16/20 10:02 05/16/20 10:02 trach lungs clear cvs s1s2 rr abd soft ext no edema neuro alert, nods to answer question CBC, BMP 05/16/20 08:40 05/16/20 08:40 Current Medications Generic Name Dose Route Start Last Admin Trade Name Freq PRN Reason Stop Dose Admin Acetaminophen 325 mg 05/12/20 15:15 05/15/20 09:20 Tylenol Oral Solution - GT 325 mg Q6H PRN Administration FEVER Albuterol Sulfate 2 puff 05/12/20 15:15 Ventolin Hfa Inhaler - IH Q4H PRN SHORTNESS OF BREATH Albuterol/Ipratropium 1 amp 05/12/20 16:00 05/16/20 07:58 Duoneb - NEB 1 amp RQID EMETERIO Administration Amoxicillin/Clavulanate Potassium 875 mg 05/16/20 08:00 05/16/20 10:35 Augmentin 250 Mg/5 Ml Oral Suspension - PO 05/17/20 08:01 875 mg BID@0800,1730 EMETERIO Administration Apixaban 2.5 mg 05/12/20 22:00 05/16/20 10:36 Eliquis - GT 2.5 mg BID EMETERIO Administration Ascorbic Acid 500 mg 05/13/20 10:00 05/16/20 10:37 Vitamin C Oral Solution - GT 5 ml DAILY EMETERIO Administration Atorvastatin Calcium 40 mg 05/12/20 22:00 05/15/20 21:34 Lipitor - GT 40 mg HS EMETERIO Administration Budesonide 1 amp 05/12/20 20:00 05/16/20 07:58 Pulmicort 0.5 Mg Nebulizer - NEB 1 amp RBID EMETERIO Administration Collagenase 1 applic 05/13/20 10:00 05/16/20 10:37 Santyl - TP 1 applic DAILY EMETERIO Administration Protocol Famotidine 10 mg 05/12/20 22:00 05/15/20 22:55 Pepcid NGT 10 mg HS EMETERIO Administration Gabapentin 300 mg 05/12/20 22:00 05/16/20 05:17 Neurontin Oral Liquid - GT 300 mg TID EMETERIO Administration Lactic Acid 1 applic 05/12/20 15:15 Lac-Hydrin 12 TP DAILY PRN xerosis Levetiracetam 500 mg 05/12/20 22:00 05/14/20 23:11 Keppra Oral Solution - GT 500 mg Q48H EMETERIO Administration Metoprolol Tartrate 25 mg 05/12/20 22:00 05/16/20 10:46 Lopressor - GT 25 mg BID EMETERIO Administration Midodrine 10 mg 05/12/20 18:00 05/16/20 10:35 Proamatine - GT 10 mg TID-MID EMETERIO Administration Morphine Sulfate 1 mg 05/12/20 15:15 05/15/20 17:45 Morphine Sulfate IVPUSH 1 mg Q4H PRN Administration PAIN LEVEL 7 - 10 Nystatin 1 applic 05/12/20 22:00 05/16/20 10:37 Mycostatin Ointment - TP 1 applic BID EMETERIO Administration Quetiapine Fumarate 50 mg 05/12/20 22:00 05/16/20 10:36 Seroquel - GT 50 mg BID EMETERIO Administration IMPRESSION ESRD sepsis secondary to decubitus s/p trach functional quadriplegia due to cva anemia leukocytosis improved hypercalcemia- with appropriately blocked pth PLAN antibiotics per id s/p debridement continue hd tiw will need a low calcium bath MV
[2020-05-16] MEDS ORDERED: SODIUM CHLORIDE 250 ML IV PRN (11:20)
[2020-05-16] MEDS ORDERED: EPOETIN ALFA-EPBX 4,000 UNIT/ML VIAL SQ ONE (11:45)
[2020-05-16] MEDS ORDERED: PT OWN MED DRAWER 7, Y5N ONE (13:30)
[2020-05-16] MEDS: MORPHINE SULFATE 2 MG/ML VIAL IVPUSH PRN (13:37)
[2020-05-16 15:56] VITALS: BP 107/87; PULSE 107; TEMP 98.3
--- NOTE | 2020-05-29 11:23 | OP ---
DATE OF OPERATION: 05/07/2020 PREOPERATIVE DIAGNOSIS: Stage 4 sacral ulcer, necrotic. POSTOPERATIVE DIAGNOSIS: Stage 4 sacral ulcer, necrotic. PROCEDURE: Excisional debridement of skin and subcutaneous tissue, muscle, and sacrum. SURGEON: John Mauricio DO ANESTHESIA: General. BLOOD LOSS: 30 mL. INDICATIONS: Patient is a 50-year-old male that has a stage 4 sacral ulcer that is necrotic. Medical Team consulted Vascular Surgery for debridement. Patient was cleared by the medicine team for surgery. Patient's family consented for the procedure understanding all risks, benefits, and alternatives and was then taken to the operating room. DESCRIPTION OF PROCEDURE: Once in the operating room, placed on the operating table in the supine manner and then was changed to left side down. The sacrum was then exposed. The sacrum was then prepped and draped with betadine in a sterile surgical manner. We then went ahead and injected 15 mL of lidocaine 1% in the area. We then went ahead and used a number 15 blade and excised all the necrotic tissue including skin, subcutaneous tissue, and muscle. Bovie electrocautery was used to control hemostasis. Bovie electrocautery was used to excise all the remaining necrotic tissue. The wound was then well irrigated. We then used saline-moist dressing, ABD pads, 4 x 4's and tape. Patient tolerated the procedure with no complications. Total blood loss was 30 mL. Patient transferred to the PACU in stable condition. JOHN MAURICIO DO PAD [id number]
== END 2020-05-16 18:23 | DRG 710 ==
LOC: JER 11:34 → JERBED 16:51 → J4W 05-01 02:26 → J4S 05-12 17:03
PROVIDERS: ATTEND Nurse Practitioner Acute Care
PROC: 0KBN0ZZ Excision of Right Hip Muscle, Open Approach (ICD-10-PCS; principal; 2020-05-07 14:30)
PROC: 0HBRXZZ Excision of Toe Nail, External Approach (ICD-10-PCS; 2020-05-09)
PROC: 2W15X6Z Compression of Back using Pressure Dressing (ICD-10-PCS; 2020-05-12)
PROC: 0DH63UZ Insertion of Feeding Device into Stomach, Percutaneous Approach (ICD-10-PCS; 2020-05-13)
PROC: BD12ZZZ Fluoroscopy of Stomach (ICD-10-PCS; 2020-05-13)
PROC: 3E0G36Z Introduction of Nutritional Substance into Upper GI, Percutaneous Approach (ICD-10-PCS; 2020-05-13)
PROC: 5A1D70Z Performance of Urinary Filtration, Intermittent, Less than 6 Hours Per Day (ICD-10-PCS; 2020-05-15)
DX: A41.9 Sepsis, unspecified organism (principal); E66.01 Morbid (severe) obesity due to excess calories; Z68.41 Body mass index [BMI] 40.0-44.9, adult; Z99.2 Dependence on renal dialysis; F20.9 Schizophrenia, unspecified; L89.154 Pressure ulcer of sacral region, stage 4; D72.829 Elevated white blood cell count, unspecified; R65.20 Severe sepsis without septic shock; D63.1 Anemia in chronic kidney disease; N39.0 Urinary tract infection, site not specified; I69.354 Hemiplegia and hemiparesis following cerebral infarction affecting left non-dominant side; Z93.0 Tracheostomy status; B35.1 Tinea unguium; L85.3 Xerosis cutis; Z93.8 Other artificial opening status; E83.52 Hypercalcemia; K94.23 Gastrostomy malfunction; I48.91 Unspecified atrial fibrillation; E87.2 Acidosis; I96 Gangrene, not elsewhere classified; R53.2 Functional quadriplegia; I13.11 Hypertensive heart and chronic kidney disease without heart failure, with stage 5 chronic kidney disease, or end stage renal disease; N18.6 End stage renal disease; I95.89 Other hypotension
CPT/HCPCS: 36415; 49440; 71045-TC-FY; 80048; 80053; 81003; 82306; 82310; 82652; 82962; 83605; 83735; 83970; 84100; 84484; 85025; 85027; 85610; 86803; 87040; 87070; 87077; 87086; 87205; 87324; 87340; 87449; 88304-TC; 93005; 93010; 94640; 94760; 97162-GP; 99285-25; C9803; E0194; J0131; Q5106; U0003

== ENCOUNTER 2020-06-07 12:20 | Inpatient (IN) | payer OTHER ==
[2020-06-07] MEDS ORDERED: VANCOMYCIN 1 GM in D5W (PRE-DOCKED) 1,000 MG/250 ML IVPB ONE (13:23)
[2020-06-07] MEDS ORDERED: DEXAMETHASONE SOD PHOSPHATE 10 MG/1 ML VIAL IVPUSH ONE (13:23)
[2020-06-07] MEDS ORDERED: PIPERACILLIN/TAZOB 4.5 GM 4.5 GM in DEXTROSE 5%-WATER 100 ML IVPB ONE (13:23)
[2020-06-07 13:53] LABS: BASO % 0.2 % (0-2.0); EOS % 0.6 % (0-4.5); HEMATOCRIT 27.3 % (35.4-49); HEMOGLOBIN 8.8 GM/dL (11.7-16.9); LYMPH % 6.4 % (8-40); MCH 30.4 pg (25.7-33.7); MCHC 32.3 g/dl (32.0-35.9); MEAN CELL VOLUME 94.2 fl (80-96); MEAN PLT VOLUME 7.7 fl (7.5-11.1); MONO % 4.7 % (3.8-10.2); NEUT % 88.1 % (42.8-82.8); PLATELET COUNT 448 K/MM3 (134-434)
[2020-06-07 13:55] LABS: VENOUS BASE EXCESS -1.7 mmol/L (-2-2); VENOUS O2 SATURATION 43.4 % (70-80); VENOUS PH 7.33 (7.310-7.410)
[2020-06-07] MEDS ORDERED: PIPERACILLIN/TAZOB 4.5 GM 4.5 GM/100 ML BAG IVPB ONE (13:56)
[2020-06-07] MEDS ORDERED: DEXAMETHASONE SOD PHOSPHATE 4 MG/1 ML VIAL ONE (13:56)
[2020-06-07] MEDS ORDERED: VANCOMYCIN 1 GRAM (PRE-DOCKED) 1,000 MG/250 ML BAG IVPB ONE (13:57)
[2020-06-07 14:03] LABS: INR 1.31 (0.83-1.09); PROTHROMBIN TIME (PATIENT) 15.7 SEC (9.7-13.0)
[2020-06-07 14:06] LABS: ACTIVATED PTT 30.9 SECONDS (25.2-36.5)
[2020-06-07 14:07] LABS: POTASSIUM 3.4 mmol/L (3.5-5.1)
[2020-06-07 14:09] LABS: CALCIUM 9.9 mg/dL (8.5-10.1)
[2020-06-07] MEDS ORDERED: AZITHROMYCIN IVPB 500 MG in DEXTROSE 5%-WATER - 250 ML IVPB ONE (14:09)
[2020-06-07 14:10] LABS: ALBUMIN 1.9 g/dl (3.4-5.0); BLOOD UREA NITROGEN 34.7 mg/dL (7-18)
[2020-06-07 14:13] LABS: CREATININE 3.6 mg/dL (0.55-1.3)
[2020-06-07 14:14] LABS: BILIRUBIN,TOTAL 0.3 mg/dL (0.2-1)
[2020-06-07 14:15] LABS: TOT PROT 7.1 g/dl (6.4-8.2)
[2020-06-07 14:57] LABS: LDH 121 U/L (87-246)
[2020-06-07] MEDS ORDERED: AZITHROMYCIN IVPB 500 MG/250 ML BAG IVPB ONE (15:13)
[2020-06-08] MEDS ORDERED: MORPHINE SULFATE 2 MG/ML VIAL IVPUSH PRN ×2 (02:43→06:01)
[2020-06-08] MEDS ORDERED: ACETAMINOPHEN 325 MG TABLET (FP) PO PRN ×2 (02:43→06:01)
[2020-06-08] MEDS ORDERED: LOPERAMIDE HCL 2 MG CAPSULE GT PRN ×2 (02:43→06:01)
[2020-06-08] MEDS ORDERED: AMMONIUM LACTATE 12% LOTION 225 GM BOTTLE TP PRN ×2 (02:43→06:01)
[2020-06-08] MEDS ORDERED: METOPROLOL TARTRATE 25 MG TABLET (FP) GT ONE (02:48)
[2020-06-08] MEDS ORDERED: APIXABAN 2.5 MG TABLET GT ONE (02:48)
[2020-06-08] MEDS ORDERED: PIPERACILLIN/TAZOB 2.25 GM 2.25 GM in DEXTROSE 5%-WATER - 50 ML IVPB SCH (03:00)
[2020-06-08] MEDS ORDERED: DEXTROSE 5%-WATER - 50 ML IVPB ONE ×4 (05:30→20:02)
[2020-06-08] MEDS ORDERED: PIPERACILLIN/TAZOBACTAM 2.25 GM VIAL IVPB ONE ×5 (05:30→22:28)
[2020-06-08] MEDS ORDERED: GABAPENTIN 250 MG/5 ML ORAL SOLUTION, 470 ML BOTTLE GT SCH (06:00)
[2020-06-08 07:32] LABS: POTASSIUM 3.9 mmol/L (3.5-5.1)
[2020-06-08 07:35] LABS: BLOOD UREA NITROGEN 39.4 mg/dL (7-18); CALCIUM 9.9 mg/dL (8.5-10.1); MAGNESIUM 2.3 mg/dL (1.8-2.4)
[2020-06-08 07:38] LABS: CREATININE 4.3 mg/dL (0.55-1.3); PHOSPHOROUS 4.3 mg/dL (2.5-4.9)
[2020-06-08 07:39] LABS: BILIRUBIN,TOTAL 0.3 mg/dL (0.2-1)
[2020-06-08 07:40] LABS: TOT PROT 6.8 g/dl (6.4-8.2)
[2020-06-08 07:43] LABS: BASO % 0.2 % (0-2.0); EOS % 0.5 % (0-4.5); HEMATOCRIT 25.7 % (35.4-49); HEMOGLOBIN 8.2 GM/dL (11.7-16.9); LYMPH % 12.8 % (8-40); MCH 29.6 pg (25.7-33.7); MCHC 31.9 g/dl (32.0-35.9); MEAN CELL VOLUME 92.8 fl (80-96); MEAN PLT VOLUME 7.8 fl (7.5-11.1); NEUT % 81.5 % (42.8-82.8); PLATELET COUNT 466 K/MM3 (134-434); RBC 2.77 M/mm3 (4.00-5.60); RDW 15.8 % (11.9-15.9); WHITE BLOOD COUNT 17.3 K/mm3 (4.0-10.0)
[2020-06-08] MEDS ORDERED: ALBUTEROL SO4 2.5/IPRATROPIUM 0.5 INH SOL 3 ML VIAL.NEB. NEB SCH ×2 (08:00)
[2020-06-08] MEDS: PIPERACILLIN/TAZOB 2.25 GM 2.25 GM in DEXTROSE 5%-WATER - 50 ML IVPB SCH ×4 (08:14→20:30)
[2020-06-08] MEDS ORDERED: METOPROLOL TARTRATE 25 MG TABLET (FP) GT SCH ×2 (10:00)
[2020-06-08] MEDS ORDERED: PATIENT'S OWN MEDICATION (NON-FORMULARY) (Omeprazole 20 MG) GT SCH ×2 (10:00)
[2020-06-08] MEDS ORDERED: APIXABAN 2.5 MG TABLET GT SCH (10:00)
[2020-06-08] MEDS ORDERED: CHLORHEXIDINE GLUCONATE 0.12% 15ML CUP MM SCH (10:00)
[2020-06-08] MEDS ORDERED: levETIRAcetam 500 MG/5 ML ORAL SOLUTION (UNIT-DOSE CUPS) GT SCH (10:00)
[2020-06-08] MEDS ORDERED: NYSTATIN 100000 UNIT/GM TOPICAL OINTMENT 15 GM TUBE TP SCH (10:00)
[2020-06-08] MEDS ORDERED: ASCORBIC ACID 500 MG/5 ML UNIT DOSE CUP GT SCH (10:00)
[2020-06-08] MEDS ORDERED: COLLAGENASE CLOSTRIDIUM HIST. 30 GRAMS TUBE TP SCH (10:00)
[2020-06-08] MEDS ORDERED: QUEtiapine FUMARATE 50 MG TABLET GT SCH (10:00)
[2020-06-08] MEDS ORDERED: DEXAMETHASONE SOD PHOSPHATE 4 MG/1 ML VIAL IVPUSH SCH ×2 (10:00)
[2020-06-08] MEDS ORDERED: PT OWN MED DRAWER 7, Y5N ONE ×2 (10:40→22:23)
[2020-06-08] MEDS ORDERED: QUEtiapine FUMARATE 25 MG TABLET ONE ×2 (10:40→22:22)
[2020-06-08] MEDS: METOPROLOL TARTRATE 25 MG TABLET (FP) GT SCH ×2 (10:59→22:30)
[2020-06-08] MEDS: QUEtiapine FUMARATE 50 MG TABLET GT SCH ×2 (10:59→22:30)
[2020-06-08] MEDS: levETIRAcetam 500 MG/5 ML ORAL SOLUTION (UNIT-DOSE CUPS) GT SCH (11:00)
[2020-06-08] MEDS: ASCORBIC ACID 500 MG/5 ML UNIT DOSE CUP GT SCH (11:00)
[2020-06-08] MEDS: APIXABAN 2.5 MG TABLET GT SCH ×2 (11:02→22:30)
[2020-06-08] MEDS: NYSTATIN 100000 UNIT/GM TOPICAL OINTMENT 15 GM TUBE TP SCH (11:03)
[2020-06-08] MEDS: COLLAGENASE CLOSTRIDIUM HIST. 30 GRAMS TUBE TP SCH (11:05)
[2020-06-08] MEDS ORDERED: VANCOMYCIN 1 GRAM (PRE-DOCKED) 1,000 MG/250 ML BAG IVPB ONE (13:00)
[2020-06-08] MEDS: CHLORHEXIDINE GLUCONATE 0.12% 15ML CUP MM SCH (15:10)
[2020-06-08] MEDS: GABAPENTIN 250 MG/5 ML ORAL SOLUTION, 470 ML BOTTLE GT SCH ×2 (15:11→22:30)
[2020-06-08] MEDS: ACETYLCYSTEINE 20% 200MG/ML 4 ML VIAL *FOR ORAL / INH USE ONLY NEB SCH (20:30)
[2020-06-08] MEDS ORDERED: FAMOTIDINE 40 MG/5 ML ORAL SUSPENSION NGT SCH (22:00)
[2020-06-08] MEDS ORDERED: ATORVASTATIN CA 40 MG TABLET (FP) GT SCH (22:00)
[2020-06-08] MEDS: FAMOTIDINE 40 MG/5 ML ORAL SUSPENSION NGT SCH (22:30)
[2020-06-08] MEDS: ATORVASTATIN CA 40 MG TABLET (FP) GT SCH (22:30)
[2020-06-09] MEDS: NYSTATIN 100000 UNIT/GM TOPICAL OINTMENT 15 GM TUBE TP SCH ×3 (00:41→21:02)
[2020-06-09] MEDS: CHLORHEXIDINE GLUCONATE 0.12% 15ML CUP MM SCH ×2 (00:42→13:45)
[2020-06-09] MEDS: PIPERACILLIN/TAZOB 2.25 GM 2.25 GM in DEXTROSE 5%-WATER - 50 ML IVPB SCH ×4 (02:13→21:00)
[2020-06-09] MEDS ORDERED: PIPERACILLIN/TAZOB 2.25 GM 2.25 GM in DEXTROSE 5%-WATER - 50 ML IVPB SCH (03:00)
[2020-06-09] MEDS ORDERED: PT OWN MED DRAWER 7, Y5N ONE ×2 (05:23→20:48)
[2020-06-09] MEDS: GABAPENTIN 250 MG/5 ML ORAL SOLUTION, 470 ML BOTTLE GT SCH ×3 (05:28→21:01)
[2020-06-09 07:28] LABS: POTASSIUM 3.4 mmol/L (3.5-5.1)
[2020-06-09 07:30] LABS: CALCIUM 9.3 mg/dL (8.5-10.1)
[2020-06-09 07:31] LABS: ALBUMIN 1.9 g/dl (3.4-5.0)
[2020-06-09 07:32] LABS: BASO % 0.5 % (0-2.0); EOS % 1.6 % (0-4.5); HEMOGLOBIN 7.7 GM/dL (11.7-16.9); LYMPH % 12.5 % (8-40); MCH 29.9 pg (25.7-33.7); MEAN CELL VOLUME 93.4 fl (80-96); MEAN PLT VOLUME 7.6 fl (7.5-11.1); MONO % 6.4 % (3.8-10.2); PLATELET COUNT 475 K/MM3 (134-434); RBC 2.57 M/mm3 (4.00-5.60); RDW 16.4 % (11.9-15.9); WHITE BLOOD COUNT 15.3 K/mm3 (4.0-10.0)
[2020-06-09 07:34] LABS: CREATININE 4.9 mg/dL (0.55-1.3); PHOSPHOROUS 4.1 mg/dL (2.5-4.9)
[2020-06-09 07:35] LABS: BILIRUBIN,TOTAL 0.4 mg/dL (0.2-1); TOT PROT 6.8 g/dl (6.4-8.2)
[2020-06-09] MEDS: ACETYLCYSTEINE 20% 200MG/ML 4 ML VIAL *FOR ORAL / INH USE ONLY NEB SCH ×2 (08:21→20:25)
[2020-06-09] MEDS ORDERED: POTASSIUM CHLORIDE TABS 20 MEQ TABLET.ER (FP) PO ONE (08:37)
[2020-06-09] MEDS ORDERED: POTASSIUM CHLORIDE ORAL LIQUID 20 MEQ/15 ML PO ONE (09:13)
[2020-06-09] MEDS ORDERED: EPOETIN ALFA-EPBX 10,000 UNIT/ML VIAL IVPUSH ONE (09:15)
[2020-06-09] MEDS ORDERED: VANCOMYCIN 1 GM in D5W (PRE-DOCKED) 1,000 MG/250 ML IVPB ONE (11:04)
[2020-06-09] MEDS ORDERED: QUEtiapine FUMARATE 25 MG TABLET ONE ×2 (13:09→20:47)
[2020-06-09] MEDS ORDERED: DEXTROSE 5%-WATER - 50 ML IVPB ONE ×2 (13:11→20:48)
[2020-06-09] MEDS ORDERED: PIPERACILLIN/TAZOBACTAM 2.25 GM VIAL IVPB ONE ×2 (13:11→20:48)
[2020-06-09] MEDS: ASCORBIC ACID 500 MG/5 ML UNIT DOSE CUP GT SCH (13:16)
[2020-06-09] MEDS: METOPROLOL TARTRATE 25 MG TABLET (FP) GT SCH ×2 (13:17→21:01)
[2020-06-09] MEDS: QUEtiapine FUMARATE 50 MG TABLET GT SCH ×2 (13:17→21:02)
[2020-06-09] MEDS: APIXABAN 2.5 MG TABLET GT SCH ×2 (13:18→21:01)
[2020-06-09] MEDS: SODIUM HYPOCHLORITE 0.25%- 473 ML BULK BOTTLE TP SCH (13:19)
[2020-06-09] MEDS: COLLAGENASE CLOSTRIDIUM HIST. 30 GRAMS TUBE TP SCH (13:19)
[2020-06-09] MEDS: AMINO ACIDS/PROTEIN HYDROLYS 30 ML LIQUID.PKT PO SCH (17:09)
[2020-06-09] MEDS: ALBUTEROL SO4 0.083% IH SOL 2.5 MG/3 ML VIAL.NEB. NEB PRN (20:26)
[2020-06-09] MEDS: ATORVASTATIN CA 40 MG TABLET (FP) GT SCH (21:01)
[2020-06-09] MEDS: FAMOTIDINE 40 MG/5 ML ORAL SUSPENSION NGT SCH (21:01)
[2020-06-10] MEDS ORDERED: PIPERACILLIN/TAZOBACTAM 2.25 GM VIAL IVPB ONE ×4 (02:31→21:38)
[2020-06-10] MEDS ORDERED: DEXTROSE 5%-WATER - 50 ML IVPB ONE ×4 (02:32→21:38)
[2020-06-10] MEDS: PIPERACILLIN/TAZOB 2.25 GM 2.25 GM in DEXTROSE 5%-WATER - 50 ML IVPB SCH ×4 (02:43→21:41)
[2020-06-10] MEDS: GABAPENTIN 250 MG/5 ML ORAL SOLUTION, 470 ML BOTTLE GT SCH ×3 (05:09→21:41)
[2020-06-10 07:22] LABS: BASO % 0.5 % (0-2.0); EOS % 1.4 % (0-4.5); HEMATOCRIT 27.5 % (35.4-49); HEMOGLOBIN 8.8 GM/dL (11.7-16.9); LYMPH % 10.7 % (8-40); MCH 29.9 pg (25.7-33.7); MEAN CELL VOLUME 93.3 fl (80-96); MEAN PLT VOLUME 7.7 fl (7.5-11.1); MONO % 6.4 % (3.8-10.2); PLATELET COUNT 457 K/MM3 (134-434); RBC 2.95 M/mm3 (4.00-5.60); RDW 16.1 % (11.9-15.9); WHITE BLOOD COUNT 16.8 K/mm3 (4.0-10.0)
[2020-06-10 07:23] LABS: POTASSIUM 3.8 mmol/L (3.5-5.1)
[2020-06-10 07:28] LABS: CALCIUM 9.9 mg/dL (8.5-10.1)
[2020-06-10 07:29] LABS: BLOOD UREA NITROGEN 25.5 mg/dL (7-18); MAGNESIUM 1.8 mg/dL (1.8-2.4)
[2020-06-10 07:32] LABS: PHOSPHOROUS 1.9 mg/dL (2.5-4.9)
[2020-06-10 07:33] LABS: BILIRUBIN,TOTAL 0.4 mg/dL (0.2-1); TOT PROT 7.3 g/dl (6.4-8.2)
[2020-06-10] MEDS: AMINO ACIDS/PROTEIN HYDROLYS 30 ML LIQUID.PKT PO SCH ×2 (08:23→18:06)
[2020-06-10] MEDS: ACETYLCYSTEINE 20% 200MG/ML 4 ML VIAL *FOR ORAL / INH USE ONLY NEB SCH ×2 (08:35→20:58)
[2020-06-10] MEDS ORDERED: NAPH,MB-DB/K PH,MBDB POWDER PACKET PO ONE (09:57)
[2020-06-10] MEDS ORDERED: PT OWN MED DRAWER 7, Y5N ONE ×4 (10:34→21:38)
[2020-06-10] MEDS ORDERED: QUEtiapine FUMARATE 25 MG TABLET ONE ×2 (10:34→21:37)
[2020-06-10] MEDS: QUEtiapine FUMARATE 50 MG TABLET GT SCH ×2 (10:42→21:43)
[2020-06-10] MEDS: METOPROLOL TARTRATE 25 MG TABLET (FP) GT SCH ×2 (10:42→21:42)
[2020-06-10] MEDS: APIXABAN 2.5 MG TABLET GT SCH ×2 (10:42→21:42)
[2020-06-10] MEDS: ASCORBIC ACID 500 MG/5 ML UNIT DOSE CUP GT SCH (10:43)
[2020-06-10] MEDS: levETIRAcetam 500 MG/5 ML ORAL SOLUTION (UNIT-DOSE CUPS) GT SCH (10:43)
[2020-06-10] MEDS: SODIUM HYPOCHLORITE 0.25%- 473 ML BULK BOTTLE TP SCH (10:44)
[2020-06-10] MEDS: COLLAGENASE CLOSTRIDIUM HIST. 30 GRAMS TUBE TP SCH (10:45)
[2020-06-10] MEDS: NYSTATIN 100000 UNIT/GM TOPICAL OINTMENT 15 GM TUBE TP SCH ×2 (10:45→21:43)
[2020-06-10] MEDS ORDERED: ACETAMINOPHEN 650 MG/20.3 ML ORAL SOLUTION (CUPS) PO PRN (20:06)
[2020-06-10] MEDS: ACETAMINOPHEN 650 MG/20.3 ML ORAL SOLUTION (CUPS) GT PRN (20:13)
[2020-06-10] MEDS: FAMOTIDINE 40 MG/5 ML ORAL SUSPENSION NGT SCH (21:41)
[2020-06-10] MEDS: ATORVASTATIN CA 40 MG TABLET (FP) GT SCH (21:42)
[2020-06-11] MEDS ORDERED: PIPERACILLIN/TAZOBACTAM 2.25 GM VIAL IVPB ONE ×4 (01:38→20:46)
[2020-06-11] MEDS ORDERED: DEXTROSE 5%-WATER - 50 ML IVPB ONE ×4 (01:38→20:46)
[2020-06-11] MEDS: PIPERACILLIN/TAZOB 2.25 GM 2.25 GM in DEXTROSE 5%-WATER - 50 ML IVPB SCH ×4 (02:20→22:59)
[2020-06-11] MEDS: ACETAMINOPHEN 650 MG/20.3 ML ORAL SOLUTION (CUPS) GT PRN (02:28)
[2020-06-11] MEDS: GABAPENTIN 250 MG/5 ML ORAL SOLUTION, 470 ML BOTTLE GT SCH ×3 (06:50→22:59)
[2020-06-11 07:02] LABS: BASO % 0.4 % (0-2.0); EOS % 2.1 % (0-4.5); HEMATOCRIT 24.8 % (35.4-49); HEMOGLOBIN 8.1 GM/dL (11.7-16.9); LYMPH % 13.3 % (8-40); MCH 30.1 pg (25.7-33.7); MCHC 32.5 g/dl (32.0-35.9); MEAN CELL VOLUME 92.6 fl (80-96); MEAN PLT VOLUME 7.7 fl (7.5-11.1); MONO % 6.8 % (3.8-10.2); NEUT % 77.4 % (42.8-82.8); PLATELET COUNT 380 K/MM3 (134-434); RBC 2.68 M/mm3 (4.00-5.60); RDW 16.5 % (11.9-15.9); WHITE BLOOD COUNT 15.6 K/mm3 (4.0-10.0)
[2020-06-11] MEDS: ACETYLCYSTEINE 20% 200MG/ML 4 ML VIAL *FOR ORAL / INH USE ONLY NEB SCH ×2 (07:30→20:51)
[2020-06-11] MEDS: ALBUTEROL SO4 0.083% IH SOL 2.5 MG/3 ML VIAL.NEB. NEB PRN ×2 (07:30→20:51)
[2020-06-11 07:37] LABS: POTASSIUM 3.5 mmol/L (3.5-5.1)
[2020-06-11 07:42] LABS: ALBUMIN 1.7 g/dl (3.4-5.0); CALCIUM 9.7 mg/dL (8.5-10.1)
[2020-06-11 07:46] LABS: CREATININE 3.8 mg/dL (0.55-1.3)
[2020-06-11 07:47] LABS: BILIRUBIN,TOTAL 0.8 mg/dL (0.2-1); TOT PROT 6.5 g/dl (6.4-8.2)
[2020-06-11] MEDS ORDERED: QUEtiapine FUMARATE 25 MG TABLET ONE ×2 (09:15→20:46)
[2020-06-11] MEDS ORDERED: PT OWN MED DRAWER 7, Y5N ONE ×2 (09:15→14:57)
[2020-06-11] MEDS: AMINO ACIDS/PROTEIN HYDROLYS 30 ML LIQUID.PKT PO SCH ×2 (09:48→18:22)
[2020-06-11] MEDS: ASCORBIC ACID 500 MG/5 ML UNIT DOSE CUP GT SCH (09:49)
[2020-06-11] MEDS: QUEtiapine FUMARATE 50 MG TABLET GT SCH ×2 (09:49→23:00)
[2020-06-11] MEDS: APIXABAN 2.5 MG TABLET GT SCH ×2 (09:49→22:59)
[2020-06-11] MEDS: COLLAGENASE CLOSTRIDIUM HIST. 30 GRAMS TUBE TP SCH (09:50)
[2020-06-11] MEDS: NYSTATIN 100000 UNIT/GM TOPICAL OINTMENT 15 GM TUBE TP SCH ×2 (09:50→23:00)
[2020-06-11] MEDS: METOPROLOL TARTRATE 25 MG TABLET (FP) GT SCH ×2 (09:50→22:59)
[2020-06-11] MEDS: SODIUM HYPOCHLORITE 0.25%- 473 ML BULK BOTTLE TP SCH (09:51)
[2020-06-11] MEDS ORDERED: VANCOMYCIN 500 MG in DEXTROSE 5%-WATER - 100 ML IVPB ONE (12:50)
[2020-06-11] MEDS ORDERED: SODIUM CHLORIDE 250 ML IV PRN (18:24)
[2020-06-11] MEDS ORDERED: EPOETIN ALFA-EPBX 4,000 UNIT/ML VIAL IVPUSH ONE (18:30)
[2020-06-11] MEDS: FAMOTIDINE 40 MG/5 ML ORAL SUSPENSION NGT SCH (22:59)
[2020-06-11] MEDS: ATORVASTATIN CA 40 MG TABLET (FP) GT SCH (22:59)
[2020-06-12] MEDS ORDERED: PIPERACILLIN/TAZOBACTAM 2.25 GM VIAL IVPB ONE ×4 (00:16→21:10)
[2020-06-12] MEDS ORDERED: DEXTROSE 5%-WATER - 50 ML IVPB ONE ×4 (00:16→21:10)
[2020-06-12] MEDS: PIPERACILLIN/TAZOB 2.25 GM 2.25 GM in DEXTROSE 5%-WATER - 50 ML IVPB SCH ×4 (02:43→21:28)
[2020-06-12] MEDS: GABAPENTIN 250 MG/5 ML ORAL SOLUTION, 470 ML BOTTLE GT SCH ×3 (06:11→21:35)
[2020-06-12 07:13] LABS: HEMATOCRIT 25.3 % (35.4-49); MCH 29.4 pg (25.7-33.7); MCHC 31.6 g/dl (32.0-35.9); PLATELET COUNT 378 K/MM3 (134-434); RBC 2.72 M/mm3 (4.00-5.60); RDW 16.6 % (11.9-15.9); WHITE BLOOD COUNT 14.8 K/mm3 (4.0-10.0)
[2020-06-12] MEDS: ACETYLCYSTEINE 20% 200MG/ML 4 ML VIAL *FOR ORAL / INH USE ONLY NEB SCH ×2 (07:30→20:45)
[2020-06-12] MEDS: ALBUTEROL SO4 0.083% IH SOL 2.5 MG/3 ML VIAL.NEB. NEB PRN ×2 (07:30→20:45)
[2020-06-12 07:31] LABS: POTASSIUM 3.4 mmol/L (3.5-5.1)
[2020-06-12 07:46] LABS: CALCIUM 9.4 mg/dL (8.5-10.1)
[2020-06-12 07:47] LABS: BLOOD UREA NITROGEN 28.6 mg/dL (7-18)
[2020-06-12 07:49] LABS: CREATININE 2.6 mg/dL (0.55-1.3)
[2020-06-12 08:12] LABS: MAGNESIUM 1.7 mg/dL (1.8-2.4)
[2020-06-12] MEDS: AMINO ACIDS/PROTEIN HYDROLYS 30 ML LIQUID.PKT PO SCH ×2 (08:20→18:19)
[2020-06-12] MEDS ORDERED: POTASSIUM CHLORIDE ORAL LIQUID 20 MEQ/15 ML PO ONE (09:15)
[2020-06-12] MEDS ORDERED: MAGNESIUM 2GM/50ML STERILE WATER IVPB IVPB ONE (09:28)
[2020-06-12] MEDS ORDERED: PT OWN MED DRAWER 7, Y5N ONE ×3 (10:31→14:37)
[2020-06-12] MEDS: ZINC SULFATE 220 MG CAPSULE (FP) GT SCH ×2 (10:35→21:34)
[2020-06-12] MEDS: APIXABAN 2.5 MG TABLET GT SCH ×2 (10:36→21:34)
[2020-06-12] MEDS: METOPROLOL TARTRATE 25 MG TABLET (FP) GT SCH ×2 (10:36→21:34)
[2020-06-12] MEDS: levETIRAcetam 500 MG/5 ML ORAL SOLUTION (UNIT-DOSE CUPS) GT SCH (10:39)
[2020-06-12] MEDS: SODIUM HYPOCHLORITE 0.25%- 473 ML BULK BOTTLE TP SCH (10:45)
[2020-06-12] MEDS: NYSTATIN 100000 UNIT/GM TOPICAL OINTMENT 15 GM TUBE TP SCH ×2 (10:45→22:16)
[2020-06-12] MEDS: CHOLECALCIFEROL (VIT D SOLUTION) 400 UNIT/1 ML DROPS GT SCH (10:49)
[2020-06-12] MEDS: COLLAGENASE CLOSTRIDIUM HIST. 30 GRAMS TUBE TP SCH ×2 (10:50→14:44)
[2020-06-12] MEDS: QUEtiapine FUMARATE 25 MG TABLET GT SCH ×2 (12:20→21:34)
[2020-06-12] MEDS: ASCORBIC ACID 500 MG/5 ML UNIT DOSE CUP GT SCH (12:20)
[2020-06-12] MEDS: ACETAMINOPHEN 650 MG/20.3 ML ORAL SOLUTION (CUPS) GT PRN (14:39)
[2020-06-12] MEDS: CHOLESTYRAMINE/ASPARTAME 4 GM PACKET GT SCH ×2 (14:41→21:34)
[2020-06-12] MEDS: ATORVASTATIN CA 40 MG TABLET (FP) GT SCH (21:34)
[2020-06-12] MEDS: FAMOTIDINE 40 MG/5 ML ORAL SUSPENSION NGT SCH (21:34)
[2020-06-12] MEDS ORDERED: QUEtiapine FUMARATE 25 MG TABLET GT SCH (22:00)
[2020-06-13] MEDS ORDERED: PIPERACILLIN/TAZOBACTAM 2.25 GM VIAL IVPB ONE ×4 (01:11→20:33)
[2020-06-13] MEDS ORDERED: DEXTROSE 5%-WATER - 50 ML IVPB ONE ×4 (01:11→20:33)
[2020-06-13] MEDS: PIPERACILLIN/TAZOB 2.25 GM 2.25 GM in DEXTROSE 5%-WATER - 50 ML IVPB SCH ×4 (03:16→20:39)
[2020-06-13] MEDS: GABAPENTIN 250 MG/5 ML ORAL SOLUTION, 470 ML BOTTLE GT SCH ×3 (06:11→22:08)
[2020-06-13] MEDS: CHOLESTYRAMINE/ASPARTAME 4 GM PACKET GT SCH ×3 (06:12→22:09)
[2020-06-13 06:41] LABS: HEMATOCRIT 24.9 % (35.4-49); HEMOGLOBIN 7.9 GM/dL (11.7-16.9); MCH 29.4 pg (25.7-33.7); MCHC 31.6 g/dl (32.0-35.9); MEAN CELL VOLUME 93.1 fl (80-96); MEAN PLT VOLUME 7.9 fl (7.5-11.1); PLATELET COUNT 393 K/MM3 (134-434); RBC 2.68 M/mm3 (4.00-5.60); RDW 17.1 % (11.9-15.9); WHITE BLOOD COUNT 15.9 K/mm3 (4.0-10.0)
[2020-06-13 07:02] LABS: POTASSIUM 3.9 mmol/L (3.5-5.1)
[2020-06-13 07:04] LABS: CALCIUM 9.8 mg/dL (8.5-10.1)
[2020-06-13 07:06] LABS: BLOOD UREA NITROGEN 42.2 mg/dL (7-18); MAGNESIUM 2.1 mg/dL (1.8-2.4)
[2020-06-13 07:08] LABS: CREATININE 3.4 mg/dL (0.55-1.3); PHOSPHOROUS 3.7 mg/dL (2.5-4.9)
[2020-06-13] MEDS: ALBUTEROL SO4 0.083% IH SOL 2.5 MG/3 ML VIAL.NEB. NEB PRN (07:45)
[2020-06-13] MEDS: ACETYLCYSTEINE 20% 200MG/ML 4 ML VIAL *FOR ORAL / INH USE ONLY NEB SCH ×2 (07:45→20:00)
[2020-06-13] MEDS: AMINO ACIDS/PROTEIN HYDROLYS 30 ML LIQUID.PKT PO SCH ×2 (08:47→18:11)
[2020-06-13] MEDS ORDERED: PT OWN MED DRAWER 7, Y5N ONE ×2 (09:53→21:49)
[2020-06-13] MEDS: ASCORBIC ACID 500 MG/5 ML UNIT DOSE CUP GT SCH (09:56)
[2020-06-13] MEDS: METOPROLOL TARTRATE 25 MG TABLET (FP) GT SCH ×2 (09:56→22:08)
[2020-06-13] MEDS: APIXABAN 2.5 MG TABLET GT SCH ×2 (09:56→22:08)
[2020-06-13] MEDS: ZINC SULFATE 220 MG CAPSULE (FP) GT SCH ×2 (09:56→22:08)
[2020-06-13] MEDS: QUEtiapine FUMARATE 25 MG TABLET GT SCH ×2 (09:56→22:08)
[2020-06-13] MEDS: CHOLECALCIFEROL (VIT D SOLUTION) 400 UNIT/1 ML DROPS GT SCH (09:57)
[2020-06-13] MEDS: SODIUM HYPOCHLORITE 0.25%- 473 ML BULK BOTTLE TP SCH (10:09)
[2020-06-13] MEDS: NYSTATIN 100000 UNIT/GM TOPICAL OINTMENT 15 GM TUBE TP SCH ×2 (10:10→22:09)
[2020-06-13] MEDS: COLLAGENASE CLOSTRIDIUM HIST. 30 GRAMS TUBE TP SCH ×2 (10:10→10:11)
[2020-06-13] MEDS ORDERED: SODIUM CHLORIDE 250 ML IV PRN (12:09)
[2020-06-13] MEDS ORDERED: EPOETIN ALFA-EPBX 10,000 UNIT/ML VIAL IVPUSH ONE (14:00)
[2020-06-13] MEDS: ATORVASTATIN CA 40 MG TABLET (FP) GT SCH (22:08)
[2020-06-13] MEDS: FAMOTIDINE 40 MG/5 ML ORAL SUSPENSION NGT SCH (22:09)
[2020-06-13] MEDS: BANATROL PLUS POWDER PACKET GT SCH (22:09)
[2020-06-14] MEDS ORDERED: PIPERACILLIN/TAZOBACTAM 2.25 GM VIAL IVPB ONE ×4 (02:37→20:05)
[2020-06-14] MEDS ORDERED: DEXTROSE 5%-WATER - 50 ML IVPB ONE ×4 (02:37→20:05)
[2020-06-14] MEDS: PIPERACILLIN/TAZOB 2.25 GM 2.25 GM in DEXTROSE 5%-WATER - 50 ML IVPB SCH ×4 (02:45→20:38)
[2020-06-14] MEDS: CHOLESTYRAMINE/ASPARTAME 4 GM PACKET GT SCH ×3 (06:22→21:05)
[2020-06-14] MEDS: GABAPENTIN 250 MG/5 ML ORAL SOLUTION, 470 ML BOTTLE GT SCH ×3 (06:22→21:03)
[2020-06-14] MEDS: ACETAMINOPHEN 650 MG/20.3 ML ORAL SOLUTION (CUPS) GT PRN ×2 (06:22→13:19)
[2020-06-14 08:32] LABS: HEMATOCRIT 24.9 % (35.4-49); MCH 30.8 pg (25.7-33.7); MCHC 32.3 g/dl (32.0-35.9); MEAN CELL VOLUME 95.4 fl (80-96); PLATELET COUNT 389 K/MM3 (134-434); RBC 2.61 M/mm3 (4.00-5.60); RDW 16.8 % (11.9-15.9); WHITE BLOOD COUNT 13.4 K/mm3 (4.0-10.0)
[2020-06-14] MEDS: ACETYLCYSTEINE 20% 200MG/ML 4 ML VIAL *FOR ORAL / INH USE ONLY NEB SCH (08:48)
[2020-06-14 08:54] LABS: POTASSIUM 3.1 mmol/L (3.5-5.1)
[2020-06-14 08:56] LABS: BLOOD UREA NITROGEN 29.8 mg/dL (7-18); CALCIUM 9.3 mg/dL (8.5-10.1); MAGNESIUM 2.1 mg/dL (1.8-2.4)
[2020-06-14 08:59] LABS: CREATININE 2.5 mg/dL (0.55-1.3)
[2020-06-14] MEDS ORDERED: PT OWN MED DRAWER 7, Y5N ONE ×3 (09:27→21:00)
[2020-06-14] MEDS: AMINO ACIDS/PROTEIN HYDROLYS 30 ML LIQUID.PKT PO SCH ×2 (10:09→17:24)
[2020-06-14] MEDS: ASCORBIC ACID 500 MG/5 ML UNIT DOSE CUP GT SCH (10:10)
[2020-06-14] MEDS: levETIRAcetam 500 MG/5 ML ORAL SOLUTION (UNIT-DOSE CUPS) GT SCH (10:10)
[2020-06-14] MEDS: ZINC SULFATE 220 MG CAPSULE (FP) GT SCH ×2 (10:10→21:04)
[2020-06-14] MEDS: APIXABAN 2.5 MG TABLET GT SCH ×2 (10:10→21:04)
[2020-06-14] MEDS: CHOLECALCIFEROL (VIT D SOLUTION) 400 UNIT/1 ML DROPS GT SCH (10:10)
[2020-06-14] MEDS: METOPROLOL TARTRATE 25 MG TABLET (FP) GT SCH ×2 (10:10→21:03)
[2020-06-14] MEDS: QUEtiapine FUMARATE 25 MG TABLET GT SCH ×2 (10:10→21:03)
[2020-06-14] MEDS: BANATROL PLUS POWDER PACKET GT SCH ×2 (10:11→21:03)
[2020-06-14] MEDS: NYSTATIN 100000 UNIT/GM TOPICAL OINTMENT 15 GM TUBE TP SCH ×2 (10:35→21:04)
[2020-06-14] MEDS: SODIUM HYPOCHLORITE 0.25%- 473 ML BULK BOTTLE TP SCH (13:12)
[2020-06-14] MEDS: COLLAGENASE CLOSTRIDIUM HIST. 30 GRAMS TUBE TP SCH ×2 (13:13)
[2020-06-14] MEDS: ATORVASTATIN CA 40 MG TABLET (FP) GT SCH (21:03)
[2020-06-14] MEDS: FAMOTIDINE 40 MG/5 ML ORAL SUSPENSION NGT SCH (21:03)
[2020-06-15] MEDS ORDERED: DEXTROSE 5%-WATER - 50 ML IVPB ONE ×4 (02:09→19:44)
[2020-06-15] MEDS ORDERED: PIPERACILLIN/TAZOBACTAM 2.25 GM VIAL IVPB ONE ×4 (02:09→19:44)
[2020-06-15] MEDS: PIPERACILLIN/TAZOB 2.25 GM 2.25 GM in DEXTROSE 5%-WATER - 50 ML IVPB SCH ×4 (02:31→20:07)
[2020-06-15] MEDS ORDERED: PT OWN MED DRAWER 7, Y5N ONE ×8 (04:57→20:54)
[2020-06-15] MEDS: CHOLESTYRAMINE/ASPARTAME 4 GM PACKET GT SCH ×3 (05:04→21:00)
[2020-06-15] MEDS: GABAPENTIN 250 MG/5 ML ORAL SOLUTION, 470 ML BOTTLE GT SCH ×3 (05:04→21:00)
[2020-06-15] MEDS: ACETAMINOPHEN 650 MG/20.3 ML ORAL SOLUTION (CUPS) GT PRN (07:05)
[2020-06-15] MEDS ORDERED: POTASSIUM CHLORIDE TABS 20 MEQ TABLET.ER (FP) PO ONE (07:11)
[2020-06-15] MEDS ORDERED: KCL 10 MEQ IVPB 10 MEQ/100 ML INFUS.BAG IVPB SCH (07:15)
[2020-06-15] MEDS: AMINO ACIDS/PROTEIN HYDROLYS 30 ML LIQUID.PKT PO SCH ×2 (08:49→17:31)
[2020-06-15] MEDS: ACETYLCYSTEINE 20% 200MG/ML 4 ML VIAL *FOR ORAL / INH USE ONLY NEB SCH ×2 (08:58→20:10)
[2020-06-15 09:00] LABS: HEMATOCRIT 23.7 % (35.4-49); HEMOGLOBIN 7.6 GM/dL (11.7-16.9); MCH 30.2 pg (25.7-33.7); MCHC 31.8 g/dl (32.0-35.9); MEAN CELL VOLUME 94.7 fl (80-96); MEAN PLT VOLUME 7.5 fl (7.5-11.1); PLATELET COUNT 392 K/MM3 (134-434); WHITE BLOOD COUNT 18.3 K/mm3 (4.0-10.0)
[2020-06-15 09:29] LABS: POTASSIUM 3.5 mmol/L (3.5-5.1)
[2020-06-15 09:30] LABS: CALCIUM 9.6 mg/dL (8.5-10.1)
[2020-06-15 09:31] LABS: BLOOD UREA NITROGEN 43.9 mg/dL (7-18); MAGNESIUM 2.1 mg/dL (1.8-2.4)
[2020-06-15 09:34] LABS: CREATININE 3.4 mg/dL (0.55-1.3)
[2020-06-15 09:35] LABS: PHOSPHOROUS 4.2 mg/dL (2.5-4.9)
[2020-06-15] MEDS: ZINC SULFATE 220 MG CAPSULE (FP) GT SCH ×2 (09:59→21:01)
[2020-06-15] MEDS: QUEtiapine FUMARATE 25 MG TABLET GT SCH ×2 (09:59→21:02)
[2020-06-15] MEDS: METOPROLOL TARTRATE 25 MG TABLET (FP) GT SCH ×2 (10:00→21:00)
[2020-06-15] MEDS: APIXABAN 2.5 MG TABLET GT SCH ×2 (10:00→21:00)
[2020-06-15] MEDS: COLLAGENASE CLOSTRIDIUM HIST. 30 GRAMS TUBE TP SCH ×2 (10:01→10:02)
[2020-06-15] MEDS: SODIUM HYPOCHLORITE 0.25%- 473 ML BULK BOTTLE TP SCH (10:01)
[2020-06-15] MEDS: NYSTATIN 100000 UNIT/GM TOPICAL OINTMENT 15 GM TUBE TP SCH ×2 (10:01→21:01)
[2020-06-15] MEDS: CHOLECALCIFEROL (VIT D SOLUTION) 400 UNIT/1 ML DROPS GT SCH (10:55)
[2020-06-15] MEDS: BANATROL PLUS POWDER PACKET GT SCH ×2 (10:55→21:00)
[2020-06-15] MEDS: ASCORBIC ACID 500 MG/5 ML UNIT DOSE CUP GT SCH (10:56)
[2020-06-15] MEDS ORDERED: VANCOMYCIN 1 GRAM (PRE-DOCKED) 1,000 MG/250 ML BAG IVPB ONE (12:29)
[2020-06-15] MEDS: ALBUTEROL SO4 0.083% IH SOL 2.5 MG/3 ML VIAL.NEB. NEB PRN (20:10)
[2020-06-15] MEDS: ATORVASTATIN CA 40 MG TABLET (FP) GT SCH (21:00)
[2020-06-15] MEDS: FAMOTIDINE 40 MG/5 ML ORAL SUSPENSION NGT SCH (21:01)
[2020-06-16] MEDS ORDERED: PIPERACILLIN/TAZOBACTAM 2.25 GM VIAL IVPB ONE ×4 (01:55→20:49)
[2020-06-16] MEDS ORDERED: DEXTROSE 5%-WATER - 50 ML IVPB ONE ×4 (01:55→20:49)
[2020-06-16] MEDS: PIPERACILLIN/TAZOB 2.25 GM 2.25 GM in DEXTROSE 5%-WATER - 50 ML IVPB SCH ×4 (02:56→21:03)
[2020-06-16] MEDS ORDERED: PT OWN MED DRAWER 7, Y5N ONE ×4 (05:19→20:48)
[2020-06-16] MEDS: CHOLESTYRAMINE/ASPARTAME 4 GM PACKET GT SCH ×3 (05:28→21:02)
[2020-06-16] MEDS: GABAPENTIN 250 MG/5 ML ORAL SOLUTION, 470 ML BOTTLE GT SCH ×3 (05:28→21:02)
[2020-06-16 07:57] LABS: HEMATOCRIT 23.6 % (35.4-49); HEMOGLOBIN 7.3 GM/dL (11.7-16.9); MCH 29.2 pg (25.7-33.7); MCHC 30.8 g/dl (32.0-35.9); MEAN CELL VOLUME 94.9 fl (80-96); MEAN PLT VOLUME 7.8 fl (7.5-11.1); PLATELET COUNT 399 K/MM3 (134-434); RBC 2.49 M/mm3 (4.00-5.60); RDW 17.1 % (11.9-15.9)
[2020-06-16] MEDS ORDERED: SODIUM CHLORIDE 250 ML IV PRN (08:00)
[2020-06-16] MEDS ORDERED: EPOETIN ALFA-EPBX 10,000 UNIT/ML VIAL IVPUSH ONE (08:00)
[2020-06-16 08:17] LABS: POTASSIUM 3.7 mmol/L (3.5-5.1)
[2020-06-16 08:22] LABS: BLOOD UREA NITROGEN 57.6 mg/dL (7-18); CALCIUM 9.9 mg/dL (8.5-10.1)
[2020-06-16 08:26] LABS: CREATININE 3.9 mg/dL (0.55-1.3)
[2020-06-16] MEDS: ALBUTEROL SO4 0.083% IH SOL 2.5 MG/3 ML VIAL.NEB. NEB PRN ×2 (08:32→20:00)
[2020-06-16] MEDS: ACETYLCYSTEINE 20% 200MG/ML 4 ML VIAL *FOR ORAL / INH USE ONLY NEB SCH ×2 (08:32→20:00)
[2020-06-16] MEDS: AMINO ACIDS/PROTEIN HYDROLYS 30 ML LIQUID.PKT PO SCH ×2 (09:09→18:28)
[2020-06-16] MEDS: ZINC SULFATE 220 MG CAPSULE (FP) GT SCH ×2 (10:57→21:03)
[2020-06-16] MEDS: NYSTATIN 100000 UNIT/GM TOPICAL OINTMENT 15 GM TUBE TP SCH ×2 (10:58→21:03)
[2020-06-16] MEDS: QUEtiapine FUMARATE 25 MG TABLET GT SCH ×2 (10:58→21:02)
[2020-06-16] MEDS: SODIUM HYPOCHLORITE 0.25%- 473 ML BULK BOTTLE TP SCH (10:58)
[2020-06-16] MEDS: APIXABAN 2.5 MG TABLET GT SCH ×2 (10:58→21:03)
[2020-06-16] MEDS: METOPROLOL TARTRATE 25 MG TABLET (FP) GT SCH ×2 (10:58→21:03)
[2020-06-16] MEDS: COLLAGENASE CLOSTRIDIUM HIST. 30 GRAMS TUBE TP SCH ×2 (10:59)
[2020-06-16] MEDS: ASCORBIC ACID 500 MG/5 ML UNIT DOSE CUP GT SCH (11:02)
[2020-06-16] MEDS: BANATROL PLUS POWDER PACKET GT SCH ×2 (11:02→21:02)
[2020-06-16] MEDS: levETIRAcetam 500 MG/5 ML ORAL SOLUTION (UNIT-DOSE CUPS) GT SCH (11:03)
[2020-06-16] MEDS: CHOLECALCIFEROL (VIT D SOLUTION) 400 UNIT/1 ML DROPS GT SCH (11:03)
[2020-06-16] MEDS: ATORVASTATIN CA 40 MG TABLET (FP) GT SCH (21:03)
[2020-06-16] MEDS: FAMOTIDINE 40 MG/5 ML ORAL SUSPENSION NGT SCH (21:03)
[2020-06-17] MEDS ORDERED: PIPERACILLIN/TAZOBACTAM 2.25 GM VIAL IVPB ONE ×4 (02:01→21:45)
[2020-06-17] MEDS ORDERED: DEXTROSE 5%-WATER - 50 ML IVPB ONE ×4 (02:01→21:45)
[2020-06-17] MEDS: PIPERACILLIN/TAZOB 2.25 GM 2.25 GM in DEXTROSE 5%-WATER - 50 ML IVPB SCH ×4 (02:14→22:23)
[2020-06-17] MEDS ORDERED: PT OWN MED DRAWER 7, Y5N ONE ×3 (04:48→22:24)
[2020-06-17] MEDS: GABAPENTIN 250 MG/5 ML ORAL SOLUTION, 470 ML BOTTLE GT SCH ×3 (05:35→22:54)
[2020-06-17] MEDS: CHOLESTYRAMINE/ASPARTAME 4 GM PACKET GT SCH ×3 (05:35→22:54)
[2020-06-17 07:15] LABS: POTASSIUM 3.6 mmol/L (3.5-5.1)
[2020-06-17 07:23] LABS: CALCIUM 9.3 mg/dL (8.5-10.1)
[2020-06-17 07:27] LABS: CREATININE 2.6 mg/dL (0.55-1.3)
[2020-06-17 07:33] LABS: BLOOD UREA NITROGEN 30.4 mg/dL (7-18)
[2020-06-17] MEDS: ALBUTEROL SO4 0.083% IH SOL 2.5 MG/3 ML VIAL.NEB. NEB PRN ×2 (07:58→20:40)
[2020-06-17] MEDS: ACETYLCYSTEINE 20% 200MG/ML 4 ML VIAL *FOR ORAL / INH USE ONLY NEB SCH ×3 (07:58→20:41)
[2020-06-17] MEDS: AMINO ACIDS/PROTEIN HYDROLYS 30 ML LIQUID.PKT PO SCH ×2 (09:03→18:15)
[2020-06-17] MEDS: SODIUM HYPOCHLORITE 0.25%- 473 ML BULK BOTTLE TP SCH (10:11)
[2020-06-17] MEDS: METOPROLOL TARTRATE 25 MG TABLET (FP) GT SCH ×2 (10:11→22:53)
[2020-06-17] MEDS: QUEtiapine FUMARATE 25 MG TABLET GT SCH ×2 (10:11→22:54)
[2020-06-17] MEDS: NYSTATIN 100000 UNIT/GM TOPICAL OINTMENT 15 GM TUBE TP SCH ×2 (10:11→22:53)
[2020-06-17] MEDS: ZINC SULFATE 220 MG CAPSULE (FP) GT SCH ×2 (10:11→22:54)
[2020-06-17] MEDS: APIXABAN 2.5 MG TABLET GT SCH ×2 (10:11→22:52)
[2020-06-17] MEDS: COLLAGENASE CLOSTRIDIUM HIST. 30 GRAMS TUBE TP SCH ×2 (10:11→10:12)
[2020-06-17] MEDS: ASCORBIC ACID 500 MG/5 ML UNIT DOSE CUP GT SCH (10:12)
[2020-06-17] MEDS: CHOLECALCIFEROL (VIT D SOLUTION) 400 UNIT/1 ML DROPS GT SCH (10:12)
[2020-06-17] MEDS: BANATROL PLUS POWDER PACKET GT SCH ×2 (10:30→22:52)
[2020-06-17 10:37] LABS: HEMATOCRIT 24.9 % (35.4-49); MCH 30.3 pg (25.7-33.7); MCHC 32.1 g/dl (32.0-35.9); MEAN CELL VOLUME 94.4 fl (80-96); MEAN PLT VOLUME 7.7 fl (7.5-11.1); PLATELET COUNT 419 K/MM3 (134-434); RBC 2.64 M/mm3 (4.00-5.60); RDW 16.8 % (11.9-15.9); WHITE BLOOD COUNT 15.2 K/mm3 (4.0-10.0)
[2020-06-17] MEDS ORDERED: BENZOIN 118 ML SPRAY.PUMP TP ONE (11:58)
[2020-06-17] MEDS ORDERED: LIDOCAINE HCL 1%, 10 MG/ML (50 mL VIAL) SQ ONE (14:22)
[2020-06-17] MEDS ORDERED: LIDOCAINE HCL 1%, 10 MG/ML (20ML VIAL) ONE ×2 (14:27→14:44)
[2020-06-17] MEDS: ATORVASTATIN CA 40 MG TABLET (FP) GT SCH (22:53)
[2020-06-17] MEDS: FAMOTIDINE 40 MG/5 ML ORAL SUSPENSION NGT SCH (22:54)
[2020-06-17] MEDS: ACETAMINOPHEN 650 MG/20.3 ML ORAL SOLUTION (CUPS) GT PRN (22:55)
[2020-06-18] MEDS ORDERED: PIPERACILLIN/TAZOBACTAM 2.25 GM VIAL IVPB ONE ×4 (02:31→20:58)
[2020-06-18] MEDS ORDERED: DEXTROSE 5%-WATER - 50 ML IVPB ONE ×4 (02:31→20:58)
[2020-06-18] MEDS: PIPERACILLIN/TAZOB 2.25 GM 2.25 GM in DEXTROSE 5%-WATER - 50 ML IVPB SCH ×4 (02:37→21:11)
[2020-06-18] MEDS: GABAPENTIN 250 MG/5 ML ORAL SOLUTION, 470 ML BOTTLE GT SCH ×3 (06:09→21:18)
[2020-06-18] MEDS: CHOLESTYRAMINE/ASPARTAME 4 GM PACKET GT SCH ×3 (06:09→21:19)
[2020-06-18 07:13] LABS: HEMATOCRIT 23.8 % (35.4-49); HEMOGLOBIN 7.6 GM/dL (11.7-16.9); MCH 29.7 pg (25.7-33.7); MCHC 31.9 g/dl (32.0-35.9); MEAN CELL VOLUME 93.2 fl (80-96); MEAN PLT VOLUME 7.7 fl (7.5-11.1); PLATELET COUNT 412 K/MM3 (134-434); RBC 2.55 M/mm3 (4.00-5.60); RDW 16.6 % (11.9-15.9); WHITE BLOOD COUNT 13.5 K/mm3 (4.0-10.0)
[2020-06-18] MEDS: ACETYLCYSTEINE 20% 200MG/ML 4 ML VIAL *FOR ORAL / INH USE ONLY NEB SCH ×2 (07:30→20:50)
[2020-06-18 07:38] LABS: POTASSIUM 3.7 mmol/L (3.5-5.1)
[2020-06-18 07:43] LABS: CALCIUM 9.5 mg/dL (8.5-10.1)
[2020-06-18 07:44] LABS: BLOOD UREA NITROGEN 46.3 mg/dL (7-18)
[2020-06-18 07:47] LABS: CREATININE 3.2 mg/dL (0.55-1.3)
[2020-06-18] MEDS ORDERED: PT OWN MED DRAWER 7, Y5N ONE ×3 (09:15→20:59)
[2020-06-18] MEDS: AMINO ACIDS/PROTEIN HYDROLYS 30 ML LIQUID.PKT PO SCH ×2 (09:21→16:34)
[2020-06-18] MEDS: SODIUM HYPOCHLORITE 0.25%- 473 ML BULK BOTTLE TP SCH (09:32)
[2020-06-18] MEDS: APIXABAN 2.5 MG TABLET GT SCH ×2 (09:33→21:18)
[2020-06-18] MEDS: METOPROLOL TARTRATE 25 MG TABLET (FP) GT SCH ×2 (09:34→21:19)
[2020-06-18] MEDS: NYSTATIN 100000 UNIT/GM TOPICAL OINTMENT 15 GM TUBE TP SCH ×2 (09:35→21:19)
[2020-06-18] MEDS: ZINC SULFATE 220 MG CAPSULE (FP) GT SCH ×2 (09:35→21:18)
[2020-06-18] MEDS: COLLAGENASE CLOSTRIDIUM HIST. 30 GRAMS TUBE TP SCH ×2 (09:36)
[2020-06-18] MEDS: QUEtiapine FUMARATE 25 MG TABLET GT SCH ×2 (09:36→21:19)
[2020-06-18] MEDS: ACETAMINOPHEN 650 MG/20.3 ML ORAL SOLUTION (CUPS) GT PRN ×2 (09:37→21:19)
[2020-06-18] MEDS: CHOLECALCIFEROL (VIT D SOLUTION) 400 UNIT/1 ML DROPS GT SCH (10:37)
[2020-06-18] MEDS: ASCORBIC ACID 500 MG/5 ML UNIT DOSE CUP GT SCH (10:37)
[2020-06-18] MEDS: BANATROL PLUS POWDER PACKET GT SCH ×2 (10:37→21:19)
[2020-06-18] MEDS: levETIRAcetam 500 MG/5 ML ORAL SOLUTION (UNIT-DOSE CUPS) GT SCH (10:38)
[2020-06-18] MEDS ORDERED: VANCOMYCIN 1 GM in D5W (PRE-DOCKED) 1,000 MG/250 ML IVPB ONE ×2 (16:37→20:00)
[2020-06-18] MEDS: ALBUTEROL SO4 0.083% IH SOL 2.5 MG/3 ML VIAL.NEB. NEB PRN (20:50)
[2020-06-18] MEDS: FAMOTIDINE 40 MG/5 ML ORAL SUSPENSION NGT SCH (21:18)
[2020-06-18] MEDS: ATORVASTATIN CA 40 MG TABLET (FP) GT SCH (21:19)
[2020-06-19] MEDS ORDERED: PIPERACILLIN/TAZOBACTAM 2.25 GM VIAL IVPB ONE ×4 (02:03→21:44)
[2020-06-19] MEDS ORDERED: DEXTROSE 5%-WATER - 50 ML IVPB ONE ×4 (02:03→21:44)
[2020-06-19] MEDS: PIPERACILLIN/TAZOB 2.25 GM 2.25 GM in DEXTROSE 5%-WATER - 50 ML IVPB SCH ×4 (02:17→21:46)
[2020-06-19] MEDS ORDERED: PT OWN MED DRAWER 7, Y5N ONE ×2 (05:58→21:44)
[2020-06-19] MEDS: CHOLESTYRAMINE/ASPARTAME 4 GM PACKET GT SCH ×3 (06:19→21:46)
[2020-06-19] MEDS: GABAPENTIN 250 MG/5 ML ORAL SOLUTION, 470 ML BOTTLE GT SCH ×3 (06:19→21:46)
[2020-06-19] MEDS: ACETYLCYSTEINE 20% 200MG/ML 4 ML VIAL *FOR ORAL / INH USE ONLY NEB SCH ×2 (08:15→19:48)
[2020-06-19] MEDS: ALBUTEROL SO4 0.083% IH SOL 2.5 MG/3 ML VIAL.NEB. NEB PRN ×2 (08:15→20:49)
[2020-06-19] MEDS: AMINO ACIDS/PROTEIN HYDROLYS 30 ML LIQUID.PKT PO SCH ×2 (08:16→17:36)
[2020-06-19 08:29] LABS: HEMATOCRIT 26.5 % (35.4-49); HEMOGLOBIN 8.5 GM/dL (11.7-16.9); MCH 30.2 pg (25.7-33.7); MCHC 32.1 g/dl (32.0-35.9); MEAN PLT VOLUME 7.4 fl (7.5-11.1); PLATELET COUNT 419 K/MM3 (134-434); RBC 2.82 M/mm3 (4.00-5.60); RDW 16.8 % (11.9-15.9)
[2020-06-19 08:58] LABS: POTASSIUM 3.8 mmol/L (3.5-5.1)
[2020-06-19 09:00] LABS: BLOOD UREA NITROGEN 60.2 mg/dL (7-18)
[2020-06-19 09:03] LABS: CREATININE 3.9 mg/dL (0.55-1.3)
[2020-06-19] MEDS: BANATROL PLUS POWDER PACKET GT SCH ×2 (09:06→21:46)
[2020-06-19] MEDS: ASCORBIC ACID 500 MG/5 ML UNIT DOSE CUP GT SCH (09:07)
[2020-06-19] MEDS: CHOLECALCIFEROL (VIT D SOLUTION) 400 UNIT/1 ML DROPS GT SCH (09:07)
[2020-06-19 10:07] LABS: PHOSPHOROUS 6.5 mg/dL (2.5-4.9)
[2020-06-19] MEDS: SODIUM HYPOCHLORITE 0.25%- 473 ML BULK BOTTLE TP SCH (10:21)
[2020-06-19] MEDS: ZINC SULFATE 220 MG CAPSULE (FP) GT SCH ×2 (10:21→21:46)
[2020-06-19] MEDS: METOPROLOL TARTRATE 25 MG TABLET (FP) GT SCH ×2 (10:21→21:46)
[2020-06-19] MEDS: QUEtiapine FUMARATE 25 MG TABLET GT SCH ×2 (10:21→21:46)
[2020-06-19] MEDS: COLLAGENASE CLOSTRIDIUM HIST. 30 GRAMS TUBE TP SCH ×2 (10:21→10:22)
[2020-06-19] MEDS: APIXABAN 2.5 MG TABLET GT SCH ×2 (10:21→21:46)
[2020-06-19] MEDS: NYSTATIN 100000 UNIT/GM TOPICAL OINTMENT 15 GM TUBE TP SCH ×2 (10:21→21:46)
[2020-06-19] MEDS: ACETAMINOPHEN 650 MG/20.3 ML ORAL SOLUTION (CUPS) GT PRN ×2 (11:59→21:46)
[2020-06-19] MEDS: FAMOTIDINE 40 MG/5 ML ORAL SUSPENSION NGT SCH (21:46)
[2020-06-19] MEDS: ATORVASTATIN CA 40 MG TABLET (FP) GT SCH (21:46)
[2020-06-20] MEDS ORDERED: PIPERACILLIN/TAZOBACTAM 2.25 GM VIAL IVPB ONE ×4 (00:44→21:46)
[2020-06-20] MEDS ORDERED: DEXTROSE 5%-WATER - 50 ML IVPB ONE ×4 (00:45→21:46)
[2020-06-20] MEDS: PIPERACILLIN/TAZOB 2.25 GM 2.25 GM in DEXTROSE 5%-WATER - 50 ML IVPB SCH ×4 (02:35→21:48)
[2020-06-20] MEDS: ACETAMINOPHEN 650 MG/20.3 ML ORAL SOLUTION (CUPS) GT PRN ×2 (05:48→15:51)
[2020-06-20] MEDS: CHOLESTYRAMINE/ASPARTAME 4 GM PACKET GT SCH ×3 (05:48→22:43)
[2020-06-20] MEDS: GABAPENTIN 250 MG/5 ML ORAL SOLUTION, 470 ML BOTTLE GT SCH ×3 (05:48→22:43)
[2020-06-20] MEDS: ALBUTEROL SO4 0.083% IH SOL 2.5 MG/3 ML VIAL.NEB. NEB PRN ×2 (07:59→20:10)
[2020-06-20] MEDS: ACETYLCYSTEINE 20% 200MG/ML 4 ML VIAL *FOR ORAL / INH USE ONLY NEB SCH ×2 (07:59→20:10)
[2020-06-20] MEDS: AMINO ACIDS/PROTEIN HYDROLYS 30 ML LIQUID.PKT PO SCH ×2 (08:17→17:37)
[2020-06-20] MEDS: SODIUM HYPOCHLORITE 0.25%- 473 ML BULK BOTTLE TP SCH (10:19)
[2020-06-20] MEDS: BANATROL PLUS POWDER PACKET GT SCH ×2 (10:19→22:43)
[2020-06-20] MEDS: METOPROLOL TARTRATE 25 MG TABLET (FP) GT SCH ×2 (10:20→22:43)
[2020-06-20] MEDS: NYSTATIN 100000 UNIT/GM TOPICAL OINTMENT 15 GM TUBE TP SCH ×2 (10:20→22:44)
[2020-06-20] MEDS: levETIRAcetam 500 MG/5 ML ORAL SOLUTION (UNIT-DOSE CUPS) GT SCH (10:20)
[2020-06-20] MEDS: COLLAGENASE CLOSTRIDIUM HIST. 30 GRAMS TUBE TP SCH ×2 (10:21)
[2020-06-20] MEDS: CHOLECALCIFEROL (VIT D SOLUTION) 400 UNIT/1 ML DROPS GT SCH (10:22)
[2020-06-20] MEDS: ASCORBIC ACID 500 MG/5 ML UNIT DOSE CUP GT SCH (10:22)
[2020-06-20] MEDS: QUEtiapine FUMARATE 25 MG TABLET GT SCH ×2 (10:26→22:43)
[2020-06-20] MEDS: ZINC SULFATE 220 MG CAPSULE (FP) GT SCH ×2 (10:26→22:43)
[2020-06-20] MEDS: APIXABAN 2.5 MG TABLET GT SCH ×2 (10:26→22:43)
[2020-06-20] MEDS ORDERED: EPOETIN ALFA-EPBX 4,000 UNIT/ML VIAL IVPUSH ONE (13:58)
[2020-06-20] MEDS ORDERED: SODIUM CHLORIDE 250 ML IV PRN (16:07)
[2020-06-20] MEDS ORDERED: EPOETIN ALFA-EPBX 10,000 UNIT/ML VIAL IVPUSH ONE (16:30)
[2020-06-20] MEDS ORDERED: LIDOCAINE HCL 1%, 10 MG/ML (50 mL VIAL) SQ ONE (16:47)
[2020-06-20] MEDS ORDERED: LIDOCAINE HCL 1%, 10 MG/ML (20ML VIAL) ONE (16:48)
[2020-06-20 18:49] LABS: BASO % 0.2 % (0-2.0); HEMOGLOBIN 7.6 GM/dL (11.7-16.9); LYMPH % 11.3 % (8-40); MCH 29.6 pg (25.7-33.7); MCHC 31.6 g/dl (32.0-35.9); MEAN CELL VOLUME 93.7 fl (80-96); MEAN PLT VOLUME 7.7 fl (7.5-11.1); MONO % 3.8 % (3.8-10.2); NEUT % 81.7 % (42.8-82.8); PLATELET COUNT 428 K/MM3 (134-434); RBC 2.56 M/mm3 (4.00-5.60); RDW 16.7 % (11.9-15.9); WHITE BLOOD COUNT 16.6 K/mm3 (4.0-10.0)
[2020-06-20 19:15] LABS: CALCIUM 9.3 mg/dL (8.5-10.1)
[2020-06-20 19:16] LABS: ALBUMIN 1.6 g/dl (3.4-5.0); BLOOD UREA NITROGEN 71.3 mg/dL (7-18); MAGNESIUM 2.1 mg/dL (1.8-2.4)
[2020-06-20 19:19] LABS: CREATININE 4.1 mg/dL (0.55-1.3); PHOSPHOROUS 7.7 mg/dL (2.5-4.9)
[2020-06-20 19:20] LABS: BILIRUBIN,TOTAL 0.2 mg/dL (0.2-1); TOT PROT 5.7 g/dl (6.4-8.2)
[2020-06-20 20:20] LABS: PLATELET ESTIMATE ADEQUATE; ROULEAU 1+
[2020-06-20] MEDS ORDERED: PT OWN MED DRAWER 7, Y5N ONE (22:40)
[2020-06-20] MEDS: FAMOTIDINE 40 MG/5 ML ORAL SUSPENSION NGT SCH (22:43)
[2020-06-20] MEDS: ATORVASTATIN CA 40 MG TABLET (FP) GT SCH (22:43)
[2020-06-21] MEDS ORDERED: PIPERACILLIN/TAZOBACTAM 2.25 GM VIAL IVPB ONE ×4 (02:19→19:40)
[2020-06-21] MEDS ORDERED: DEXTROSE 5%-WATER - 50 ML IVPB ONE ×4 (02:19→19:40)
[2020-06-21] MEDS: PIPERACILLIN/TAZOB 2.25 GM 2.25 GM in DEXTROSE 5%-WATER - 50 ML IVPB SCH ×4 (02:42→21:27)
[2020-06-21] MEDS: GABAPENTIN 250 MG/5 ML ORAL SOLUTION, 470 ML BOTTLE GT SCH ×3 (05:57→21:38)
[2020-06-21] MEDS: CHOLESTYRAMINE/ASPARTAME 4 GM PACKET GT SCH ×3 (05:57→21:37)
[2020-06-21 07:25] LABS: HEMATOCRIT 23.5 % (35.4-49); HEMOGLOBIN 7.6 GM/dL (11.7-16.9); MCH 29.8 pg (25.7-33.7); MCHC 32.2 g/dl (32.0-35.9); MEAN CELL VOLUME 92.6 fl (80-96); MEAN PLT VOLUME 7.5 fl (7.5-11.1); PLATELET COUNT 416 K/MM3 (134-434); RBC 2.54 M/mm3 (4.00-5.60); RDW 16.9 % (11.9-15.9); WHITE BLOOD COUNT 13.4 K/mm3 (4.0-10.0)
[2020-06-21 07:31] LABS: POTASSIUM 3.5 mmol/L (3.5-5.1)
[2020-06-21 07:35] LABS: ALBUMIN 1.7 g/dl (3.4-5.0); CALCIUM 8.5 mg/dL (8.5-10.1); MAGNESIUM 1.9 mg/dL (1.8-2.4)
[2020-06-21 07:38] LABS: PHOSPHOROUS 5.1 mg/dL (2.5-4.9)
[2020-06-21 07:39] LABS: CREATININE 2.9 mg/dL (0.55-1.3)
[2020-06-21 07:40] LABS: BILIRUBIN,TOTAL 0.3 mg/dL (0.2-1); TOT PROT 5.8 g/dl (6.4-8.2)
[2020-06-21 07:42] LABS: BLOOD UREA NITROGEN 41.3 mg/dL (7-18)
[2020-06-21] MEDS: ACETYLCYSTEINE 20% 200MG/ML 4 ML VIAL *FOR ORAL / INH USE ONLY NEB SCH ×2 (08:00→20:00)
[2020-06-21] MEDS: ALBUTEROL SO4 0.083% IH SOL 2.5 MG/3 ML VIAL.NEB. NEB PRN ×2 (08:00→20:00)
[2020-06-21] MEDS ORDERED: PT OWN MED DRAWER 7, Y5N ONE ×2 (09:07→21:24)
[2020-06-21] MEDS: METOPROLOL TARTRATE 25 MG TABLET (FP) GT SCH ×2 (09:12→21:26)
[2020-06-21] MEDS: APIXABAN 2.5 MG TABLET GT SCH ×2 (09:13→21:26)
[2020-06-21] MEDS: AMINO ACIDS/PROTEIN HYDROLYS 30 ML LIQUID.PKT PO SCH ×2 (09:13→17:32)
[2020-06-21] MEDS: ZINC SULFATE 220 MG CAPSULE (FP) GT SCH ×2 (09:13→21:26)
[2020-06-21] MEDS: QUEtiapine FUMARATE 25 MG TABLET GT SCH ×2 (09:13→21:26)
[2020-06-21] MEDS: ASCORBIC ACID 500 MG/5 ML UNIT DOSE CUP GT SCH (09:13)
[2020-06-21] MEDS: BANATROL PLUS POWDER PACKET GT SCH ×2 (09:14→21:37)
[2020-06-21] MEDS: CHOLECALCIFEROL (VIT D SOLUTION) 400 UNIT/1 ML DROPS GT SCH (09:14)
[2020-06-21] MEDS: COLLAGENASE CLOSTRIDIUM HIST. 30 GRAMS TUBE TP SCH ×2 (09:15→09:16)
[2020-06-21] MEDS: SODIUM HYPOCHLORITE 0.25%- 473 ML BULK BOTTLE TP SCH (09:15)
[2020-06-21] MEDS: NYSTATIN 100000 UNIT/GM TOPICAL OINTMENT 15 GM TUBE TP SCH ×2 (09:15→23:04)
[2020-06-21] MEDS ORDERED: VANCOMYCIN 750 MG in DEXTROSE 5%-WATER - 250 ML IVPB ONE (12:51)
[2020-06-21] MEDS: ACETAMINOPHEN 650 MG/20.3 ML ORAL SOLUTION (CUPS) GT PRN ×2 (13:21→21:37)
[2020-06-21] MEDS: ATORVASTATIN CA 40 MG TABLET (FP) GT SCH (21:26)
[2020-06-21] MEDS: FAMOTIDINE 40 MG/5 ML ORAL SUSPENSION NGT SCH (21:38)
[2020-06-22] MEDS: PIPERACILLIN/TAZOB 2.25 GM 2.25 GM in DEXTROSE 5%-WATER - 50 ML IVPB SCH ×4 (02:25→20:47)
[2020-06-22] MEDS: GABAPENTIN 250 MG/5 ML ORAL SOLUTION, 470 ML BOTTLE GT SCH ×3 (05:01→22:08)
[2020-06-22] MEDS: CHOLESTYRAMINE/ASPARTAME 4 GM PACKET GT SCH ×3 (05:02→22:07)
[2020-06-22] MEDS: ACETAMINOPHEN 650 MG/20.3 ML ORAL SOLUTION (CUPS) GT PRN ×2 (05:02→22:08)
[2020-06-22] MEDS: ACETYLCYSTEINE 20% 200MG/ML 4 ML VIAL *FOR ORAL / INH USE ONLY NEB SCH ×2 (07:40→20:10)
[2020-06-22] MEDS: ALBUTEROL SO4 0.083% IH SOL 2.5 MG/3 ML VIAL.NEB. NEB PRN ×2 (07:40→20:10)
[2020-06-22] MEDS ORDERED: DEXTROSE 5%-WATER - 50 ML IVPB ONE ×3 (08:17→20:14)
[2020-06-22] MEDS ORDERED: PIPERACILLIN/TAZOBACTAM 2.25 GM VIAL IVPB ONE ×3 (08:17→20:14)
[2020-06-22] MEDS: AMINO ACIDS/PROTEIN HYDROLYS 30 ML LIQUID.PKT PO SCH ×2 (08:34→17:28)
[2020-06-22 09:20] LABS: BASO % 0.4 % (0-2.0); EOS % 2.4 % (0-4.5); HEMATOCRIT 25.5 % (35.4-49); HEMOGLOBIN 8.2 GM/dL (11.7-16.9); LYMPH % 12.6 % (8-40); MCH 29.8 pg (25.7-33.7); MCHC 32.1 g/dl (32.0-35.9); MEAN CELL VOLUME 92.9 fl (80-96); MEAN PLT VOLUME 6.9 fl (7.5-11.1); NEUT % 79.6 % (42.8-82.8); PLATELET COUNT 421 K/MM3 (134-434); RBC 2.75 M/mm3 (4.00-5.60); RDW 17.1 % (11.9-15.9); WHITE BLOOD COUNT 15.8 K/mm3 (4.0-10.0)
[2020-06-22] MEDS: levETIRAcetam 500 MG/5 ML ORAL SOLUTION (UNIT-DOSE CUPS) GT SCH (09:39)
[2020-06-22] MEDS: SODIUM HYPOCHLORITE 0.25%- 473 ML BULK BOTTLE TP SCH (09:39)
[2020-06-22] MEDS: BANATROL PLUS POWDER PACKET GT SCH ×2 (09:39→22:07)
[2020-06-22] MEDS: APIXABAN 2.5 MG TABLET GT SCH ×2 (09:39→22:07)
[2020-06-22] MEDS: METOPROLOL TARTRATE 25 MG TABLET (FP) GT SCH ×2 (09:40→22:07)
[2020-06-22] MEDS: NYSTATIN 100000 UNIT/GM TOPICAL OINTMENT 15 GM TUBE TP SCH ×2 (09:40→22:30)
[2020-06-22] MEDS: ZINC SULFATE 220 MG CAPSULE (FP) GT SCH ×2 (09:40→22:07)
[2020-06-22] MEDS: COLLAGENASE CLOSTRIDIUM HIST. 30 GRAMS TUBE TP SCH ×2 (09:40)
[2020-06-22] MEDS: ASCORBIC ACID 500 MG/5 ML UNIT DOSE CUP GT SCH (09:41)
[2020-06-22] MEDS: CHOLECALCIFEROL (VIT D SOLUTION) 400 UNIT/1 ML DROPS GT SCH (09:41)
[2020-06-22] MEDS: QUEtiapine FUMARATE 25 MG TABLET GT SCH ×2 (09:41→22:07)
[2020-06-22 09:47] LABS: POTASSIUM 3.6 mmol/L (3.5-5.1)
[2020-06-22 09:51] LABS: BLOOD UREA NITROGEN 56.7 mg/dL (7-18)
[2020-06-22 09:52] LABS: CALCIUM 9.1 mg/dL (8.5-10.1)
[2020-06-22 09:53] LABS: ALBUMIN 1.6 g/dl (3.4-5.0); MAGNESIUM 1.9 mg/dL (1.8-2.4)
[2020-06-22 09:54] LABS: CREATININE 3.5 mg/dL (0.55-1.3); PHOSPHOROUS 6.8 mg/dL (2.5-4.9)
[2020-06-22 09:55] LABS: BILIRUBIN,TOTAL 0.2 mg/dL (0.2-1); TOT PROT 5.9 g/dl (6.4-8.2)
[2020-06-22 10:53] LABS: ANISOCYTOSIS 2+; MACROCYTOSIS 0; PLATELET ESTIMATE NORMAL
[2020-06-22] MEDS ORDERED: SODIUM CHLORIDE 250 ML IV PRN (12:44)
[2020-06-22] MEDS ORDERED: PT OWN MED DRAWER 7, Y5N ONE (20:15)
[2020-06-22] MEDS: ATORVASTATIN CA 40 MG TABLET (FP) GT SCH (22:07)
[2020-06-22] MEDS: FAMOTIDINE 40 MG/5 ML ORAL SUSPENSION NGT SCH (22:08)
[2020-06-23] MEDS ORDERED: PIPERACILLIN/TAZOBACTAM 2.25 GM VIAL IVPB ONE ×4 (03:26→20:54)
[2020-06-23] MEDS ORDERED: DEXTROSE 5%-WATER - 50 ML IVPB ONE ×4 (03:26→20:54)
[2020-06-23] MEDS: PIPERACILLIN/TAZOB 2.25 GM 2.25 GM in DEXTROSE 5%-WATER - 50 ML IVPB SCH ×4 (03:27→21:51)
[2020-06-23] MEDS: CHOLESTYRAMINE/ASPARTAME 4 GM PACKET GT SCH ×3 (05:08→21:52)
[2020-06-23] MEDS: GABAPENTIN 250 MG/5 ML ORAL SOLUTION, 470 ML BOTTLE GT SCH ×3 (05:08→21:53)
[2020-06-23] MEDS: ACETYLCYSTEINE 20% 200MG/ML 4 ML VIAL *FOR ORAL / INH USE ONLY NEB SCH ×2 (07:45→20:00)
[2020-06-23] MEDS: ALBUTEROL SO4 0.083% IH SOL 2.5 MG/3 ML VIAL.NEB. NEB PRN (07:45)
[2020-06-23] MEDS ORDERED: EPOETIN ALFA 20,000 UNIT/1 ML VIAL SQ ONE (08:00)
[2020-06-23] MEDS ORDERED: VANCOMYCIN 1 GM PREMIX - 200 ML IVPB ONE (08:00)
[2020-06-23] MEDS ORDERED: SODIUM CHLORIDE 250 ML IV PRN (08:00)
[2020-06-23 08:03] LABS: BASO % 0.4 % (0-2.0); EOS % 2.6 % (0-4.5); HEMATOCRIT 23.5 % (35.4-49); HEMOGLOBIN 7.5 GM/dL (11.7-16.9); LYMPH % 11.4 % (8-40); MCHC 32.1 g/dl (32.0-35.9); MEAN CELL VOLUME 93.7 fl (80-96); MEAN PLT VOLUME 7.5 fl (7.5-11.1); MONO % 3.9 % (3.8-10.2); NEUT % 81.7 % (42.8-82.8); PLATELET COUNT 437 K/MM3 (134-434); RDW 17.3 % (11.9-15.9); WHITE BLOOD COUNT 14.9 K/mm3 (4.0-10.0)
[2020-06-23 11:45] LABS: ANISOCYTOSIS 1+; MACROCYTOSIS 0; OVALOCYTE 1+; PLATELET ESTIMATE NORMAL; TEAR DROP CELLS 1+
[2020-06-23] MEDS: ACETAMINOPHEN 650 MG/20.3 ML ORAL SOLUTION (CUPS) GT PRN (11:59)
[2020-06-23] MEDS: APIXABAN 2.5 MG TABLET GT SCH ×2 (12:00→21:54)
[2020-06-23] MEDS: QUEtiapine FUMARATE 25 MG TABLET GT SCH ×2 (12:01→21:54)
[2020-06-23] MEDS: METOPROLOL TARTRATE 25 MG TABLET (FP) GT SCH ×2 (12:01→21:54)
[2020-06-23] MEDS: NYSTATIN 100000 UNIT/GM TOPICAL OINTMENT 15 GM TUBE TP SCH ×2 (12:01→22:55)
[2020-06-23] MEDS: ZINC SULFATE 220 MG CAPSULE (FP) GT SCH ×2 (12:01→21:53)
[2020-06-23] MEDS: AMINO ACIDS/PROTEIN HYDROLYS 30 ML LIQUID.PKT PO SCH ×2 (12:01→17:58)
[2020-06-23] MEDS: BANATROL PLUS POWDER PACKET GT SCH ×2 (12:01→21:52)
[2020-06-23] MEDS: SODIUM HYPOCHLORITE 0.25%- 473 ML BULK BOTTLE TP SCH (12:01)
[2020-06-23] MEDS: ASCORBIC ACID 500 MG/5 ML UNIT DOSE CUP GT SCH (12:02)
[2020-06-23] MEDS: CHOLECALCIFEROL (VIT D SOLUTION) 400 UNIT/1 ML DROPS GT SCH (12:02)
[2020-06-23] MEDS: COLLAGENASE CLOSTRIDIUM HIST. 30 GRAMS TUBE TP SCH ×2 (12:02)
[2020-06-23 13:21] LABS: HEMATOCRIT 25.7 % (35.4-49); HEMOGLOBIN 8.3 GM/dL (11.7-16.9); MCH 30.2 pg (25.7-33.7); MCHC 32.4 g/dl (32.0-35.9); MEAN CELL VOLUME 93.4 fl (80-96); MEAN PLT VOLUME 7.2 fl (7.5-11.1); PLATELET COUNT 462 K/MM3 (134-434); RBC 2.75 M/mm3 (4.00-5.60); RDW 17.1 % (11.9-15.9); WHITE BLOOD COUNT 13.5 K/mm3 (4.0-10.0)
[2020-06-23 13:45] LABS: POTASSIUM 3.6 mmol/L (3.5-5.1)
[2020-06-23 13:47] LABS: CALCIUM 9.4 mg/dL (8.5-10.1)
[2020-06-23 13:50] LABS: CREATININE 2.2 mg/dL (0.55-1.3)
[2020-06-23 13:52] LABS: BLOOD UREA NITROGEN 30.2 mg/dL (7-18)
[2020-06-23] MEDS ORDERED: VANCOMYCIN 750 MG in DEXTROSE 5%-WATER - 250 ML IVPB ONE (16:30)
[2020-06-23] MEDS ORDERED: PT OWN MED DRAWER 7, Y5N ONE (20:53)
[2020-06-23] MEDS: FAMOTIDINE 40 MG/5 ML ORAL SUSPENSION NGT SCH (21:52)
[2020-06-23] MEDS: ATORVASTATIN CA 40 MG TABLET (FP) GT SCH (21:54)
[2020-06-24] MEDS ORDERED: PIPERACILLIN/TAZOBACTAM 2.25 GM VIAL IVPB ONE ×4 (02:14→21:01)
[2020-06-24] MEDS ORDERED: DEXTROSE 5%-WATER - 50 ML IVPB ONE ×4 (02:15→21:01)
[2020-06-24] MEDS: PIPERACILLIN/TAZOB 2.25 GM 2.25 GM in DEXTROSE 5%-WATER - 50 ML IVPB SCH ×4 (02:16→21:13)
[2020-06-24] MEDS: CHOLESTYRAMINE/ASPARTAME 4 GM PACKET GT SCH ×3 (05:23→21:13)
[2020-06-24] MEDS: GABAPENTIN 250 MG/5 ML ORAL SOLUTION, 470 ML BOTTLE GT SCH ×3 (05:23→23:57)
[2020-06-24] MEDS: ACETYLCYSTEINE 20% 200MG/ML 4 ML VIAL *FOR ORAL / INH USE ONLY NEB SCH ×3 (08:10→20:25)
[2020-06-24] MEDS ORDERED: PT OWN MED DRAWER 7, Y5N ONE ×3 (09:26→14:01)
[2020-06-24] MEDS: AMINO ACIDS/PROTEIN HYDROLYS 30 ML LIQUID.PKT PO SCH ×2 (09:29→17:50)
[2020-06-24] MEDS: ZINC SULFATE 220 MG CAPSULE (FP) GT SCH ×2 (09:29→21:13)
[2020-06-24] MEDS: APIXABAN 2.5 MG TABLET GT SCH ×2 (09:29→21:13)
[2020-06-24] MEDS: METOPROLOL TARTRATE 25 MG TABLET (FP) GT SCH ×2 (09:29→21:13)
[2020-06-24] MEDS: QUEtiapine FUMARATE 25 MG TABLET GT SCH ×2 (09:30→21:13)
[2020-06-24] MEDS: BANATROL PLUS POWDER PACKET GT SCH (09:30)
[2020-06-24] MEDS: SODIUM HYPOCHLORITE 0.25%- 473 ML BULK BOTTLE TP SCH (09:31)
[2020-06-24] MEDS: levETIRAcetam 500 MG/5 ML ORAL SOLUTION (UNIT-DOSE CUPS) GT SCH (09:31)
[2020-06-24] MEDS: CHOLECALCIFEROL (VIT D SOLUTION) 400 UNIT/1 ML DROPS GT SCH (09:32)
[2020-06-24] MEDS: NYSTATIN 100000 UNIT/GM TOPICAL OINTMENT 15 GM TUBE TP SCH ×2 (09:33→23:58)
[2020-06-24] MEDS: COLLAGENASE CLOSTRIDIUM HIST. 30 GRAMS TUBE TP SCH ×2 (09:33)
[2020-06-24] MEDS: ASCORBIC ACID 500 MG/5 ML UNIT DOSE CUP GT SCH (09:33)
[2020-06-24 11:19] LABS: BASO % 0.5 % (0-2.0); EOS % 2.1 % (0-4.5); HEMATOCRIT 26.5 % (35.4-49); HEMOGLOBIN 8.5 GM/dL (11.7-16.9); LYMPH % 10.2 % (8-40); MCH 30.3 pg (25.7-33.7); MCHC 32.2 g/dl (32.0-35.9); MEAN CELL VOLUME 94.3 fl (80-96); MEAN PLT VOLUME 7.3 fl (7.5-11.1); NEUT % 81.2 % (42.8-82.8); PLATELET COUNT 437 K/MM3 (134-434); RBC 2.81 M/mm3 (4.00-5.60); RDW 17.2 % (11.9-15.9); WHITE BLOOD COUNT 14.3 K/mm3 (4.0-10.0)
[2020-06-24 11:32] LABS: POTASSIUM 3.4 mmol/L (3.5-5.1)
[2020-06-24 12:01] VITALS: BMI 42.3
[2020-06-24 12:01] LABS: BLOOD UREA NITROGEN 41.9 mg/dL (7-18)
[2020-06-24 12:02] LABS: ALBUMIN 1.7 g/dl (3.4-5.0); CALCIUM 9.4 mg/dL (8.5-10.1); MAGNESIUM 1.9 mg/dL (1.8-2.4)
[2020-06-24 12:04] LABS: CREATININE 2.8 mg/dL (0.55-1.3); PHOSPHOROUS 5.2 mg/dL (2.5-4.9)
[2020-06-24 12:06] LABS: BILIRUBIN,TOTAL 0.3 mg/dL (0.2-1); TOT PROT 5.9 g/dl (6.4-8.2)
[2020-06-24] MEDS: ALBUTEROL SO4 0.083% IH SOL 2.5 MG/3 ML VIAL.NEB. NEB PRN ×2 (16:04→20:25)
[2020-06-24] MEDS: ACETAMINOPHEN 650 MG/20.3 ML ORAL SOLUTION (CUPS) GT PRN (21:11)
[2020-06-24] MEDS: ATORVASTATIN CA 40 MG TABLET (FP) GT SCH (21:13)
[2020-06-24] MEDS: FAMOTIDINE 40 MG/5 ML ORAL SUSPENSION NGT SCH (23:58)
[2020-06-24] MEDS: ZINC OXIDE 20% TOPICAL OINTMENT 30 GM TUBE TP SCH (23:59)
[2020-06-25] MEDS ORDERED: DEXTROSE 5%-WATER - 50 ML IVPB ONE ×4 (02:50→21:56)
[2020-06-25] MEDS ORDERED: PIPERACILLIN/TAZOBACTAM 2.25 GM VIAL IVPB ONE ×4 (02:50→21:56)
[2020-06-25] MEDS: PIPERACILLIN/TAZOB 2.25 GM 2.25 GM in DEXTROSE 5%-WATER - 50 ML IVPB SCH ×4 (02:56→22:01)
[2020-06-25] MEDS: GABAPENTIN 250 MG/5 ML ORAL SOLUTION, 470 ML BOTTLE GT SCH ×3 (06:39→23:00)
[2020-06-25] MEDS: CHOLESTYRAMINE/ASPARTAME 4 GM PACKET GT SCH ×3 (06:40→22:03)
[2020-06-25] MEDS: ACETYLCYSTEINE 20% 200MG/ML 4 ML VIAL *FOR ORAL / INH USE ONLY NEB SCH ×2 (07:45→20:50)
[2020-06-25] MEDS: ALBUTEROL SO4 0.083% IH SOL 2.5 MG/3 ML VIAL.NEB. NEB PRN ×2 (07:45→20:50)
[2020-06-25 08:27] LABS: HEMATOCRIT 25.4 % (35.4-49); HEMOGLOBIN 8.2 GM/dL (11.7-16.9); MCH 30.7 pg (25.7-33.7); MCHC 32.2 g/dl (32.0-35.9); MEAN CELL VOLUME 95.3 fl (80-96); MEAN PLT VOLUME 7.4 fl (7.5-11.1); PLATELET COUNT 470 K/MM3 (134-434); RBC 2.67 M/mm3 (4.00-5.60); RDW 17.5 % (11.9-15.9)
[2020-06-25 08:47] LABS: POTASSIUM 3.7 mmol/L (3.5-5.1)
[2020-06-25 09:05] LABS: ALBUMIN 1.6 g/dl (3.4-5.0); BLOOD UREA NITROGEN 51.1 mg/dL (7-18)
[2020-06-25 09:06] LABS: BILIRUBIN,TOTAL 0.2 mg/dL (0.2-1); CALCIUM 9.5 mg/dL (8.5-10.1); CREATININE 3.3 mg/dL (0.55-1.3); MAGNESIUM 1.8 mg/dL (1.8-2.4); TOT PROT 5.8 g/dl (6.4-8.2)
[2020-06-25 09:08] LABS: PHOSPHOROUS 5.5 mg/dL (2.5-4.9)
[2020-06-25] MEDS ORDERED: PT OWN MED DRAWER 7, Y5N ONE ×2 (09:39→21:56)
[2020-06-25] MEDS: METOPROLOL TARTRATE 25 MG TABLET (FP) GT SCH ×2 (10:50→22:02)
[2020-06-25] MEDS: ZINC SULFATE 220 MG CAPSULE (FP) GT SCH ×2 (10:50→22:03)
[2020-06-25] MEDS: ASCORBIC ACID 500 MG/5 ML UNIT DOSE CUP GT SCH (10:50)
[2020-06-25] MEDS: APIXABAN 2.5 MG TABLET GT SCH ×2 (10:50→22:03)
[2020-06-25] MEDS: AMINO ACIDS/PROTEIN HYDROLYS 30 ML LIQUID.PKT PO SCH ×2 (10:50→17:45)
[2020-06-25] MEDS: QUEtiapine FUMARATE 25 MG TABLET GT SCH ×2 (10:50→22:02)
[2020-06-25] MEDS: CHOLECALCIFEROL (VIT D SOLUTION) 400 UNIT/1 ML DROPS GT SCH (10:51)
[2020-06-25] MEDS: NYSTATIN 100000 UNIT/GM TOPICAL OINTMENT 15 GM TUBE TP SCH ×2 (16:00→22:03)
[2020-06-25] MEDS ORDERED: EPOETIN ALFA-EPBX 10,000 UNIT/ML VIAL IVPUSH ONE (16:39)
[2020-06-25] MEDS: SODIUM HYPOCHLORITE 0.25%- 473 ML BULK BOTTLE TP SCH (17:22)
[2020-06-25] MEDS: ZINC OXIDE 20% TOPICAL OINTMENT 30 GM TUBE TP SCH ×2 (17:32→22:03)
[2020-06-25] MEDS: COLLAGENASE CLOSTRIDIUM HIST. 30 GRAMS TUBE TP SCH ×2 (17:32)
[2020-06-25] MEDS: FAMOTIDINE 40 MG/5 ML ORAL SUSPENSION NGT SCH (22:02)
[2020-06-25] MEDS: ATORVASTATIN CA 40 MG TABLET (FP) GT SCH (22:03)
[2020-06-26] MEDS ORDERED: DEXTROSE 5%-WATER - 50 ML IVPB ONE ×3 (04:21→16:23)
[2020-06-26] MEDS ORDERED: PIPERACILLIN/TAZOBACTAM 2.25 GM VIAL IVPB ONE ×3 (04:21→16:23)
[2020-06-26] MEDS: CHOLESTYRAMINE/ASPARTAME 4 GM PACKET GT SCH ×3 (06:14→21:17)
[2020-06-26] MEDS: GABAPENTIN 250 MG/5 ML ORAL SOLUTION, 470 ML BOTTLE GT SCH ×3 (06:16→21:18)
[2020-06-26] MEDS: PIPERACILLIN/TAZOB 2.25 GM 2.25 GM in DEXTROSE 5%-WATER - 50 ML IVPB SCH ×3 (06:43→17:03)
[2020-06-26] MEDS: ALBUTEROL SO4 0.083% IH SOL 2.5 MG/3 ML VIAL.NEB. NEB PRN ×3 (07:50→20:25)
[2020-06-26] MEDS: ACETYLCYSTEINE 20% 200MG/ML 4 ML VIAL *FOR ORAL / INH USE ONLY NEB SCH ×2 (07:50→20:25)
[2020-06-26 08:46] LABS: POTASSIUM 3.9 mmol/L (3.5-5.1)
[2020-06-26 08:48] LABS: BLOOD UREA NITROGEN 60.8 mg/dL (7-18); CALCIUM 9.3 mg/dL (8.5-10.1); MAGNESIUM 1.8 mg/dL (1.8-2.4)
[2020-06-26 08:51] LABS: CREATININE 3.5 mg/dL (0.55-1.3)
[2020-06-26 08:52] LABS: PHOSPHOROUS 6.4 mg/dL (2.5-4.9)
[2020-06-26] MEDS: METOPROLOL TARTRATE 25 MG TABLET (FP) GT SCH ×2 (10:43→21:17)
[2020-06-26] MEDS: AMINO ACIDS/PROTEIN HYDROLYS 30 ML LIQUID.PKT PO SCH ×2 (10:43→17:03)
[2020-06-26] MEDS: QUEtiapine FUMARATE 25 MG TABLET GT SCH ×2 (10:43→21:17)
[2020-06-26] MEDS: ZINC SULFATE 220 MG CAPSULE (FP) GT SCH ×2 (10:43→21:17)
[2020-06-26] MEDS: APIXABAN 2.5 MG TABLET GT SCH ×2 (10:43→21:17)
[2020-06-26] MEDS: CHOLECALCIFEROL (VIT D SOLUTION) 400 UNIT/1 ML DROPS GT SCH (10:44)
[2020-06-26] MEDS: levETIRAcetam 500 MG/5 ML ORAL SOLUTION (UNIT-DOSE CUPS) GT SCH (10:45)
[2020-06-26] MEDS: ASCORBIC ACID 500 MG/5 ML UNIT DOSE CUP GT SCH (10:45)
[2020-06-26 12:24] LABS: BASO % 0.8 % (0-2.0); EOS % 2.2 % (0-4.5); HEMATOCRIT 25.4 % (35.4-49); HEMOGLOBIN 8.1 GM/dL (11.7-16.9); LYMPH % 9.6 % (8-40); MCH 30.8 pg (25.7-33.7); MCHC 31.8 g/dl (32.0-35.9); MEAN CELL VOLUME 96.7 fl (80-96); MEAN PLT VOLUME 7.8 fl (7.5-11.1); MONO % 4.3 % (3.8-10.2); NEUT % 83.1 % (42.8-82.8); PLATELET COUNT 436 K/MM3 (134-434); RBC 2.63 M/mm3 (4.00-5.60); RDW 17.6 % (11.9-15.9); WHITE BLOOD COUNT 22.7 K/mm3 (4.0-10.0)
[2020-06-26] MEDS ORDERED: morphine SULFATE 4 MG/ML VIAL ONE (14:50)
[2020-06-26 14:55] LABS: ANISOCYTOSIS 1+; MACROCYTOSIS 1+; PLATELET ESTIMATE NORMAL
[2020-06-26] MEDS: NYSTATIN 100000 UNIT/GM TOPICAL OINTMENT 15 GM TUBE TP SCH ×2 (15:09→21:17)
[2020-06-26] MEDS: SODIUM HYPOCHLORITE 0.25%- 473 ML BULK BOTTLE TP SCH (15:09)
[2020-06-26] MEDS: ZINC OXIDE 20% TOPICAL OINTMENT 30 GM TUBE TP SCH ×2 (15:10→21:20)
[2020-06-26] MEDS: COLLAGENASE CLOSTRIDIUM HIST. 30 GRAMS TUBE TP SCH ×2 (15:10)
[2020-06-26] MEDS: morphine SULFATE 4 MG/ML VIAL SQ PRN (15:35)
[2020-06-26] MEDS ORDERED: AMOX TR/POT CLAV 250MG/125MG TABLETS PO SCH (17:30)
[2020-06-26] MEDS ORDERED: VANCOMYCIN 1 GM in D5W (PRE-DOCKED) 1,000 MG/250 ML IVPB ONE (18:15)
[2020-06-26] MEDS ORDERED: PT OWN MED DRAWER 7, Y5N ONE (21:15)
[2020-06-26] MEDS: ATORVASTATIN CA 40 MG TABLET (FP) GT SCH (21:17)
[2020-06-26] MEDS: FAMOTIDINE 40 MG/5 ML ORAL SUSPENSION NGT SCH (22:34)
[2020-06-27] MEDS ORDERED: DEXTROSE 5%-WATER - 50 ML IVPB ONE ×3 (01:12→21:00)
[2020-06-27] MEDS ORDERED: PIPERACILLIN/TAZOBACTAM 2.25 GM VIAL IVPB ONE ×2 (01:12→09:26)
[2020-06-27] MEDS: PIPERACILLIN/TAZOB 2.25 GM 2.25 GM in DEXTROSE 5%-WATER - 50 ML IVPB SCH ×2 (01:36→09:48)
[2020-06-27] MEDS ORDERED: PT OWN MED DRAWER 7, Y5N ONE ×2 (05:47→21:00)
[2020-06-27] MEDS: GABAPENTIN 250 MG/5 ML ORAL SOLUTION, 470 ML BOTTLE GT SCH ×3 (05:50→22:18)
[2020-06-27] MEDS: CHOLESTYRAMINE/ASPARTAME 4 GM PACKET GT SCH ×3 (05:51→22:21)
[2020-06-27 08:10] LABS: POTASSIUM 4.1 mmol/L (3.5-5.1)
[2020-06-27 08:11] LABS: HEMATOCRIT 21.9 % (35.4-49); HEMOGLOBIN 7.3 GM/dL (11.7-16.9); MCH 31.8 pg (25.7-33.7); MCHC 33.2 g/dl (32.0-35.9); MEAN CELL VOLUME 95.9 fl (80-96); MEAN PLT VOLUME 7.5 fl (7.5-11.1); PLATELET COUNT 463 K/MM3 (134-434); RBC 2.29 M/mm3 (4.00-5.60); RDW 17.7 % (11.9-15.9); WHITE BLOOD COUNT 19.2 K/mm3 (4.0-10.0)
[2020-06-27 08:15] LABS: ALBUMIN 1.5 g/dl (3.4-5.0); BLOOD UREA NITROGEN 71.3 mg/dL (7-18); CALCIUM 9.9 mg/dL (8.5-10.1); MAGNESIUM 2.1 mg/dL (1.8-2.4)
[2020-06-27 08:18] LABS: CREATININE 4.1 mg/dL (0.55-1.3); PHOSPHOROUS 7.3 mg/dL (2.5-4.9)
[2020-06-27 08:19] LABS: BILIRUBIN,TOTAL 0.3 mg/dL (0.2-1)
[2020-06-27 08:20] LABS: TOT PROT 5.6 g/dl (6.4-8.2)
[2020-06-27] MEDS: ALBUTEROL SO4 0.083% IH SOL 2.5 MG/3 ML VIAL.NEB. NEB PRN ×3 (09:35→20:40)
[2020-06-27] MEDS: APIXABAN 2.5 MG TABLET GT SCH ×2 (09:47→22:17)
[2020-06-27] MEDS: METOPROLOL TARTRATE 25 MG TABLET (FP) GT SCH ×2 (09:48→22:17)
[2020-06-27] MEDS: QUEtiapine FUMARATE 25 MG TABLET GT SCH ×2 (09:48→22:17)
[2020-06-27] MEDS: ZINC SULFATE 220 MG CAPSULE (FP) GT SCH ×2 (09:48→22:18)
[2020-06-27] MEDS: AMINO ACIDS/PROTEIN HYDROLYS 30 ML LIQUID.PKT PO SCH ×2 (09:49→17:40)
[2020-06-27] MEDS: CHOLECALCIFEROL (VIT D SOLUTION) 400 UNIT/1 ML DROPS GT SCH (09:49)
[2020-06-27] MEDS: COLLAGENASE CLOSTRIDIUM HIST. 30 GRAMS TUBE TP SCH (09:50)
[2020-06-27] MEDS: NYSTATIN 100000 UNIT/GM TOPICAL OINTMENT 15 GM TUBE TP SCH ×2 (09:50→22:20)
[2020-06-27] MEDS: ZINC OXIDE 20% TOPICAL OINTMENT 30 GM TUBE TP SCH ×2 (09:52→22:22)
[2020-06-27] MEDS: ASCORBIC ACID 500 MG/5 ML UNIT DOSE CUP GT SCH (09:52)
[2020-06-27] MEDS: ACETYLCYSTEINE 20% 200MG/ML 4 ML VIAL *FOR ORAL / INH USE ONLY NEB SCH ×2 (13:00→20:40)
[2020-06-27] MEDS: SODIUM HYPOCHLORITE 0.25%- 473 ML BULK BOTTLE TP SCH (13:32)
[2020-06-27] MEDS ORDERED: AMOX TR/POT CLAV 250MG/125MG TABLETS PO SCH (17:30)
[2020-06-27] MEDS: AMOX TR/POTASSIUM CLAVULANATE 250 MG/5 ML BOTTLE PO SCH (17:59)
[2020-06-27] MEDS: morphine SULFATE 4 MG/ML VIAL SQ PRN (20:12)
[2020-06-27] MEDS ORDERED: cefTAZidime PENTAHYDRATE 1 GM VIAL (RESTRICTED TO ID) ONE (21:00)
[2020-06-27] MEDS ORDERED: cefTAZidime PENTAHYDRATE 1 GM/50ML PRE-DOCKED (RESTRICTED TO ID) IVPB SCH (22:00)
[2020-06-27] MEDS: CEFTAZIDIME PENTAHYDRATE 1 GM in DEXTROSE 5%-WATER - 50 ML IVPB SCH (22:12)
[2020-06-27] MEDS: ATORVASTATIN CA 40 MG TABLET (FP) GT SCH (22:17)
[2020-06-27] MEDS: FAMOTIDINE 40 MG/5 ML ORAL SUSPENSION NGT SCH (22:21)
[2020-06-28] MEDS: GABAPENTIN 250 MG/5 ML ORAL SOLUTION, 470 ML BOTTLE GT SCH ×3 (06:21→22:06)
[2020-06-28] MEDS: CHOLESTYRAMINE/ASPARTAME 4 GM PACKET GT SCH ×3 (06:21→22:01)
[2020-06-28] MEDS: morphine SULFATE 4 MG/ML VIAL SQ PRN ×3 (07:01→22:30)
[2020-06-28] MEDS ORDERED: SODIUM CHLORIDE 250 ML IV PRN (07:35)
[2020-06-28] MEDS ORDERED: EPOETIN ALFA-EPBX 10,000 UNIT/ML VIAL IVPUSH ONE ×2 (07:45→09:00)
[2020-06-28 08:02] LABS: HEMATOCRIT 23.2 % (35.4-49); HEMOGLOBIN 7.5 GM/dL (11.7-16.9); MCH 30.8 pg (25.7-33.7); MCHC 32.2 g/dl (32.0-35.9); MEAN CELL VOLUME 95.6 fl (80-96); MEAN PLT VOLUME 7.3 fl (7.5-11.1); PLATELET COUNT 432 K/MM3 (134-434); RBC 2.43 M/mm3 (4.00-5.60); RDW 17.6 % (11.9-15.9); WHITE BLOOD COUNT 18.6 K/mm3 (4.0-10.0)
[2020-06-28 08:11] LABS: POTASSIUM 4.2 mmol/L (3.5-5.1)
[2020-06-28 08:13] LABS: BLOOD UREA NITROGEN 80.8 mg/dL (7-18); MAGNESIUM 2.1 mg/dL (1.8-2.4)
[2020-06-28 08:16] LABS: CREATININE 4.5 mg/dL (0.55-1.3); PHOSPHOROUS 7.6 mg/dL (2.5-4.9)
[2020-06-28] MEDS: ACETYLCYSTEINE 20% 200MG/ML 4 ML VIAL *FOR ORAL / INH USE ONLY NEB SCH ×3 (09:30→21:53)
[2020-06-28] MEDS ORDERED: cefTAZidime PENTAHYDRATE 1 GM VIAL (RESTRICTED TO ID) ONE ×2 (11:22→20:57)
[2020-06-28] MEDS ORDERED: DEXTROSE 5%-WATER - 50 ML IVPB ONE ×2 (11:23→20:57)
[2020-06-28] MEDS: levETIRAcetam 500 MG/5 ML ORAL SOLUTION (UNIT-DOSE CUPS) GT SCH (11:32)
[2020-06-28] MEDS: CEFTAZIDIME PENTAHYDRATE 1 GM in DEXTROSE 5%-WATER - 50 ML IVPB SCH ×2 (11:32→22:02)
[2020-06-28] MEDS: ASCORBIC ACID 500 MG/5 ML UNIT DOSE CUP GT SCH (11:33)
[2020-06-28] MEDS: QUEtiapine FUMARATE 25 MG TABLET GT SCH ×2 (11:33→22:00)
[2020-06-28] MEDS: AMINO ACIDS/PROTEIN HYDROLYS 30 ML LIQUID.PKT PO SCH ×2 (11:33→16:45)
[2020-06-28] MEDS: APIXABAN 2.5 MG TABLET GT SCH ×2 (11:33→22:00)
[2020-06-28] MEDS: CHOLECALCIFEROL (VIT D SOLUTION) 400 UNIT/1 ML DROPS GT SCH (11:34)
[2020-06-28] MEDS: AMOX TR/POTASSIUM CLAVULANATE 250 MG/5 ML BOTTLE PO SCH ×2 (11:38→16:45)
[2020-06-28] MEDS: METOPROLOL TARTRATE 25 MG TABLET (FP) GT SCH ×2 (12:57→22:00)
[2020-06-28] MEDS: COLLAGENASE CLOSTRIDIUM HIST. 30 GRAMS TUBE TP SCH (16:44)
[2020-06-28] MEDS: SODIUM HYPOCHLORITE 0.25%- 473 ML BULK BOTTLE TP SCH (16:44)
[2020-06-28] MEDS: NYSTATIN 100000 UNIT/GM TOPICAL OINTMENT 15 GM TUBE TP SCH ×2 (16:44→23:00)
[2020-06-28] MEDS: ZINC SULFATE 220 MG CAPSULE (FP) GT SCH ×2 (16:44→22:00)
[2020-06-28] MEDS: ZINC OXIDE 20% TOPICAL OINTMENT 30 GM TUBE TP SCH ×2 (16:45→22:45)
[2020-06-28] MEDS: ACETAMINOPHEN 650 MG/20.3 ML ORAL SOLUTION (CUPS) GT PRN (19:10)
[2020-06-28] MEDS: ALBUTEROL SO4 0.083% IH SOL 2.5 MG/3 ML VIAL.NEB. NEB PRN (20:30)
[2020-06-28] MEDS: ATORVASTATIN CA 40 MG TABLET (FP) GT SCH (22:00)
[2020-06-28] MEDS ORDERED: PT OWN MED DRAWER 7, Y5N ONE (22:05)
[2020-06-28] MEDS: FAMOTIDINE 40 MG/5 ML ORAL SUSPENSION NGT SCH (23:00)
[2020-06-29] MEDS: CHOLESTYRAMINE/ASPARTAME 4 GM PACKET GT SCH ×3 (05:19→21:07)
[2020-06-29] MEDS: GABAPENTIN 250 MG/5 ML ORAL SOLUTION, 470 ML BOTTLE GT SCH ×3 (05:20→21:08)
[2020-06-29] MEDS: ALBUTEROL SO4 0.083% IH SOL 2.5 MG/3 ML VIAL.NEB. NEB PRN (09:00)
[2020-06-29] MEDS: ACETYLCYSTEINE 20% 200MG/ML 4 ML VIAL *FOR ORAL / INH USE ONLY NEB SCH ×2 (09:00→20:32)
[2020-06-29] MEDS ORDERED: cefTAZidime PENTAHYDRATE 1 GM VIAL (RESTRICTED TO ID) ONE ×2 (09:29→20:46)
[2020-06-29] MEDS ORDERED: DEXTROSE 5%-WATER - 50 ML IVPB ONE ×2 (09:29→20:46)
[2020-06-29] MEDS: AMINO ACIDS/PROTEIN HYDROLYS 30 ML LIQUID.PKT PO SCH ×2 (09:32→16:48)
[2020-06-29] MEDS: AMOX TR/POTASSIUM CLAVULANATE 250 MG/5 ML BOTTLE PO SCH ×2 (09:32→16:48)
[2020-06-29] MEDS: ASCORBIC ACID 500 MG/5 ML UNIT DOSE CUP GT SCH (09:33)
[2020-06-29] MEDS: QUEtiapine FUMARATE 25 MG TABLET GT SCH ×2 (09:33→21:07)
[2020-06-29] MEDS: METOPROLOL TARTRATE 25 MG TABLET (FP) GT SCH ×2 (09:33→21:07)
[2020-06-29] MEDS: ZINC SULFATE 220 MG CAPSULE (FP) GT SCH ×2 (09:34→21:08)
[2020-06-29] MEDS: APIXABAN 2.5 MG TABLET GT SCH ×2 (09:34→21:07)
[2020-06-29] MEDS: SODIUM HYPOCHLORITE 0.25%- 473 ML BULK BOTTLE TP SCH (09:34)
[2020-06-29] MEDS: NYSTATIN 100000 UNIT/GM TOPICAL OINTMENT 15 GM TUBE TP SCH ×2 (09:34→21:08)
[2020-06-29] MEDS: COLLAGENASE CLOSTRIDIUM HIST. 30 GRAMS TUBE TP SCH (09:34)
[2020-06-29] MEDS: CHOLECALCIFEROL (VIT D SOLUTION) 400 UNIT/1 ML DROPS GT SCH (09:35)
[2020-06-29] MEDS: ZINC OXIDE 20% TOPICAL OINTMENT 30 GM TUBE TP SCH ×2 (09:35→21:09)
[2020-06-29] MEDS: CEFTAZIDIME PENTAHYDRATE 1 GM in DEXTROSE 5%-WATER - 50 ML IVPB SCH ×2 (11:35→21:06)
[2020-06-29] MEDS ORDERED: SODIUM CHLORIDE 250 ML IV PRN (15:12)
[2020-06-29] MEDS: ATORVASTATIN CA 40 MG TABLET (FP) GT SCH (21:07)
[2020-06-29] MEDS: FAMOTIDINE 40 MG/5 ML ORAL SUSPENSION NGT SCH (21:07)
[2020-06-30] MEDS: CHOLESTYRAMINE/ASPARTAME 4 GM PACKET GT SCH ×3 (06:01→23:32)
[2020-06-30] MEDS: GABAPENTIN 250 MG/5 ML ORAL SOLUTION, 470 ML BOTTLE GT SCH ×3 (06:01→23:31)
[2020-06-30] MEDS: ACETYLCYSTEINE 20% 200MG/ML 4 ML VIAL *FOR ORAL / INH USE ONLY NEB SCH ×2 (07:23→20:58)
[2020-06-30] MEDS ORDERED: DEXTROSE 5%-WATER - 50 ML IVPB ONE ×2 (09:05→23:17)
[2020-06-30] MEDS ORDERED: cefTAZidime PENTAHYDRATE 1 GM VIAL (RESTRICTED TO ID) ONE ×2 (09:05→23:16)
[2020-06-30] MEDS ORDERED: PT OWN MED DRAWER 7, Y5N ONE (09:06)
[2020-06-30] MEDS: CEFTAZIDIME PENTAHYDRATE 1 GM in DEXTROSE 5%-WATER - 50 ML IVPB SCH ×2 (09:09→23:27)
[2020-06-30] MEDS: AMINO ACIDS/PROTEIN HYDROLYS 30 ML LIQUID.PKT PO SCH ×2 (09:09→17:26)
[2020-06-30] MEDS: QUEtiapine FUMARATE 25 MG TABLET GT SCH ×2 (09:10→23:31)
[2020-06-30] MEDS: APIXABAN 2.5 MG TABLET GT SCH ×2 (09:10→23:31)
[2020-06-30] MEDS: levETIRAcetam 500 MG/5 ML ORAL SOLUTION (UNIT-DOSE CUPS) GT SCH (09:10)
[2020-06-30] MEDS: ZINC SULFATE 220 MG CAPSULE (FP) GT SCH ×2 (09:10→23:31)
[2020-06-30] MEDS: METOPROLOL TARTRATE 25 MG TABLET (FP) GT SCH ×2 (09:10→23:31)
[2020-06-30] MEDS: CHOLECALCIFEROL (VIT D SOLUTION) 400 UNIT/1 ML DROPS GT SCH (09:11)
[2020-06-30] MEDS: ASCORBIC ACID 500 MG/5 ML UNIT DOSE CUP GT SCH (09:11)
[2020-06-30] MEDS: AMOX TR/POTASSIUM CLAVULANATE 250 MG/5 ML BOTTLE PO SCH ×2 (09:13→17:26)
[2020-06-30] MEDS: NYSTATIN 100000 UNIT/GM TOPICAL OINTMENT 15 GM TUBE TP SCH ×2 (09:14→23:45)
[2020-06-30] MEDS: SODIUM HYPOCHLORITE 0.25%- 473 ML BULK BOTTLE TP SCH (09:14)
[2020-06-30] MEDS: ZINC OXIDE 20% TOPICAL OINTMENT 30 GM TUBE TP SCH ×2 (09:15→23:32)
[2020-06-30] MEDS: COLLAGENASE CLOSTRIDIUM HIST. 30 GRAMS TUBE TP SCH (09:15)
[2020-06-30 11:54] LABS: BASO % 0.5 % (0-2.0); EOS % 3.1 % (0-4.5); HEMATOCRIT 22.3 % (35.4-49); HEMOGLOBIN 7.1 GM/dL (11.7-16.9); LYMPH % 9.8 % (8-40); MCH 30.8 pg (25.7-33.7); MCHC 31.9 g/dl (32.0-35.9); MEAN CELL VOLUME 96.8 fl (80-96); MEAN PLT VOLUME 7.2 fl (7.5-11.1); MONO % 6.3 % (3.8-10.2); NEUT % 80.3 % (42.8-82.8); PLATELET COUNT 395 K/MM3 (134-434); RBC 2.31 M/mm3 (4.00-5.60); RDW 17.2 % (11.9-15.9); WHITE BLOOD COUNT 14.5 K/mm3 (4.0-10.0)
[2020-06-30 12:19] LABS: POTASSIUM 3.6 mmol/L (3.5-5.1)
[2020-06-30 12:26] LABS: ALBUMIN 1.3 g/dl (3.4-5.0); BLOOD UREA NITROGEN 55.9 mg/dL (7-18); CALCIUM 9.4 mg/dL (8.5-10.1); MAGNESIUM 1.9 mg/dL (1.8-2.4)
[2020-06-30 12:29] LABS: CREATININE 3.6 mg/dL (0.55-1.3); PHOSPHOROUS 5.7 mg/dL (2.5-4.9)
[2020-06-30 12:31] LABS: BILIRUBIN,TOTAL 0.3 mg/dL (0.2-1); TOT PROT 5.2 g/dl (6.4-8.2)
[2020-06-30] MEDS: MORPHINE SULFATE 2 MG/ML VIAL IVPUSH PRN (13:08)
[2020-06-30] MEDS ORDERED: EPOETIN ALFA-EPBX 10,000 UNIT/ML VIAL IVPUSH ONE (15:12)
[2020-06-30] MEDS: ATORVASTATIN CA 40 MG TABLET (FP) GT SCH (23:31)
[2020-06-30] MEDS: FAMOTIDINE 40 MG/5 ML ORAL SUSPENSION NGT SCH (23:34)
[2020-07-01] MEDS: GABAPENTIN 250 MG/5 ML ORAL SOLUTION, 470 ML BOTTLE GT SCH ×3 (05:31→22:19)
[2020-07-01] MEDS: MORPHINE SULFATE 2 MG/ML VIAL IVPUSH PRN ×2 (05:31→13:30)
[2020-07-01] MEDS: CHOLESTYRAMINE/ASPARTAME 4 GM PACKET GT SCH ×3 (05:31→22:17)
[2020-07-01] MEDS: AMINO ACIDS/PROTEIN HYDROLYS 30 ML LIQUID.PKT PO SCH ×2 (08:39→17:15)
[2020-07-01] MEDS: AMOX TR/POTASSIUM CLAVULANATE 250 MG/5 ML BOTTLE PO SCH ×2 (08:39→17:15)
[2020-07-01] MEDS ORDERED: PT OWN MED DRAWER 7, Y5N ONE (09:30)
[2020-07-01] MEDS ORDERED: cefTAZidime PENTAHYDRATE 1 GM VIAL (RESTRICTED TO ID) ONE ×2 (09:30→22:01)
[2020-07-01] MEDS ORDERED: DEXTROSE 5%-WATER - 50 ML IVPB ONE ×2 (09:30→22:02)
[2020-07-01] MEDS: APIXABAN 2.5 MG TABLET GT SCH ×2 (09:38→22:17)
[2020-07-01] MEDS: ASCORBIC ACID 500 MG/5 ML UNIT DOSE CUP GT SCH (09:38)
[2020-07-01] MEDS: METOPROLOL TARTRATE 25 MG TABLET (FP) GT SCH ×2 (09:40→22:17)
[2020-07-01] MEDS: CHOLECALCIFEROL (VIT D SOLUTION) 400 UNIT/1 ML DROPS GT SCH (09:40)
[2020-07-01] MEDS: CEFTAZIDIME PENTAHYDRATE 1 GM in DEXTROSE 5%-WATER - 50 ML IVPB SCH ×2 (09:41→23:42)
[2020-07-01] MEDS: ZINC SULFATE 220 MG CAPSULE (FP) GT SCH ×2 (09:41→22:17)
[2020-07-01] MEDS: SODIUM HYPOCHLORITE 0.25%- 473 ML BULK BOTTLE TP SCH (09:41)
[2020-07-01] MEDS: QUEtiapine FUMARATE 25 MG TABLET GT SCH ×2 (09:41→22:17)
[2020-07-01] MEDS: NYSTATIN 100000 UNIT/GM TOPICAL OINTMENT 15 GM TUBE TP SCH ×2 (09:41→22:19)
[2020-07-01] MEDS: COLLAGENASE CLOSTRIDIUM HIST. 30 GRAMS TUBE TP SCH (09:41)
[2020-07-01] MEDS: ZINC OXIDE 20% TOPICAL OINTMENT 30 GM TUBE TP SCH ×2 (09:42→22:18)
[2020-07-01 10:13] LABS: HEMOGLOBIN 7.7 GM/dL (11.7-16.9); MCH 30.8 pg (25.7-33.7); MEAN CELL VOLUME 96.4 fl (80-96); MEAN PLT VOLUME 7.1 fl (7.5-11.1); PLATELET COUNT 424 K/MM3 (134-434); RBC 2.49 M/mm3 (4.00-5.60); RDW 17.3 % (11.9-15.9); WHITE BLOOD COUNT 12.2 K/mm3 (4.0-10.0)
[2020-07-01 10:37] LABS: POTASSIUM 3.4 mmol/L (3.5-5.1)
[2020-07-01 10:42] LABS: CALCIUM 8.8 mg/dL (8.5-10.1)
[2020-07-01 10:44] LABS: ALBUMIN 1.4 g/dl (3.4-5.0); MAGNESIUM 1.9 mg/dL (1.8-2.4)
[2020-07-01 10:46] LABS: BILIRUBIN,TOTAL 0.5 mg/dL (0.2-1); CREATININE 2.6 mg/dL (0.55-1.3); PHOSPHOROUS 3.5 mg/dL (2.5-4.9)
[2020-07-01 10:48] LABS: TOT PROT 5.5 g/dl (6.4-8.2)
[2020-07-01] MEDS ORDERED: HEPARIN NA (PORCINE) 5,000 UNITS/ML 1ML VIAL ONE (16:27)
[2020-07-01] MEDS ORDERED: LIDOCAINE HCL 1%, 10 MG/ML (20ML VIAL) ONE (16:27)
[2020-07-01] MEDS ORDERED: EPOETIN ALFA 10,000 UNIT/1 ML VIAL IVPUSH ONE (16:57)
[2020-07-01] MEDS ORDERED: SODIUM CHLORIDE 250 ML IV PRN ×2 (16:57→18:47)
[2020-07-01] MEDS ORDERED: MIDAZOLAM HCL 2 MG/2 ML SINGLE DOSE VIAL ONE ×3 (17:22→17:23)
[2020-07-01] MEDS ORDERED: KETAMINE HCL 200 MG/20 ML VIAL ONE (17:29)
[2020-07-01] MEDS ORDERED: LIDOCAINE HCL 1%, 10 MG/ML (50 mL VIAL) INF ONE (17:45)
[2020-07-01] MEDS ORDERED: ONDANSETRON 4 MG/2 ML VIAL IVPUSH PRN (18:34)
[2020-07-01] MEDS ORDERED: ACETAMINOPHEN 650 MG/20.3 ML ORAL SOLUTION (CUPS) GT PRN (18:47)
[2020-07-01] MEDS ORDERED: EPOETIN ALFA-EPBX 10,000 UNIT/ML VIAL IVPUSH ONE (18:47)
[2020-07-01] MEDS ORDERED: AMMONIUM LACTATE 12% LOTION 225 GM BOTTLE TP PRN (18:47)
[2020-07-01] MEDS: ACETYLCYSTEINE 20% 200MG/ML 4 ML VIAL *FOR ORAL / INH USE ONLY NEB SCH (20:23)
[2020-07-01] MEDS: ATORVASTATIN CA 40 MG TABLET (FP) GT SCH (22:17)
[2020-07-01] MEDS: FAMOTIDINE 40 MG/5 ML ORAL SUSPENSION NGT SCH (22:18)
[2020-07-02] MEDS: CHOLESTYRAMINE/ASPARTAME 4 GM PACKET GT SCH ×3 (06:52→22:02)
[2020-07-02] MEDS: GABAPENTIN 250 MG/5 ML ORAL SOLUTION, 470 ML BOTTLE GT SCH ×3 (06:52→22:43)
[2020-07-02] MEDS: ACETYLCYSTEINE 20% 200MG/ML 4 ML VIAL *FOR ORAL / INH USE ONLY NEB SCH ×2 (07:45→19:40)
[2020-07-02] MEDS ORDERED: SODIUM CHLORIDE 250 ML IV PRN (07:51)
[2020-07-02] MEDS ORDERED: POTASSIUM CHLORIDE TABS 20 MEQ TABLET.ER (FP) PO ONE (08:45)
[2020-07-02 08:55] LABS: HEMATOCRIT 22.6 % (35.4-49); MCH 29.8 pg (25.7-33.7); MEAN CELL VOLUME 96.2 fl (80-96); MEAN PLT VOLUME 7.3 fl (7.5-11.1); PLATELET COUNT 447 K/MM3 (134-434); RBC 2.35 M/mm3 (4.00-5.60); RDW 17.3 % (11.9-15.9); WHITE BLOOD COUNT 10.7 K/mm3 (4.0-10.0)
[2020-07-02] MEDS ORDERED: EPOETIN ALFA 10,000 UNIT/1 ML VIAL IVPUSH ONE (09:00)
[2020-07-02] MEDS ORDERED: LACTOBACILLUS ACIDOPHILUS 1 TABLET PO SCH (10:00)
[2020-07-02 10:41] LABS: ALBUMIN 1.3 g/dl (3.4-5.0); BILIRUBIN,TOTAL 0.2 mg/dL (0.2-1); BLOOD UREA NITROGEN 42.2 mg/dL (7-18); CALCIUM 8.6 mg/dL (8.5-10.1); CREATININE 3.1 mg/dL (0.55-1.3); MAGNESIUM 1.8 mg/dL (1.8-2.4); POTASSIUM 3.4 mmol/L (3.5-5.1); TOT PROT 5.2 g/dl (6.4-8.2)
[2020-07-02] MEDS ORDERED: cefTAZidime PENTAHYDRATE 1 GM VIAL (RESTRICTED TO ID) ONE ×2 (11:08→20:47)
[2020-07-02] MEDS ORDERED: DEXTROSE 5%-WATER - 50 ML IVPB ONE ×2 (11:08→20:47)
[2020-07-02] MEDS: AMINO ACIDS/PROTEIN HYDROLYS 30 ML LIQUID.PKT PO SCH ×2 (11:46→17:11)
[2020-07-02] MEDS: QUEtiapine FUMARATE 25 MG TABLET GT SCH ×2 (11:46→22:02)
[2020-07-02] MEDS: levETIRAcetam 500 MG/5 ML ORAL SOLUTION (UNIT-DOSE CUPS) GT SCH (11:46)
[2020-07-02] MEDS: ZINC SULFATE 220 MG CAPSULE (FP) GT SCH ×2 (11:47→22:02)
[2020-07-02] MEDS: CHOLECALCIFEROL (VIT D SOLUTION) 400 UNIT/1 ML DROPS GT SCH (11:47)
[2020-07-02] MEDS: METOPROLOL TARTRATE 25 MG TABLET (FP) GT SCH ×2 (11:47→22:02)
[2020-07-02] MEDS: APIXABAN 2.5 MG TABLET GT SCH ×2 (11:47→22:02)
[2020-07-02] MEDS: ASCORBIC ACID 500 MG/5 ML UNIT DOSE CUP GT SCH (11:47)
[2020-07-02] MEDS: NYSTATIN 100000 UNIT/GM TOPICAL OINTMENT 15 GM TUBE TP SCH ×2 (11:48→22:02)
[2020-07-02] MEDS: AMOX TR/POTASSIUM CLAVULANATE 250 MG/5 ML BOTTLE PO SCH ×2 (11:48→17:11)
[2020-07-02] MEDS: LACTOBACILLUS ACIDOPHILUS 1 TABLET GT SCH (11:49)
[2020-07-02] MEDS: SODIUM HYPOCHLORITE 0.25%- 473 ML BULK BOTTLE TP SCH (11:49)
[2020-07-02] MEDS: ZINC OXIDE 20% TOPICAL OINTMENT 30 GM TUBE TP SCH ×2 (11:50→22:02)
[2020-07-02] MEDS: MORPHINE SULFATE 2 MG/ML VIAL IVPUSH PRN (11:50)
[2020-07-02] MEDS: COLLAGENASE CLOSTRIDIUM HIST. 30 GRAMS TUBE TP SCH (11:50)
[2020-07-02] MEDS: CEFTAZIDIME PENTAHYDRATE 1 GM in DEXTROSE 5%-WATER - 50 ML IVPB SCH ×2 (13:54→22:00)
[2020-07-02] MEDS: ATORVASTATIN CA 40 MG TABLET (FP) GT SCH (22:00)
[2020-07-02] MEDS: FAMOTIDINE 40 MG/5 ML ORAL SUSPENSION NGT SCH (22:57)
[2020-07-03] MEDS: GABAPENTIN 250 MG/5 ML ORAL SOLUTION, 470 ML BOTTLE GT SCH ×3 (06:13→22:46)
[2020-07-03] MEDS: CHOLESTYRAMINE/ASPARTAME 4 GM PACKET GT SCH ×3 (06:13→22:46)
[2020-07-03 08:52] LABS: HEMATOCRIT 25.6 % (35.4-49); HEMOGLOBIN 7.9 GM/dL (11.7-16.9); MCH 29.7 pg (25.7-33.7); MCHC 30.7 g/dl (32.0-35.9); MEAN CELL VOLUME 96.7 fl (80-96); PLATELET COUNT 438 K/MM3 (134-434); RBC 2.65 M/mm3 (4.00-5.60)
[2020-07-03 09:10] LABS: POTASSIUM 3.5 mmol/L (3.5-5.1)
[2020-07-03] MEDS: ACETYLCYSTEINE 20% 200MG/ML 4 ML VIAL *FOR ORAL / INH USE ONLY NEB SCH ×2 (09:12→20:16)
[2020-07-03 09:13] LABS: ALBUMIN 1.4 g/dl (3.4-5.0); BLOOD UREA NITROGEN 26.7 mg/dL (7-18); CALCIUM 8.8 mg/dL (8.5-10.1)
[2020-07-03 09:17] LABS: CREATININE 2.2 mg/dL (0.55-1.3)
[2020-07-03 09:18] LABS: MAGNESIUM 1.8 mg/dL (1.8-2.4); TOT PROT 5.5 g/dl (6.4-8.2)
[2020-07-03 09:23] LABS: BILIRUBIN,TOTAL 1.4 mg/dL (0.2-1)
[2020-07-03 09:26] LABS: PHOSPHOROUS 2.4 mg/dL (2.5-4.9)
[2020-07-03] MEDS ORDERED: NAPH,MB-DB/K PH,MBDB POWDER PACKET PO ONE (09:57)
[2020-07-03] MEDS ORDERED: cefTAZidime PENTAHYDRATE 1 GM VIAL (RESTRICTED TO ID) ONE ×2 (10:42→22:24)
[2020-07-03] MEDS ORDERED: DEXTROSE 5%-WATER - 50 ML IVPB ONE ×2 (10:42→22:24)
[2020-07-03] MEDS: CEFTAZIDIME PENTAHYDRATE 1 GM in DEXTROSE 5%-WATER - 50 ML IVPB SCH ×2 (11:20→22:43)
[2020-07-03] MEDS: AMINO ACIDS/PROTEIN HYDROLYS 30 ML LIQUID.PKT PO SCH ×2 (11:21→18:14)
[2020-07-03] MEDS: ASCORBIC ACID 500 MG/5 ML UNIT DOSE CUP GT SCH (11:21)
[2020-07-03] MEDS: APIXABAN 2.5 MG TABLET GT SCH ×2 (11:22→22:43)
[2020-07-03] MEDS: AMOX TR/POTASSIUM CLAVULANATE 250 MG/5 ML BOTTLE PO SCH ×2 (11:22→18:14)
[2020-07-03] MEDS: QUEtiapine FUMARATE 25 MG TABLET GT SCH ×2 (11:22→22:43)
[2020-07-03] MEDS: LACTOBACILLUS ACIDOPHILUS 1 TABLET GT SCH (11:22)
[2020-07-03] MEDS: METOPROLOL TARTRATE 25 MG TABLET (FP) GT SCH ×2 (11:22→22:43)
[2020-07-03] MEDS: NYSTATIN 100000 UNIT/GM TOPICAL OINTMENT 15 GM TUBE TP SCH ×2 (11:23→22:45)
[2020-07-03] MEDS: CHOLECALCIFEROL (VIT D SOLUTION) 400 UNIT/1 ML DROPS GT SCH (11:23)
[2020-07-03] MEDS: ZINC SULFATE 220 MG CAPSULE (FP) GT SCH ×2 (11:23→22:42)
[2020-07-03] MEDS: MORPHINE SULFATE 2 MG/ML VIAL IVPUSH PRN (11:23)
[2020-07-03] MEDS: SODIUM HYPOCHLORITE 0.25%- 473 ML BULK BOTTLE TP SCH (18:13)
[2020-07-03] MEDS: ZINC OXIDE 20% TOPICAL OINTMENT 30 GM TUBE TP SCH ×2 (18:13→22:46)
[2020-07-03] MEDS: COLLAGENASE CLOSTRIDIUM HIST. 30 GRAMS TUBE TP SCH (18:13)
[2020-07-03] MEDS ORDERED: PT OWN MED DRAWER 7, Y5N ONE (22:25)
[2020-07-03] MEDS: ATORVASTATIN CA 40 MG TABLET (FP) GT SCH (22:42)
[2020-07-03] MEDS: FAMOTIDINE 40 MG/5 ML ORAL SUSPENSION NGT SCH (22:45)
[2020-07-04] MEDS: CHOLESTYRAMINE/ASPARTAME 4 GM PACKET GT SCH ×3 (05:37→23:25)
[2020-07-04] MEDS: GABAPENTIN 250 MG/5 ML ORAL SOLUTION, 470 ML BOTTLE GT SCH ×3 (05:37→22:59)
[2020-07-04] MEDS: ACETYLCYSTEINE 20% 200MG/ML 4 ML VIAL *FOR ORAL / INH USE ONLY NEB SCH ×2 (08:05→22:05)
[2020-07-04] MEDS: ZINC OXIDE 20% TOPICAL OINTMENT 30 GM TUBE TP SCH ×2 (10:55→23:04)
[2020-07-04] MEDS: AMINO ACIDS/PROTEIN HYDROLYS 30 ML LIQUID.PKT PO SCH ×2 (11:44→18:04)
[2020-07-04] MEDS: QUEtiapine FUMARATE 25 MG TABLET GT SCH ×2 (11:44→22:59)
[2020-07-04] MEDS: ZINC SULFATE 220 MG CAPSULE (FP) GT SCH ×2 (11:44→22:59)
[2020-07-04] MEDS: LACTOBACILLUS ACIDOPHILUS 1 TABLET GT SCH (11:45)
[2020-07-04] MEDS: CHOLECALCIFEROL (VIT D SOLUTION) 400 UNIT/1 ML DROPS GT SCH (11:45)
[2020-07-04] MEDS: APIXABAN 2.5 MG TABLET GT SCH ×2 (11:45→22:59)
[2020-07-04] MEDS: levETIRAcetam 500 MG/5 ML ORAL SOLUTION (UNIT-DOSE CUPS) GT SCH (11:45)
[2020-07-04] MEDS: METOPROLOL TARTRATE 25 MG TABLET (FP) GT SCH ×2 (11:45→23:11)
[2020-07-04] MEDS: ASCORBIC ACID 500 MG/5 ML UNIT DOSE CUP GT SCH (11:46)
[2020-07-04] MEDS: NYSTATIN 100000 UNIT/GM TOPICAL OINTMENT 15 GM TUBE TP SCH ×2 (11:46→23:04)
[2020-07-04] MEDS: COLLAGENASE CLOSTRIDIUM HIST. 30 GRAMS TUBE TP SCH (11:46)
[2020-07-04] MEDS: CEFTAZIDIME PENTAHYDRATE 1 GM in DEXTROSE 5%-WATER - 50 ML IVPB SCH ×2 (11:46→23:04)
[2020-07-04] MEDS: AMOX TR/POTASSIUM CLAVULANATE 250 MG/5 ML BOTTLE PO SCH ×2 (11:49→18:03)
[2020-07-04] MEDS: SODIUM HYPOCHLORITE 0.25%- 473 ML BULK BOTTLE TP SCH (13:17)
[2020-07-04] MEDS ORDERED: cefTAZidime PENTAHYDRATE 1 GM VIAL (RESTRICTED TO ID) ONE (22:48)
[2020-07-04] MEDS ORDERED: DEXTROSE 5%-WATER - 50 ML IVPB ONE (22:49)
[2020-07-04] MEDS ORDERED: PT OWN MED DRAWER 7, Y5N ONE (22:52)
[2020-07-04] MEDS: ATORVASTATIN CA 40 MG TABLET (FP) GT SCH (22:59)
[2020-07-04] MEDS: LINEZOLID 100 MG/5 ML BTL (RESTRICTED TO ID) GT SCH (23:03)
[2020-07-04] MEDS: FAMOTIDINE 40 MG/5 ML ORAL SUSPENSION NGT SCH (23:11)
[2020-07-05] MEDS: GABAPENTIN 250 MG/5 ML ORAL SOLUTION, 470 ML BOTTLE GT SCH ×3 (05:25→23:08)
[2020-07-05] MEDS: CHOLESTYRAMINE/ASPARTAME 4 GM PACKET GT SCH ×3 (05:25→23:09)
[2020-07-05] MEDS ORDERED: PT OWN MED DRAWER 7, Y5N ONE ×2 (05:38→18:39)
[2020-07-05] MEDS: ACETYLCYSTEINE 20% 200MG/ML 4 ML VIAL *FOR ORAL / INH USE ONLY NEB SCH (08:12)
[2020-07-05] MEDS ORDERED: EPOETIN ALFA 10,000 UNIT/1 ML VIAL IVPUSH ONE (11:05)
[2020-07-05] MEDS: SODIUM HYPOCHLORITE 0.25%- 473 ML BULK BOTTLE TP SCH (13:20)
[2020-07-05] MEDS: NYSTATIN 100000 UNIT/GM TOPICAL OINTMENT 15 GM TUBE TP SCH ×2 (13:21→23:21)
[2020-07-05] MEDS: COLLAGENASE CLOSTRIDIUM HIST. 30 GRAMS TUBE TP SCH (13:21)
[2020-07-05] MEDS: AMOX TR/POTASSIUM CLAVULANATE 250 MG/5 ML BOTTLE PO SCH ×2 (18:19→18:55)
[2020-07-05] MEDS: AMINO ACIDS/PROTEIN HYDROLYS 30 ML LIQUID.PKT PO SCH ×2 (18:19→18:58)
[2020-07-05] MEDS: CEFTAZIDIME PENTAHYDRATE 1 GM in DEXTROSE 5%-WATER - 50 ML IVPB SCH ×2 (18:49→23:20)
[2020-07-05] MEDS: LACTOBACILLUS ACIDOPHILUS 1 TABLET GT SCH (18:51)
[2020-07-05] MEDS: ZINC OXIDE 20% TOPICAL OINTMENT 30 GM TUBE TP SCH ×2 (18:51→22:10)
[2020-07-05] MEDS: APIXABAN 2.5 MG TABLET GT SCH ×2 (18:51→22:58)
[2020-07-05] MEDS: METOPROLOL TARTRATE 25 MG TABLET (FP) GT SCH ×2 (18:51→23:07)
[2020-07-05] MEDS: ZINC SULFATE 220 MG CAPSULE (FP) GT SCH ×2 (18:59→23:08)
[2020-07-05] MEDS: QUEtiapine FUMARATE 25 MG TABLET GT SCH ×2 (18:59→23:09)
[2020-07-05] MEDS: ASCORBIC ACID 500 MG/5 ML UNIT DOSE CUP GT SCH (18:59)
[2020-07-05] MEDS: LINEZOLID 100 MG/5 ML BTL (RESTRICTED TO ID) GT SCH ×2 (19:00→23:09)
[2020-07-05] MEDS: CHOLECALCIFEROL (VIT D SOLUTION) 400 UNIT/1 ML DROPS GT SCH (19:00)
[2020-07-05] MEDS ORDERED: DEXTROSE 5%-WATER - 50 ML IVPB ONE (22:36)
[2020-07-05] MEDS ORDERED: cefTAZidime PENTAHYDRATE 1 GM VIAL (RESTRICTED TO ID) ONE (22:36)
[2020-07-05] MEDS: FAMOTIDINE 40 MG/5 ML ORAL SUSPENSION NGT SCH (23:20)
[2020-07-05] MEDS: ATORVASTATIN CA 40 MG TABLET (FP) GT SCH (23:21)
[2020-07-06] MEDS: GABAPENTIN 250 MG/5 ML ORAL SOLUTION, 470 ML BOTTLE GT SCH ×2 (05:38→14:25)
[2020-07-06] MEDS: CHOLESTYRAMINE/ASPARTAME 4 GM PACKET GT SCH ×2 (05:39→14:25)
[2020-07-06] MEDS: ACETYLCYSTEINE 20% 200MG/ML 4 ML VIAL *FOR ORAL / INH USE ONLY NEB SCH (07:30)
[2020-07-06 08:30] LABS: POTASSIUM 3.9 mmol/L (3.5-5.1)
[2020-07-06 08:34] LABS: BLOOD UREA NITROGEN 22.8 mg/dL (7-18); CALCIUM 8.6 mg/dL (8.5-10.1)
[2020-07-06 08:37] LABS: CREATININE 2.1 mg/dL (0.55-1.3)
[2020-07-06 08:40] LABS: HEMATOCRIT 24.8 % (35.4-49); HEMOGLOBIN 7.9 GM/dL (11.7-16.9); MCH 30.7 pg (25.7-33.7); MCHC 31.8 g/dl (32.0-35.9); MEAN CELL VOLUME 96.5 fl (80-96); MEAN PLT VOLUME 7.2 fl (7.5-11.1); PLATELET COUNT 441 K/MM3 (134-434); RBC 2.57 M/mm3 (4.00-5.60); RDW 16.8 % (11.9-15.9); WHITE BLOOD COUNT 13.4 K/mm3 (4.0-10.0)
[2020-07-06] MEDS ORDERED: PT OWN MED DRAWER 7, Y5N ONE ×2 (10:46→14:23)
[2020-07-06] MEDS ORDERED: DEXTROSE 5%-WATER - 50 ML IVPB ONE (10:46)
[2020-07-06] MEDS ORDERED: cefTAZidime PENTAHYDRATE 1 GM VIAL (RESTRICTED TO ID) ONE (10:46)
[2020-07-06] MEDS: AMINO ACIDS/PROTEIN HYDROLYS 30 ML LIQUID.PKT PO SCH (11:29)
[2020-07-06] MEDS: LINEZOLID 100 MG/5 ML BTL (RESTRICTED TO ID) GT SCH (11:30)
[2020-07-06] MEDS: CEFTAZIDIME PENTAHYDRATE 1 GM in DEXTROSE 5%-WATER - 50 ML IVPB SCH (11:30)
[2020-07-06] MEDS: APIXABAN 2.5 MG TABLET GT SCH (11:31)
[2020-07-06] MEDS: ZINC SULFATE 220 MG CAPSULE (FP) GT SCH (11:31)
[2020-07-06] MEDS: levETIRAcetam 500 MG/5 ML ORAL SOLUTION (UNIT-DOSE CUPS) GT SCH (11:32)
[2020-07-06] MEDS: LACTOBACILLUS ACIDOPHILUS 1 TABLET GT SCH (11:33)
[2020-07-06] MEDS: CHOLECALCIFEROL (VIT D SOLUTION) 400 UNIT/1 ML DROPS GT SCH (11:34)
[2020-07-06] MEDS: ASCORBIC ACID 500 MG/5 ML UNIT DOSE CUP GT SCH (11:35)
[2020-07-06] MEDS: METOPROLOL TARTRATE 25 MG TABLET (FP) GT SCH (11:36)
[2020-07-06] MEDS: QUEtiapine FUMARATE 25 MG TABLET GT SCH (11:36)
[2020-07-06] MEDS: AMOX TR/POTASSIUM CLAVULANATE 250 MG/5 ML BOTTLE PO SCH (11:41)
[2020-07-06] MEDS: SODIUM HYPOCHLORITE 0.25%- 473 ML BULK BOTTLE TP SCH (13:26)
[2020-07-06] MEDS: ZINC OXIDE 20% TOPICAL OINTMENT 30 GM TUBE TP SCH (13:40)
[2020-07-06] MEDS: COLLAGENASE CLOSTRIDIUM HIST. 30 GRAMS TUBE TP SCH (13:40)
[2020-07-06] MEDS: NYSTATIN 100000 UNIT/GM TOPICAL OINTMENT 15 GM TUBE TP SCH (13:40)
[2020-07-06 15:57] VITALS: BP 126/82; PULSE 102; TEMP 99.2
== END 2020-07-06 16:08 | DRG 720 ==
LOC: JER 12:20 → JERBED 14:11 → J7W 23:50 → JICU 06-08 03:30 → J4S 06-08 08:38 → J6S 06-24 19:08
PROVIDERS: ATTEND Internal Medicine
PROC: 2W15X6Z Compression of Back using Pressure Dressing (ICD-10-PCS; principal; 2020-06-17)
PROC: 05PYX3Z Removal of Infusion Device from Upper Vein, External Approach (ICD-10-PCS; 2020-06-17)
PROC: 06HM33Z Insertion of Infusion Device into Right Femoral Vein, Percutaneous Approach (ICD-10-PCS; 2020-06-20)
PROC: B54BZZA Ultrasonography of Right Lower Extremity Veins, Guidance (ICD-10-PCS; 2020-06-20)
PROC: 0JH63XZ Insertion of Tunneled Vascular Access Device into Chest Subcutaneous Tissue and Fascia, Percutaneous Approach (ICD-10-PCS; 2020-06-27)
PROC: 05HM33Z Insertion of Infusion Device into Right Internal Jugular Vein, Percutaneous Approach (ICD-10-PCS; 2020-06-27)
PROC: B513ZZA Fluoroscopy of Right Jugular Veins, Guidance (ICD-10-PCS; 2020-06-27)
PROC: 5A1D70Z Performance of Urinary Filtration, Intermittent, Less than 6 Hours Per Day (ICD-10-PCS; 2020-06-30)
PROC: 5A1D70Z Performance of Urinary Filtration, Intermittent, Less than 6 Hours Per Day (ICD-10-PCS; 2020-07-02)
PROC: 5A1D70Z Performance of Urinary Filtration, Intermittent, Less than 6 Hours Per Day (ICD-10-PCS; 2020-07-05)
DX: A41.89 Other specified sepsis (principal); R53.2 Functional quadriplegia; I48.91 Unspecified atrial fibrillation; I10 Essential (primary) hypertension; E66.01 Morbid (severe) obesity due to excess calories; Z68.41 Body mass index [BMI] 40.0-44.9, adult; L89.154 Pressure ulcer of sacral region, stage 4; J18.9 Pneumonia, unspecified organism; L89.122 Pressure ulcer of left upper back, stage 2; J96.01 Acute respiratory failure with hypoxia; T82.7XXA Infection and inflammatory reaction due to other cardiac and vascular devices, implants and grafts, initial encounter; I12.0 Hypertensive chronic kidney disease with stage 5 chronic kidney disease or end stage renal disease; R50.9 Fever, unspecified; N18.6 End stage renal disease; R13.10 Dysphagia, unspecified; D72.829 Elevated white blood cell count, unspecified; L89.890 Pressure ulcer of other site, unstageable; R56.9 Unspecified convulsions; R00.0 Tachycardia, unspecified; D64.9 Anemia, unspecified; T17.590A Other foreign object in bronchus causing asphyxiation, initial encounter; E87.1 Hypo-osmolality and hyponatremia; Z93.1 Gastrostomy status; Z99.2 Dependence on renal dialysis; Z93.0 Tracheostomy status
CPT/HCPCS: 36415; 71045-TC-FY; 76000-TC-FY; 76705-TC; 76882-TC-RT-FY; 80048; 80053; 82550; 82728; 82803; 83605; 83615; 83735; 83880; 84100; 84484; 85025; 85027; 85379; 85610; 85651; 85730; 86140; 86850; 86900; 86901; 87040; 87070; 87076; 87077; 87186; 87205; 87324; 87340; 87449; 93005; 93010; 93306-TC; 94640; 94760; 99285-25; C9803; E0194; G0480; J0885; J1100; J1644; J2020; Q5106; U0003

== ENCOUNTER 2020-10-18 13:04 | Inpatient (IN) | payer OTHER ==
[2020-10-18] MEDS ORDERED: SODIUM CHLORIDE 0.9% 500 ML INFUS.BAG IV ONE ×2 (14:45→16:29)
[2020-10-18 15:22] LABS: VENOUS BASE EXCESS -1.2 mmol/L (-2-2); VENOUS PCO2 40.9 mmHg (38-52); VENOUS PH 7.383 (7.310-7.410)
[2020-10-18 15:24] LABS: BASO % 0.4 % (0-2.0); EOS % 0.9 % (0-4.5); HEMATOCRIT 28.2 % (35.4-49); HEMOGLOBIN 8.9 GM/dL (11.7-16.9); LYMPH % 11.6 % (8-40); MCH 30.1 pg (25.7-33.7); MCHC 31.7 g/dl (32.0-35.9); MEAN CELL VOLUME 94.9 fl (80-96); MEAN PLT VOLUME 7.4 fl (7.5-11.1); MONO % 5.7 % (3.8-10.2); NEUT % 81.4 % (42.8-82.8); PLATELET COUNT 501 K/MM3 (134-434); RBC 2.97 M/mm3 (4.00-5.60); RDW 16.1 % (11.9-15.9); WHITE BLOOD COUNT 21.4 K/mm3 (4.0-10.0)
[2020-10-18 15:25] LABS: VENOUS O2 SATURATION 77.7 % (70-80)
[2020-10-18 15:33] LABS: INR 1.25 (0.83-1.09); PROTHROMBIN TIME (PATIENT) 15.3 SEC (9.7-13.0)
[2020-10-18 15:35] LABS: ACTIVATED PTT 29.8 SECONDS (25.2-36.5)
[2020-10-18 15:42] LABS: CHLORIDE 99 mmol/L (98-107); POTASSIUM 3.8 mmol/L (3.5-5.1); SODIUM 133 mmol/L (136-145)
[2020-10-18 15:44] LABS: ALBUMIN 2.3 g/dl (3.4-5.0); ANION GAP 8 MMOL/L (8-16); BLOOD UREA NITROGEN 42.8 mg/dL (7-18); CALCIUM 9.9 mg/dL (8.5-10.1); CO2 26 mmol/L (21-32)
[2020-10-18 15:45] LABS: GLUCOSE,RANDOM 115 mg/dL (74-106)
[2020-10-18 15:47] LABS: SGPT/ALT 27 U/L (13-61)
[2020-10-18 15:48] LABS: CREATININE 2.7 mg/dL (0.55-1.3); SGOT/AST 21 U/L (15-37)
[2020-10-18 15:49] LABS: BILIRUBIN,TOTAL 0.2 mg/dL (0.2-1); TOT PROT 7.7 g/dl (6.4-8.2)
[2020-10-18 15:50] LABS: ALK PHOS 182 U/L (45-117)
[2020-10-18 15:52] LABS: EPI CELLS 6 /uL (0-25.1); HYALINE CASTS 7 /uL (0-3.1); PH,URINE 6.5 (5.0-8.0); URINE APPEARANCE TURBID; URINE BACTERIA 464 /uL (0-1359); URINE BILIRUBIN NEGATIVE (NEGATIVE); URINE COLOR YELLOW; URINE GLUCOSE (UA) NEGATIVE (NEGATIVE); URINE KETONE NEGATIVE (NEGATIVE); URINE LEUK ESTERASE 3+ (NEGATIVE); URINE NITRITE NEGATIVE (NEGATIVE); URINE PROTEIN 3+ (NEGATIVE); URINE RBC 140 /uL (0-23.9); URINE UROBILINOGEN 0.2 mg/dL (0.2-1.0); URINE WBC 11463 /uL (0-25.8)
[2020-10-18 15:55] LABS: ANISOCYTOSIS 2+; MACROCYTOSIS 0; PLATELET ESTIMATE INCREASED; TARGET CELLS 1+
[2020-10-18] MEDS ORDERED: CEFTRIAXONE 1 GM in DEXTROSE 5%-WATER - 100 ML IVPB ONE (16:17)
[2020-10-18 16:20] LABS: LACTIC ACID 2.4 mmol/L (0.4-2.0)
[2020-10-18] MEDS ORDERED: CEFTRIAXONE 1 GM/50 ML BAG ONE (16:31)
[2020-10-18] MEDS ORDERED: MEROPENEM 1 GM in DEXTROSE 5%-WATER 100 ML IVPB ONE (18:30)
[2020-10-18] MEDS ORDERED: LINEZOLID 600 MG PREMIX BAG 600 MG in PREMIX 300 IVPB ONE (18:30)
[2020-10-18] MEDS ORDERED: TIGECYCLINE 100 MG in DEXTROSE 5%-WATER - 100 ML IVPB ONE (18:37)
[2020-10-18] MEDS ORDERED: DAPTOMYCIN 600 MG in SODIUM CHLORIDE 50 ML IVPB ONE (18:39)
[2020-10-18] MEDS ORDERED: MEROPENEM 1 GM VIAL (RESTRICTED TO ID) IVPB ONE (19:04)
[2020-10-18] MEDS ORDERED: levETIRAcetam 500 MG/5 ML INJECTION VIAL IVPB ONE ×2 (19:58→22:37)
[2020-10-18] MEDS ORDERED: LOPERAMIDE HCL 2 MG CAPSULE GT PRN (20:04)
[2020-10-18] MEDS ORDERED: levETIRAcetam 500 MG/5 ML ORAL SOLUTION (UNIT-DOSE CUPS) GT SCH (20:15)
[2020-10-18] MEDS ORDERED: METOPROLOL TARTRATE 25 MG TABLET (FP) ONE (20:43)
[2020-10-18] MEDS: METOPROLOL TARTRATE 25 MG TABLET (FP) GT SCH ×2 (21:12→22:42)
[2020-10-18] MEDS ORDERED: QUEtiapine FUMARATE 25 MG TABLET ONE (21:27)
[2020-10-18] MEDS ORDERED: APIXABAN 2.5 MG TABLET ONE (21:27)
[2020-10-18] MEDS ORDERED: ATORVASTATIN CA 40 MG TABLET (FP) ONE (21:27)
[2020-10-18] MEDS ORDERED: GABAPENTIN 100 MG CAPSULE ONE (21:27)
[2020-10-18] MEDS: GABAPENTIN 300 MG CAPSULE GT SCH (21:39)
[2020-10-18] MEDS: APIXABAN 2.5 MG TABLET GT SCH (21:39)
[2020-10-18] MEDS: ATORVASTATIN CA 40 MG TABLET (FP) GT SCH (21:39)
[2020-10-18] MEDS: QUEtiapine FUMARATE 25 MG TABLET GT SCH (21:40)
[2020-10-18] MEDS: MIDODRINE HCL 5 MG TABLET GT SCH (22:21)
[2020-10-18] MEDS: CHOLESTYRAMINE/ASPARTAME 4 GM PACKET GT SCH (22:21)
[2020-10-19] MEDS ORDERED: MEROPENEM 1 GM VIAL (RESTRICTED TO ID) IVPB ONE ×3 (02:02→21:18)
[2020-10-19] MEDS: MEROPENEM 1 GM in DEXTROSE 5%-WATER 100 ML IVPB SCH ×3 (02:10→21:44)
[2020-10-19] MEDS ORDERED: GABAPENTIN 100 MG CAPSULE ONE (05:12)
[2020-10-19] MEDS: CHOLESTYRAMINE/ASPARTAME 4 GM PACKET GT SCH ×3 (05:19→21:44)
[2020-10-19] MEDS: GABAPENTIN 300 MG CAPSULE GT SCH ×3 (05:19→21:44)
[2020-10-19 06:29] LABS: BASO % 0.7 % (0-2.0); EOS % 1.6 % (0-4.5); HEMATOCRIT 25.1 % (35.4-49); HEMOGLOBIN 8.2 GM/dL (11.7-16.9); LYMPH % 14.9 % (8-40); MCH 30.5 pg (25.7-33.7); MCHC 32.6 g/dl (32.0-35.9); MEAN CELL VOLUME 93.6 fl (80-96); MEAN PLT VOLUME 7.6 fl (7.5-11.1); MONO % 8.1 % (3.8-10.2); NEUT % 74.7 % (42.8-82.8); PLATELET COUNT 466 K/MM3 (134-434); RBC 2.68 M/mm3 (4.00-5.60); RDW 16.3 % (11.9-15.9); WHITE BLOOD COUNT 16.9 K/mm3 (4.0-10.0)
[2020-10-19 06:55] LABS: CALCIUM 9.6 mg/dL (8.5-10.1)
[2020-10-19 06:56] LABS: BLOOD UREA NITROGEN 49.4 mg/dL (7-18)
[2020-10-19 06:57] LABS: BILIRUBIN,TOTAL 0.2 mg/dL (0.2-1); MAGNESIUM 2.1 mg/dL (1.8-2.4)
[2020-10-19 06:58] LABS: PHOSPHOROUS 2.6 mg/dL (2.5-4.9)
[2020-10-19 06:59] LABS: CREATININE 3.1 mg/dL (0.55-1.3)
[2020-10-19 07:27] LABS: POTASSIUM 4.1 mmol/L (3.5-5.1)
[2020-10-19] MEDS ORDERED: METOPROLOL TARTRATE 25 MG TABLET (FP) ONE (09:24)
[2020-10-19 09:31] LABS: ANISOCYTOSIS 2+; MACROCYTOSIS 0; PLATELET ESTIMATE NORMAL
[2020-10-19] MEDS ORDERED: QUEtiapine FUMARATE 25 MG TABLET ONE (09:42)
[2020-10-19] MEDS: QUEtiapine FUMARATE 25 MG TABLET GT SCH ×2 (09:56→21:44)
[2020-10-19] MEDS: LACTOBACILLUS ACIDOPHILUS 1 TABLET GT SCH (09:56)
[2020-10-19] MEDS: FAMOTIDINE 40 MG/5 ML ORAL SUSPENSION NGT SCH (09:56)
[2020-10-19] MEDS: APIXABAN 2.5 MG TABLET GT SCH ×2 (09:56→21:44)
[2020-10-19] MEDS: METOPROLOL TARTRATE 25 MG TABLET (FP) GT SCH ×2 (09:56→21:44)
[2020-10-19] MEDS: ASCORBIC ACID 500 MG/5 ML UNIT DOSE CUP GT SCH (09:56)
[2020-10-19] MEDS ORDERED: PATIENT'S OWN MEDICATION (NON-FORMULARY) (Ferrous Sulfate [Ferrous Sulfate] 325 MG Tablet) GT SCH (10:00)
[2020-10-19] MEDS ORDERED: LINEZOLID 600 MG PREMIX BAG 600 MG in PREMIX 300 IVPB SCH (16:45)
[2020-10-19] MEDS: LINEZOLID 600 MG PREMIX BAG 600 MG/300 ML BAG IVPB SCH (17:11)
[2020-10-19] MEDS ORDERED: DEXTROSE 5%-WATER 100 ML IVPB ONE (21:18)
[2020-10-19] MEDS: ATORVASTATIN CA 40 MG TABLET (FP) GT SCH (21:44)
[2020-10-19] MEDS: MIDODRINE HCL 5 MG TABLET GT SCH (21:45)
[2020-10-20] MEDS: LINEZOLID 600 MG PREMIX BAG 600 MG/300 ML BAG IVPB SCH ×2 (04:16→16:49)
[2020-10-20] MEDS: CHOLESTYRAMINE/ASPARTAME 4 GM PACKET GT SCH ×3 (05:32→21:19)
[2020-10-20] MEDS: GABAPENTIN 300 MG CAPSULE GT SCH (05:32)
[2020-10-20 08:04] LABS: POTASSIUM 4.4 mmol/L (3.5-5.1)
[2020-10-20 08:09] LABS: CALCIUM 10.2 mg/dL (8.5-10.1)
[2020-10-20 08:10] LABS: BLOOD UREA NITROGEN 57.6 mg/dL (7-18)
[2020-10-20 08:13] LABS: CREATININE 3.7 mg/dL (0.55-1.3)
[2020-10-20 08:40] LABS: BASO % 0.4 % (0-2.0); EOS % 3.7 % (0-4.5); HEMATOCRIT 26.8 % (35.4-49); HEMOGLOBIN 8.6 GM/dL (11.7-16.9); LYMPH % 7.8 % (8-40); MCH 30.8 pg (25.7-33.7); MCHC 32.3 g/dl (32.0-35.9); MEAN CELL VOLUME 95.5 fl (80-96); MEAN PLT VOLUME 7.6 fl (7.5-11.1); MONO % 6.4 % (3.8-10.2); NEUT % 81.7 % (42.8-82.8); PLATELET COUNT 479 K/MM3 (134-434); RDW 16.5 % (11.9-15.9); WHITE BLOOD COUNT 13.2 K/mm3 (4.0-10.0)
[2020-10-20] MEDS ORDERED: MEROPENEM 1 GM VIAL (RESTRICTED TO ID) IVPB ONE ×2 (10:02→20:34)
[2020-10-20] MEDS ORDERED: DEXTROSE 5%-WATER 100 ML IVPB ONE ×2 (10:02→20:34)
[2020-10-20] MEDS ORDERED: PT OWN MED DRAWER 7, Y5N ONE ×2 (10:03→20:09)
[2020-10-20] MEDS: MEROPENEM 1 GM in DEXTROSE 5%-WATER 100 ML IVPB SCH ×2 (10:24→21:17)
[2020-10-20] MEDS: METOPROLOL TARTRATE 25 MG TABLET (FP) GT SCH ×2 (10:25→21:16)
[2020-10-20] MEDS: FAMOTIDINE 40 MG/5 ML ORAL SUSPENSION NGT SCH (10:25)
[2020-10-20] MEDS: QUEtiapine FUMARATE 25 MG TABLET GT SCH ×2 (10:25→21:16)
[2020-10-20] MEDS: APIXABAN 2.5 MG TABLET GT SCH ×2 (10:25→21:16)
[2020-10-20] MEDS: LACTOBACILLUS ACIDOPHILUS 1 TABLET GT SCH (10:25)
[2020-10-20] MEDS: ASCORBIC ACID 500 MG/5 ML UNIT DOSE CUP GT SCH (10:26)
[2020-10-20] MEDS: PYRIDOXINE HCL (B-6) 50 MG TABLET (FP) GT SCH (10:27)
[2020-10-20 10:51] LABS: ANISOCYTOSIS 1+; MACROCYTOSIS 0; PLATELET ESTIMATE NORMAL
[2020-10-20] MEDS ORDERED: GABAPENTIN 250 MG/5 ML ORAL SOLUTION, 470 ML BOTTLE GT SCH (10:59)
[2020-10-20] MEDS ORDERED: LOPERAMIDE HCL 1 MG/7.5 ML LIQUID GT PRN (11:08)
[2020-10-20] MEDS: GABAPENTIN 250 MG/5 ML ORAL SOLUTION, 470 ML BOTTLE GT SCH ×2 (13:28→21:19)
[2020-10-20] MEDS: COLLAGENASE CLOSTRIDIUM HIST. 30 GRAMS TUBE TP SCH (13:28)
[2020-10-20 14:21] VITALS: BMI 35.2
[2020-10-20] MEDS: levETIRAcetam 500 MG/5 ML ORAL SOLUTION (UNIT-DOSE CUPS) GT SCH (20:12)
[2020-10-20] MEDS: MIDODRINE HCL 5 MG TABLET GT SCH (20:59)
[2020-10-20] MEDS: ATORVASTATIN CA 40 MG TABLET (FP) GT SCH (21:16)
[2020-10-21] MEDS: CHOLESTYRAMINE/ASPARTAME 4 GM PACKET GT SCH ×3 (06:13→22:04)
[2020-10-21] MEDS: GABAPENTIN 250 MG/5 ML ORAL SOLUTION, 470 ML BOTTLE GT SCH ×3 (06:14→22:03)
[2020-10-21] MEDS ORDERED: PT OWN MED DRAWER 7, Y5N ONE ×6 (07:28→21:37)
[2020-10-21] MEDS ORDERED: EPOETIN ALFA-EPBX 4,000 UNIT/ML VIAL IVPUSH ONE (08:00)
[2020-10-21] MEDS ORDERED: SODIUM CHLORIDE 250 ML IV PRN (08:00)
[2020-10-21] MEDS ORDERED: ALBUMIN HUMAN 25% 12.5 GM/50 ML VIAL IVPB SCH (08:45)
[2020-10-21 11:14] LABS: BASO % 0.7 % (0-2.0); EOS % 6.1 % (0-4.5); HEMATOCRIT 25.3 % (35.4-49); HEMOGLOBIN 8.5 GM/dL (11.7-16.9); LYMPH % 11.2 % (8-40); MCH 31.4 pg (25.7-33.7); MCHC 33.7 g/dl (32.0-35.9); MEAN CELL VOLUME 93.1 fl (80-96); MEAN PLT VOLUME 7.4 fl (7.5-11.1); MONO % 6.9 % (3.8-10.2); NEUT % 75.1 % (42.8-82.8); PLATELET COUNT 436 K/MM3 (134-434); RBC 2.72 M/mm3 (4.00-5.60); RDW 16.1 % (11.9-15.9); WHITE BLOOD COUNT 9.2 K/mm3 (4.0-10.0)
[2020-10-21] MEDS ORDERED: DEXTROSE 5%-WATER 100 ML IVPB ONE ×2 (11:18→21:36)
[2020-10-21] MEDS ORDERED: MEROPENEM 1 GM VIAL (RESTRICTED TO ID) IVPB ONE ×2 (11:18→21:35)
[2020-10-21] MEDS: APIXABAN 2.5 MG TABLET GT SCH ×2 (11:25→22:03)
[2020-10-21] MEDS: METOPROLOL TARTRATE 25 MG TABLET (FP) GT SCH ×2 (11:26→22:04)
[2020-10-21] MEDS: COLLAGENASE CLOSTRIDIUM HIST. 30 GRAMS TUBE TP SCH (11:27)
[2020-10-21] MEDS: PYRIDOXINE HCL (B-6) 50 MG TABLET (FP) GT SCH (11:27)
[2020-10-21] MEDS: QUEtiapine FUMARATE 25 MG TABLET GT SCH ×2 (11:27→22:03)
[2020-10-21] MEDS: MEROPENEM 1 GM in DEXTROSE 5%-WATER 100 ML IVPB SCH ×2 (11:28→22:03)
[2020-10-21] MEDS: LACTOBACILLUS ACIDOPHILUS 1 TABLET GT SCH (11:28)
[2020-10-21] MEDS: MIDODRINE HCL 5 MG TABLET GT SCH (11:33)
[2020-10-21] MEDS: ASCORBIC ACID 500 MG/5 ML UNIT DOSE CUP GT SCH (11:37)
[2020-10-21] MEDS: FAMOTIDINE 40 MG/5 ML ORAL SUSPENSION NGT SCH (11:37)
[2020-10-21 11:44] LABS: POTASSIUM 3.3 mmol/L (3.5-5.1)
[2020-10-21 11:49] LABS: CALCIUM 9.6 mg/dL (8.5-10.1)
[2020-10-21 11:50] LABS: ALBUMIN 2.3 g/dl (3.4-5.0); MAGNESIUM 1.9 mg/dL (1.8-2.4)
[2020-10-21 11:52] LABS: BLOOD UREA NITROGEN 18.1 mg/dL (7-18)
[2020-10-21 11:53] LABS: CREATININE 1.5 mg/dL (0.55-1.3)
[2020-10-21 11:55] LABS: BILIRUBIN,TOTAL 0.3 mg/dL (0.2-1); TOT PROT 6.9 g/dl (6.4-8.2)
[2020-10-21 12:29] LABS: ANISOCYTOSIS 0; MACROCYTOSIS 1+; PLATELET ESTIMATE NORMAL
[2020-10-21] MEDS: ATORVASTATIN CA 40 MG TABLET (FP) GT SCH (22:03)
[2020-10-22] MEDS: ACETAMINOPHEN 325 MG TABLET (FP) PO PRN (06:13)
[2020-10-22] MEDS: CHOLESTYRAMINE/ASPARTAME 4 GM PACKET GT SCH ×3 (06:15→22:24)
[2020-10-22] MEDS: GABAPENTIN 250 MG/5 ML ORAL SOLUTION, 470 ML BOTTLE GT SCH ×3 (06:15→22:26)
[2020-10-22 07:12] LABS: BASO % 0.7 % (0-2.0); EOS % 6.8 % (0-4.5); HEMATOCRIT 26.3 % (35.4-49); HEMOGLOBIN 8.6 GM/dL (11.7-16.9); MCH 30.9 pg (25.7-33.7); MCHC 32.6 g/dl (32.0-35.9); MEAN CELL VOLUME 94.7 fl (80-96); MEAN PLT VOLUME 7.3 fl (7.5-11.1); MONO % 9.7 % (3.8-10.2); NEUT % 62.8 % (42.8-82.8); PLATELET COUNT 438 K/MM3 (134-434); RBC 2.77 M/mm3 (4.00-5.60); RDW 16.5 % (11.9-15.9); WHITE BLOOD COUNT 9.5 K/mm3 (4.0-10.0)
[2020-10-22 07:27] LABS: POTASSIUM 3.9 mmol/L (3.5-5.1)
[2020-10-22 07:32] LABS: ALBUMIN 2.1 g/dl (3.4-5.0); CALCIUM 9.9 mg/dL (8.5-10.1); MAGNESIUM 2.2 mg/dL (1.8-2.4)
[2020-10-22 07:33] LABS: BLOOD UREA NITROGEN 32.1 mg/dL (7-18)
[2020-10-22 07:36] LABS: CREATININE 2.7 mg/dL (0.55-1.3)
[2020-10-22 07:37] LABS: BILIRUBIN,TOTAL 0.3 mg/dL (0.2-1); TOT PROT 6.9 g/dl (6.4-8.2)
[2020-10-22] MEDS ORDERED: MEROPENEM 1 GM VIAL (RESTRICTED TO ID) IVPB ONE ×2 (10:01→22:20)
[2020-10-22] MEDS ORDERED: DEXTROSE 5%-WATER 100 ML IVPB ONE ×2 (10:01→22:20)
[2020-10-22] MEDS ORDERED: PT OWN MED DRAWER 7, Y5N ONE ×2 (10:04→22:21)
[2020-10-22] MEDS: METOPROLOL TARTRATE 25 MG TABLET (FP) GT SCH ×2 (10:14→22:24)
[2020-10-22] MEDS: QUEtiapine FUMARATE 25 MG TABLET GT SCH ×2 (10:14→22:24)
[2020-10-22] MEDS: MEROPENEM 1 GM in DEXTROSE 5%-WATER 100 ML IVPB SCH ×2 (10:14→22:24)
[2020-10-22] MEDS: APIXABAN 2.5 MG TABLET GT SCH ×2 (10:14→22:24)
[2020-10-22] MEDS: PYRIDOXINE HCL (B-6) 50 MG TABLET (FP) GT SCH (10:14)
[2020-10-22] MEDS: LACTOBACILLUS ACIDOPHILUS 1 TABLET GT SCH (10:14)
[2020-10-22] MEDS: FAMOTIDINE 40 MG/5 ML ORAL SUSPENSION NGT SCH (10:15)
[2020-10-22] MEDS: ASCORBIC ACID 500 MG/5 ML UNIT DOSE CUP GT SCH (10:15)
[2020-10-22] MEDS: COLLAGENASE CLOSTRIDIUM HIST. 30 GRAMS TUBE TP SCH (10:15)
[2020-10-22 10:54] LABS: ANISOCYTOSIS 1+; MACROCYTOSIS 0; PLATELET ESTIMATE INCREASED
[2020-10-22] MEDS: levETIRAcetam 500 MG/5 ML ORAL SOLUTION (UNIT-DOSE CUPS) GT SCH (20:59)
[2020-10-22] MEDS: ATORVASTATIN CA 40 MG TABLET (FP) GT SCH (22:24)
[2020-10-23] MEDS: CHOLESTYRAMINE/ASPARTAME 4 GM PACKET GT SCH ×2 (05:36→14:20)
[2020-10-23] MEDS: GABAPENTIN 250 MG/5 ML ORAL SOLUTION, 470 ML BOTTLE GT SCH ×2 (05:36→14:20)
[2020-10-23 06:24] LABS: BASO % 0.6 % (0-2.0); EOS % 5.6 % (0-4.5); HEMATOCRIT 27.4 % (35.4-49); LYMPH % 16.8 % (8-40); MCH 30.9 pg (25.7-33.7); MCHC 32.7 g/dl (32.0-35.9); MEAN CELL VOLUME 94.5 fl (80-96); MEAN PLT VOLUME 7.1 fl (7.5-11.1); MONO % 8.2 % (3.8-10.2); NEUT % 68.8 % (42.8-82.8); PLATELET COUNT 437 K/MM3 (134-434); RDW 16.3 % (11.9-15.9); WHITE BLOOD COUNT 10.4 K/mm3 (4.0-10.0)
[2020-10-23 06:40] LABS: POTASSIUM 3.8 mmol/L (3.5-5.1)
[2020-10-23 06:42] LABS: CALCIUM 10.7 mg/dL (8.5-10.1)
[2020-10-23 06:43] LABS: ALBUMIN 2.1 g/dl (3.4-5.0); BLOOD UREA NITROGEN 40.4 mg/dL (7-18); MAGNESIUM 2.4 mg/dL (1.8-2.4)
[2020-10-23 06:46] LABS: CREATININE 3.4 mg/dL (0.55-1.3)
[2020-10-23 06:48] LABS: BILIRUBIN,TOTAL 0.4 mg/dL (0.2-1); TOT PROT 6.8 g/dl (6.4-8.2)
[2020-10-23] MEDS ORDERED: SODIUM CHLORIDE 250 ML IV PRN (07:28)
[2020-10-23] MEDS ORDERED: EPOETIN ALFA-EPBX 4,000 UNIT/ML VIAL IVPUSH ONE (07:30)
[2020-10-23] MEDS ORDERED: MEROPENEM 1 GM VIAL (RESTRICTED TO ID) IVPB ONE (12:13)
[2020-10-23] MEDS ORDERED: DEXTROSE 5%-WATER 100 ML IVPB ONE (12:13)
[2020-10-23] MEDS ORDERED: PT OWN MED DRAWER 7, Y5N ONE ×2 (12:15→12:43)
[2020-10-23] MEDS: LACTOBACILLUS ACIDOPHILUS 1 TABLET GT SCH (12:27)
[2020-10-23] MEDS: APIXABAN 2.5 MG TABLET GT SCH (12:28)
[2020-10-23] MEDS: MEROPENEM 1 GM in DEXTROSE 5%-WATER 100 ML IVPB SCH (12:29)
[2020-10-23] MEDS: METOPROLOL TARTRATE 25 MG TABLET (FP) GT SCH (12:29)
[2020-10-23] MEDS: COLLAGENASE CLOSTRIDIUM HIST. 30 GRAMS TUBE TP SCH (12:30)
[2020-10-23] MEDS: MIDODRINE HCL 5 MG TABLET GT SCH (12:30)
[2020-10-23] MEDS: QUEtiapine FUMARATE 25 MG TABLET GT SCH (12:31)
[2020-10-23] MEDS: PYRIDOXINE HCL (B-6) 50 MG TABLET (FP) GT SCH (12:31)
[2020-10-23] MEDS: ASCORBIC ACID 500 MG/5 ML UNIT DOSE CUP GT SCH (12:31)
[2020-10-23] MEDS: ACETAMINOPHEN 325 MG TABLET (FP) PO PRN (12:32)
[2020-10-23] MEDS: FAMOTIDINE 40 MG/5 ML ORAL SUSPENSION NGT SCH (13:50)
[2020-10-23 15:05] VITALS: BP 111/71; PULSE 93; TEMP 98.7
[2020-10-23] MEDS: ALBUMIN HUMAN 25% 12.5 GM/50 ML VIAL IVPB SCH ×5 (16:36→16:41)
[2020-10-24] MEDS ORDERED: AMOX TR/POT CLAV 500MG/125MG TABLETS (FP) PO SCH (10:00)
== END 2020-10-23 15:30 | DRG 720 ==
LOC: JER 13:04 → JERBED 16:35 → J4S 10-19 20:49
PROVIDERS: ADMIT Family Medicine; ATTEND Nurse Practitioner Family
DX: A41.89 Other specified sepsis (principal); R00.0 Tachycardia, unspecified; E87.2 Acidosis; I48.91 Unspecified atrial fibrillation; E78.5 Hyperlipidemia, unspecified; R53.2 Functional quadriplegia; D72.829 Elevated white blood cell count, unspecified; J96.11 Chronic respiratory failure with hypoxia; I12.0 Hypertensive chronic kidney disease with stage 5 chronic kidney disease or end stage renal disease; G40.909 Epilepsy, unspecified, not intractable, without status epilepticus; N18.6 End stage renal disease; R13.10 Dysphagia, unspecified; D63.1 Anemia in chronic kidney disease; L89.154 Pressure ulcer of sacral region, stage 4; E66.01 Morbid (severe) obesity due to excess calories; Z68.35 Body mass index [BMI] 35.0-35.9, adult; Z99.2 Dependence on renal dialysis; Z93.0 Tracheostomy status; Z93.1 Gastrostomy status
CPT/HCPCS: 36415; 70450-TC; 71045-TC-FY; 80048; 80053; 80061; 80177; 81003; 82803; 82962; 83036; 83605; 83721; 83735; 84100; 84443; 84484; 85025; 85610; 85730; 86803; 87040; 87070; 87077; 87086; 87205; 87340; 87804; 93005; 93010; 93306-TC; 93880-TC; 97161-GP; 99285-25; C9803; P9047; Q5106; U0003; U0005

== ENCOUNTER 2021-04-23 00:38 | Emergency (ER) | payer OTHER ==
[2021-04-23 00:59] VITALS: BP 109/60; PULSE 103; BMI 30.7
[2021-04-23 01:01] VITALS: TEMP 99.5
== END 2021-04-23 01:30 | disposition short-term general hospital (02) ==
LOC: JER 00:38
DX: J95.03 Malfunction of tracheostomy stoma (principal)
CPT/HCPCS: 99281-25

== ENCOUNTER 2021-06-13 08:53 | Inpatient (IN) | payer OTHER ==
[2021-06-13] MEDS ORDERED: SODIUM CHLORIDE IV ONE (09:12)
[2021-06-13] MEDS ORDERED: SODIUM CHLORIDE 500 ML IV STA ×2 (09:15→18:21)
[2021-06-13 09:19] LABS: VENOUS BASE EXCESS -4.6 mmol/L (-2-2); VENOUS O2 SATURATION 51.3 % (70-80)
[2021-06-13 09:24] LABS: VENOUS PCO2 71.5 mmHg (38-52); VENOUS PH 7.163 (7.310-7.410)
[2021-06-13] MEDS ORDERED: VANCOMYCIN 1 GM in D5W (PRE-DOCKED) 1,000 MG/250 ML IVPB ONE (09:29)
[2021-06-13] MEDS ORDERED: PIPERACILLIN/TAZOB 3.375 GM 3.375 GM in DEXTROSE 5%-WATER - 50 ML IVPB ONE (09:29)
[2021-06-13] MEDS ORDERED: CEFEPIME HCL/D5W 2 GM/50 ML BAG IVPB ONE (09:32)
[2021-06-13 09:37] LABS: HEMOGLOBIN 10.3 GM/dL (11.7-16.9); MCHC 32.1 g/dl (32.0-35.9); MEAN CELL VOLUME 96.7 fl (80-96); MEAN PLT VOLUME 7.5 fl (7.5-11.1); PLATELET COUNT 298 10^3/uL (134-434); RBC 3.31 M/mm3 (4.00-5.60); WHITE BLOOD COUNT 13.7 K/mm3 (4.0-10.0)
[2021-06-13 09:43] LABS: CHLORIDE 100 mmol/L (98-107); SODIUM 132 mmol/L (136-145)
[2021-06-13 09:45] LABS: ALBUMIN 2.1 g/dl (3.4-5.0); CALCIUM 9.3 mg/dL (8.5-10.1)
[2021-06-13 09:46] LABS: BLOOD UREA NITROGEN 77.1 mg/dL (7-18); CO2 26 mmol/L (21-32); GLUCOSE,RANDOM 133 mg/dL (74-106); MAGNESIUM 2.6 mg/dL (1.8-2.4)
[2021-06-13 09:48] LABS: SGPT/ALT 29 U/L (13-61)
[2021-06-13 09:49] LABS: CREATININE 4.2 mg/dL (0.55-1.3); PHOSPHOROUS 7.2 mg/dL (2.5-4.9); SGOT/AST 73 U/L (15-37)
[2021-06-13 09:50] LABS: BILIRUBIN,TOTAL 0.4 mg/dL (0.2-1); TOT PROT 7.7 g/dl (6.4-8.2)
[2021-06-13 09:51] LABS: ALK PHOS 126 U/L (45-117)
[2021-06-13] MEDS ORDERED: VANCOMYCIN 1 GRAM (PRE-DOCKED) 1,000 MG/250 ML BAG IVPB ONE (10:00)
[2021-06-13] MEDS ORDERED: PIPERACILLIN/TAZOB 3.375 GM 3.375 GM/50 ML BAG IVPB ONE (10:01)
[2021-06-13] MEDS ORDERED: CEFEPIME 2 GM/100 ML BAG IVPB ONE (10:01)
[2021-06-13 10:11] LABS: ANION GAP 6 MMOL/L (8-16)
[2021-06-13 10:27] LABS: ARTERIAL BLD GAS O2 SATURATION 98.9 % (95-98); ARTERIAL BLOOD GAS BASE EXCESS -5.5 mmol/L (-2-2)
[2021-06-13 10:30] LABS: VENT RATE 14
[2021-06-13 10:31] LABS: ARTERIAL BLOOD GAS pH 7.193 (7.350-7.450); VENT MODE S/T
[2021-06-13 10:59] LABS: ARTERIAL BLD GAS O2 SATURATION 93.3 % (95-98); ARTERIAL BLOOD GAS BASE EXCESS -6.9 mmol/L (-2-2); ARTERIAL BLOOD GAS PO2 80.6 mmHg (80-100)
[2021-06-13 11:02] LABS: VENT MODE S/T; VENT RATE 14
[2021-06-13 11:07] LABS: EPI CELLS 388.6 /uL (0-25.1); HYALINE CASTS 2468.14 /uL (0-3.1); URINE BACTERIA 1123.2 /uL (0-1359); URINE RBC 22.4 /uL (0-23.9); URINE WBC 9774.1 /uL (0-25.8)
[2021-06-13 11:09] LABS: URINE APPEARANCE TURBID; URINE BILIRUBIN NEGATIVE (NEGATIVE); URINE COLOR YELLOW; URINE GLUCOSE (UA) NEGATIVE (NEGATIVE); URINE KETONE NEGATIVE (NEGATIVE); URINE LEUK ESTERASE 4+ (NEGATIVE); URINE NITRITE NEGATIVE (NEGATIVE); URINE PROTEIN 2+ (NEGATIVE); URINE UROBILINOGEN 0.2 mg/dL (0.2-1.0)
[2021-06-13 11:24] LABS: YEAST NON SEEN (NEGATIVE)
[2021-06-13] MEDS ORDERED: ACETAMINOPHEN 1000 MG/100 ML VIAL IVPB ONE (12:58)
[2021-06-13 13:07] LABS: CALCIUM 9.6 mg/dL (8.5-10.1)
[2021-06-13 13:08] LABS: BLOOD UREA NITROGEN 79.9 mg/dL (7-18)
[2021-06-13 13:11] LABS: CREATININE 4.1 mg/dL (0.55-1.3)
[2021-06-13 13:11] LABS: INR 1.17 (0.83-1.09); PROTHROMBIN TIME (PATIENT) 13.7 SEC (9.7-13.0)
[2021-06-13 13:14] LABS: ACTIVATED PTT 23.6 SECONDS (25.2-36.5)
[2021-06-13 13:47] LABS: ANISOCYTOSIS 1+; MACROCYTOSIS 0; PLATELET ESTIMATE NORMAL
[2021-06-13] MEDS ORDERED: SODIUM CHLORIDE 0.9% 500 ML INFUS.BAG IV ONE (14:06)
[2021-06-13] MEDS ORDERED: ACETAMINOPHEN INJECTION 100 ML IVPB ONE (15:50)
[2021-06-13 17:00] LABS: ARTERIAL BLD GAS O2 SATURATION 67.1 % (95-98); ARTERIAL BLOOD GAS BASE EXCESS -6.3 mmol/L (-2-2); ARTERIAL BLOOD GAS PO2 44.6 mmHg (80-100)
[2021-06-13 17:01] LABS: ARTERIAL BLOOD GAS pH 7.163 (7.350-7.450)
[2021-06-13] MEDS ORDERED: DEXMEDETOMIDINE IN 0.9 % NACL 400 MCG/100 ML VIAL IVPB SCH (17:45)
[2021-06-13] MEDS ORDERED: PIPERACILLIN/TAZOB 2.25 GM 2.25 GM in DEXTROSE 5%-WATER - 50 ML IVPB SCH (18:00)
[2021-06-13] MEDS ORDERED: MIDODRINE HCL 5 MG TABLET PO SCH (18:00)
[2021-06-13] MEDS ORDERED: PIPERACILLIN/TAZOB 2.25 GM 2.25 GM/50 ML BAG IVPB ONE (18:13)
[2021-06-13] MEDS ORDERED: ALBUTEROL SO4 2.5/IPRATROPIUM 0.5 INH SOL 3 ML VIAL.NEB. NEB ONE (18:19)
[2021-06-13] MEDS ORDERED: SODIUM CHLORIDE 1,000 ML IV SCH (19:21)
[2021-06-13] MEDS ORDERED: morphine SULFATE 4 MG/ML VIAL IVPUSH ONE (19:37)
[2021-06-13] MEDS ORDERED: MORPHINE SULFATE/0.9% NACL/PF 100 MG/100 ML BAG ONE (19:44)
[2021-06-13] MEDS ORDERED: morphine SULFATE 4 MG/ML VIAL ONE (19:44)
[2021-06-13] MEDS ORDERED: MORPHINE SULFATE/0.9% NACL/PF 100 MG/100 ML BAG IVPB SCH (19:45)
[2021-06-13 21:43] LABS: ARTERIAL BLD GAS O2 SATURATION 73.4 % (95-98); ARTERIAL BLOOD GAS BASE EXCESS -10.9 mmol/L (-2-2); ARTERIAL BLOOD GAS PO2 61.6 mmHg (80-100)
[2021-06-13 21:44] LABS: ARTERIAL BLOOD GAS pH 6.953 (7.350-7.450)
[2021-06-13 21:46] LABS: VENT MODE BIPAP; VENT RATE 20
[2021-06-13] MEDS ORDERED: CHLORHEXIDINE GLUCONATE 4% CLEANSER FOR DECOLONIZATION TP SCH ×2 (22:00)
[2021-06-13] MEDS ORDERED: HEPARIN NA (PORCINE) 5,000 UNITS/ML 1ML VIAL SQ SCH (22:00)
[2021-06-13] MEDS ORDERED: MUPIROCIN 2% TOPICAL OINTMENT FOR DECOLONIZATION NS SCH ×2 (22:00)
[2021-06-14 00:19] VITALS: BMI 35.4
[2021-06-14] MEDS: MORPHINE SULFATE/0.9% NACL/PF 100 MG/100 ML BAG IVPB SCH ×2 (00:51→19:58)
[2021-06-14 15:37] VITALS: TEMP 98
[2021-06-14 23:02] VITALS: BP 45/27; PULSE 69
== END 2021-06-14 23:58 | disposition expired | DRG 720 ==
LOC: JER 08:53 → JERBED 10:42 → J5S 22:48
PROVIDERS: ADMIT Internal Medicine
PROC: 5A09457 Assistance with Respiratory Ventilation, 24-96 Consecutive Hours, Continuous Positive Airway Pressure (ICD-10-PCS; principal; 2021-06-13)
DX: A41.9 Sepsis, unspecified organism (principal); J96.21 Acute and chronic respiratory failure with hypoxia; J96.22 Acute and chronic respiratory failure with hypercapnia; R53.2 Functional quadriplegia; J69.0 Pneumonitis due to inhalation of food and vomit; N39.0 Urinary tract infection, site not specified; L89.154 Pressure ulcer of sacral region, stage 4; I48.91 Unspecified atrial fibrillation; I12.0 Hypertensive chronic kidney disease with stage 5 chronic kidney disease or end stage renal disease; N18.6 End stage renal disease; Z99.2 Dependence on renal dialysis; E78.5 Hyperlipidemia, unspecified; E66.01 Morbid (severe) obesity due to excess calories; Z68.35 Body mass index [BMI] 35.0-35.9, adult; D72.829 Elevated white blood cell count, unspecified; E87.5 Hyperkalemia; I69.351 Hemiplegia and hemiparesis following cerebral infarction affecting right dominant side; I95.9 Hypotension, unspecified; N17.9 Acute kidney failure, unspecified; L89.610 Pressure ulcer of right heel, unstageable; L89.522 Pressure ulcer of left ankle, stage 2; Z93.1 Gastrostomy status; R64 Cachexia
CPT/HCPCS: 36415; 36600; 71045-TC-FY; 80048; 80053; 80177; 81003; 82550; 82803; 82962; 83605; 83735; 83880; 84100; 84484; 85025; 85610; 85730; 87040; 87086; 87186; 87804; 93005; 93010; 93308; 94660; 99285-25; C9803; J0131; U0003; U0005